=== PATIENT | male | born 1965 | race Caucasian/White ===

== ENCOUNTER 2017-09-03 23:40 | Emergency (ER) | payer MEDICARE, SELFPAY ==
[2017-09-03 23:42] VITALS: BP 157/132; PULSE 77; RESP 18; TEMP 36.8; O2SAT 99; BMI 27.8
--- NOTE | 2017-09-03 23:55 | EKG12_ITS ---
Test Reason : ANXIETY Blood Pressure : / mmHG Vent. Rate : 076 BPM Atrial Rate : 076 BPM P-R Int : 148 ms QRS Dur : 090 ms QT Int : 356 ms P-R-T Axes : 069 084 065 degrees QTc Int : 400 ms Normal sinus rhythm Normal ECG Confirmed by AROLDO WHITE, LUCINA ([id number]), editor sound MERRY BUCIO ([id number]) on 09/06/2017 2:05:14 PM Referred By: TERRY Confirmed By:LUCINA KENDRICK MD
--- NOTE | 2017-09-03 23:58 | ED.VISSUMM ---
- ER Visit Summary Date of Service: 09/03/17 Chief Complaint: panic attack History of Present Illness: The patient is a 51 M with history of anxiety and panic attacks, on disability for same, presents for 2 hours of difficulty breathing and concern for panic attack. Patient states normally his panic attacks last approximately 15 minutes, and he has never had this level of shortness of breath with them before. He has associated alternating hot and cold sensations, sweating of his palms, dry mouth, and was dizzy and lightheaded on onset. He felt like his heart was racing. He was doing work on his car when it began. He recently was changed from ramipril to a different blood pressure medication approximately 1 month ago, and states his panic attacks stopped after that. Has history of hypertension and renal dysfunction. No history of venous thromboembolism or cardiac disease. He uses tobacco but denies alcohol or drug use. Physical Examination: Vital signs: afebrile, hemodynamically stable, no hypoxia on room air General: well nourished, well developed, in no distress, anxious appearing Skin: warm, moist, palms are sweaty, no rash, no pallor HEENT: normocephalic and atraumatic; PERRL, EOMI, moist mucous membranes Cardiovascular: regular rate and rhythm without murmurs, no peripheral edema, 2+ pulses all distal extremities Respiratory: mild tachypnea, lungs are clear to auscultation bilaterally, no rales, rhonchi or wheezing Abdominal: Abdomen is soft, nontender with normoactive bowel sounds, no guarding or rebound, no masses MSK: Moves all extremities, no deformities, normal strength Neuro: Awake and alert, oriented ?4. No facial droop, sensation and motor function intact and symmetric Test Results: Abnormal Lab Results 09/04/17 09/04/17 09/04/17 00:10 00:10 00:10 WBC 10.4 RBC 4.62 Hgb 14.8 Hct 43.3 MCV 93.7 MCH 32.0 MCHC 34.2 RDW 12.6 RDW Differential 42.7 Plt Count 159 MPV 10.2 Immature Gran % (Auto) 0.300 Neut % (Auto) 63.2 Lymph % (Auto) 23.8 [place] % (Auto) 9.5 Eos % (Auto) 2.9 Baso % (Auto) 0.3 Absolute Neuts (auto) 6.6 Absolute Lymphs (auto) 2.48 Total Counted Not Reportable D-Dimer Quant (PE/DVT) < 0.27 L Sodium 138 Potassium 3.4 L Chloride 100 Carbon Dioxide 29.0 Anion Gap 9 BUN 13 Creatinine 1.44 H Estim Creat Clear Calc 64.07 Est GFR (MDRD) Af Amer 67 Est GFR (MDRD) Non-Af 55 L BUN/Creatinine Ratio 9.0 L Glucose 122 H Calcium 9.3 Magnesium 2.0 Troponin I < 0.015 TSH 2.63 Emergency Department Course and Treatment: Patient presents with symptoms that he feels are a panic attack, and he has history of anxiety and panic attacks. However this episode is been more prolonged than he is used to. Patient is having no chest pain but does feel short of breath and is having sweating, dry mouth and tingling in his extremities. Likely this is secondary to hyperventilation. Workup performed to look for underlying medical cause of patient's anxiousness other than panic attack. EKG showed a sinus rhythm without ischemia or ectopy, patient had no tachycardia at any point. Chest x-ray showed no infiltrates or pneumothorax. Labs were unremarkable, with no electrolyte derangements, a normal TSH, no leukocytosis or anemia, a negative d-dimer and a negative troponin. Patient received Ativan and had improvement in his symptoms. On reevaluation he was no longer having any shortness of breath, and was not having any sweating. He still felt mild tingling in his hands and feet. We discussed his anxiety medication regimen, and he states that he has been having more frequent intense panic attacks since his blood pressure medications were changed. We discussed that he may need to talk about changing back or trying a completely different blood pressure medication with his doctor, since this may be affecting his control of his anxiety. Patient was given a prescription for hydroxyzine for anxiety symptoms not well controlled with his home medications. He will follow-up with his doctors to discuss further medical management. No alternative concerning finding on patient's workup to explain his anxiousness. Discharged home. Treatment Plan: [] Disposition: [] Impression: Panic attack This note was generated with [employer] software. It may contain incorrect words, spelling, and punctuation that were not noted in review of the chart prior to signing ED Disposition - Plan for ED Patient: Disposition: Home or Assisted Living Chief Complaint: Anxiety Instructions: ED Panic Attack Prescriptions: Hydroxyzine HCl 25 - 50 mg PO BID PRN #20 tab PRN Reason: Anxiety Referrals: Antonio Fung, MAMIE-C [Primary Care Provider] - As soon as possible Additional Instructions: Please follow-up with your doctors to discuss the possibility that your new blood pressure medication is not interacting well with your anxiety medications. You may use the hydroxyzine as needed for breakthrough anxiety. If you have any worsening of your condition or any new concerning symptoms, please return immediately to the emergency department for another evaluation.
[2017-09-04] MEDS: LORazepam 1 MG Tablet PO (00:02)
--- NOTE | 2017-09-04 00:04 | RAD_ITS ---
XR Chest 1 View INDICATION: SOB/DYSPNEAHX OF ANXIETY ATTACKS COMPARISON: None FINDINGS: Heart size and pulmonary vascularity are within normal limits. The lungs are clear without evidence of airspace consolidation or pleural effusion. The osseous structures are grossly unremarkable. RAD/Chest 1 View (Portable) IMPRESSION: No radiographic evidence of acute intrathoracic disease. at 0045 Reported and signed by: May Crews MD Electronically Signed: May Crews MD at 0:44 EDT Tel , Service support ,
--- NOTE | 2017-09-04 00:04 | ED.DCSUM_ITS ---
- ER Visit Summary Date of Service: 09/03/17 Chief Complaint: panic attack History of Present Illness: The patient is a 51 M with history of anxiety and panic attacks, on disability for same, presents for 2 hours of difficulty breathing and concern for panic attack. Patient states normally his panic attacks last approximately 15 minutes, and he has never had this level of shortness of breath with them before. He has associated alternating hot and cold sensations, sweating of his palms, dry mouth, and was dizzy and lightheaded on onset. He felt like his heart was racing. He was doing work on his car when it began. He recently was changed from ramipril to a different blood pressure medication approximately 1 month ago, and states his panic attacks stopped after that. Has history of hypertension and renal dysfunction. No history of venous thromboembolism or cardiac disease. He uses tobacco but denies alcohol or drug use. Physical Examination: Vital signs: afebrile, hemodynamically stable, no hypoxia on room air General: well nourished, well developed, in no distress, anxious appearing Skin: warm, moist, palms are sweaty, no rash, no pallor HEENT: normocephalic and atraumatic; PERRL, EOMI, moist mucous membranes Cardiovascular: regular rate and rhythm without murmurs, no peripheral edema, 2 + pulses all distal extremities Respiratory: mild tachypnea, lungs are clear to auscultation bilaterally, no rales, rhonchi or wheezing Abdominal: Abdomen is soft, nontender with normoactive bowel sounds, no guarding or rebound, no masses MSK: Moves all extremities, no deformities, normal strength Neuro: Awake and alert, oriented ?4. No facial droop, sensation and motor function intact and symmetric Test Results: Abnormal Lab Results 09/04/17 09/04/17 09/04/17 00:10 00:10 00:10 WBC 10.4 RBC 4.62 Hgb 14.8 Hct 43.3 MCV 93.7 MCH 32.0 MCHC 34.2 RDW 12.6 RDW Differential 42.7 Plt Count 159 MPV 10.2 Immature Gran % (Auto) 0.300 Neut % (Auto) 63.2 Lymph % (Auto) 23.8 [place] % (Auto) 9.5 Eos % (Auto) 2.9 Baso % (Auto) 0.3 Absolute Neuts (auto) 6.6 Absolute Lymphs (auto) 2.48 Total Counted Not Reportable D-Dimer Quant (PE/DVT) < 0.27 L Sodium 138 Potassium 3.4 L Chloride 100 Carbon Dioxide 29.0 Anion Gap 9 BUN 13 Creatinine 1.44 H Estim Creat Clear Calc 64.07 Est GFR (MDRD) Af Amer 67 Est GFR (MDRD) Non-Af 55 L BUN/Creatinine Ratio 9.0 L Glucose 122 H Calcium 9.3 Magnesium 2.0 Troponin I < 0.015 TSH 2.63 Emergency Department Course and Treatment: Patient presents with symptoms that he feels are a panic attack, and he has history of anxiety and panic attacks. However this episode is been more prolonged than he is used to. Patient is having no chest pain but does feel short of breath and is having sweating, dry mouth and tingling in his extremities. Likely this is secondary to hyperventilation. Workup performed to look for underlying medical cause of patient's anxiousness other than panic attack. EKG showed a sinus rhythm without ischemia or ectopy, patient had no tachycardia at any point. Chest x- ray showed no infiltrates or pneumothorax. Labs were unremarkable, with no electrolyte derangements, a normal TSH, no leukocytosis or anemia, a negative d- dimer and a negative troponin. Patient received Ativan and had improvement in his symptoms. On reevaluation he was no longer having any shortness of breath, and was not having any sweating. He still felt mild tingling in his hands and feet. We discussed his anxiety medication regimen, and he states that he has been having more frequent intense panic attacks since his blood pressure medications were changed. We discussed that he may need to talk about changing back or trying a completely different blood pressure medication with his doctor , since this may be affecting his control of his anxiety. Patient was given a prescription for hydroxyzine for anxiety symptoms not well controlled with his home medications. He will follow-up with his doctors to discuss further medical management. No alternative concerning finding on patient's workup to explain his anxiousness. Discharged home. Treatment Plan: [] Disposition: [] Impression: Panic attack This note was generated with [employer] software. It may contain incorrect words, spelling, and punctuation that were not noted in review of the chart prior to signing ED Disposition - Plan for ED Patient: Disposition: Home or Assisted Living Chief Complaint: Anxiety Instructions: ED Panic Attack Prescriptions: Hydroxyzine HCl 25 - 50 mg PO BID PRN #20 tab PRN Reason: Anxiety Referrals: Antonio Fung, MAMIE-C [Primary Care Provider] - As soon as possible Additional Instructions: Please follow-up with your doctors to discuss the possibility that your new blood pressure medication is not interacting well with your anxiety medications. You may use the hydroxyzine as needed for breakthrough anxiety. If you have any worsening of your condition or any new concerning symptoms, please return immediately to the emergency department for another evaluation.
[2017-09-04 00:15] VITALS: BP 150/89; PULSE 82; RESP 16; O2SAT 95
[2017-09-04 00:18] LABS: Absolute Lymphocyte Count 2.48 X10^3/ul (0.83-4.51); Absolute Neutrophil Count 6.6 X10^3/uL (2.0-7.7); Basophil# 0.03 X10^3/uL; Basophil% 0.3 % (0-1); Eosinophils% 2.9 % (0-5); Hematocrit 43.3 % (40-54); Hemoglobin 14.8 g/dl (13.0-16.5); Lymphocyte # 2.48 X10^3/ul (4.0); Lymphocyte % 23.8 % (19-41); Mean Corp Hgb Conc 34.2 g/gl (32-36); Mean Corpuscular Volume 93.7 fL (80-94); Mean Platelet Vol. 10.2 fl (6.2-12.0); Monocyte# 0.99 X10^3/uL; Monocyte% 9.5 % (0-10); Neutrophil # 6.59 X10^3/uL (2.7-7.7); Neutrophil % 63.2 % (47-70); Platelet Count 159 K/mm3 (150-450); RBC Distribution Width CV 12.6 % (11.6-14.6); RBC Distribution Width SD 42.7 fl (35.1-43.9); Red Blood Count 4.62 M/mm3 (4.6-6.2); White Blood Count 10.4 K/mm3 (4.4-11.0)
[2017-09-04 00:19] LABS: POSITIVE COUNT NO; POSITIVE DIFFERENTIAL NO; POSITIVE MORPHOLOGY NO
[2017-09-04 00:27] LABS: D-Dimer Quantitative (DVT/PE) < 0.27 FEU/ug/m (0.27-0.49)
[2017-09-04 00:42] LABS: Anion Gap 9 (5-15); BUN 13 mg/dL (7-18); Calcium,Total 9.3 mg/dL (8.5-10.1); Chloride 100 mmol/L (98-107); Creatinine, Serum 1.44 mg/dL (0.70-1.30); EST Glomerular Filtration Rate 55 mL/min (>60); Est Glom Filt Rate - Afr Amer 67 mL/min (>60); Estimated Creatinine Clearance 64.07 ml/min; Glucose 122 mg/dL (74-106); Potassium 3.4 mmol/L (3.5-5.1); Sodium Level 138 mmol/L (136-145); Thyroid Stim Hormone (TSH) 2.63 uIU/mL (0.358-3.74)
--- NOTE | 2017-09-04 01:53 | ED.DEP ---
ED Disposition - Plan for ED Patient: Disposition: Home or Assisted Living Chief Complaint: Anxiety Instructions: ED Panic Attack Prescriptions: Hydroxyzine HCl 25 - 50 mg PO BID PRN #20 tab PRN Reason: Anxiety Referrals: Antonio Fung NP-C [Primary Care Provider] - As soon as possible Additional Instructions: Please follow-up with your doctors to discuss the possibility that your new blood pressure medication is not interacting well with your anxiety medications. You may use the hydroxyzine as needed for breakthrough anxiety. If you have any worsening of your condition or any new concerning symptoms, please return immediately to the emergency department for another evaluation.
[2017-09-04 01:58] VITALS: BP 126/85; PULSE 78; RESP 13; O2SAT 97
[2017-09-04] MEDS: hydrOXYzine PAM 25 MG Capsule PO (02:01)
== END 2017-09-04 02:17 | disposition home or self-care (01) ==
PROVIDERS: Emergency Provider Emergency Medicine; Family Provider Nurse Practitioner Family; PCP Nurse Practitioner Family
DX: F41.0 Panic disorder [episodic paroxysmal anxiety] (principal); F41.9 Anxiety disorder, unspecified; R06.82 Tachypnea, not elsewhere classified; I10 Essential (primary) hypertension; Z72.0 Tobacco use; Z79.899 Other long term (current) drug therapy
CPT/HCPCS: 71045; 80048; 83735; 84443; 84484; 85025; 85379; 93005; 99285; A4216

== ENCOUNTER → 2017-09-05 13:04 | Outpatient (CLI) | payer MEDICARE, SELFPAY ==
[2017-09-05 13:54] LABS: Erythrocyte Sedimentation Rate 12 mm/hr (0-15)
[2017-09-05 14:25] LABS: CRP < 2.90 mg/L (0.0-3.0); T4 Free Direct 1.11 ng/dL (0.76-1.46); Thyroid Stim Hormone (TSH) 1.83 uIU/mL (0.358-3.74)
[2017-09-10 14:08] LABS: Lyme IgG P18 Ab Absent (.); Lyme IgG P23 Ab Absent (.); Lyme IgG P28 Ab Absent (.); Lyme IgG P30 Ab Absent (.); Lyme IgG P39 Ab Absent (.); Lyme IgG P41 Ab Absent (.); Lyme IgG P45 Ab Absent (.); Lyme IgG P58 Ab Absent (.); Lyme IgG P66 Ab Absent (.); Lyme IgG P93 Ab Absent (.); Lyme IgM P23 Ab Absent (.); Lyme IgM P39 Ab Absent (.); Lyme IgM P41 Ab Absent (.)
[2017-09-11 11:13] LABS: Lyme IgG WB Interpretation Negative (.); Lyme IgM WB Interpretation Negative (.)
== END ==
PROVIDERS: Family Provider Nurse Practitioner Family; PCP Nurse Practitioner Family; Visit Provider Nurse Practitioner Family
DX: R53.82 Chronic fatigue, unspecified (principal); L53.8 Other specified erythematous conditions
CPT/HCPCS: 36415; 84439; 84443; 85652; 86140; 86617

== ENCOUNTER 2017-10-05 12:22 | Emergency (ER) | payer MEDICARE, SELFPAY ==
[2017-10-05 12:23] VITALS: BP 118/82; BP 127/87; PULSE 73; PULSE 75; RESP 15; RESP 16; TEMP 37.1; O2SAT 100; O2SAT 99; BMI 28.5
--- NOTE | 2017-10-05 12:45 | EKG12_ITS ---
Test Reason : PALPITATIONS Blood Pressure : / mmHG Vent. Rate : 074 BPM Atrial Rate : 074 BPM P-R Int : 144 ms QRS Dur : 090 ms QT Int : 368 ms P-R-T Axes : 056 070 051 degrees QTc Int : 408 ms Normal sinus rhythm Normal ECG Confirmed by AROLDO WHITE, LUCINA ([id number]), photographic editor MERRY BUCIO ([id number]) on 10/09/2017 4:16:58 PM Referred By: Cirilo Brush Confirmed By:LUCINA KENDRICK MD
[2017-10-05 13:12] VITALS: O2SAT 100
[2017-10-05 13:22] LABS: Absolute Lymphocyte Count 1.38 X10^3/ul (0.83-4.51); Absolute Neutrophil Count 5.9 X10^3/uL (2.0-7.7); Basophil# 0.03 X10^3/uL; Basophil% 0.4 % (0-1); Eosinophils% 1.2 % (0-5); Hematocrit 43.6 % (40-54); Hemoglobin 14.9 g/dl (13.0-16.5); Lymphocyte # 1.38 X10^3/ul (4.0); Mean Corp Hgb Conc 34.2 g/gl (32-36); Mean Corpuscular Hgb 32.1 pg (27.0-32.0); Mean Platelet Vol. 10.1 fl (6.2-12.0); Monocyte# 0.71 X10^3/uL; Monocyte% 8.8 % (0-10); Neutrophil # 5.87 X10^3/uL (2.7-7.7); Neutrophil % 72.4 % (47-70); POSITIVE COUNT NO; POSITIVE DIFFERENTIAL NO; POSITIVE MORPHOLOGY NO; Platelet Count 152 K/mm3 (150-450); RBC Distribution Width CV 12.7 % (11.6-14.6); RBC Distribution Width SD 42.8 fl (35.1-43.9); Red Blood Count 4.64 M/mm3 (4.6-6.2); White Blood Count 8.1 K/mm3 (4.4-11.0)
[2017-10-05 14:07] LABS: Anion Gap 5 (5-15); BUN 13 mg/dL (7-18); BUN/Creat Ratio 9.5 RATIO (10-20); Calcium,Total 9.1 mg/dL (8.5-10.1); Chloride 110 mmol/L (98-107); Creatinine, Serum 1.37 mg/dL (0.70-1.30); EST Glomerular Filtration Rate 59 mL/min (>60); Est Glom Filt Rate - Afr Amer 71 mL/min (>60); Glucose 97 mg/dL (74-106); Potassium 3.6 mmol/L (3.5-5.1); Sodium Level 142 mmol/L (136-145); Thyroid Stim Hormone (TSH) 1.66 uIU/mL (0.358-3.74)
--- NOTE | 2017-10-05 14:10 | ED.VISSUMM ---
- ER Visit Summary Date of Service: 10/05/17 Chief Complaint: Palpitations, shortness of breath History of Present Illness: The patient is a 51 M who presents with the above symptoms. He has had all these symptoms for months. He states he has had palpitations for a long time. He developed some shortness of breath as well which she also states is been going on for a while. He had some chest pain earlier today but now it is gone. He states he has a history of panic attacks and anxiety. He wore a Holter monitor earlier in the week and does not know the results of what came of those. Physical Examination: Vital signs reviewed. HEENT exam unremarkable. Heart is regular rate and rhythm without murmurs. Lungs are clear to auscultation. Abdomen is soft and nontender. Extremities reveal no edema. Skin exam normal. Neurologic exam normal. Test Results: EKG is normal sinus rhythm with no ectopy or ischemic changes. Labs are normal except for creatinine 1.37 Emergency Department Course and Treatment: I am unclear the etiology of the patient's palpitations. It could be from his anxiety. He will continue these medications and will follow up with his primary care physician Treatment Plan: [] Disposition: Discharge Impression: Palpitations This note was generated with [employer] software. It may contain incorrect words, spelling, and punctuation that were not noted in review of the chart prior to signing ED Disposition - Plan for ED Patient: Chief Complaint: Palpitations Referrals: Antonio Fung, PERMIT SPECIALIST-C [Primary Care Provider] -
--- NOTE | 2017-10-05 14:12 | DCINST.ED_ITS ---
ED Disposition - Plan for ED Patient: Disposition: Home or Assisted Living Chief Complaint: Palpitations Instructions: ED Palpitations Referrals: Antonio Fung, SOFT WATER MECHANIC-C [Primary Care Provider] -
[2017-10-05 14:24] VITALS: BP 115/82; PULSE 85; RESP 13; O2SAT 97
== END 2017-10-05 14:28 | disposition home or self-care (01) ==
PROVIDERS: Emergency Provider Emergency Medicine; Family Provider Nurse Practitioner Family; PCP Nurse Practitioner Family
DX: R00.2 Palpitations (principal); F41.9 Anxiety disorder, unspecified; F41.0 Panic disorder [episodic paroxysmal anxiety]; Z72.0 Tobacco use; Z79.899 Other long term (current) drug therapy
CPT/HCPCS: 80048; 84443; 84484; 85025; 93005; 99285; J7030

== ENCOUNTER → 2017-10-07 10:51 | Outpatient (CLI) | payer MEDICARE, SELFPAY ==
--- NOTE | 2017-10-07 10:54 | ECHOD_ITS ---
Reason For Study: PALPITATIONS Procedure This was a 2D Doppler, Color Flow transthoracic echocardiogram. Exam performed in department. Left Ventricle Normal LV size. Left ventricular systolic function is normal. The estimated ejection fraction is 60 %. Normal diastology for age. No regional wall motion abnormalities noted. Right Ventricle Normal RV size. Normal systolic function. Atria Normal left atrium. Normal right atrium. Mitral Valve Normal mitral valve. Trivial mitral valve insufficiency. Tricuspid Valve Normal tricuspid valve. Mild tricuspid valve insufficiency. Normal pulmonary artery pressure. Pulmonary artery systolic pressure is 20 mmHg. Aortic Valve Normal aortic valve. Trisinus/trileaflet aortic valve. Trivial aortic valve insufficiency. Pulmonic Valve Normal pulmonic valve. Great Vessels Mildly dilated aortic root. The pulmonary artery is normal size. Normal inferior vena cava. Pericardium/Pleural No pericardial effusion. MMode/2D Measurements & Calculations LVIDd: 4.9 cm IVSd: 1.1 cm Ao root diam: 4.3 cm LVIDs: 3.1 cm LVPWd: 0.81 cm LA dimension: 3.6 cm FS: 36.4 % LAV(MOD-bp): 49.2 ml LA A4 area: 15.3 cm2 RA A4 area: 12.2 cm2 LAV(MOD-bp) Indexed: 24.4 ml/m2 LAV(MOD-sp2): 63.4 ml LAV(MOD-sp4): 37.1 ml Time Measurements MV dec time: 0.24 sec Doppler Measurements & Calculations MV E max brijesh: 74.4 cm/sec Lat Peak E' Brijesh: 14.2 cm/sec Med Peak E' Brijesh: 15.5 cm/sec MV A max brijesh: 46.8 cm/sec E/E' lat: 5.2 E/E' med: 4.8 MV E/A: 1.6 MV V2 max: 83.9 cm/sec MV P1/2t max brijesh: 83.9 cm/sec Ao V2 max: 118.3 cm/sec MV max P.8 mmHg MV P1/2t: 134.2 msec Ao max P.6 mmHg MV V2 mean: 47.9 cm/sec MV dec slope: 183.0 cm/sec2 Ao V2 mean: 79.7 cm/sec MV mean P.1 mmHg MVA(P1/2t): 1.6 cm2 Ao mean P.9 mmHg MV V2 VTI: 27.5 cm Ao V2 VTI: 25.2 cm LV V1 max: 100.4 cm/sec PA V2 max: 90.6 cm/sec TR max brijesh: 211.3 cm/sec LV V1 max P.0 mmHg TR max P.9 mmHg LV V1 mean P.8 mmHg LV V1 mean: 61.1 cm/sec LV V1 VTI: 20.8 cm Interpretation Summary Normal LV size. Left ventricular systolic function is normal. The estimated ejection fraction is 60 %. Normal diastology for age. Trivial mitral valve insufficiency. Ordering Physician: GURMEET PORTER Referring Physician: GURMEET PORTER Performed By: Jason Grimes RCS
== END ==
PROVIDERS: Family Provider Nurse Practitioner Family; PCP Nurse Practitioner Family; Visit Provider Nurse Practitioner Family
DX: R00.2 Palpitations (principal)
CPT/HCPCS: 93306

== ENCOUNTER 2017-10-18 10:31 | Emergency (ER) | payer MEDICARE, SELFPAY ==
[2017-10-18 10:32] VITALS: BP 127/84; PULSE 86; RESP 17; TEMP 36.8; O2SAT 100; BMI 27.2
--- NOTE | 2017-10-18 11:18 | ED.VISSUMM ---
- ER Visit Summary Date of Service: 10/18/17 Chief Complaint: Abscess on back History of Present Illness: The patient is a 51 M who presents with a progressively enlarging abscess on the left flank. Patient states she has never had anything like this before and has required drainage. He notes it is more painful today. He states that overnight it abruptly gotten significantly worse. No fevers. Physical Examination: Afebrile vital signs stable There is a 3 cm round abscess in the left low flank. There is some surrounding erythema. There is fluctuance. Emergency Department Course and Treatment: Patient provided informed verbal consent for the incision and drainage of abscess. Wound was washed with Betadine. It was locally anesthetized using 1% lidocaine. A small cross incision was made over the area of fluctuance that coincided with ultrasound confirmation of abscess. Large amount of pus was expressed. The wound was probed for loculations. It was irrigated with 500 cc of sterile saline. Approximately 10 inches of quarter inch iodoform packing was placed. Wound was dressed. Wound care discussed with patient. Patient will be placed on Keflex and Bactrim with a few [place] for pain. He will need to follow-up in 3 days for removal of packing. Return if any concerns or worsening. Impression: 1. Left flank cutaneous abscess 2. Incision and drainage by emergency physician This note was generated with [employer] dictation software. It may contain incorrect words, spelling, and punctuation that were not noted in review of the chart prior to signing ED Disposition - Plan for ED Patient: Disposition: Home or Assisted Living Chief Complaint: Abscess Instructions: ED Abscess IandD Prescriptions: Cephalexin [Keflex] 500 mg PO Q6 #40 cap Hydrocodone/Acetaminophen [[place] 5-325 Tablet] 1 - 2 ea PO 4X/DAY PRN PRN 4 Days #20 tab PRN Reason: Pain Smz/Tmp Ds [Bactrim Ds] 1 tab PO BID #20 tab Referrals: Antonio Fung, MAMIE-C [Primary Care Provider] - (IN 3 DAYS FOR PACKING REMOVAL)
--- NOTE | 2017-10-18 11:22 | ED.DCSUM_ITS ---
- ER Visit Summary Date of Service: 10/18/17 Chief Complaint: Abscess on back History of Present Illness: The patient is a 51 M who presents with a progressively enlarging abscess on the left flank. Patient states she has never had anything like this before and has required drainage. He notes it is more painful today. He states that overnight it abruptly gotten significantly worse. No fevers. Physical Examination: Afebrile vital signs stable There is a 3 cm round abscess in the left low flank. There is some surrounding erythema. There is fluctuance. Emergency Department Course and Treatment: Patient provided informed verbal consent for the incision and drainage of abscess. Wound was washed with Betadine. It was locally anesthetized using 1% lidocaine. A small cross incision was made over the area of fluctuance that coincided with ultrasound confirmation of abscess. Large amount of pus was expressed. The wound was probed for loculations. It was irrigated with 500 cc of sterile saline. Approximately 10 inches of quarter inch iodoform packing was placed. Wound was dressed. Wound care discussed with patient. Patient will be placed on Keflex and Bactrim with a few [place] for pain. He will need to follow-up in 3 days for removal of packing. Return if any concerns or worsening. Impression: 1. Left flank cutaneous abscess 2. Incision and drainage by emergency physician This note was generated with [employer] dictation software. It may contain incorrect words, spelling, and punctuation that were not noted in review of the chart prior to signing ED Disposition - Plan for ED Patient: Disposition: Home or Assisted Living Chief Complaint: Abscess Instructions: ED Abscess IandD Prescriptions: Cephalexin [Keflex] 500 mg PO Q6 #40 cap Hydrocodone/Acetaminophen [[place] 5-325 Tablet] 1 - 2 ea PO 4X/DAY PRN PRN 4 Days #20 tab PRN Reason: Pain Smz/Tmp Ds [Bactrim Ds] 1 tab PO BID #20 tab Referrals: Antonio Fung, MAMIE-C [Primary Care Provider] - (IN 3 DAYS FOR PACKING REMOVAL)
== END 2017-10-18 11:33 | disposition home or self-care (01) ==
LOC: ED 11:27
PROVIDERS: Emergency Provider Emergency Medicine; Family Provider Nurse Practitioner Family; PCP Nurse Practitioner Family
DX: L02.212 Cutaneous abscess of back [any part, except buttock and flank] (principal); I10 Essential (primary) hypertension; K21.9 Gastro-esophageal reflux disease without esophagitis; F32.9 Major depressive disorder, single episode, unspecified; F41.9 Anxiety disorder, unspecified; Z72.0 Tobacco use; Z79.899 Other long term (current) drug therapy
CPT/HCPCS: 10060; 99282

== ENCOUNTER 2017-12-03 22:29 | Emergency (ER) | payer MEDICARE, SELFPAY ==
[2017-12-03 22:30] VITALS: BP 145/78; PULSE 68; RESP 18; TEMP 36.8; O2SAT 98; BMI 27.8
--- NOTE | 2017-12-03 22:49 | ED.VISSUMM ---
- ER Visit Summary Date of Service: 12/03/17 Chief Complaint: Right flank pain History of Present Illness: The patient is a 51 M past medical history of anxiety, depression and hypoglycemia. About 3 hours ago seen. No prior history of kidney stones. Denies any recent back injury. States she has been peeing more often today. Denies any dysuria. No fever. States the pain is intermittent and that it is dull and aching. He did have nausea and vomiting ?3 today. Physical Examination: Well-appearing middle-age male. Vital signs are stable afebrile. He is somewhat anxious. HEENT exam unremarkable. Neck nontender. Lungs clear to auscultation bilaterally. Heart regular rhythm no murmur. Abdomen soft and nontender. Normal bowel sounds no peritoneal signs. His abdomen is completely nontender. Moving all 4 extremities. Neurovascular intact. Back nontender. Both spine and paralumbar. No CVA tenderness. Neurologically is awake alert with no focal motor deficits. Test Results: UA normal other than a small amount of blood. CT flank shows right renal cyst. No acute stones. Nor any renal stones. An hepatic cyst. Emergency Department Course and Treatment: Patient has right flank pain. My clinical suspicion for stone is actually not that high. Patient has multiple other ER visits a lot of times associated with feelings of anxiety or palpitations. We will obtain a UA and do a flank study. Currently does not need pain medication. Treatment Plan: Patient doing well repeat exam at 0 100 a.m. He will be discharged home. Disposition: Discharge Impression: Right flank pain of uncertain etiology Anxiety This note was generated with [employer] dictation software. It may contain incorrect words, spelling, and punctuation that were not noted in review of the chart prior to signing ED Disposition - Plan for ED Patient: Chief Complaint: Flank Pain Referrals: Antonio Fung, MAMIE-C [Primary Care Provider] -
[2017-12-03 23:05] LABS: Bacteria 0 SEEN /hpf (None Seen); Mucous, Urine 0 SEEN /hpf (<or=2+); Squamous Epithelial Cells - UA 0 SEEN /hpf (0-5)
[2017-12-03 23:07] LABS: Color, Urine Straw (Yellow); Glucose, Dipstick Normal (Normal); Ketone-Dipstick Negative (Negative); Leukocyte Esterase-Dipstick 25 /ul (Negative); Nitrite-Dipstick Negative (Negative); Occult Blood-Urine 150 /ul (Negative); Protein-Dipstick Negative (Negative); Urine Bilirubin Dipstick Negative (Negative); Urine Clarity Clear (Clear); Urine Urobilinogen Normal (Normal)
[2017-12-03 23:14] LABS: Red Blood Cells-Urine 0-5 SEEN /hpf (0-5); White Blood Cells 0-5 SEEN /hpf (0-5)
[2017-12-04 00:39] VITALS: BP 131/85; PULSE 75; RESP 19; O2SAT 95
--- NOTE | 2017-12-04 01:04 | DCINST.ED_ITS ---
ED Disposition - Plan for ED Patient: Disposition: Home or Assisted Living Chief Complaint: Flank Pain Instructions: ED Flank Pain Uncertain Cause Referrals: Antonio Fung, MINE ADMINISTRATOR SUPERVISOR-C [Primary Care Provider] - As Needed Additional Instructions: Tylenol and/or Motrin for pain. Your urinalysis was normal without signs of infection. Your CAT scan showed no kidney stones.
== END 2017-12-04 01:11 | disposition home or self-care (01) ==
PROVIDERS: Emergency Provider Emergency Medicine; Family Provider Nurse Practitioner Family; PCP Nurse Practitioner Family
DX: R10.9 Unspecified abdominal pain (principal); F41.9 Anxiety disorder, unspecified; R11.2 Nausea with vomiting, unspecified; N28.1 Cyst of kidney, acquired; K76.89 Other specified diseases of liver; F32.9 Major depressive disorder, single episode, unspecified; Z79.899 Other long term (current) drug therapy
CPT/HCPCS: 74176; 81001; 99285; A4216

== ENCOUNTER 2018-04-29 08:24 | Emergency (ER) | payer MEDICARE, SELFPAY ==
[2018-04-29 08:26] VITALS: BP 147/91; PULSE 102; RESP 18; TEMP 36.1; O2SAT 100; BMI 27.3
--- NOTE | 2018-04-29 08:36 | US_ITS ---
STUDY: SCROTUM ULTRASOUND REASON FOR EXAM: Male, 52 years old. Pain/tenderness of the right testicle. TECHNIQUE: Ultrasound evaluation of the scrotum was performed with color Doppler and static olvera-scale imaging. COMPARISON: None. FINDINGS: RIGHT TESTICLE INTRATESTICULAR: There is a normal size of the right testicle. The right testicle measures 3.9 cm x 2.9 cm x 2.9 cm. There is a homogenous echotexture. There is normal arterial and normal venous vascularity. There is no demonstrated right testicular mass or cyst. EXTRATESTICULAR: The epididymis is enlarged. The epididymis head measures 1.9 cm x 1.9 cm x 1.9 cm. There is increased (hyperemic) vascularity of the epididymis. There is a 1.2 cm x 1.0 cm x 1.0 cm hypoechoic nodule in the head of the epididymis. There is a small hydrocele. There is no demonstrated varicocele. There is no demonstrated extratesticular mass or cyst. LEFT TESTICLE INTRATESTICULAR: There is a normal size of the left testicle. The left testicle measures 4.8 cm x 2.7 cm x 2.1 cm. There is a homogenous echotexture. There is normal arterial and normal venous vascularity. There is no demonstrated left testicular mass or cyst. EXTRATESTICULAR: The epididymis is normal in size. The epididymis head measures 1.2 cm x 0.7 cm x 0.7 cm. There is normal vascularity of the epididymis. There is a well-defined cystic structure within the epididymis, without internal echoes, consistent with an epididymal cyst. There is no demonstrated hydrocele. There is no demonstrated varicocele. There is no demonstrated extratesticular mass or cyst. US/Testicular with Arterial Flow IMPRESSION: Findings suggestive of right epididymitis. Small right hydrocele. Small left epididymal cyst. Electronically Signed: Ruben Hernandez MD at 10:29 EST Tel [phone], Service support ,
--- NOTE | 2018-04-29 08:42 | ED.VISSUMM ---
- ER Visit Summary Date of Service: 04/29/18 Chief Complaint: Right testicle pain History of Present Illness: The patient is a 52 M with 5-6 days of right testicle pain. This was gradual in onset, no dysuria or penile discharge. He is worried because he had testicular torsion a number years ago. This was surgically repaired. He has not had any symptoms since then. His pain is mild to moderate achy. He does have some lumbar back pain. No fever or chills. No flank pain. No abdominal pain or suprapubic pain. No history of trauma. Physical Examination: Not appear in acute distress. Moist mucous membranes, no obvious facial deformity Regular rate and rhythm without any obvious murmurs Clear lungs bilaterally speaking in full sentences without any obvious respiratory distress Abdomen soft and nontender no guarding or rebound : No penile tenderness, circumcised penis. No discharge. Right testicle looks slightly more engorged than the left, however both have a normal lie. There is bilateral subtle cremasteric reflex. No hernia on exam. Moves all extremities without any difficulty or pain. He has LS spine tenderness and paraspinal tenderness Skin does not show any obvious rashes or lesions, no trauma. Alert oriented ?3 with no gross focal deficit Emergency Department Course and Treatment: Patient's clinical exam and urinalysis as well as the ultrasound are consistent with epididymitis, I am not suspicious of an STD. I will treat with Levaquin, analgesia will be provided. Disposition: Discharge stable condition Impression: Epididymitis This note was generated with [employer] dictation software. It may contain incorrect words, spelling, and punctuation that were not noted in review of the chart prior to signing ED Disposition - Plan for ED Patient: Disposition: Home or Assisted Living Chief Complaint: Male Pain/Injury Instructions: ED Epididymitis Prescriptions: Hydrocodone Bitart/Apap 5-325 [[place] 5MG-325MG] 1 tab PO Q4H PRN PRN 2 Days #10 tab PRN Reason: Pain Levofloxacin [Levaquin] 500 mg PO DAILY 21 Days #21 tab Referrals: Antonio Fung, MAMIE-C [Primary Care Provider] - 3-5 Days
[2018-04-29] MEDS: HYDROcodone Bitartrate/Apap 5/325 Tablet PO (09:08)
[2018-04-29 09:31] LABS: Bacteria 0 SEEN /hpf (None Seen); Mucous, Urine 0 SEEN /hpf (<or=2+)
[2018-04-29 09:32] LABS: Color, Urine Yellow (Yellow); Glucose, Dipstick Normal (Normal); Ketone-Dipstick 5 mg/dl (Negative); Leukocyte Esterase-Dipstick 25 /ul (Negative); Nitrite-Dipstick Negative (Negative); Occult Blood-Urine 50 /ul (Negative); Protein-Dipstick Negative (Negative); Urine Bilirubin Dipstick Negative (Negative); Urine Clarity Clear (Clear); Urine Urobilinogen Normal (Normal)
[2018-04-29 09:33] VITALS: PULSE 79; RESP 16; O2SAT 99
[2018-04-29 09:42] LABS: Red Blood Cells-Urine 0-5 SEEN /hpf (0-5); Squamous Epithelial Cells - UA 0-5 SEEN /hpf (0-5); White Blood Cells 0-5 SEEN /hpf (0-5)
[2018-04-29 10:44] VITALS: BP 127/81; PULSE 81; RESP 16; O2SAT 97
[2018-04-29 11:08] VITALS: BP 127/81; PULSE 81; RESP 16; O2SAT 97
== END 2018-04-29 11:10 | disposition home or self-care (01) ==
PROVIDERS: Emergency Provider Emergency Medicine; Family Provider Nurse Practitioner Family; PCP Nurse Practitioner Family
DX: N45.1 Epididymitis (principal); I10 Essential (primary) hypertension; F41.9 Anxiety disorder, unspecified; Z72.0 Tobacco use; Z79.899 Other long term (current) drug therapy
CPT/HCPCS: 76870; 81001; 93976; 99283

== ENCOUNTER → 2019-08-28 08:04 | Outpatient (CLI) | payer MEDICARE, MEDICAID, SELFPAY ==
[2019-08-28 09:05] LABS: Hematocrit 44.7 % (40-54); Hemoglobin 15.2 g/dL (13.0-16.5); Mean Corpuscular Hgb 32.5 pg (27.0-32.0); Mean Corpuscular Volume 95.5 fL (80-94); Platelet Count 154 K/mm3 (150-450); RBC Distribution Width CV 13.2 % (11.6-14.6); RBC Distribution Width SD 45.5 fl (35.1-43.9); Red Blood Count 4.68 M/mm3 (4.6-6.2); White Blood Count 7.2 K/mm3 (4.4-11.0)
[2019-08-28 09:27] LABS: ALB/GLOB Ratio 1.2 RATIO (0.9-2.4); AST(SGOT) 23 U/L (15-37); Alanine Aminotransfer ALT/SGPT 25 U/L (16-61); Albumin, Serum 3.9 g/dL (3.2-5.0); Alkaline Phosphatase 65 U/L (45-117); Anion Gap 5 (5-15); BUN 16 mg/dL (7-18); BUN/Creat Ratio 12.3 RATIO (10-20); Calcium,Total 9.1 mg/dL (8.5-10.1); Chloride 106 mmol/L (98-107); Cholesterol 163 mg/dL (200); EST Glomerular Filtration Rate 62 mL/min (>60); Est Glom Filt Rate - Afr Amer 75 mL/min (>60); Globulin 3.3 g/dL (2.2-4.2); Glucose 108 mg/dL (74-106); High Density Lipoprotein 44 mg/dL; PSA,Total - Annual Screen 0.68 ng/mL (0.00-4.00); Potassium 3.7 mmol/L (3.5-5.1); Protein, Total 7.2 g/dL (6.4-8.2); Sodium Level 138 mmol/L (136-145); Triglycerides 187 mg/dL; Very Low Density Lipoprotein 37 mg/dL (5-40)
[2019-08-28 09:29] LABS: Hemoglobin A1c 5.8 % (4.2-6.3)
== END ==
PROVIDERS: PCP Nurse Practitioner Family; Referring Provider Nurse Practitioner Family; Visit Provider Nurse Practitioner Family
DX: I10 Essential (primary) hypertension (principal); R73.01 Impaired fasting glucose; N28.9 Disorder of kidney and ureter, unspecified; E78.1 Pure hyperglyceridemia; Z12.5 Encounter for screening for malignant neoplasm of prostate
CPT/HCPCS: 36415; 80053; 80061; 83036; 84153; 85027; G0103

== ENCOUNTER → 2019-10-14 11:03 | Outpatient (CLI) | payer MEDICARE, MEDICAID, SELFPAY ==
[2019-10-14 12:17] LABS: BNP,B-Type NATRIURETIC PEPTIDE 15.1 pg/mL (0-100)
== END ==
PROVIDERS: PCP Nurse Practitioner Family
DX: R06.01 Orthopnea (principal); R00.2 Palpitations; I10 Essential (primary) hypertension; I34.0 Nonrheumatic mitral (valve) insufficiency; Z72.0 Tobacco use
CPT/HCPCS: 36415; 83880

== ENCOUNTER → 2020-12-28 10:53 | Outpatient (CLI) | payer MEDICARE, MEDICAID, SELFPAY ==
--- NOTE | 2020-12-28 11:03 | MRI_ITS ---
STUDY: MRI TEMPOROMANDIBULAR JOINTS REASON FOR EXAM: Male, 55 years old. TMJ PAIN, DISCOMFORT right side TECHNIQUE: Standardized fat and water weighted pulse sequences were obtained in all 3 orthogonal planes. COMPARISON: None. FINDINGS: Left TMJ: In the closed-mouth position, the left mandibular condyle is normally positioned in the mandibular fossa. Normal left mandibular condyle. Normal meniscus. Normal relationship of the meniscus to the mandibular condyle. There is no demonstrated joint effusion. In the open mouth position, there is normal forward translation of the mandibular condyle which comes to rest under the articular eminence. The meniscus maintains its normal relationship with the mandibular condyle and articular eminence. Right TMJ: In the closed-mouth position, the right mandibular condyle is normally positioned in the mandibular fossa. Kaycee right mandibular condyle. Normal meniscus. Normal relationship of the meniscus to the mandibular condyle. There is no demonstrated joint effusion. In the open mouth position, there is normal forward translation of the mandibular condyle which comes to rest under the articular eminence. The meniscus maintains its normal relationship with the mandibular condyle and articular eminence. MRI/TMJ/Bilat IMPRESSION: Normal bilateral temporomandibular joints. Electronically Signed: Russell Tapia MD at 9:24 EDT , Service support ,
--- NOTE | 2020-12-28 11:16 | RAD_ITS ---
STUDY: X-RAY - ORBITS REASON FOR EXAM: Male, 55 years old. HX METAL -PRE MRI TECHNIQUE: 2 view(s) of the orbits were obtained. COMPARISON: None. FINDINGS: Normal bilateral orbits without a metallic orbital foreign body. Normal visualized facial bones. Normal paranasal sinuses. The soft tissue structures are unremarkable. RAD/Orbits for Foreign Body IMPRESSION: No demonstrated metallic orbital foreign body. The patient is cleared for an MRI examination. Electronically Signed: Ruben Hernandez MD at 11:40 EDT , Service support ,
== END ==
PROVIDERS: PCP Nurse Practitioner Family; Referring Provider Nurse Practitioner Family; Visit Provider Nurse Practitioner Family
DX: Z01.818 Encounter for other preprocedural examination (principal); M26.629 Arthralgia of temporomandibular joint, unspecified side
CPT/HCPCS: 70030; 70336

== ENCOUNTER 2023-08-11 15:26 | Emergency (ER) | payer MEDICARE, MEDICAID, SELFPAY ==
[2023-08-11 15:26] VITALS: BP 128/88; PULSE 89; RESP 18; TEMP 35.9; O2SAT 96
[2023-08-11 15:27] VITALS: BP 128/88; PULSE 89; RESP 18; TEMP 35.9; O2SAT 96; BMI 35.8
--- NOTE | 2023-08-11 15:46 | EDS_ITS ---
HPI <AMANDA wEing - Last Filed: 08/11/23 18:43> History of Present Illness Chief Complaint: Lower Extremity Injury Narrative Narrative: 57-year-old male states 1 week ago he developed pain in his left buttock and thigh area. 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 Over the last 2 days the pain became more severe and he has been laying in bed and using lidocaine patches, Tylenol and a heating pad. Today felt better and got up but felt like when he turned the pain became more intense and he could not sit down. Pain is worse with sitting. He called EMS to bring him in. He has no pain radiating down the leg. No weakness, numbness or tingling. No saddle anesthesia or bladder bowel incontinence. PFSH <AMANDA Ewing - Last Filed: 08/11/23 18:43> [facility] Home Medications BusPIRone 10 mg PO TID 03/26/13 [History Last Taken 10/18/17] Omeprazole [Prilosec] 40 mg PO DAILY 03/26/13 [History Last Taken 10/18/17] quetiapine 100 mg tablet 50 mg PO BID 03/26/13 [History Last Taken 10/17/17] simvastatin 20 mg tablet 20 mg PO QHS 03/26/13 [History Last Taken 10/17/17] vilazodone 40 mg tablet (Viibryd) 40 mg PO DAILY 03/26/13 [History Last Taken 10/18/17] hydroxyzine HCl 25 mg tablet 25 - 50 mg (1 - 2 x 25 mg) PO BID PRN Anxiety #20 tabs 09/04/17 [Rx Last Taken 10/18/17] polyethylene glycol 3350 17 gram/dose oral powder 255 g PO DAILY 10/05/17 [History Last Taken Unknown] metoprolol succinate 25 mg tablet,extended release 24 hr 25 mg PO DAILY 10/18/17 [History Last Taken 10/18/17] multivitamin (Daily Multiple tablet) 1 ea PO DAILY 12/03/17 [History Last Taken Unknown] polyethylene glycol 3350 17 gram oral powder packet 17 g PO DAILY 12/03/17 [Hi story Last Taken Unknown] naproxen 500 mg tablet (Naprosyn) 500 mg PO BID PRN pain #20 tabs 08/11/23 [Rx Last Taken Unknown] orphenadrine citrate 100 mg tablet,extended release 100 mg PO BID PRN muscle pain 7 days #14 tabs 08/11/23 [Rx Last Taken Unknown] Allergy/AdvReac Type Severity Reaction Status Date / Time No Known Allergies Allergy Verified 08/11/23 15:27 Social History Smoking Status: Current every day smoker tobacco type: cigarettes ROS <AMANDA Ewing - Last Filed: 08/11/23 18:43> ROS ED ROS Narrative Constitutional: Negative for fever, chills, malaise. CVS: Negative for chest pain. Respiratory: Negative for shortness of breath. GI: Negative for abdominal pain, nausea, vomiting, melena, hematochezia. : Negative for dysuria, hematuria or frequency. Neuro: Negative for motor/sensory dysfunction. EXAM <AMANDA Ewing - Last Filed: 08/11/23 18:43> Physical Exam Narrative Exam Narrative: CONST: Patient sitting in no acute distress. EYES: Normal inspection NECK: Normal inspection. RESP: No respiratory distress, CTAB. CVS: Regular rate and rhythm, no murmur, no gallop. ABD: Soft and nontender, no guarding or rebound, nondistended. Back: Normal inspection, no midline or paraspinal tenderness. SKIN: Color normal, no rash, warm, dry, intact. EXTREMITIES: Normal appearance. Focal tenderness left lateral buttock/posterior hip area. No tenderness over the greater trochanter, femur, knee or lower leg. Left hip flexion reproduces the buttock pain. 5/5 strength in bilateral hip flexion and DF/PF. Normal sensation, 2+ DP pulses. No tenderness over the deep venous system. NEURO: Alert and answering questions appropriately. PSYCH: Normal affect. Const Vital Signs: 08/11/23 15:27 08/11/23 15:26 Temperature 96.7 F L 96.7 F L Temperature Source Temporal Temporal Pulse Rate 89 89 Respiratory Rate 18 18 Blood Pressure 128/88 H 128/88 H Blood Pressure Mean 101 101 Pulse Ox 96 96 Oxygen Delivery Method Room Air Room Air <Dr. Martín Aguirre, DO - Last Filed: 08/11/23 17:15> Physical Exam Const Vital Signs: 08/11/23 15:27 08/11/23 15:26 Temperature 96.7 F L 96.7 F L Temperature Source Temporal Temporal Pulse Rate 89 89 Respiratory Rate 18 18 Blood Pressure 128/88 H 128/88 H Blood Pressure Mean 101 101 Pulse Ox 96 96 Oxygen Delivery Method Room Air Room Air [facility] <AMANDA Ewing - Last Filed: 08/11/23 18:43> [facility] Narrative Medical decision making narrative: Patient has 1 week of gradually worsening left buttock/hip pain. There is no known injury. There is focal reproducible tenderness in the area of the left gluteus/posterior hip. There are no overlying skin changes or signs of infection. He is moving his lower extremities and neurovascularly intact. He has no back pain issue so I do not think an x-ray would be beneficial; it seems more consistent with musculoskeletal pain. He is not having radicular symptoms. He was treated with IV morphine, Toradol, and subsequently a p.o. Norflex. He had some improvement. I prescribed naproxen and Norflex and discussed symptomatic care and instructed him to follow-up with his primary care doctor. He was discharged in stable condition. <Dr. Martín Aguirre, - Last Filed: 08/11/23 17:15> [facility] Treatment and Re-Evaluation :: I have personally performed a face to face assessment of the patient and have reviewed the GERMAN Note. I performed a substantive portion of the visit including all aspects of the following. My [place]mlinson findings include: History: Patient presents with pain in his left hip that has been getting worse over the past 3 days. Patient states it is gradually getting worse. Patient states it is constant. Patient states it is worse with certain movements. Patient describes the pain as a tightness. Patient states nothing seems to help with the pain. Patient denies any paresthesias or weakness. Patient denies any trauma or injury. 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 Exam: Vital signs are stable. Patient is afebrile. Patient is in no acute distress. Musculoskeletal exam reveals tenderness over the posterior and lateral aspects of the left hip. There is no obvious deformity noted. There is no pain with internal and external rotation. Strength is 5/5 bilaterally in the lower extremities. There are no sensory deficits noted. Medical Decision Making: Patient was given a dose of morphine and Zofran initially. Patient was given a dose of Toradol. Patient was advised that this is most likely a muscular strain. Patient was advised that x-rays would not necessarily be of any benefit today. Patient was instructed to use ice to the area. Patient understands and is agreeable with the plan. All questions were answered. Discharge Plan Triage Chief Complaint: Lower Extremity Injury ED Midlevel Provider: Lotus Yi ED Provider: Martín Aguirre Dx/Rx/DC Orders Clinical Impression: Acute pain of left hip, Musculoskeletal pain Instructions: ED Hip Strain Prescriptions: New naproxen [Naprosyn] 500 mg tablet 500 mg PO BID PRN (Reason: pain) Qty: 20 0RF orphenadrine citrate 100 mg tablet extended release 100 mg PO BID PRN (Reason: muscle pain) 7 Days Qty: 14 0RF No Action quetiapine 100 MG tablet 50 mg PO BID simvastatin 20 MG tablet 20 mg PO QHS vilazodone [Viibryd] 40 MG tablet 40 mg PO DAILY BusPIRone 10 mg PO TID Omeprazole [Prilosec] 40 MG capsule 40 mg PO DAILY hydroxyzine HCl 25 MG tablet 25 - 50 mg PO BID PRN (Reason: Anxiety) Qty: 20 0RF polyethylene glycol 3350 255 GM powder 255 g PO DAILY Patient Comments: mix 1 capful (17 gram) in 8 ounces of fluid metoprolol succinate 25 MG tablet extended release 24 hr 25 mg PO DAILY multivitamin [Daily Multiple] 1 EACH tablet 1 ea PO DAILY polyethylene glycol 3350 17 GM powder in packet 17 g PO DAILY Primary Care Provider: Antonio Fung NP Referrals: Antonio Fung NP, [facility] [Primary Care Provider] - Activity Restrictions/Additional Instructions: In addition to the prescribed anti-inflammatory and muscle relaxer you can also take Tylenol 1000 mg every 6 hours. Follow-up with your primary care doctor. Disposition Disposition: Home, Self Care
[2023-08-11] MEDS: Ondansetron 4 MG/2 ML Vial IV (15:53)
[2023-08-11] MEDS: Morphine 4 MG/ML Syringe IV (15:54)
[2023-08-11] MEDS: Ketorolac 15 MG/ML Vial IV (15:54)
[2023-08-11] MEDS: Orphenadrine 100 MG Tablet PO (17:32)
[2023-08-11 18:51] VITALS: BP 138/78; PULSE 81; RESP 14; TEMP 36.6; O2SAT 99
== END 2023-08-11 18:52 | disposition home or self-care (01) ==
PROVIDERS: Emergency Provider Emergency Medicine; PCP Nurse Practitioner Family; Visit Provider Emergency Medicine
DX: M25.552 Pain in left hip (principal); F17.210 Nicotine dependence, cigarettes, uncomplicated; Z79.899 Other long term (current) drug therapy
CPT/HCPCS: 96374; 96375; 99283; A4216; J2405

== ENCOUNTER 2024-01-01 21:24 | Emergency (ER) | payer MEDICARE, MEDICAID, SELFPAY ==
[2024-01-01 21:26] VITALS: BP 151/91; PULSE 90; RESP 18; TEMP 36.4; O2SAT 98; BMI 36.1
--- NOTE | 2024-01-01 22:09 | EKG12_ITS ---
Test Reason : HTN Blood Pressure : / mmHG Vent. Rate : 085 BPM Atrial Rate : 085 BPM P-R Int : 156 ms QRS Dur : 086 ms QT Int : 352 ms P-R-T Axes : 050 073 051 degrees QTc Int : 418 ms Normal sinus rhythm Normal ECG Confirmed by LUCINA KENDRICK MD ([id number]), editor trade journal PATRICIA MERCEDES ([id number]) on 01/03/2024 8:02:11 AM Referred By: LISA Confirmed By:LUCINA KENDRICK MD
--- NOTE | 2024-01-01 22:09 | EX.ED.DYSGE1 ---
HPI History of Present Illness Chief Complaint: Hypertension Informant: patient Onset/Context/Timing Onset: Today and Hours Context: Sudden Onset Timing: Continuous Current Severity: Mild Maximum Severity: Moderate Narrative Narrative: Elevated blood pressure light. With a episode where he became hot and sweaty. 58-year-old male history of COPD and hypertension. 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 He said he got hot and sweaty he had dizziness. He said a history of this 2 months ago. He said this 1 has lasted longer. He denies any headache or visual change. He denies any chest pain. Denies any vomiting or diarrhea. No fever. Said he felt fine today. He has been eating and drinking normally. Prior similar symptoms: Yes Recent Illness/Hospitalization: No PFSH PFS Medical History COPD (chronic obstructive pulmonary disease) Hypertension Hyperlipidemia GERD (gastroesophageal reflux disease) Anxiety Home Medications ?Medication ?Instructions ?Recorded ?Last Taken ?Type Omeprazole [Prilosec] 40 mg PO DAILY 03/26/13 10/18/17 History quetiapine 100 mg tablet 50 mg PO QHS 03/26/13 10/17/17 History simvastatin 20 mg tablet 40 mg PO QHS 03/26/13 10/17/17 History vilazodone 40 mg tablet (Viibryd) 40 mg PO DAILY 03/26/13 10/18/17 History metoprolol succinate 25 mg 25 mg PO Q12H 10/18/17 10/18/17 History tablet,extended release 24 hr albuterol sulfate 90 mcg/actuation 2 puff inhalation Q6H PRN 01/01/24 Unknown History aerosol inhaler shortness of breath or wheezing buspirone 10 mg tablet 10 mg PO BID 01/01/24 Unknown History famotidine 40 mg tablet 40 mg PO QHS 01/01/24 Unknown History fluticasone 250 mcg-salmeterol 50 1 ea inhalation BID 01/01/24 Unknown History mcg/dose blistr powdr for inhalation hydroxyzine HCl 25 mg tablet 25 - 50 mg PO Q6H PRN Anxiety 01/01/24 Unknown History icosapent ethyl 1 gram capsule 2 g PO BID 01/01/24 Unknown History (Vascepa) montelukast 10 mg tablet 10 mg PO DAILY 01/01/24 Unknown History sennosides 8.6 mg tablet (senna) 8.6 mg PO QHS 01/01/24 Unknown History tiotropium 2.5 mcg-olodaterol 2.5 2 puff inhalation DAILY 01/01/24 Unknown History mcg/actuation mist for inhalation (Stiolto Respimat) Allergy/AdvReac Type Severity Reaction Status Date / Time No Known Allergies Allergy Verified 01/01/24 21:25 Social History Smoking Status: Current every day smoker tobacco type: cigarettes ROS ROS ED ROS Narrative Denies recent illness. Constitutional Constitutional ED: Denies fever(s) Eyes Eyes: Denies blurry vision ENT ENT ED: Denies ear pain Cardiovascular Cardiovascular: Denies chest pain Respiratory/Chest Respiratory/Chest: Denies cough or dyspnea Gastrointestinal Gastrointestinal: Denies abdominal pain Genitourinary Genitourinary ED: Denies dysuria or hematuria Musculoskeletal Musculoskeletal: Denies arthralgias Integumentary Denies abscess Neurologic Neurologic: Denies headache(s) Psychiatric Psychiatric: Denies anxiety or depression Endocrine Endocrinology: Denies cold intolerance Hematologic/Lymphatic Hematologic/Lymphatic: Reports none Allergic/Immunologic Allergic/Immunologic ED: Denies mouth swelling, tongue swelling or urticaria EXAM Physical Exam Narrative Exam Narrative: Male no acute distress vital signs stable afebrile. Blood pressure is elevated 151/91. He does not look septic toxic or any distress. There is no one else present in the room. Pulse ox 98% on room air no signs of hypoxia. H EENT exam unremarkable. Pupils round react light. About 3 mm bilaterally. No facial droop. Normal speech. No trauma. Neck nontender. No JVD. Lungs clear to auscultation bilaterally. Heart regular rate and rhythm rate of 90 no murmur. Chest wall nontender. 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 He does not have the other device with it. Will see if there is a way we can get a read of what happened earlier this evening. Abdomen soft nontender. Moving all 4 extremities. 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 Dorsi plantarflexion intact. Calves are nontender. No edema fingertip to nose [id number] within normal limits. No drift from upper or lower extremities. Neurologic exam normal. Awake alert. Answering questions. NIH is 0. Const Vital Signs: 01/01/24 21:26 01/01/24 21:26 01/01/24 22:38 Temperature 97.5 F L Temperature Source Temporal Pulse Rate 90 Respiratory Rate 18 Respiratory Effort Normal Non-Labored Respiratory Pattern Normal Blood Pressure 151/91 H Blood Pressure Mean 111 Pulse Ox 98 95 Oxygen Delivery Method Room Air Room Air Positive well nourished and well developed; Negative for cachectic, contractures or unkempt General Appearance ED: well developed and NAD; Negative for unkempt, cachectic, contractures, cyanotic, diaphoretic or pallor Nutritional Appearance: Negative for cachectic HEENT Reports moist mucous membranes; Denies dry mucous membranes Negative for trauma or tenderness Mouth ED: No dry mucous membranes Mouth: No dry mucous membranes Eyes PERRL and EOMs intact bilaterally General Eye ED: Negative for pale conjunctiva, scleral icterus or other Neck no lymphadenopathy, supple and no JVD General: Negative for tenderness Lymph Lymphatic: Negative for other Chest Wall inspection of chest normal and palpation of chest normal Chest: Negative for other Resp normal respiratory effort and clear to auscultation bilaterally Effort and Inspection: Negative for retractions Auscultation: Negative for rales, rhonchi or wheezes Cardio regular rate, regular rhythm, S1 normal heart sound, S2 normal heart sound and no murmurs Rate: Negative for bradycardia or tachycardic Rhythm: Negative for abnormal rhythm GI normal to inspection, nondistended, normoactive bowel sounds, non-tender, non-distended and no masses Palpation: soft; Negative for tender, guarding or rebound tenderness present Back/Spine no CVA tenderness General Back: Negative for CVA tenderness Cervical Spine: Negative for cervical spine tenderness Thoracic Spine / Upper Back: Negative for thoracic spinal tenderness or paraspinal muscle tenderness Lumbar Spine / Lower Back: Negative for lumbar spinal tenderness Extremity normal to inspection General Extremety ED: Negative for edema, tenderness or other findings General Extremity: Negative for edema or other findings Neuro oriented x3 and CN's II-XII intact bilaterally Sensorium / Orientation: alert and orientation impaired; Negative for lethargic or stuporous Motor Exam: strength 5/5 throughout Psych mental status grossly normal Appearance: Negative for unkempt Attitude: No agitated Mood & Affect: Negative for depressed, anxious or tearful Skin no rashes or lesions noted, no wounds and skin turgor normal General Skin Exam: elasticity normal; Negative for jaundice or pallor Lesions: No lesion noted Rashes: No rashes noted Trauma: Negative for abrasion Wounds: Negative for wounds noted MDM MDM MDM Narrative Medical decision making narrative: 58-year-old male with a episode tonight around 8 PM. Exam is normal currently. He has a normal neurologic exam. This could have been anxiety versus a cardiac event versus low blood sugar versus other etiologies. Screening labs will be obtained. He has a pets and pet supplies salesperson on he does not have the whole device with him we are going to see if we can reach out to the company to see if any abnormal rhythm occurred around 8 PM the night. Repeat exam patient doing well at 10:59 PM. Nurse reached out to his cardiac monitoring company. They had no alarms going off and have not noticed any abnormal rhythms on his pets and pet supplies salesperson. Current blood pressure is 119/94. Patient clinically looks well. This may or may not have been anxiety him and I discussed that. We discussed all his test results. He has known kidney disease and has elevated creatinines in the past. He is comfortable being discharged to home. History & Record Review Discussion w/independent historian: Patient Additional record(s) reviewed:: Prior inpatient record, Prior outpatient record, Prior ED visit and Prior labs Lab Data Attestation: I reviewed the patient's lab results. Lab results narrative: CBC shows a white count of 10. H&H 15 and 46. Platelets 177. Electrolytes show potassium 3.4. Gap 11. BUN 13 creatinine 1.63. Glucose 132. Troponin 7. Chest x-ray unremarkable. The pets and pet supplies salesperson on the external surface of his chest does show up on the chest x-ray. EKG normal. Labs are consistent with priors creatinine is a little higher but has been 1.44 in the past. Labs: Laboratory Results - last 24 hr 01/01/24 21:37 WBC 10.2 RBC 5.02 Hgb 15.8 Hct 46.8 MCV 93.2 MCH 31.5 MCHC 33.8 RDW Std Deviation 44.2 H RDW Coeff of Yari 12.9 Plt Count 177 MPV 10.2 Immature Gran % (Auto) 0.500 Neut % (Auto) 42.0 L Lymph % (Auto) 44.3 H [place] % (Auto) 8.4 Eos % (Auto) 4.0 Baso % (Auto) 0.8 Absolute Neuts (auto) 4.3 Absolute Lymphs (auto) 4.53 H Nucleated RBC % 0 Sodium 141 Potassium 3.4 L Chloride 103 Carbon Dioxide 27.0 Anion Gap 11 BUN 13 Creatinine 1.63 H Estim Creat Clear Calc 62.20 Est GFR (MDRD) Af Amer 57 L Est GFR (MDRD) Non-Af 47 L BUN/Creatinine Ratio 8.0 L Glucose 132 H Calcium 9.6 Troponin I High Sens 7 Radiography Chest X-Ray - ED: 1 View, Read by ED Physician, Normal, Heart, Lungs, Mediastinum, Bony Structures, No Acute Disease and Chronic Changes Diagnostic Testing: Chest x-ray, portable, single view shows no acute abnormality. cremator on the left side of his mediastinum. Normal cardiac silhouette. Normal lung [place]. Rhythm Strip Rhythm Strip: Sinus Rhythm Rate: 85 Ectopy: None EKG Initial EKG: Interpretation: Sinus Rhythm and No Acute Injury Pattern Comments: Normal sinus rhythm rate 85 no acute signs of [place] or ischemia. No dysrhythmia. Discharge Plan Triage Chief Complaint: Hypertension ED Provider: Pipo Hidalgo Dx/Rx/DC Orders Clinical Impression: Dizziness Instructions: ED Dizziness, Uncertain Cause Prescriptions: No Action quetiapine 100 MG tablet 50 mg PO QHS simvastatin 20 MG tablet 40 mg PO QHS vilazodone [Viibryd] 40 MG tablet 40 mg PO DAILY Omeprazole [Prilosec] 40 MG capsule 40 mg PO DAILY metoprolol succinate 25 MG tablet extended release 24 hr 25 mg PO Q12H buspirone 10 mg tablet 10 mg PO BID sennosides [senna] 8.6 mg tablet 8.6 mg PO QHS montelukast 10 mg tablet 10 mg PO DAILY famotidine 40 mg tablet 40 mg PO QHS fluticasone propion-salmeterol 250-50 mcg/dose blister with device 1 ea INHALATION BID albuterol sulfate 90 mcg/actuation HFA aerosol inhaler 2 puff INHALATION Q6H PRN (Reason: shortness of breath or wheezing) icosapent ethyl [Vascepa] 1 gram capsule 2 g PO BID Stiolto Respimat 2.5-2.5 mcg/actuation mist 2 puff INHALATION DAILY hydroxyzine HCl 25 MG tablet 25 - 50 mg PO Q6H PRN (Reason: Anxiety) Primary Care Provider: Antonio Fung NP Referrals: Antonio Fung SALES LEAD, SALES LEAD-C [Primary Care Provider] - 3-5 Days if not improving Activity Restrictions/Additional Instructions: Your tests look good tonight. Follow-up your primary care provider if not improving. Return if feeling worse. Print Language: Wolof Disposition Disposition: Home, Self Care
[2024-01-01 22:37] LABS: Absolute Lymphocyte Count 4.53 X10^3/uL (0.83-4.51); Absolute Neutrophil Count 4.3 X10^3/uL (2.0-7.7); Basophil# 0.08 X10^3/uL; Basophil% 0.8 % (0-1); Eosinophil# 0.41 X10^3/uL; Hematocrit 46.8 % (40-54); Hemoglobin 15.8 g/dL (13.0-16.5); Lymphocyte # 4.53 X10^3/ul (0.83-4.51); Lymphocyte % 44.3 % (19-41); Mean Corp Hgb Conc 33.8 g/dL (32-36); Mean Corpuscular Hgb 31.5 pg (27.0-32.0); Mean Corpuscular Volume 93.2 fL (80-94); Mean Platelet Vol. 10.2 fl (6.2-12.0); Monocyte# 0.86 X10^3/uL; Monocyte% 8.4 % (0-10); NRBC Flagged by Analyzer 0 % (0-5); Neutrophil # 4.29 X10^3/uL (2.7-7.7); Platelet Count 177 K/mm3 (150-450); RBC Distribution Width CV 12.9 % (11.6-14.6); RBC Distribution Width SD 44.2 fl (35.1-43.9); Red Blood Count 5.02 M/mm3 (4.6-6.2); White Blood Count 10.2 K/mm3 (4.4-11.0)
[2024-01-01 22:38] VITALS: O2SAT 95
--- NOTE | 2024-01-01 22:40 | RAD_ITS ---
EXAM: XR CHEST, 1 VIEW CLINICAL INDICATION: chest pain TECHNIQUE: Frontal view of the chest. COMPARISON: 09/04/2017 FINDINGS: LUNGS AND PLEURAL SPACES: No significant abnormality. No consolidation or edema. No pneumothorax. No effusion. HEART: No significant abnormality. Cardiac silhouette not enlarged. MEDIASTINUM: Central airways and mediastinal contour are unremarkable. BONES/JOINTS: No significant abnormality. No acute fracture. SOFT TISSUES: No significant abnormality. RAD/Chest 1 View (Portable) IMPRESSION: No radiographic evidence of acute cardiopulmonary disease. Electronically Signed: Billy Calderon DO at 22:58 EDT ,
[2024-01-01 22:56] LABS: Anion Gap 11 (5-15); BUN 13 mg/dL (7-18); Calcium,Total 9.6 mg/dL (8.5-10.1); Chloride 103 mmol/L (98-107); Creatinine, Serum 1.63 mg/dL (0.70-1.30); EST Glomerular Filtration Rate 47 mL/min (>60); Est Glom Filt Rate - Afr Amer 57 mL/min (>60); Glucose 132 mg/dL (74-106); Potassium 3.4 mmol/L (3.5-5.1); Sodium Level 141 mmol/L (136-145); Troponin-I HS 7 pg/mL (3.0-78.0)
--- NOTE | 2024-01-01 22:56 | ED.RN ---
This nurse contacted [facility] about pts heart monitor d/t Dr. Hidalgo request. This nurse talked to Cate at customer [facility]. Cate reports that there were no events that triggered any alarms on their end of the monitor. Stating there was a system down time on their end and would go through the reports and fax over any readings from [phone]. Dr. Hidalgo updated.
[2024-01-01 23:15] VITALS: BP 119/94; PULSE 81; RESP 16; TEMP 36.5; O2SAT 99
== END 2024-01-01 23:16 | disposition home or self-care (01) ==
PROVIDERS: Emergency Provider Emergency Medicine; PCP Nurse Practitioner Family; Visit Provider Emergency Medicine
DX: R42 Dizziness and giddiness (principal); J44.9 Chronic obstructive pulmonary disease, unspecified; I10 Essential (primary) hypertension; E78.5 Hyperlipidemia, unspecified; F17.210 Nicotine dependence, cigarettes, uncomplicated; Z79.51 Long term (current) use of inhaled steroids; Z79.899 Other long term (current) drug therapy
CPT/HCPCS: 71045; 80048; 84484; 85025; 93005; 99284

== ENCOUNTER 2024-04-02 19:11 | Emergency (ER) | payer MEDICARE, MEDICAID, SELFPAY ==
[2024-04-02 19:12] VITALS: BP 137/87; PULSE 96; RESP 23; TEMP 36.6; O2SAT 98; BMI 35.1
--- NOTE | 2024-04-02 20:43 | EKG12_ITS ---
Test Reason : HIGH HEART RATE Blood Pressure : */* mmHG Vent. Rate : 105 BPM Atrial Rate : 105 BPM P-R Int : 146 ms QRS Dur : 86 ms QT Int : 336 ms P-R-T Axes : 37 83 9 degrees QTcB Int : 444 ms Sinus tachycardia Otherwise normal ECG Confirmed by BONILLA WHITE, DAYANARA ([id number]), editor at large JG ALAN ([id number]) on 04/08/2024 1:24:45 P M Referred By: Confirmed By: DAYANARA CRYSTAL MD
[2024-04-02 20:45] VITALS: BP 134/85; BP 138/95; BP 146/99; PULSE 110; PULSE 92
[2024-04-02] MEDS: Aspirin 81 MG TAB.CHEW 324 MG PO (20:51)
[2024-04-02 20:53] LABS: Absolute Lymphocyte Count 4.59 X10^3/uL (0.83-4.51); Basophil# 0.07 X10^3/uL; Basophil% 0.5 % (0-1); Eosinophil# 0.34 X10^3/uL; Eosinophils% 2.6 % (0-5); Hemoglobin 16.7 g/dL (13.0-16.5); Lymphocyte # 4.59 X10^3/ul (0.83-4.51); Mean Corp Hgb Conc 34.8 g/dL (32-36); Mean Corpuscular Hgb 31.6 pg (27.0-32.0); Mean Corpuscular Volume 90.9 fL (80-94); Mean Platelet Vol. 10.5 fl (6.2-12.0); Monocyte% 8.4 % (0-10); NRBC Flagged by Analyzer 0 % (0-5); Neutrophil # 6.96 X10^3/uL (2.7-7.7); Neutrophil % 53.1 % (47-70); Platelet Count 196 K/mm3 (150-450); RBC Distribution Width CV 12.7 % (11.6-14.6); RBC Distribution Width SD 42.1 fl (35.1-43.9); Red Blood Count 5.28 M/mm3 (4.6-6.2); White Blood Count 13.1 K/mm3 (4.4-11.0)
[2024-04-02 21:12] VITALS: PULSE 105; RESP 24; O2SAT 98
[2024-04-02 21:14] LABS: Anion Gap 7 (5-15); BUN 16 mg/dL (7-18); BUN/Creat Ratio 10.1 RATIO (10-20); Calcium,Total 9.7 mg/dL (8.5-10.1); Chloride 105 mmol/L (98-107); Creatinine, Serum 1.58 mg/dL (0.70-1.30); EST Glomerular Filtration Rate 48 mL/min (>60); Est Glom Filt Rate - Afr Amer 59 mL/min (>60); Estimated Creatinine Clearance 63.16 ml/min; Glucose 106 mg/dL (74-106); Potassium 3.3 mmol/L (3.5-5.1); Sodium Level 138 mmol/L (136-145); Troponin-I HS < 3 pg/mL (3.0-78.0)
--- NOTE | 2024-04-02 21:15 | RAD_ITS ---
STUDY: X-RAY CHEST REASON FOR EXAM: Male, 58 years old. palpitations TECHNIQUE: Single frontal view of the chest. COMPARISON: January 01, 2024 FINDINGS: The lungs are clear and expanded. There is no demonstrated pleural abnormality. Normal size heart. Normal mediastinum and mary. Normal visualized pulmonary arteries. Normal visualized aortic arch and descending thoracic aorta. Normal visualized thoracic spine. Normal visualized ribs, clavicles, and shoulders. There is no demonstrated abnormality of the visualized soft tissue structures of the upper abdomen. RAD/Chest PA and Lateral IMPRESSION: Normal x-ray examination of the chest. Electronically Signed: Mesfin Raymond MD at 22:14 [facility] ,
--- NOTE | 2024-04-02 21:44 | EX.ED.DYSGE1 ---
HPI <AMANDA Najera - Last Filed: 04/02/24 22:08> History of Present Illness Chief Complaint: Palpitations Narrative Narrative: Patient presenting today due to concerns for palpitations he has had intermittently over the past few days. He reports that he was sitting on the edge of his bed and it felt like his heart was racing. He had these symptoms intermittently for about an hour, prompting him to call EMS and be brought in for evaluation. He reports that this has had been in the past and last happened in December, he wore a event monitor for 30 days that did not show any arrhythmia. He reports that he occasionally feels lightheaded and has a sensation that his heart is racing when standing from a sitting or laying position. He also occasionally feels nauseous and sweaty with his palpitations. He has a PMH of CKD, anxiety, COPD, and HLD. He denies shortness of breath, fevers, chills, and chest pain. PFSH <AMANDA Najera - Last Filed: 04/02/24 22:08> [facility] Medical History COPD (chronic obstructive pulmonary disease) Hypertension Hyperlipidemia GERD (gastroesophageal reflux disease) Anxiety Home Medications ?Medication ?Instructions ?Recorded ?Last Taken ?Type Omeprazole [Prilosec] 40 mg PO DAILY 03/26/13 10/18/17 History quetiapine 100 mg tablet 50 mg PO QHS 03/26/13 10/17/17 History simvastatin 20 mg tablet 40 mg PO QHS 03/26/13 10/17/17 History vilazodone 40 mg tablet (Viibryd) 40 mg PO DAILY 03/26/13 10/18/17 History metoprolol succinate 25 mg 25 mg PO Q12H 10/18/17 10/18/17 History tablet,extended release 24 hr albuterol sulfate 90 mcg/actuation 2 puff inhalation Q6H PRN 01/01/24 Unknown History aerosol inhaler shortness of breath or wheezing buspirone 10 mg tablet 10 mg PO BID 01/01/24 Unknown History famotidine 40 mg tablet 40 mg PO QHS 01/01/24 Unknown History fluticasone 250 mcg-salmeterol 50 1 ea inhalation BID 01/01/24 Unknown History mcg/dose blistr powdr for inhalation hydroxyzine HCl 25 mg tablet 25 - 50 mg PO Q6H PRN Anxiety 01/01/24 Unknown History icosapent ethyl 1 gram capsule 2 g PO BID 01/01/24 Unknown History (Vascepa) montelukast 10 mg tablet 10 mg PO DAILY 01/01/24 Unknown History sennosides 8.6 mg tablet (senna) 8.6 mg PO QHS 01/01/24 Unknown History tiotropium 2.5 mcg-olodaterol 2.5 2 puff inhalation DAILY 01/01/24 Unknown History mcg/actuation mist for inhalation (Stiolto Respimat) Allergy/AdvReac Type Severity Reaction Status Date / Time No Known Allergies Allergy Verified 04/02/24 19:17 Social History Smoking Status: Heavy Smoker (>10/day) ROS <AMANDA Najera - Last Filed: 04/02/24 22:08> ROS ED Constitutional Constitutional ED: Denies chills or fever(s) Cardiovascular Cardiovascular: Reports palpitations and racing heartbeat; Denies chest pain Respiratory/Chest Respiratory/Chest: Denies cough or dyspnea Gastrointestinal Gastrointestinal: Reports nausea; Denies abdominal pain or vomiting Musculoskeletal Musculoskeletal: Denies arthralgias or myalgias Integumentary Denies rash Neurologic Neurologic: Denies weakness EXAM <AMANDA Najera - Last Filed: 04/02/24 22:08> Physical Exam Const Vital Signs: 04/02/24 19:12 04/02/24 20:45 04/02/24 21:12 Temperature 98 F Temperature Source Temporal Pulse Rate 96 105 H Pulse Rate [Lying] 92 Pulse Rate [Sitting (for 1 minute prior to obtaining)] 92 Pulse Rate [Standing (for 1 minute prior to obtaining)] 110 H Respiratory Rate 23 H 24 H Blood Pressure 137/87 H Blood Pressure [Lying] 134/85 H Blood Pressure [Sitting (for 1 minute prior to obtaining)] 138/95 H Blood Pressure [Standing (for 1 minute prior to obtaining)] 146/99 H Blood Pressure Mean 103 Blood Pressure Mean [Lying] 101 Blood Pressure Mean [Sitting (for 1 minute prior to obtaining)] 109 Blood Pressure Mean [Standing (for 1 minute prior to obtaining)] 114 Pulse Ox 98 98 Oxygen Delivery Method Room Air Room Air 04/02/24 22:57 Temperature 98 F Temperature Source Pulse Rate 105 H Pulse Rate [Lying] Pulse Rate [Sitting (for 1 minute prior to obtaining)] Pulse Rate [Standing (for 1 minute prior to obtaining)] Respiratory Rate 24 H Blood Pressure 137/87 H Blood Pressure [Lying] Blood Pressure [Sitting (for 1 minute prior to obtaining)] Blood Pressure [Standing (for 1 minute prior to obtaining)] Blood Pressure Mean 103 Blood Pressure Mean [Lying] Blood Pressure Mean [Sitting (for 1 minute prior to obtaining)] Blood Pressure Mean [Standing (for 1 minute prior to obtaining)] Pulse Ox 98 Oxygen Delivery Method Positive well nourished, well developed and no apparent distress General Appearance ED: well developed HEENT Reports normocephalic and head/scalp atraumatic Mouth ED: Yes moist mucous membranes normal Eyes PERRL and EOMs intact bilaterally Neck full ROM and supple Chest Wall inspection of chest normal Resp normal respiratory effort and clear to auscultation bilaterally Cardio regular rate and regular rhythm GI soft to palpation, non-tender, non-distended and no masses Back/Spine normal ROM and normal to inspection Extremity normal to inspection and full ROM Neuro oriented x3, CN's II-XII intact bilaterally, moves all extremities, no focal motor deficits and no sensory deficits noted Sensorium / Orientation: awake and alert Psych mental status grossly normal and thought process normal Skin no rashes or lesions noted and no wounds <Dr. Jasno Garcia, DO - Last Filed: 04/03/24 00:56> Physical Exam Const Vital Signs: 04/02/24 19:12 04/02/24 20:45 04/02/24 21:12 Temperature 98 F Temperature Source Temporal Pulse Rate 96 105 H Pulse Rate [Lying] 92 Pulse Rate [Sitting (for 1 minute prior to obtaining)] 92 Pulse Rate [Standing (for 1 minute prior to obtaining)] 110 H Respiratory Rate 23 H 24 H Blood Pressure 137/87 H Blood Pressure [Lying] 134/85 H Blood Pressure [Sitting (for 1 minute prior to obtaining)] 138/95 H Blood Pressure [Standing (for 1 minute prior to obtaining)] 146/99 H Blood Pressure Mean 103 Blood Pressure Mean [Lying] 101 Blood Pressure Mean [Sitting (for 1 minute prior to obtaining)] 109 Blood Pressure Mean [Standing (for 1 minute prior to obtaining)] 114 Pulse Ox 98 98 Oxygen Delivery Method Room Air Room Air 04/02/24 22:57 Temperature 98 F Temperature Source Pulse Rate 105 H Pulse Rate [Lying] Pulse Rate [Sitting (for 1 minute prior to obtaining)] Pulse Rate [Standing (for 1 minute prior to obtaining)] Respiratory Rate 24 H Blood Pressure 137/87 H Blood Pressure [Lying] Blood Pressure [Sitting (for 1 minute prior to obtaining)] Blood Pressure [Standing (for 1 minute prior to obtaining)] Blood Pressure Mean 103 Blood Pressure Mean [Lying] Blood Pressure Mean [Sitting (for 1 minute prior to obtaining)] Blood Pressure Mean [Standing (for 1 minute prior to obtaining)] Pulse Ox 98 Oxygen Delivery Method [facility] <AMANDA Najera - Last Filed: 04/02/24 22:08> [facility] Narrative Medical decision making narrative: Patient presenting today due to intermittent heart palpitations and a sensation that his heart is racing that he has had over the past few days. This has happened to him in the past and he had a 30-day event monitor that did not show any arrhythmia. He is nontoxic-appearing and in no acute distress. He reports occasionally feeling lightheaded with standing from a sitting or lying position, orthostatic vital signs obtained and are negative. Cardiac workup obtained and labs overall are unremarkable. D-dimer WNL. No arrhythmia observed on furnace brazer or EKG. patient does appear anxious on exam and does admit to anxiety, he is on disability due to anxiety. He reports that he checks his pulse at home very regularly. I think that this is a big contributor to his symptoms. We will check to see if we have a Holter monitor to send him home with. He was given Ativan here to help calm him down. He will be discharged home in stable condition. Lab Data Attestation: I reviewed the patient's lab results. Lab results narrative: WBC 13.1, potassium 3.3, creatinine 1.58 which is decreased from previous labs, unremarkable troponin Labs: Laboratory Results - last 24 hr 04/02/24 19:16 WBC 13.1 H RBC 5.28 Hgb 16.7 H Hct 48.0 MCV 90.9 MCH 31.6 MCHC 34.8 RDW Std Deviation 42.1 RDW Coeff of Yari 12.7 Plt Count 196 MPV 10.5 Immature Gran % (Auto) 0.400 Neut % (Auto) 53.1 Lymph % (Auto) 35.0 [place] % (Auto) 8.4 Eos % (Auto) 2.6 Baso % (Auto) 0.5 Absolute Neuts (auto) 7.0 Absolute Lymphs (auto) 4.59 H Nucleated RBC % 0 D-Dimer Quant (PE/DVT) 0.27 Sodium 138 Potassium 3.3 L Chloride 105 Carbon Dioxide 26.0 Anion Gap 7 BUN 16 Creatinine 1.58 H Estim Creat Clear Calc 63.16 Est GFR (MDRD) Af Amer 59 L Est GFR (MDRD) Non-Af 48 L BUN/Creatinine Ratio 10.1 Glucose 106 Calcium 9.7 Troponin I High Sens < 3 L Radiography Diagnostic Testing: Clinical Impression(s) from Imaging Studies Chest X-Ray 04/02/24 21:15 IMPRESSION: Normal x-ray examination of the chest. Electronically Signed: Mesfin Raymond MD at 22:14 EST Reading Location ID and State: [facility] / [place] Tel , Service support , EKG Initial EKG: Comments: 105 bpm, sinus tachycardia, no ST elevation, interpreted by attending ED physician <Dr. Jason Garcia, DO - Last Filed: 04/03/24 00:56> [facility] Narrative Medical decision making narrative: Patient presenting today due to intermittent heart palpitations and a sensation that his heart is racing that he has had over the past few days. This has happened to him in the past and he had a 30-day event monitor that did not show any arrhythmia. He is nontoxic-appearing and in no acute distress. He reports occasionally feeling lightheaded with standing from a sitting or lying position, orthostatic vital signs obtained and are negative. Cardiac workup obtained and labs overall are unremarkable. D-dimer WNL. No arrhythmia observed on furnace brazer or EKG. patient does appear anxious on exam and does admit to anxiety, he is on disability due to anxiety. He reports that he checks his pulse at home very regularly. I think that this is a big contributor to his symptoms. We will check to see if we have a Holter monitor to send him home with. He was given Ativan here to help calm him down. He will be discharged home in stable condition. Supervisory Physician Note Patient was seen and examined with the Advanced Practice Provider. Nursing notes and vital signs have been reviewed. Pertinent old records have been reviewed. I agree with the essential elements of the GERMAN's history, physical exam, assessment, and plan. The differential diagnosis and management options were discussed with the GERMAN. I participated in determining and agree with the management, procedures, final impression and disposition as documented. See changes noted by me. Please see addendum or separate note for any additional details. 58-year-old male presents for evaluation of recurrent palpitations. Past medical history of CKD, anxiety, COPD, HLD. Patient states he has chronic intermittent palpitations. States he thinks it may be secondary to anxiety. Has had extensive cardiac workup for this including unremarkable 30-day Holter monitor. Gen: A&O x3, anxious Head: Normocephalic, atraumatic Eyes: No sclera icterus, conjunctiva clear ENT: Moist mucous membranes Neck: Trachea midline, No JVD CV: Mildly tachycardic, regular rhythm, no murmurs, no peripheral edema Resp: Lungs CTA BL, no w/r/c GI: Abd soft, non-distended, non-tender, no r/r/g Musc: Full ROM, no deformity Skin: Warm, dry Neuro: Alert, oriented, grossly intact, sensation intact Psych: Cooperative, appropriate mood and affect Differential includes anxiety reaction, arrhythmia, electrolyte abnormality. Less likely ACS or PE. CBC and BMP relatively unremarkable and at baseline. Troponin unremarkable. Dimer unremarkable. No clear etiology for patient's palpitations. Given his previous unremarkable cardiac workup, suspect possible anxiety reaction. Will place patient on a 48-hour Holter monitor. Follow-up with cardiology and PCP. Return precautions explained. Patient discharged home. Impression: 1. Palpitations 2. History of anxiety 3. CKD Lab Data Labs: Laboratory Results - last 24 hr 04/02/24 19:16 WBC 13.1 H RBC 5.28 Hgb 16.7 H Hct 48.0 MCV 90.9 MCH 31.6 MCHC 34.8 RDW Std Deviation 42.1 RDW Coeff of Yari 12.7 Plt Count 196 MPV 10.5 Immature Gran % (Auto) 0.400 Neut % (Auto) 53.1 Lymph % (Auto) 35.0 [place] % (Auto) 8.4 Eos % (Auto) 2.6 Baso % (Auto) 0.5 Absolute Neuts (auto) 7.0 Absolute Lymphs (auto) 4.59 H Nucleated RBC % 0 D-Dimer Quant (PE/DVT) 0.27 Sodium 138 Potassium 3.3 L Chloride 105 Carbon Dioxide 26.0 Anion Gap 7 BUN 16 Creatinine 1.58 H Estim Creat Clear Calc 63.16 Est GFR (MDRD) Af Amer 59 L Est GFR (MDRD) Non-Af 48 L BUN/Creatinine Ratio 10.1 Glucose 106 Calcium 9.7 Troponin I High Sens < 3 L Radiography Diagnostic Testing: Clinical Impression(s) from Imaging Studies Chest X-Ray 04/02/24 21:15 IMPRESSION: Normal x-ray examination of the chest. Electronically Signed: Mesfin Raymond MD at 22:14 EST Reading Location ID and State: [address] [place] [address] Tel , Service support , Discharge Plan Triage Chief Complaint: Palpitations ED Midlevel Provider: Sparkle Ordaz ED Provider: Jason Garcia Dx/Rx/DC Orders Clinical Impression: Anxiety, Palpitations Instructions: ED Anxiety Reaction, ED Palpitations Prescriptions: No Action quetiapine 100 MG tablet 50 mg PO QHS simvastatin 20 MG tablet 40 mg PO QHS vilazodone [Viibryd] 40 MG tablet 40 mg PO DAILY Omeprazole [Prilosec] 40 MG capsule 40 mg PO DAILY metoprolol succinate 25 MG tablet extended release 24 hr 25 mg PO Q12H buspirone 10 mg tablet 10 mg PO BID sennosides [senna] 8.6 mg tablet 8.6 mg PO QHS montelukast 10 mg tablet 10 mg PO DAILY famotidine 40 mg tablet 40 mg PO QHS fluticasone propion-salmeterol 250-50 mcg/dose blister with device 1 ea INHALATION BID albuterol sulfate 90 mcg/actuation HFA aerosol inhaler 2 puff INHALATION Q6H PRN (Reason: shortness of breath or wheezing) icosapent ethyl [Vascepa] 1 gram capsule 2 g PO BID Stiolto Respimat 2.5-2.5 mcg/actuation mist 2 puff INHALATION DAILY hydroxyzine HCl 25 MG tablet 25 - 50 mg PO Q6H PRN (Reason: Anxiety) Primary Care Provider: Antonio Fung NP Referrals: Bethel Mcbride MD [Med Staff - Active Staff] - 3-5 Days Antonio Fung PATIENT SAFETY OFFICER, PATIENT SAFETY OFFICER-C [Primary Care Provider] - 5-7 Days Activity Restrictions/Additional Instructions: Follow-up with your PCP as well as cardiology. Wear your Holter monitor. Return back to the ED if symptoms change or worsen. Print Language: Martiniquais Disposition Disposition: Home, Self Care Discharge Date/Time: 04/02/24 22:57
[2024-04-02 22:00] LABS: D-Dimer Quantitative (DVT/PE) 0.27 FEU/ug/m (0.27-0.49)
[2024-04-02] MEDS: Potassium Chloride Oral Tablet 20 MEQ 40 MEQ PO (22:30)
[2024-04-02] MEDS: LORazepam 2 MG/ML Syringe 1 MG IV (22:31)
[2024-04-02 22:57] VITALS: BP 137/87; PULSE 105; RESP 24; TEMP 36.6; O2SAT 98
== END 2024-04-02 22:57 | disposition home or self-care (01) ==
PROVIDERS: Physician Assistant; Emergency Provider Surgery; PCP Nurse Practitioner Family; Visit Provider Surgery
DX: F41.9 Anxiety disorder, unspecified (principal); J44.9 Chronic obstructive pulmonary disease, unspecified; I12.9 Hypertensive chronic kidney disease with stage 1 through stage 4 chronic kidney disease, or unspecified chronic kidney disease; E78.5 Hyperlipidemia, unspecified; N18.9 Chronic kidney disease, unspecified; R00.2 Palpitations; F17.200 Nicotine dependence, unspecified, uncomplicated; Z79.899 Other long term (current) drug therapy
CPT/HCPCS: 71046; 80048; 84484; 85025; 85379; 93005; 96374; 99285; A4216

== ENCOUNTER → 2024-04-02 | Outpatient (CLI) | payer MEDICARE, MEDICAID, SELFPAY | END | disposition home or self-care (01) | LOC: CVS 22:45 | PROVIDERS: PCP Nurse Practitioner Family; Referring Provider Specialist; Visit Provider Specialist | DX: R00.2 Palpitations (principal) | CPT/HCPCS: 93225; 93226 ==

== ENCOUNTER → 2024-06-02 | Outpatient (CLI) | payer MEDICARE, MEDICAID, SELFPAY ==
[2024-06-02 13:58] LABS: Anion Gap 5 (5-15); BUN 9 mg/dL (7-18); BUN/Creat Ratio 6.4 RATIO (10-20); Calcium,Total 9.5 mg/dL (8.5-10.1); Chloride 108 mmol/L (98-107); EST Glomerular Filtration Rate 56 mL/min (>60); Est Glom Filt Rate - Afr Amer 67 mL/min (>60); Glucose 88 mg/dL (74-106); Potassium 4.1 mmol/L (3.5-5.1); Sodium Level 139 mmol/L (136-145)
== END | disposition home or self-care (01) ==
LOC: LAB 10:49
PROVIDERS: PCP Nurse Practitioner Family; Referring Provider Internal Medicine Cardiovascular Disease; Visit Provider Internal Medicine Cardiovascular Disease
DX: I10 Essential (primary) hypertension (principal)
CPT/HCPCS: 36415; 80048

== ENCOUNTER 2025-03-18 14:37 | Inpatient (IN) | payer MEDICARE, MEDICAID, SELFPAY ==
[2025-03-18] VITALS (13 sets, daily range): BP systolic 110–141; BP diastolic 70–88; PULSE 101–122; RESP 15–25; TEMP 35.8–37.4; O2SAT 94–98; BMI 35.2; BMI 34.4
--- NOTE | 2025-03-18 15:04 | RAD_ITS ---
PROCEDURE: CHEST PA AND LATERAL 03/18/2025 REASON FOR EXAM: COUGH TECHNIQUE: Procedure Code: RADCXR Modality: DX Procedure: CHEST PA AND LATERAL COMPARISON: 04/02/2024 FINDINGS: Hardware: None. Heart: The heart size is normal. Mediastinum: The mediastinal contour is unremarkable. Lungs: Scattered bilateral airspace opacities. Findings are most pronounced in the right mid lung. No pneumothorax or sizable pleural effusion. Bones: The bones are unremarkable. RAD/Chest PA and Lateral IMPRESSION: Scattered bilateral airspace opacities concerning for multifocal pneumonia. Fi ndings are most pronounced in the right mid lung. Reading [facility]
--- NOTE | 2025-03-18 15:11 | EX.ED.DYSGE1 ---
HPI History of Present Illness Chief Complaint: Cough Narrative Narrative: Chief complaint and HPI: 59-year-old gentleman with past medical history of COPD, HTN, HLD, anxiety, current tobacco abuser presents for evaluation of cold-like symptoms. Patient states for the past several days he has had a cough and nasal congestion. Endorses mild diarrhea but no nausea or vomiting. Denies any chest pain. Patient states he tried to see his PCP yesterday but the office was closed. He has been using his maintenance and albuterol inhaler as needed. Review of systems: See HPI Medications: As listed on the chart Allergies: As listed on the chart PFSH: Per chart Vital signs: As listed on the chart. Reviewed. Physical exam: Gen: A&O x3, NAD Head: Normocephalic, atraumatic Eyes: No sclera icterus, conjunctiva clear, PERRL ENT: TMs clear BL, moist mucous membranes, posterior oropharynx unremarkable, uvula midline, tonsils not enlarged, no tonsillar exudates Neck: Trachea midline, Full ROM, No meningismus CV: Tachycardia, regular rhythm, no murmurs, no peripheral edema Resp: Lungs CTA BL, + wheezing and cough GI: Abd soft, non-distended, non-tender, no r/r/g Musc: Full ROM, no deformity Skin: Warm, dry, no rash Neuro: Alert, oriented, grossly intact, sensation intact Psych: Cooperative, appropriate mood and affect [facility] Medical History (Updated 03/18/25 @ 17:[address] Susan Mckoy MD) Tobacco use Rosacea Mitral valve insufficiency High triglycerides Heart murmur COPD without exacerbation Chronic constipation Aortic root dilation Anemia in CKD (chronic kidney disease) YANTE (generalized anxiety disorder) Anemia of chronic disease Vitamin D deficiency Chronic kidney disease COPD (chronic obstructive pulmonary disease) Hypertension Hyperlipidemia GERD (gastroesophageal reflux disease) Anxiety Home Medications ?Medication ?Instructions ?Recorded ?Last Taken ?Type quetiapine 100 mg tablet 50 mg PO QHS 03/26/13 10/17/17 History simvastatin 20 mg tablet 40 mg PO QHS 03/26/13 10/17/17 History vilazodone 40 mg tablet (Viibryd) 40 mg PO DAILY 03/26/13 10/18/17 History metoprolol succinate 25 mg 25 mg PO Q12H 10/18/17 10/18/17 History tablet,extended release 24 hr albuterol sulfate 90 mcg/actuation 2 puff inhalation Q6H PRN 01/01/24 Unknown History aerosol inhaler shortness of breath or wheezing famotidine 40 mg tablet 40 mg PO QHS 01/01/24 Unknown History fluticasone 250 mcg-salmeterol 50 1 ea inhalation BID 01/01/24 Unknown History mcg/dose blistr powdr for inhalation hydroxyzine HCl 25 mg tablet 25 - 50 mg PO Q6H PRN Anxiety 01/01/24 Unknown History icosapent ethyl 1 gram capsule 2 g PO BID 01/01/24 Unknown History (Vascepa) montelukast 10 mg tablet 10 mg PO DAILY 01/01/24 Unknown History sennosides 8.6 mg tablet (senna) 8.6 mg PO QHS 01/01/24 Unknown History tiotropium 2.5 mcg-olodaterol 2.5 2 puff inhalation DAILY 01/01/24 Unknown History mcg/actuation mist for inhalation (Stiolto Respimat) fluticasone propionate 100 inhalation 04/09/24 Unknown History mcg/actuation blister powder for inhalation (Flovent Diskus) nicotine See Rx Instructions transdermal 04/09/24 Unknown History 21mg/24hr-14mg/24hr-7mg/24hr daily .COMPLEX transderm patches,sequentl buspirone 15 mg tablet 15 mg PO TID 06/02/24 Unknown History omeprazole 40 mg capsule,delayed 40 mg PO QDAY 11/09/24 Unknown History release Allergy/AdvReac Type Severity Reaction Status Date / Time No Known Allergies Allergy Verified 03/18/25 14:39 Family History Mother Cancer Diabetes Heart disease Hypertension Hyperlipidemia Osteoarthritis Father CHF (congestive heart failure) Hypertension Hyperlipidemia Heart disease Social History household members: none housing: house Smoking Status: Heavy Smoker (>10/day) alcohol intake: former year quit: 2020 substance use type: does not use well-balanced diet: daily or most days EXAM Physical Exam Const Vital Signs: 03/18/25 14:38 03/18/25 14:39 03/18/25 14:40 Temperature 99.4 F H 99.4 F H Temperature Source Oral Oral Pulse Rate 117 H 115 H Respiratory Rate 18 15 Respiratory Effort Short of Breath Respiratory Pattern Tachypnea Blood Pressure 110/70 Blood Pressure Mean 83 Pulse Ox 98 97 Oxygen Delivery Method Room Air Room Air Room Air 03/18/25 15:26 03/18/25 16:18 Temperature Temperature Source Pulse Rate 114 H 122 H Respiratory Rate 25 H 22 H Respiratory Effort Respiratory Pattern Blood Pressure Blood Pressure Mean Pulse Ox Oxygen Delivery Method MDM MDM MDM Narrative Medical decision making narrative: 59-year-old gentleman with past medical history of COPD, HTN, HLD, anxiety, current tobacco abuser presents for evaluation of cold-like symptoms. Patient states for the past several days he has had a cough and nasal congestion. Endorses mild diarrhea but no nausea or vomiting. Denies any chest pain differential diagnosis includes but is not limited to viral illness, influenza, COVID 19 infection, COPD exacerbation, pneumonia, bronchitis, electrolyte abnormality, dehydration. NS bolus, Tylenol, albuterol/DuoNebs, prednisone ordered for symptoms. Basic labs ordered with chest x-ray and viral testing. COVID, flu, RSV negative. CBC with leukocytosis of 18.5. No anemia. Platelets unremarkable. CMP shows baseline CKD without transaminitis. Chest x-ray was personally viewed and interpreted by hi, ED physician. Chest x-ray shows right-sided pneumonia. This is new from previous chest x-ray. Per radiology scattered bilateral airspace opacities concerning for multifocal pneumonia. Findings most pronounced on the right. On reevaluation, patient is still tachycardic. He is intermittently tachypneic. Still has wheezing. Patient will warrant admission for IV antibiotics and continued COPD exacerbation treatment. Rocephin and azithromycin ordered. Patient was updated of all the results and the plan. He confirmed understanding. Patient discussed with the hospitalist who accepted admission. Impression: 1. Multifocal pneumonia, worse on the right 2. COPD exacerbation Lab Data Labs: Laboratory Results - last 24 hr 03/18/25 14:47 WBC 18.5 H RBC 4.94 Hgb 15.8 Hct 46.3 MCV 93.7 MCH 32.0 MCHC 34.1 RDW Std Deviation 43.9 RDW Coeff of Yari 12.9 Plt Count 182 MPV 9.7 Immature Gran % (Auto) 0.700 Neut % (Auto) 76.7 H Lymph % (Auto) 14.7 L [place] % (Auto) 6.7 Eos % (Auto) 0.9 Baso % (Auto) 0.3 Absolute Neuts (auto) 14.2 H Absolute Lymphs (auto) 2.72 Nucleated RBC % 0 Sodium 138 Potassium 4.3 Chloride 99 Carbon Dioxide 24.0 Anion Gap 14 BUN 12 Creatinine 1.52 H Estim Creat Clear Calc 64.93 Est GFR (MDRD) Non-Af 53 L BUN/Creatinine Ratio 7.6 L Glucose 114 H Calcium 9.6 Total Bilirubin 0.85 AST 26 ALT 18 Alkaline Phosphatase 87 Total Protein 7.5 Albumin 4.5 Globulin 3.1 Albumin/Globulin Ratio 1.5 Radiography Diagnostic Testing: Clinical Impression(s) from Imaging Studies Chest X-Ray 03/18/25 15:04 IMPRESSION: Scattered bilateral airspace opacities concerning for multifocal pneumonia. Findings are most pronounced in the right mid lung. Reading Location: [facility] Discharge Plan Triage Chief Complaint: Cough ED Provider: Jason Garcia Dx/Rx/DC Orders Prescriptions: No Action nicotine 21-14-7 mg/24 hr patch, TD daily, sequential See Rx Instructions transdermal .COMPLEX Rx Instructions: apply 1-14 mg PATCH daily for 14 days, then 1-7mg PATCH daily for 14 days transdermal fluticasone propionate [Flovent Diskus] 100 mcg/actuation blister with device inhalation Patient Comments: [NO ORIGINAL SIG] buspirone 15 mg tablet 15 mg PO TID omeprazole 40 mg capsule,delayed release(DR/EC) 40 mg PO QDAY quetiapine 100 MG tablet 50 mg PO QHS simvastatin 20 MG tablet 40 mg PO QHS vilazodone [Viibryd] 40 MG tablet 40 mg PO DAILY metoprolol succinate 25 MG tablet extended release 24 hr 25 mg PO Q12H sennosides [senna] 8.6 mg tablet 8.6 mg PO QHS montelukast 10 mg tablet 10 mg PO DAILY famotidine 40 mg tablet 40 mg PO QHS fluticasone propion-salmeterol 250-50 mcg/dose blister with device 1 ea INHALATION BID albuterol sulfate 90 mcg/actuation HFA aerosol inhaler 2 puff INHALATION Q6H PRN (Reason: shortness of breath or wheezing) icosapent ethyl [Vascepa] 1 gram capsule 2 g PO BID Stiolto Respimat 2.5-2.5 mcg/actuation mist 2 puff INHALATION DAILY hydroxyzine HCl 25 MG tablet 25 - 50 mg PO Q6H PRN (Reason: Anxiety) Primary Care Provider: Antonio Fung NP Referrals: Antonio Fung NP, BAND PRESSER-C [Primary Care Provider, Family Practice] Print Language: Botswanan
[2025-03-18] MEDS: 0.9% Normal Saline (500mL Bag) 500 ML 999 ML IV (15:15)
--- OUTSIDE RECORDS SUMMARY | 2025-03-18 15:15 | XMS RPT_ITS | CCD ---
Author Organization [facility] Care Team Providers Care Meat Boner And Slicer Name Role Phone KENTON WINDER CONTORT OPERATOR - GRADER MARKER, GURMEET Bee Primary Care Phys ician KENTON WINDER CONTORT OPERATOR - GRADER MARKER, GURMEET Bee Attending U navailable KENTON WINDER CONTORT OPERATOR - GRADER MARKER, GURMEET Bee Primary Care U navailable JULEE WINDER CONTORT OPERATOR-GRADER MARKER, CONNOR Patel Attending Unavail able KENTON WINDER CONTORT OPERATOR - GRADER MARKER, GURMEET Bee Primary Care U navailable KENTON WINDER CONTORT OPERATOR - GRADER MARKER, GURMEET Bee Primary Care U navailable KENTON WINDER CONTORT OPERATOR - GRADER MARKER, GURMEET Bee Attending U navailable KENTON WINDER CONTORT OPERATOR - GRADER MARKER, GURMEET Bee Primary Care U navailable KENTON WINDER CONTORT OPERATOR - GRADER MARKER, GURMEET Bee Attending U navailable KENTON WINDER CONTORT OPERATOR - GRADER MARKER, GURMEET Bee Attending U navailable KENTON WINDER CONTORT OPERATOR - GRADER MARKER, GURMEET Bee Primary Care U navailable Hale GRADER MARKER, Gurmeet Bee Primary Care Provider GURMEET FUNG Primary Care Unavailable Unavailable Primary Care Provider Unavailabl e Kenton TELEGRAPHIC INSTRUMENT SUPERVISOR, Gurmeet Joyner Attending Unav ailable Kenton TELEGRAPHIC INSTRUMENT SUPERVISOR, Gurmeet Joyner Referring Unav ailable Kenton TELEGRAPHIC INSTRUMENT SUPERVISOR, Gurmeet Joyner Primary Care Unav ailable Johann, Danny Referring Unavailable Kenton TELEGRAPHIC INSTRUMENT SUPERVISOR, Gurmeet Joyner Primary Care Unav ailable Johann, Danny Attending Unavailable NagMoises watsonapradealondra Attending Unavailabl e Nagatimmy, Nagapradee Referring Unavailabl e Hale TELEGRAPHIC INSTRUMENT SUPERVISOR, Gurmeet Joyner Primary Care Unav ailable Moises Mcbrideapradealondra Referring Unavailabl e Juvencio Cookril Attending Unavailable Hale TELEGRAPHIC INSTRUMENT SUPERVISOR, Gurmeet Joyner Primary Care Unav ailable Johann, Danny Attending Unavailable Kenton TELEGRAPHIC INSTRUMENT SUPERVISOR, Gurmeet Joyner Referring Unav ailable Kenton TELEGRAPHIC INSTRUMENT SUPERVISOR, Gurmeet Joyner Primary Care Unav ailable Johann, Danny Attending Danny Tim Referring Lavon Fung TELEGRAPHIC INSTRUMENT SUPERVISOR, Gurmeet Joyner Primary Care Unav ailable Pipo Hidalgo Attending Unavailable Hale TELEGRAPHIC INSTRUMENT SUPERVISOR, Gurmeet Joyner Primary Care Unav ailable Jason Garcia Attending Unavailabl e Kenton TELEGRAPHIC INSTRUMENT SUPERVISOR, Gurmeet Joyner Primary Care Unav ailable KENTON WINDER CONTORT OPERATOR - GRADER MARKER, GURMEET Bee Primary Care U navailable KENTON WINDER CONTORT OPERATOR - GRADER MARKER, GURMEET Bee Attending U navailable KENTON WINDER CONTORT OPERATOR - GRADER MARKER, GURMEET Bee Primary Care U navailable KENTON WINDER CONTORT OPERATOR - GRADER MARKER, GURMEET Bee Attending U navailable KENTON WINDER CONTORT OPERATOR - GRADER MARKER, GURMEET Bee Primary Care U navailable KENTON WINDER CONTORT OPERATOR - GRADER MARKER, GURMEET Bee Attending U navailable KENTON WINDER CONTORT OPERATOR - GRADER MARKER, GURMEET Bee Attending U navailable KENTON WINDER CONTORT OPERATOR - GRADER MARKER, GURMEET Bee Primary Care U navailable KENTON WINDER CONTORT OPERATOR - GRADER MARKER, GURMEET Bee Primary Care U navailable KENTON WINDER CONTORT OPERATOR - GRADER MARKER, GURMEET Bee Attending U navailable KENTON WINDER CONTORT OPERATOR - GRADER MARKER, GURMEET Bee Primary Care U navailable KENTON WINDER CONTORT OPERATOR - GRADER MARKER, GURMEET Bee Attending U navailable KENTON WINDER CONTORT OPERATOR - GRADER MARKER, GURMEET Bee Primary Care U navailable KENTON WINDER CONTORT OPERATOR - GRADER MARKER, GURMEET Bee Attending U navailable Medications Current Medications Medication Drug Class(es) Dates Sig (Normalized) Sig (Original) albuterol 5 mg/ml inhalation solution (1 source) beta2-Adrenergic Agonist take 2.5 mg by inhalation every six hours as needed albuterol (PROVENTIL) 2.5 mg/0.5 mL nebulizar solution Use 2.5 mg via nebulizer every 6 hours as needed. Active albuterol MDI (90 mcg/inh) CFC free inhalation aerosol (12 sources) Start: 09-11-2024 End: 03-10-2025 take 2 puff(s) by inhalation every six hours albuterol MDI (90 mcg/inh) CFC free inhalation aerosol 2 puff(s), Inhalation, q6h, # 18 gram(s), 5 Refill(s), Pharmacy: [facility], COPD without exacerbation, 175.5, cm, 07/31/24 13:22:00 EDT, Height, kg, 04/11/25 13:22:00 EDT, Dosing Weight Start Date: 09/11/24 Stop Date: 03/10/25 Status: Ordered Quantity: 18.0 Unit: g Repeat number: 6 Indications: Chronic obstructive pulmonary disease, unspecified; Start: 03-09-2024 End: 09-05-2024 take 2 puff(s) by inhalation every six hours albuterol MDI (90 mcg/inh) CFC free inhalation aerosol 2 puff(s), Inhalation, q6h, # 18 gram(s), 5 Refill(s), Pharmacy: [facility], COPD without exacerbation, 175.5, cm, 03/09/24 14:17:00 EST, Height, kg, 03/09/24 14:17:00 EST, Dosing Weight Start Date: 03/09/24 Stop Date: 09/05/24 Status: Ordered Start: 09-06-2023 End: 03-04-2024 take 2 puff(s) by inhalation every six hours albuterol MDI (90 mcg/inh) CFC free inhalation aerosol 2 puff(s), Inhalation, q6h, # 18 gram(s), 5 Refill(s), Pharmacy: [facility], COPD without exacerbation, 179, cm, 09/06/23 13:54:00 EDT, Height, kg, 09/06/23 13:54:00 EDT, Dosing Weight Start Date: 09/06/23 Stop Date: 03/04/24 Status: Ordered Start: 03-08-2023 End: 09-04-2023 take 2 puff(s) by inhalation every six hours albuterol MDI (90 mcg/inh) CFC free inhalation aerosol 2 puff(s), Inhalation, q6h, # 18 gram(s), 5 Refill(s), Pharmacy: [facility], COPD without exacerbation, 179, cm, 03/08/23 14:00:00 EST, Height, kg, 03/08/23 14:00:00 EST, Dosing Weight Start Date: 03/08/23 Stop Date: 09/04/23 Status: Ordered Start: 01-29-2023 End: 02-28-2023 take 2 puff(s) by inhalation every six hours albuterol MDI (90 mcg/inh) CFC free inhalation aerosol 2 puff(s), Inhalation, q6h, # 18 gram(s), 0 Refill(s), Pharmacy: [facility], COPD without exacerbation, 175.3, cm, 09/07/22 14:05:00 EDT, Height, kg, 09/07/22 14:05:00 EDT, Dosing Weight Start Date: 01/29/23 Stop Date: 02/28/23 Status: Ordered Start: 03-09-2022 End: 10-05-2022 take 2 puff(s) by inhalation every six hours albuterol MDI (90 mcg/inh) CFC free inhalation aerosol 2 puff(s), Inhalation, q6h, # 18 gram(s), 6 Refill(s), Pharmacy: [facility], COPD without exacerbation, 175.3, cm, 03/09/22 15:45:00 EST, Height, kg, 03/09/22 15:45:00 EST, Dosing Weight Start Date: 03/09/22 Stop Date: 10/05/22 Status: Ordered Start: 11-23-2021 End: 06-21-2022 take 2 puff(s) by inhalation every six hours albuterol MDI (90 mcg/inh) CFC free inhalation aerosol 2 puff(s), Inhalation, q6h, # 18 gram(s), 6 Refill(s), Pharmacy: [facility], COPD without exacerbation, 177, cm, 11/23/21 14:58:00 EDT, Height, kg, 11/23/21 14:58:00 EDT, Dosing Weight Start Date: 11/23/21 Stop Date: 06/21/22 Status: Ordered Start: 09-07-2021 End: 03-06-2022 take 2 puff(s) by inhalation every six hours albuterol MDI (90 mcg/inh) CFC free inhalation aerosol 2 puff(s), Inhalation, q6h, # 18 gram(s), 5 Refill(s), Pharmacy: [facility], COPD without exacerbation, 177, cm, 09/07/21 13:40:00 EDT, Height Start Date: 09/07/21 Stop Date: 03/06/22 Status: Ordered amoxicillin 875 mg oral tablet (1 source) Penicillin-class Antibacterial Start: 01-04-2024 End: 01-09-2024 take 1 tablet by mouth twice daily amoxicillin (AMOXIL) 875 mg tablet Take 1 tablet by mouth two times a day for 5 days. 10 tablet 01/04/2024 01/09/2024 Active busPIRone hydrochloride 15 mg oral tablet (16 sources) Start: 07-31-2024 busPIRone 15 mg oral tablet Dose : 15 mg = 1 tab(s), Oral, TID, # 270 tab(s), 0 Refill(s) Start Date: 07/31/24 Status: Ordered Quantity: 270.0 Unit: tab(s) Repeat number: 1 Start: 03-26-2013 busPIRone 10 m g oral tablet Dose : 10 mg = 1 tab(s), Oral, TID, # 270 tab(s), 0 Refill(s) Start Date: 03/05/19 Status: Ordered cetirizine hydrochloride 10 mg oral tablet (3 sources) Histamine-1 Receptor Antagonist Start: 09-15-2024 End: 03-14-2025 Zyrtec 10 mg oral tablet Dose : 10 mg = 1 tab(s), Oral, qDay, # 90 tab(s), 1 Refill(s), Pharmacy: [facility], Seasonal allergies, 175.5, cm, 09/15/24 14:01:00 EDT, Height, kg, 09/15/24 14:01:00 EDT, Dosing Weight Start Date: 09/15/24 Stop Date: 03/14/25 Status: Ordered Quantity: 90.0 Unit: tab(s) Repeat number: 2 Indications: Other seasonal allergic rhinitis; famotidine 40 mg oral tablet (9 sources) Histamine-2 Receptor Antagonist Start: 09-11-2024 Pepcid 40 mg oral tablet Dose : 40 mg = 1 tab(s), Oral, qHS, # 90 tab(s), 1 Refill(s), Pharmacy: [facility], GERD (gastroesophageal reflux disease), 175.5, cm, 07/31/24 13:22:00 EDT, Height, kg, 07/31/24 13:22:00 EDT, Dosing Weight Start Date: 09/11/24 Status: Ordered Quantity: 90.0 Unit: tab(s) Repeat number: 2 Indications: Gastro-esophageal reflux disease without esophagitis; Start: 03-09-2024 Pepcid 40 mg o ral tablet Dose : 40 mg = 1 tab(s), Oral, qHS, # 90 tab(s), 1 Refill(s), Pharmacy: [facility], GERD (gastroesophageal reflux disease), 175.5, cm, 03/09/24 14:17:00 EST, Height, kg, 03/09/24 14:17:00 EST, Dosing Weight Start Date: 03/09/24 Status: Ordered Start: 09-06-2023 Pepcid 40 mg o ral tablet Dose : 40 mg = 1 tab(s), Oral, qHS, # 90 tab(s), 1 Refill(s), Pharmacy: [facility], GERD (gastroesophageal reflux disease), 179, cm, 09/06/23 13:54:00 EDT, Height, kg, 09/06/23 13:54:00 EDT, Dosing Weight Start Date: 09/06/23 Status: Ordered Start: 03-08-2023 Pepcid 40 mg o ral tablet Dose : 40 mg = 1 tab(s), Oral, qHS, # 90 tab(s), 1 Refill(s), Pharmacy: [facility], GERD (gastroesophageal reflux disease), 179, cm, 03/08/23 14:00:00 EST, Height, kg, 03/08/23 14:00:00 EST, Dosing Weight Start Date: 03/08/23 Status: Ordered Start: 02-28-2023 Pepcid 40 mg o ral tablet Dose : 40 mg = 1 tab(s), Oral, qHS, # 30 tab(s), 0 Refill(s), Pharmacy: [facility], GERD (gastroesophageal reflux disease), 175.3, cm, 09/07/22 14:05:00 EDT, Height, kg, 09/07/22 14:05:00 EDT, Dosing Weight Start Date: 02/28/23 Status: Ordered 60 actuat fluticasone propionate 0.1 mg/actuat dry powder inhaler (7 sources) Corticosteroid Start: 01-20-2024 take 1 puff(s) by inhalation twice daily Flovent Diskus 100 mcg inhalation powder 1 puff(s), Inhalation, BID, # 1 EA, 5 Refill(s), Pharmacy: [facility], COPD without exacerbation, 175.3, cm, 01/08/24 15:01:00 EDT, Height, kg, 01/08/24 15:01:00 EDT, Dosing Weight Start Date: 01/20/24 Status: Ordered Start: 03-08-2023 take 1 puff(s) by in halation twice daily Flovent Diskus 100 mcg inhalation powder 1 puff(s), Inhalation, BID, # 1 EA, 5 Refill(s), Pharmacy: [facility], COPD without exacerbation, 179, cm, 03/08/23 14:00:00 EST, Height, kg, 03/08/23 14:00:00 EST, Dosing Weight Start Date: 03/08/23 Status: Ordered Start: 02-28-2023 take 1 puff(s) by in halation twice daily Flovent Diskus 100 mcg inhalation powder 1 puff(s), Inhalation, BID, # 1 EA, 0 Refill(s), Pharmacy: [facility], COPD without exacerbation, 175.3, cm, 09/07/22 14:05:00 EDT, Height, kg, 09/07/22 14:05:00 EDT, Dosing Weight Start Date: 02/28/23 Status: Ordered Start: 10-12-2021 End: 10-05-2022 take 1 puff(s) by inhalation twice daily Flovent Diskus 100 mcg inhalation powder 1 puff(s), Inhalation, BID, # 1 EA, 6 Refill(s), Pharmacy: [facility], COPD without exacerbation, 175.3, cm, 03/09/22 15:45:00 EST, Height, kg, 03/09/22 15:45:00 EST, Dosing Weight Start Date: 03/09/22 Stop Date: 10/05/22 Status: Ordered 60 actuat fluticasone propionate 0.25 mg/actuat / salmeterol 0.05 mg/actuat dry powder inhaler (9 sources) Corticosteroid, beta2-Adrenergic Agonist Start: 09-11-2024 End: 03-10-2025 take 1 dose by mouth twice daily Wixela Inhub 250 mcg-50 mcg/inh inhalation powder Dose = 1 puff(s), Inhalation, BID, Dispense: 1 inhaler Note: rinse mouth and throat after use, # 1 EA, 5 Refill(s), Pharmacy: [facility], COPD (chronic obstructive pulmonary disease), 175.5, cm, 07/31/24 13:22:00 EDT, Height, kg, 07/31/24 13:22:00 EDT, Dosing Weight Start Date: 09/11/24 Stop Date: 03/10/25 Status: Ordered Quantity: 1.0 Unit: EA Repeat number: 6 Indications: Chronic obstructive pulmonary disease, unspecified; Start: 03-09-2024 End: 09-05-2024 take 1 dose by mouth twice daily Wixela Inhub 250 mcg-50 mcg inhalation powder Dose = 1 puff(s), Inhalation, BID, Dispense: 1 inhaler Note: rinse mouth and throat after use, # 1 EA, 5 Refill(s), Pharmacy: [facility], COPD (chronic obstructive pulmonary disease), 175.5, cm, 03/09/24 14:17:00 EST, Height, kg, 03/09/24 14:17:00 EST, Dosing Weight Start Date: 03/09/24 Stop Date: 09/05/24 Status: Ordered Start: 12-20-2023 take 1 puff(s) by mo [facility] twice daily fluticasone-salmeterol (ADVAIR, WIXELA) 250-50 mcg/dose inhaler INHALE 1 PUFF TWICE DAILY (rinse mouth and throat after use) 12/20/2023 Active Start: 07-01-2023 End: 01-27-2024 take 1 dose by mouth twice daily Wixela Inhub 250 mcg-50 mcg inhalation powder Dose = 1 puff(s), Inhalation, BID, Dispense: 1 inhaler Note: rinse mouth and throat after use, # 1 EA, 6 Refill(s), Pharmacy: [facility], COPD (chronic obstructive pulmonary disease), 179, cm, 03/08/23 14:00:00 EST, Height, kg, 03/08/23 14:00:00 EST, Dosing Weight Start Date: 07/01/23 Stop Date: 01/27/24 Status: Ordered hydrOXYzine hydrochloride 25 mg oral tablet (15 sources) Antihistamine Start: 09-11-2024 hydrOXYzine hy drochloride 25 mg oral tablet Dose : 25 mg = 1 tab(s), Oral, QID, PRN as needed for anxiety, # 120 tab(s), 1 Refill(s), Pharmacy: [facility], YANET (generalized anxiety disorder), 175.5, cm, 07/31/24 13:22:00 EDT, Height, kg, 07/31/24 13:22:00 EDT, Dosing Weight Start Date: 09/11/24 Status: Ordered Quantity: 120.0 Unit: tab(s) Repeat number: 2 Indications: Generalized anxiety disorder; Start: 03-09-2024 hydrOXYzine hy drochloride 25 mg oral tablet Dose : 25 mg = 1 tab(s), Oral, QID, PRN as needed for anxiety, # 120 tab(s), 1 Refill(s), Pharmacy: [facility], YANET (generalized anxiety disorder), 175.5, cm, 03/09/24 14:17:00 EST, Height, kg, 03/09/24 14:17:00 EST, Dosing Weight Start Date: 03/09/24 Status: Ordered Start: 10-07-2023 hydrOXYzine hy drochloride 25 mg oral tablet Dose : 25 mg = 1 tab(s), Oral, QID, PRN as needed for anxiety, # 360 tab(s), 1 Refill(s), Pharmacy: [facility], YANET (generalized anxiety disorder), 179, cm, 09/06/23 13:54:00 EDT, Height, kg, 09/06/23 13:54:00 EDT, Dosing Weight Start Date: 10/07/23 Status: Ordered Start: 03-08-2023 End: 04-07-2023 hydrOXYzine hydrochloride 25 mg oral tablet Dose : 25 mg = 1 tab(s), Oral, QID, PRN as needed for anxiety, # 360 tab(s), 1 Refill(s), Pharmacy: [facility], YANET (generalized anxiety disorder), 179, cm, 03/08/23 14:00:00 EST, Height, kg, 03/08/23 14:00:00 EST, Dosing Weight Start Date: 03/08/23 Stop Date: 04/07/23 Status: Ordered Start: 01-29-2023 End: 02-28-2023 hydrOXYzine hydrochloride 25 mg oral tablet Dose : 25 mg = 1 tab(s), Oral, QID, PRN as needed for anxiety, # 60 tab(s), 0 Refill(s), Pharmacy: [facility], YANET (generalized anxiety disorder), 175.3, cm, 09/07/22 14:05:00 EDT, Height, kg, 09/07/22 14:05:00 EDT, Dosing Weight Start Date: 01/29/23 Stop Date: 02/28/23 Status: Ordered Start: 06-01-2022 End: 08-30-2022 hydrOXYzine hydrochloride 25 mg oral tablet Dose : 25 mg = 1 tab(s), Oral, QID, PRN as needed for anxiety, # 60 tab(s), 2 Refill(s), Pharmacy: [facility], YANET (generalized anxiety disorder), 175.3, cm, 03/09/22 15:45:00 EST, Height, kg, 03/09/22 15:45:00 EST, Dosing Weight Start Date: 06/01/22 Stop Date: 08/30/22 Status: Ordered Start: 07-10-2021 End: 02-21-2022 hydrOXYzine hydrochloride 25 mg oral tablet Dose : 25 mg = 1 tab(s), Oral, QID, PRN as needed for anxiety, # 60 tab(s), 2 Refill(s), Pharmacy: [facility], YANET (generalized anxiety disorder), 177, cm, 11/23/21 14:58:00 EDT, Height, kg, 11/23/21 14:58:00 EDT, Dosing Weight Start Date: 11/23/21 Stop Date: 02/21/22 Status: Ordered Start: 01-05-2021 End: 04-05-2021 hydrOXYzine hydrochloride 25 mg oral tablet Dose : 25 mg = 1 tab(s), Oral, QID, PRN as needed for anxiety, # 60 tab(s), 2 Refill(s), Pharmacy: [facility], YANET (generalized anxiety disorder), 177, cm, 01/05/21 13:46:00 EDT, Height, kg, 01/05/21 13:46:00 EDT, Dosing Weight Start Date: 01/05/21 Stop Date: 04/05/21 Status: Ordered Start: 09-04-2017 take 25-50 mg by chelo twice daily Hydroxyzine Hcl Active 25 - 50 MG PO TWICE A DAY September 04, 2017 1:52am icosapent ethyl 1000 mg oral capsule (11 sources) Start: 09-11-2024 icosapent 1 g oral capsule Dose : 2 gram(s) = 2 cap(s), Oral, BID, # 360 cap(s), 1 Refill(s), Pharmacy: [facility], Hyperlipidemia High triglycerides, 175.5, cm, 07/31/24 13:22:00 EDT, Height, kg, 07/31/24 13:22:00 EDT, Dosing Weight Start Date: 09/11/24 Status: Ordered Quantity: 360.0 Unit: cap(s) Repeat number: 2 Indications: Hyperlipidemia, unspecified; Pure hyperglyceridemia; Start: 03-09-2024 icosapent 1 g oral capsule Dose : 2 gram(s) = 2 cap(s), Oral, BID, # 360 cap(s), 1 Refill(s), Pharmacy: [facility], Hyperlipidemia High triglycerides, 175.5, cm, 03/09/24 14:17:00 EST, Height, kg, 03/09/24 14:17:00 EST, Dosing Weight Start Date: 03/09/24 Status: Ordered Start: 10-25-2023 icosapent 1 g oral capsule Dose : 2 gram(s) = 2 cap(s), Oral, BID, # 360 cap(s), 1 Refill(s), Pharmacy: [facility], Hyperlipidemia High triglycerides, 179, cm, 09/06/23 13:54:00 EDT, Height, kg, 09/06/23 13:54:00 EDT, Dosing Weight Start Date: 10/25/23 Status: Ordered Start: 03-08-2023 icosapent 1 g oral capsule Dose : 2 gram(s) = 2 cap(s), Oral, BID, # 360 cap(s), 1 Refill(s), Pharmacy: [facility], Hyperlipidemia High triglycerides, 179, cm, 03/08/23 14:00:00 EST, Height, kg, 03/08/23 14:00:00 EST, Dosing Weight Start Date: 03/08/23 Status: Ordered Start: 01-05-2022 icosapent 1 g oral capsule Dose : 2 gram(s) = 2 cap(s), Oral, BID, # 60 cap(s), 5 Refill(s), Pharmacy: [facility], 175.3, cm, 01/05/22 14:29:00 EDT, Height Start Date: 01/05/22 Status: Ordered meloxicam 15 mg oral tablet (1 source) Nonsteroidal Anti-inflammatory Drug Start: 09-15-2015 take 1 tablet by mouth once daily meloxicam (MOBIC) 15 mg tablet Take 1 tablet by mouth once daily. 30 tablet 0 09/15/2015 Active 24 hr metoprolol succinate 25 mg extended release oral tablet (16 sources) beta-Adrenergic Nirmala Start: 09-11-2024 metoprolol succinate 25 mg oral TABLET extended release Dose : 25 mg = 1 tab(s), Oral, BID, # 180 tab(s), 1 Refill(s), Pharmacy: [facility], HTN, goal below 130/85, 175.5, cm, 07/31/24 13:22:00 EDT, Height, kg, 07/31/24 13:22:00 EDT, Dosing Weight Start Date: 09/11/24 Status: Ordered Quantity: 180.0 Unit: tab(s) Repeat number: 2 Indications: Essential (primary) hypertension; Start: 03-09-2024 metoprolol suc cinate 25 mg oral TABLET extended release Dose : 25 mg = 1 tab(s), Oral, BID, # 180 tab(s), 1 Refill(s), Pharmacy: [facility], HTN, goal below 130/85, 175.5, cm, 03/09/24 14:17:00 EST, Height, kg, 03/09/24 14:17:00 EST, Dosing Weight Start Date: 03/09/24 Status: Ordered Start: 09-06-2023 metoprolol suc cinate 25 mg oral TABLET extended release Dose : 25 mg = 1 tab(s), Oral, BID, # 180 tab(s), 1 Refill(s), Pharmacy: [facility], HTN, goal below 130/85, 179, cm, 09/06/23 13:54:00 EDT, Height, kg, 09/06/23 13:54:00 EDT, Dosing Weight Start Date: 09/06/23 Status: Ordered Start: 03-08-2023 metoprolol suc cinate 25 mg oral TABLET extended release Dose : 25 mg = 1 tab(s), Oral, BID, # 180 tab(s), 1 Refill(s), Pharmacy: [facility], HTN, goal below 130/85, 179, cm, 03/08/23 14:00:00 EST, Height, kg, 03/08/23 14:00:00 EST, Dosing Weight Start Date: 03/08/23 Status: Ordered Start: 02-28-2023 metoprolol suc cinate 25 mg oral TABLET extended release Dose : 25 mg = 1 tab(s), Oral, BID, Discontinue all other Rx for Metoprolol, # 60 tab(s), 0 Refill(s), Pharmacy: [facility], HTN, goal below 130/85, 175.3, cm, 09/07/22 14:05:00 EDT, Height, kg, 09/07/22 14:05:00 EDT, Dosing Weight Start Date: 02/28/23 Status: Ordered Start: 11-02-2020 End: 07-30-2021 metoprolol succinate 25 mg o ral TABLET extended release Dose : 25 mg = 1 tab(s), Oral, BID, Discontinue all other Rx for Metoprolol, # 180 tab(s), 2 Refill(s), Pharmacy: [facility], HTN, goal below 140/90, 177.5, cm, 11/02/20 11:05:00 EDT, Height, kg, 11/02/20 11:05:00 EDT, Dosing Weight Start Date: 11/02/20 Stop Date: 07/30/21 Status: Ordered Start: 10-18-2017 End: 09-05-2022 metoprolol succinate 25 mg o ral TABLET extended release Dose : 25 mg = 1 tab(s), Oral, BID, Discontinue all other Rx for Metoprolol, # 180 tab(s), 1 Refill(s), Pharmacy: [facility], HTN, goal below 140/90, 175.3, cm, 03/09/22 15:45:00 EST, Height, kg, 03/09/22 15:45:00 EST, Dosing Weight Start Date: 03/09/22 Stop Date: 09/05/22 Status: Ordered montelukast 10 mg oral tablet (12 sources) Leukotriene Receptor Antagonist Start: 09-11-2024 Singulair 10 mg oral tablet Dose : 10 mg = 1 tab(s), Oral, qDay, # 90 tab(s), 1 Refill(s), Pharmacy: [facility], COPD without exacerbation, 175.5, cm, 07/31/24 13:22:00 EDT, Height, kg, 07/31/24 13:22:00 EDT, Dosing Weight Start Date: 09/11/24 Status: Ordered Quantity: 90.0 Unit: tab(s) Repeat number: 2 Indications: Chronic obstructive pulmonary disease, unspecified; Start: 03-09-2024 Singulair 10 m g oral tablet Dose : 10 mg = 1 tab(s), Oral, qDay, # 90 tab(s), 1 Refill(s), Pharmacy: [facility], COPD without exacerbation, 175.5, cm, 03/09/24 14:17:00 EST, Height, kg, 03/09/24 14:17:00 EST, Dosing Weight Start Date: 03/09/24 Status: Ordered Start: 09-06-2023 Singulair 10 m g oral tablet Dose : 10 mg = 1 tab(s), Oral, qDay, # 90 tab(s), 1 Refill(s), Pharmacy: [facility], COPD without exacerbation, 179, cm, 09/06/23 13:54:00 EDT, Height, kg, 09/06/23 13:54:00 EDT, Dosing Weight Start Date: 09/06/23 Status: Ordered Start: 03-08-2023 Singulair 10 m g oral tablet Dose : 10 mg = 1 tab(s), Oral, qDay, # 90 tab(s), 1 Refill(s), Pharmacy: [facility], COPD without exacerbation, 179, cm, 03/08/23 14:00:00 EST, Height, kg, 03/08/23 14:00:00 EST, Dosing Weight Start Date: 03/08/23 Status: Ordered Start: 02-28-2023 Singulair 10 m g oral tablet Dose : 10 mg = 1 tab(s), Oral, qDay, # 30 tab(s), 0 Refill(s), Pharmacy: [facility], COPD without exacerbation, 175.3, cm, 09/07/22 14:05:00 EDT, Height, kg, 09/07/22 14:05:00 EDT, Dosing Weight Start Date: 02/28/23 Status: Ordered Start: 03-09-2022 Singulair 10 m g oral tablet Dose : 10 mg = 1 tab(s), Oral, qDay, # 90 tab(s), 1 Refill(s), Pharmacy: [facility], COPD without exacerbation, 175.3, cm, 03/09/22 15:45:00 EST, Height, kg, 03/09/22 15:45:00 EST, Dosing Weight Start Date: 03/09/22 Status: Ordered Start: 09-07-2021 Singulair 10 m g oral tablet Dose : 10 mg = 1 tab(s), Oral, qDay, # 90 tab(s), 1 Refill(s), Pharmacy: [facility], COPD without exacerbation, 177, cm, 09/07/21 13:40:00 EDT, Height Start Date: 09/07/21 Status: Ordered Multivitamin (Daily Multiple Vitamin) 1 EACH tablet (1 source) Start: 12-03-2017 take 1 tablet by mouth once daily Multivitamin (Daily Multiple Vitamin) 1 EACH tablet Active 1 EACH PO DAILY December 03, 2017 12:00am multivitamin tablet (1 source) take 1 tablet by mouth once daily multivitamin tablet Take 1 tablet by mouth once daily. Active naproxen 500 mg oral tablet (1 source) Nonsteroidal Anti-inflammatory Drug Start: 08-11-2023 take 1 tablet by mouth twice daily Naproxen (Naprosyn) 500 mg tablet Active 500 MG PO TWICE A DAY August 11, 2023 12:00am 24 hr nicotine 0.292 mg/hr transdermal system (2 sources) Cholinergic Nicotinic Agonist Start: 03-23-2024 End: 04-06-2024 apply 1 dose transdermal route once daily nicotine 7mg / 24hrs transdermal patch Dose = 1 patch(es), Transdermal, qDay, X 14 day(s), # 14 patch(es), 0 Refill(s), Pharmacy: [facility], Tobacco use, 175.5, cm, 03/09/24 14:17:00 EST, Height, kg, 03/09/24 14:17:00 EST, Dosing Weight Start Date: 03/23/24 Stop Date: 04/06/24 Status: Ordered Start: 03-09-2024 End: 03-23-2024 apply 1 dose transdermal route once daily nicotine 14mg / 24hrs transdermal patch Dose = 1 patch(es), Transdermal, qDay, X 14 day(s), # 14 patch(es), 0 Refill(s), Pharmacy: [facility], Tobacco use, 175.5, cm, 03/09/24 14:17:00 EST, Height, kg, 03/09/24 14:17:00 EST, Dosing Weight Start Date: 03/09/24 Stop Date: 03/23/24 Status: Ordered 60 actuat olodaterol 0.0025 mg/actuat / tiotropium 0.0025 mg/actuat inhalation spray (14 sources) Anticholinergic, beta2-Adrenergic Agonist Start: 09-11-2024 take 1 dose by inhalation once daily Stiolto Respimat 60 ACT 2.5 mcg-2.5 mcg/inh inhalation aerosol Dose = 2 puff(s), Inhalation, qDay, # 4 gram(s), 5 Refill(s), Pharmacy: [facility], COPD without exacerbation, 175.5, cm, 07/31/24 13:22:00 EDT, Height, kg, 07/31/24 13:22:00 EDT, Dosing Weight Start Date: 09/11/24 Status: Ordered Quantity: 4.0 Unit: g Repeat number: 6 Indications: Chronic obstructive pulmonary disease, unspecified; Start: 12-20-2023 STIOLTO RESPIM AT 2.5-2.5 mcg/actuation inhaler INHALE 2 PUFFS BY MOUTH and into the lungs ONCE DAILY 12/20/2023 Active Start: 10-31-2023 take 1 dose by inhal ation once daily Stiolto Respimat 60 ACT 2.5 mcg-2.5 mcg/inh inhalation aerosol Dose = 2 puff(s), Inhalation, qDay, # 4 gram(s), 5 Refill(s), Pharmacy: [facility], COPD without exacerbation, 179, cm, 10/31/23 12:59:00 EDT, Height, kg, 10/31/23 12:59:00 EDT, Dosing Weight Start Date: 10/31/23 Status: Ordered Start: 09-06-2023 take 1 dose by inhal ation once daily Stiolto Respimat 60 ACT 2.5 mcg-2.5 mcg/inh inhalation aerosol Dose = 2 puff(s), Inhalation, qDay, # 4 gram(s), 5 Refill(s), Pharmacy: [facility], COPD without exacerbation, 179, cm, 09/06/23 13:54:00 EDT, Height, kg, 09/06/23 13:54:00 EDT, Dosing Weight Start Date: 09/06/23 Status: Ordered Start: 03-08-2023 take 1 dose by inhal ation once daily Stiolto Respimat 60 ACT 2.5 mcg-2.5 mcg/inh inhalation aerosol Dose = 2 puff(s), Inhalation, qDay, # 4 gram(s), 5 Refill(s), Pharmacy: [facility], COPD without exacerbation, 179, cm, 03/08/23 14:00:00 EST, Height, kg, 03/08/23 14:00:00 EST, Dosing Weight Start Date: 03/08/23 Status: Ordered Start: 02-28-2023 take 1 dose by inhal ation once daily Stiolto Respimat 60 ACT 2.5 mcg-2.5 mcg/inh inhalation aerosol Dose = 2 puff(s), Inhalation, qDay, # 4 gram(s), 0 Refill(s), Pharmacy: [facility], COPD without exacerbation, 175.3, cm, 09/07/22 14:05:00 EDT, Height, kg, 09/07/22 14:05:00 EDT, Dosing Weight Start Date: 02/28/23 Status: Ordered Start: 03-09-2021 End: 10-05-2022 take 1 dose by inhalation once daily Stiolto Respimat 60 ACT 2.5 mcg-2.5 mcg/inh inhalation aerosol Dose = 2 puff(s), Inhalation, qDay, # 4 gram(s), 6 Refill(s), Pharmacy: [facility], COPD without exacerbation, 175.3, cm, 03/09/22 15:45:00 EST, Height, kg, 03/09/22 15:45:00 EST, Dosing Weight Start Date: 03/09/22 Stop Date: 10/05/22 Status: Ordered omeprazole 40 mg delayed release oral capsule (16 sources) Proton Pump Inhibitor Start: 09-11-2024 omeprazole 40 mg ora l delayed release capsule Dose : 40 mg = 1 cap(s), Oral, qDay, # 90 cap(s), 1 Refill(s), Pharmacy: [facility], GERD (gastroesophageal reflux disease), 175.5, cm, 07/31/24 13:22:00 EDT, Height, kg, 07/31/24 13:22:00 EDT, Dosing Weight Start Date: 09/11/24 Status: Ordered Quantity: 90.0 Unit: cap(s) Repeat number: 2 Indications: Gastro-esophageal reflux disease without esophagitis; Start: 03-09-2024 omeprazole 40 mg oral delayed release capsule Dose : 40 mg = 1 cap(s), Oral, qDay, # 90 cap(s), 1 Refill(s), Pharmacy: [facility], GERD (gastroesophageal reflux disease), 175.5, cm, 03/09/24 14:17:00 EST, Height, kg, 03/09/24 14:17:00 EST, Dosing Weight Start Date: 03/09/24 Status: Ordered Start: 09-06-2023 omeprazole 40 mg oral delayed release capsule Dose : 40 mg = 1 cap(s), Oral, qDay, # 90 cap(s), 1 Refill(s), Pharmacy: [facility], GERD (gastroesophageal reflux disease), 179, cm, 09/06/23 13:54:00 EDT, Height, kg, 09/06/23 13:54:00 EDT, Dosing Weight Start Date: 09/06/23 Status: Ordered Start: 03-08-2023 omeprazole 40 mg oral delayed release capsule Dose : 40 mg = 1 cap(s), Oral, qDay, # 90 cap(s), 1 Refill(s), Pharmacy: [facility], GERD (gastroesophageal reflux disease), 179, cm, 03/08/23 14:00:00 EST, Height, kg, 03/08/23 14:00:00 EST, Dosing Weight Start Date: 03/08/23 Status: Ordered Start: 02-28-2023 omeprazole 40 mg oral delayed release capsule Dose : 40 mg = 1 cap(s), Oral, qDay, # 30 cap(s), 0 Refill(s), Pharmacy: [facility], GERD (gastroesophageal reflux disease), 175.3, cm, 09/07/22 14:05:00 EDT, Height, kg, 09/07/22 14:05:00 EDT, Dosing Weight Start Date: 02/28/23 Status: Ordered Start: 03-09-2022 End: 09-05-2022 omeprazole 40 mg oral delaye d release capsule Dose : 40 mg = 1 cap(s), Oral, qDay, # 90 cap(s), 1 Refill(s), Pharmacy: [facility], GERD (gastroesophageal reflux disease), 175.3, cm, 03/09/22 15:45:00 EST, Height, kg, 03/09/22 15:45:00 EST, Dosing Weight Start Date: 03/09/22 Stop Date: 09/05/22 Status: Ordered Start: 03-26-2013 End: 03-06-2022 omeprazole 40 mg oral delaye d release capsule Dose : 40 mg = 1 cap(s), Oral, qDay, # 90 cap(s), 1 Refill(s), Pharmacy: [facility], GERD (gastroesophageal reflux disease), 177, cm, 09/07/21 13:40:00 EDT, Height, kg, 09/07/21 13:40:00 EDT, Dosing Weight Start Date: 09/07/21 Stop Date: 03/06/22 Status: Ordered 12 hr orphenadrine citrate 100 mg extended release oral tablet (1 source) Muscle Relaxant Start: 08-11-2023 take 100 mg by mouth twice daily Orphenadrine Citrate Active 100 MG PO TWICE A DAY 02 11August 11, 2023 5:21pm 24 hr QUEtiapine 50 mg extended release oral tablet (16 sources) Atypical Antipsychotic Start: 03-05-2019 QUEtiapine 50 mg oral tablet, extended release Dose : 100 mg = 2 tab(s), Oral, qHS, # 30 tab(s), 0 Refill(s) Start Date: 03/05/19 Status: Ordered Quantity: 30.0 Unit: tab(s) Repeat number: 1 Start: 03-05-2019 QUEtiapine 50 mg oral tablet, extended release Dose : 100 mg = 2 tab(s), Oral, qHS, # 30 tab(s), 0 Refill(s) Start Date: 03/05/19 Status: Ordered Start: 03-26-2013 take 50 mg by mouth twice rossy y Quetiapine Active 50 MG PO TWICE A DAY March 26, 2013 1:00am take 1 tablet by chelo once daily at bedtime QUEtiapine (SEROQUEL) 100 mg tablet Take 100 mg by mouth daily at bedtime. Active ramipril 2.5 mg oral capsule (1 source) Angiotensin Converting Enzyme Inhibitor take 1 capsule by mouth once daily ramipril (ALTACE) 2.5 mg capsule Take 2.5 mg by mouth once daily. Active sennosides, assisted 8.6 mg oral tablet (9 sources) Start: 09-11-2024 Senokot 8.6 mg oral tablet Dose : 8.6 mg = 1 tab(s), Oral, qHS, # 90 tab(s), 1 Refill(s), Pharmacy: [facility], Chronic constipation, 175.5, cm, 07/31/24 13:22:00 EDT, Height, kg, 07/31/24 13:22:00 EDT, Dosing Weight Start Date: 09/11/24 Status: Ordered Quantity: 90.0 Unit: tab(s) Repeat number: 2 Indications: Other constipation; Start: 03-09-2024 Senokot 8.6 mg oral tablet Dose : 8.6 mg = 1 tab(s), Oral, qHS, # 90 tab(s), 1 Refill(s), Pharmacy: [facility], Chronic constipation, 175.5, cm, 03/09/24 14:17:00 EST, Height, kg, 03/09/24 14:17:00 EST, Dosing Weight Start Date: 03/09/24 Status: Ordered Start: 09-06-2023 Senokot 8.6 mg oral tablet Dose : 8.6 mg = 1 tab(s), Oral, qHS, # 90 tab(s), 1 Refill(s), Pharmacy: [facility], Chronic constipation, 179, cm, 09/06/23 13:54:00 EDT, Height, kg, 09/06/23 13:54:00 EDT, Dosing Weight Start Date: 09/06/23 Status: Ordered Start: 03-08-2023 Senokot 8.6 mg oral tablet Dose : 8.6 mg = 1 tab(s), Oral, qHS, # 90 tab(s), 1 Refill(s), Pharmacy: [facility], Chronic constipation, 179, cm, 03/08/23 14:00:00 EST, Height, kg, 03/08/23 14:00:00 EST, Dosing Weight Start Date: 03/08/23 Status: Ordered Start: 02-28-2023 Senokot 8.6 mg oral tablet Dose : 8.6 mg = 1 tab(s), Oral, qHS, # 30 tab(s), 0 Refill(s), Pharmacy: [facility], Chronic constipation, 175.3, cm, 09/07/22 14:05:00 EDT, Height, kg, 09/07/22 14:05:00 EDT, Dosing Weight Start Date: 02/28/23 Status: Ordered simvastatin 40 mg oral tablet (16 sources) HMG-CoA Reductase Inhibitor Start: 09-11-2024 simvastatin 40 mg or al tablet Dose : 40 mg = 1 tab(s), Oral, qHS, # 90 tab(s), 1 Refill(s), Pharmacy: [facility], Hyperlipidemia, 175.5, cm, 07/31/24 13:22:00 EDT, Height, kg, 07/31/24 13:22:00 EDT, Dosing Weight Start Date: 09/11/24 Status: Ordered Quantity: 90.0 Unit: tab(s) Repeat number: 2 Indications: Hyperlipidemia, unspecified; Start: 03-09-2024 simvastatin 40 mg oral tablet Dose : 40 mg = 1 tab(s), Oral, qHS, # 90 tab(s), 1 Refill(s), Pharmacy: [facility], Hyperlipidemia, 175.5, cm, 03/09/24 14:17:00 EST, Height, kg, 03/09/24 14:17:00 EST, Dosing Weight Start Date: 03/09/24 Status: Ordered Start: 09-06-2023 simvastatin 40 mg oral tablet Dose : 40 mg = 1 tab(s), Oral, qHS, # 90 tab(s), 1 Refill(s), Pharmacy: [facility], Hyperlipidemia, 179, cm, 09/06/23 13:54:00 EDT, Height, kg, 09/06/23 13:54:00 EDT, Dosing Weight Start Date: 09/06/23 Status: Ordered Start: 03-08-2023 simvastatin 40 mg oral tablet Dose : 40 mg = 1 tab(s), Oral, qHS, # 90 tab(s), 1 Refill(s), Pharmacy: [facility], Hyperlipidemia, 179, cm, 03/08/23 14:00:00 EST, Height, kg, 03/08/23 14:00:00 EST, Dosing Weight Start Date: 03/08/23 Status: Ordered Start: 02-28-2023 simvastatin 40 mg oral tablet Dose : 40 mg = 1 tab(s), Oral, qHS, # 30 tab(s), 0 Refill(s), Pharmacy: [facility], Hyperlipidemia, 175.3, cm, 09/07/22 14:05:00 EDT, Height, kg, 09/07/22 14:05:00 EDT, Dosing Weight Start Date: 02/28/23 Status: Ordered Start: 03-09-2022 End: 09-05-2022 simvastatin 40 mg oral table t Dose : 40 mg = 1 tab(s), Oral, qHS, # 90 tab(s), 1 Refill(s), Pharmacy: [facility], Hyperlipidemia, 175.3, cm, 03/09/22 15:45:00 EST, Height, kg, 03/09/22 15:45:00 EST, Dosing Weight Start Date: 03/09/22 Stop Date: 09/05/22 Status: Ordered Start: 09-05-2020 End: 03-06-2022 simvastatin 40 mg oral table t Dose : 40 mg = 1 tab(s), Oral, qHS, # 90 tab(s), 1 Refill(s), Pharmacy: [facility], Hyperlipidemia, 177, cm, 09/07/21 13:40:00 EDT, Height, kg, 09/07/21 13:40:00 EDT, Dosing Weight Start Date: 09/07/21 Stop Date: 03/06/22 Status: Ordered Start: 03-26-2013 take 20 mg by mouth at bedtime Simvastatin Active 20 MG PO AT BEDTIME March 26, 2013 1:00am Stiolto Respimat 60 ACT 2.5 mcg-2.5 mcg/inh inhalation aerosol (1 source) Start: 09-05-2020 End: 04-03-2021 take 1 dose by inhalation once daily Stiolto Respimat 60 ACT 2.5 mcg-2.5 mcg/inh inhalation aerosol Dose = 2 puff(s), Inhalation, qDay, # 4 gram(s), 6 Refill(s), Pharmacy: [facility], COPD without exacerbation, 177.5, cm, 09/05/20 14:03:00 EDT, Height, kg, 09/05/20 14:03:00 EDT, Dosing Weight Start Date: 09/05/20 Stop Date: 04/03/21 Status: Ordered vilazodone hydrochloride 40 mg oral tablet (16 sources) Start: 09-11-2024 Viibryd 40 mg oral tablet Dose : 40 mg = 1 tab(s), Oral, qDayM, # 90 tab(s), 1 Refill(s), Pharmacy: [facility], YANET (generalized anxiety disorder), 175.5, cm, 07/31/24 13:22:00 EDT, Height, kg, 07/31/24 13:22:00 EDT, Dosing Weight Start Date: 09/11/24 Status: Ordered Quantity: 90.0 Unit: tab(s) Repeat number: 2 Indications: Generalized anxiety disorder; Start: 03-09-2024 Viibryd 40 mg oral tablet Dose : 40 mg = 1 tab(s), Oral, qDayM, # 90 tab(s), 1 Refill(s), Pharmacy: [facility], YANET (generalized anxiety disorder), 175.5, cm, 03/09/24 14:17:00 EST, Height, kg, 03/09/24 14:17:00 EST, Dosing Weight Start Date: 03/09/24 Status: Ordered Start: 09-06-2023 Viibryd 40 mg oral tablet Dose : 40 mg = 1 tab(s), Oral, qDayM, # 90 tab(s), 1 Refill(s), Pharmacy: [facility], YANET (generalized anxiety disorder), 179, cm, 09/06/23 13:54:00 EDT, Height, kg, 09/06/23 13:54:00 EDT, Dosing Weight Start Date: 09/06/23 Status: Ordered Start: 03-08-2023 Viibryd 40 mg oral tablet Dose : 40 mg = 1 tab(s), Oral, qDayM, # 90 tab(s), 1 Refill(s), Pharmacy: [facility], YANET (generalized anxiety disorder), 179, cm, 03/08/23 14:00:00 EST, Height, kg, 03/08/23 14:00:00 EST, Dosing Weight Start Date: 03/08/23 Status: Ordered Start: 02-28-2023 Viibryd 40 mg oral tablet Dose : 40 mg = 1 tab(s), Oral, qDayM, # 30 tab(s), 0 Refill(s), Pharmacy: [facility], YANET (generalized anxiety disorder), 175.3, cm, 09/07/22 14:05:00 EDT, Height, kg, 09/07/22 14:05:00 EDT, Dosing Weight Start Date: 02/28/23 Status: Ordered Start: 03-09-2022 Viibryd 40 mg oral tablet Dose : 40 mg = 1 tab(s), Oral, qDayM, # 90 tab(s), 1 Refill(s), Pharmacy: [facility], YANET (generalized anxiety disorder), 175.3, cm, 03/09/22 15:45:00 EST, Height, kg, 03/09/22 15:45:00 EST, Dosing Weight Start Date: 03/09/22 Status: Ordered Start: 03-26-2013 End: 03-06-2022 Viibryd 40 mg oral tablet Do se : 40 mg = 1 tab(s), Oral, qDayM, # 90 tab(s), 1 Refill(s), Pharmacy: [facility], YANET (generalized anxiety disorder), 177, cm, 09/07/21 13:40:00 EDT, Height, kg, 09/07/21 13:40:00 EDT, Dosing Weight Start Date: 09/07/21 Stop Date: 03/06/22 Status: Ordered Completed/Discontinued Medications Medication Drug Class(es) Dates Sig (Normalized) Sig (Original) acetaminophen 325 mg / HYDROcodone bitartrate 5 mg oral tablet (2 sources) Opioid Agonist Start: 04-29-2018 End: 05-01-2018 take 1 tablet by mouth every four hours as needed Hydrocodone-Acetami nophen Discontinued 1 TABLET PO EVERY 4 HOURS NEEDED 10 April 29, 2018 1:00am May 01, 2018 1:06am Start: 08-05-2015 take 1-2 tablets by mouth every six hours as needed HYDROcodone-acetaminophen (NORCO) 5-325 mg per tablet Take 1-2 tablets by mouth every 6 hours as needed. 40 tablet 0 08/05/2015 Active levoFLOXacin 500 mg oral tablet (1 source) Quinolone Antimicrobial Start: 04-29-2018 End: 05-20-2018 take 500 mg by mouth once daily Levofloxacin Discontinued 500 MG PO DAILY April 29, 2018 1:00am May 20, 2018 1:08am polyethylene glycol 3350 17686 mg powder for oral solution (6 sources) Osmotic Laxative Start: 09-07-2021 take 17 g by mouth once daily as needed polyethylene glycol 3350 oral powder for reconstitution Dose : 17 gram(s) =, Oral, qDay, mix 17 gram daily in 8oz of fluid PRN, # 12 EA, 2 Refill(s), Pharmacy: [facility], 177, cm, 09/07/21 13:40:00 EDT, Height, kg, 09/07/21 13:40:00 EDT, Dosing Weight Start Date: 09/07/21 Status: Ordered Start: 12-03-2017 take 17 g by mouth o nce daily as needed polyethylene glycol 3350 oral powder for reconstitution Dose : 17 gram(s) =, Oral, qDay, mix 17 gram daily in 8oz of fluid PRN, # 12 EA, 2 Refill(s), Pharmacy: [facility], 177, cm, 03/09/21 13:44:00 EST, Height, kg, 03/09/21 13:44:00 EST, Dosing Weight Start Date: 07/10/21 Status: Ordered Start: 10-05-2017 take 255 g by mouth once daily Polyethylene Glycol 3350 Active 255 GM PO DAILY October 05, 2017 12:00am polyethylene glycol 3350 oral powder for reconstitution (1 source) Start: 09-05-2020 take 17 g by mouth once daily as needed polyethylene glycol 3350 oral powder for reconstitution Dose : 17 gram(s) =, Oral, qDay, mix 17 gram daily in 8oz of fluid PRN, # 12 EA, 1 Refill(s), Pharmacy: [facility], 177.5, cm, 09/05/20 14:03:00 EDT, Height, kg, 09/05/20 14:03:00 EDT, Dosing Weight Start Date: 09/05/20 Status: Ordered Problems Active Problems Problem Classification Problem Date Documented Da te Episodic/Chronic Anxiety disorders (18 sources) Generalized anxiety disorder; Translations: [Severe anxiety (panic)] Onset: 6 09-03-2019 Chronic Aortic; peripheral; and visceral artery aneurysms (9 sources) Aortic root dilatation 09-06-2023 Chronic Chronic kidney disease (20 sources) Chronic kidney disease stage 3; Translations: [Chronic kidney disease, stage 3 unspecified] Onset: 5 03-08-2020 Chronic Chronic kidney disease (4 sources) Chronic kidney disease; Translations: [Chronic kidney disease, stage 3 unspecified] Onset: 3 Chronic obstructive pulmonary disease and bronchiectasis (20 sources) Chronic obstructive lung disease; Translations: [Other specified chronic obstructive pulmonary disease] Onset: 5 03-29-2020 Chronic Comment on above: PULMONARY FUNCTION - 03/29/2020 FINDINGS: 1. Spirometry is abnormal with an FEV1/FVC ratio of 61. 2. The obstruction is moderate with an FEV1 of 2.49 liters, which is 66% of predicted. 3. There is no change following albuterol administration. IMPRESSION: Moderate obstruction without reversibility. PFT Results: 10/2021 Spirometry shows evidence for obstruction with an FEV1/FVC ratio of 69. This is moderate in nature. FEV1 2.75 liters, which is 74% of predicted. There is no change following albuterol administration. Total lung capacity is severely restricted at 3.73 liters, which is 53% of predicted. Diffusion capacity when adjusted for alveolar volumes is normal at 88% of predicted. IMPRESSION: 1. Moderate obstruction without reversibility. 2. Severe restrictive defect. 3. Normal diffusion capacity when adjusted for alveolar volumes. PFT Results: 10/2021 Spirometry shows evidence for obstruction with an FEV1/FVC ratio of 69. This is moderate in nature. FEV1 2.75 liters, which is 74% of predicted. There is no change following albuterol administration. Total lung capacity is severely restricted at 3.73 liters, which is 53% of predicted. Diffusion capacity when adjusted for alveolar volumes is normal at 88% of predicted. IMPRESSION: 1. Moderate obstruction without reversibility. 2. Severe restrictive defect. 3. Normal diffusion capacity when adjusted for alveolar volumes. Deficiency and other anemia (17 sources) Macrocytic anemia 03-29-2020 Episodic Deficiency and other anemia (11 sources) Anemia 03-08-2023 Episodic Diabetes mellitus without complication (20 sources) Impaired fasting glycemia; Translations: [Impaired fasting glucose] Onset: 3 03-05-2019 Episodic Disorders of lipid metabolism (20 sources) Hyperlipidemia; Translations: [Hypertriglyceridemia] Onset: 6 10-07-2019 Chronic Disorders of teeth and jaw (1 source) Toothache; Translations: [Other specified disorders of teeth and supporting structures] 01-04-2024 Episodic Esophageal disorders (20 sources) Gastroesophageal reflux disease; Translations: [Gastroesophageal reflux disease without esophagitis] Onset: 6 09-03-2019 Chronic Essential hypertension (20 sources) Hypertensive disorder; Translations: [Essential (primary) hypertension] Onset: 3 11-02-2020 Chronic Comment on above: 01/11/2024 Event Mon itor: FINDINGS: Predominant underlying rhythm is normal sinus rhythm. The average HR was 79 bpm with a minimum of 50 bpm and a maximum of 134 bpm. No atrial fibrillation was noted. No episode(s) of SVT observed. No episode(s) of sustained VT observed. No episode(s) of NSVT observed. Total PAC burden was <1%. Total PVC burden was <1%. No high-grade heart block or significant pauses were noted. Reported symptoms correlated with sinus rhythm. IMPRESSION: 1. Normal ambulatory monitoring specialist with a predominant underlying rhythm of normal sinus. 01/11/2024 Event Mon itor: FINDINGS: Predominant underlying rhythm is normal sinus rhythm. The average HR was 79 bpm with a minimum of 50 bpm and a maximum of 134 bpm. No atrial fibrillation was noted. No episode(s) of SVT observed. No episode(s) of sustained VT observed. No episode(s) of NSVT observed. Total PAC burden was <1%. Total PVC burden was <1%. No high-grade heart block or significant pauses were noted. Reported symptoms correlated with sinus rhythm. IMPRESSION: 1. Normal ambulatory monitoring specialist with a predominant underlying rhythm of normal sinus. Fever of unknown origin (1 source) Fever; Translations: [Fever, unspecified] Episodic Heart valve disorders (18 sources) Mitral valve regurgitation; Translations: [Nonrheumatic aortic (valve) insufficiency] Onset: 5 03-22-2020 Chronic Comment on above: (2019) Echocardiogra m Summary: 1. Left ventricle: The cavity size is normal. Wall thickness is mildly increased. Systolic function is normal. The estimated ejection fraction is 55-60%. Wall motion is normal; there are no regional wall motion abnormalities. Normal diastolic function. 2. Aortic valve: A bicuspid morphology cannot be excluded. There is mild regurgitation. 3. Aorta: The aortic root is mildly dilated ~ 4 cm. 4. Right ventricle: The RV systolic pressure by Doppler is 27 mm Hg. 5. Right atrium: The estimated right atrial pressure is 3 mm Hg (2018) Echocardiogra m Impression: 1. Estimated ejection fraction is approximated at 60%. 2. Trivial mitral valve insufficiencies noted. 3. Left ventricular systolic function appears normal Heart valve disorders (18 sources) Heart murmur; Translations: [Cardiac murmur, unspecified] Onset: 5 03-22-2020 Episodic Comment on above: (2019) Echocardiogra m Summary: 1. Left ventricle: The cavity size is normal. Wall thickness is mildly increased. Systolic function is normal. The estimated ejection fraction is 55-60%. Wall motion is normal; there are no regional wall motion abnormalities. Normal diastolic function. 2. Aortic valve: A bicuspid morphology cannot be excluded. There is mild regurgitation. 3. Aorta: The aortic root is mildly dilated ~ 4 cm. 4. Right ventricle: The RV systolic pressure by Doppler is 27 mm Hg. 5. Right atrium: The estimated right atrial pressure is 3 mm Hg Immunizations and screening for infectious disease (4 sources) Rheumatoid factor positive 04-24-2024 Episodic Nutritional deficiencies (11 sources) Vitamin D deficiency; Translations: [Vitamin D deficiency, unspecified] Onset: 5 09-06-2023 Chronic Other connective tissue disease (1 source) Musculoskeletal pain; Translations: [Myalgia, other site] 08-11-2023 Episodic Other diseases of veins and lymphatics (6 sources) Peripheral venous insufficiency 04-07-2024 Episodic Other gastrointestinal disorders (17 sources) Chronic constipation 03-02-2019 Episodic Other inflammatory condition of skin (17 sources) Rosacea 03-02-2019 Chronic Other inflammatory condition of skin (6 sources) Lupus erythematosus 04-07-2024 Chronic Other inflammatory condition of skin (6 sources) Psoriasis 04-07-2024 Chronic Other lower respiratory disease (2 sources) Dyspnea on exertion 04-24-2021 Episodic Other lower respiratory disease (1 source) Wheezing; Translations: [Wheezing] Episodic Other lower respiratory disease (1 source) Cough; Translations: [Other specified cough] Episodic Other non-traumatic joint disorders (5 sources) Hip pain; Translations: [Pain in left hip] 08-11-2023 Episodic Other upper respiratory disease (1 source) Seasonal allergic rhinitis; Translations: [Other seasonal allergic rhinitis] Chronic Other upper respiratory disease (3 sources) Seasonal allergy 09-15-2024 Chronic Residual codes; unclassified (17 sources) Increased body mass index 09-03-2019 Episodic Residual codes; unclassified (17 sources) Tobacco user 10-07-2019 Episodic Spondylosis; intervertebral disc disorders; other back problems (4 sources) Acute back pain with sciatica 08-15-2023 Episodic Substance-related disorders (2 sources) Tobacco user; Translations: [Nicotine dependence, unspecified, uncomplicated] Onset: 07-14-2015 Chronic Systemic lupus erythematosus and connective tissue disorders (10 sources) Sjogren's syndrome; Translations: [Sicca syndrome, unspecified] Onset: 04-07-2024 Chronic Thyroid disorders (4 sources) 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 Unclassified (17 sources) Patient encounter status 03-05-2019 Unclassified (6 sources) Vaccination needed 04-02-2024 Past or Other Problems Problem Classification Problem Date Documented Date Episodic/Chronic Cardiac dysrhythmias (20 sources) Palpitations; Translations: [Palpitations] Onset: 04-09-2024 11-02-2020 Episodic Conditions associated with dizziness or vertigo (6 sources) Dizziness; Translations: [Dizziness and giddiness] Onset: 06-02-2024 12-10-2023 Episodic Other connective tissue disease (1 source) Lateral epicondylitis of left humerus; Translations: [Lateral epicondylitis, left elbow] Onset: 01-11-2015 01-11-2015 Episodic Other lower respiratory disease (2 sources) Other forms of dyspnea; Translations: [Other forms of dyspnea] Onset: 06-02-2024 Episodic Other screening for suspected conditions (not mental disorders or infectious disease) (19 sources) Echocardiogram abnormal; Translations: [Encounter for screening for malignant neoplasm of prostate] Onset: 02-28-2023 09-07-2021 Episodic Syncope (20 sources) Near syncope; Translations: [Syncope and collapse] Onset: 09-03-2023 08-15-2023 Episodic Results Test Name Value Interpretation Reference Range Facility 36on 10-09-2025 36 Left VM to come at 2 :30 for TELEGRAPHIC INSTRUMENT SUPERVISOR appt, asked patient to call office if that will not work Normal [facility] 01-13-2025 36 Spoke to patient and rescheduled TELEGRAPHIC INSTRUMENT SUPERVISOR appt Normal [facility] 3601-11-2025 36 Spoke to patient and asked him to come 1/2 early to appt patient agreed [place] 7122212-07-2024 36 Spoke to patient and asked him to come sooner for appt. Patient agreed. 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 [facility] .Auto Diff10-20-2024 Basophil, Absolute 0.0 10 3/mcL Normal 0.0-0.3 [facility] Comment on above: Performed By: #### 6 53390, 480554, 887654, 178922, 356208, 517058, 420967, 438486, 887388, 029841, 864750, 996847 #### [place] [address] [place], [place] [address] Basophils/100 WBC (Bld) 0.6 % Normal 0.0-2.5 [facility] Comment on above: Performed By: #### 6 67170, 035266, 714440, 751736, 344952, 123936, 430250, 926649, 557468, 473608, 310404, 175958 #### [facility] [address] [place], [place] [address] Eosinophil, Absolute 0.5 10 3/mcL Normal 0.0-0.7 [facility] Comment on above: Performed By: #### 6 36617, 712477, 949466, 825349, 446111, 951497, 753178, 078765, 715739, 078186, 658012, 922137 #### [place] [address] [place], [place] [address] Eosinophils/100 WBC (Bld) 8.2 % High 0.0-6.0 [facility] Comment on above: Performed By: #### 6 02716, 442277, 788957, 658699, 289287, 279340, 806606, 324114, 237473, 378536, 071118, 927462 #### [address] [address] Lymphocyte, Absolute 2.6 10 3/mcL Normal 0.9-4.3 [facility] Comment on above: Performed By: #### 6 26926, 249987, 273746, 848051, 504820, 068804, 488983, 986867, 767520, 255297, 716491, 614244 #### [address] [address] Lymphocytes/100 WBC (Bld) 39.3 % Normal 20.0-40.0 [facility] Comment on above: Performed By: #### 6 58005, 047042, 525937, 238835, 842977, 197771, 664880, 253656, 285152, 463260, 579948, 609526 #### [address] [address] Monocyte, Absolute 0.7 10 3/mcL Normal 0.1-1.4 [facility] Comment on above: Performed By: #### 6 35216, 607740, 087889, 079005, 151676, 898402, 218321, 561904, 241828, 660758, 624000, 765816 #### [address] [address] Monocytes/100 WBC (Bld) 10.1 % Normal 2.0-13.0 [facility] Comment on above: Performed By: #### 6 42374, 557944, 505504, 825138, 344156, 878559, 288866, 761562, 697504, 524605, 049474, 209559 #### [address] [address] Neutrophils/100 WBC (Bld) 41.8 % Low 50.0-75.0 [facility] Comment on above: Performed By: #### 6 80130, 156553, 461353, 445253, 719160, 549539, 337483, 175491, 470569, 454015, 275130, 209076 #### [facility] [address] [place], [place] [address] .GFRon 10-20-2024 Estimated Glomerular Filtration Rate 50 ml/min/1.73sqm Normal [facility] Comment on above: Result Comment: Stages of Chronic Kidney Disease (CKD) Stage Description eGFR(ml/min/1.73 sq.m.) CKD 1 Normal kidney function or >=90 normal kindney function with possible kidney damage (ex. Proteinuria) CKD 2 Kidney damage with mild loss 60-89 of kidney function CKD 3a Mild to moderate loss of kidney 45-59 function CKD 3b Moderate to severe loss of 30-44 of kindey function CKD 4 Severe loss of kidney function 15-29 CKD 5 Kidney failure <15 Note: (go live 2024) the eGFR calculation was updated to the 2020 CKD-EPI creatinine equation without a race factor to calculate the eGFR results. Performed By: #### 6 36844, 316702, 663709, 566714, 132136, 418776, 242097, 845104, 422958, 731826, 227820, 765662 #### [place] [place], [place] [address] .NEUABSon 10-20-2024 Neutrophil, Absolute 2.7 10 3/mcL Normal 2.3-8.1 [facility] Comment on above: Performed By: #### 6 74580, 810066, 221683, 951475, 091056, 336731, 302072, 108623, 477205, 558920, 972571, 559805 #### [facility] [address] [place], [place] [address] A1Con 10-20-2024 Glucose [Mass/Vol] 103 mg/dL Normal [facility] Comment on above: Result Comment: Denita mated Average Glucose calculated by equation ((28.7xA1C)-46.7) Estimated average glucose (eAG) is a calculated value from Hemoglobin A1C and is used equipment sales representative of the average blood glucose level in the last 2-3 month period. Normal range: less than 114 mg/dL Performed By: #### 6 08515, 478720, 808075, 436023, 907965, 564332, 118503, 070758, 023023, 456000, 739131, 157159 #### [address] [address] HbA1c (Bld) [Mass fraction] 5.2 % Normal 4.3-6.4 [facility] Comment on above: Performed By: #### 6 00855, 259777, 906485, 914289, 886697, 986010, 791658, 783670, 189856, 147730, 081295, 713141 #### [address] [address] CBCon 10-20-2024 Erythrocyte distribution width (RBC) [Ratio] 14.7 % Normal 11.5-15.5 [facility] Comment on above: Performed By: #### 6 55949, 673222, 512081, 138409, 558313, 709668, 949204, 861289, 533902, 458817, 687056, 695142 #### [address] [address] Hematocrit (Bld) [Volume fraction] 43.3 % Normal 40.0-52.0 [facility] Comment on above: Performed By: #### 6 92408, 996363, 961271, 503415, 892440, 485149, 890264, 744882, 021482, 931833, 995173, 986531 #### [address] [address] Hgb 14.7 G/dL Normal 13.0-17.5 [facility] Comment on above: Performed By: #### 6 19389, 788163, 632318, 875664, 922263, 773797, 661246, 505658, 999506, 532112, 968393, 132228 #### [address] [address] MCH (RBC) [Entitic mass] 32.0 pg Normal 27.0-33.0 [facility] Comment on above: Performed By: #### 6 22830, 094826, 669662, 063038, 911917, 078128, 967917, 282666, 632974, 475289, 927705, 896258 #### [address] [address] MCHC 34.0 G/dL Normal 32.0-36.0 [facility] Comment on above: Performed By: #### 6 62305, 919163, 514127, 827946, 415816, 816694, 858188, 532720, 195908, 465598, 776513, 562801 #### [address] [address] MCV (RBC) [Entitic vol] 94.0 fL Normal 81.0-100.0 [facility] Comment on above: Performed By: #### 6 70409, 950109, 146745, 496259, 006582, 285112, 840600, 799362, 372431, 363478, 246506, 347752 #### [address] [address] Platelet 127 10 3/mcL Low 150-450 [facility] Comment on above: Performed By: #### 6 08886, 728069, 227702, 871547, 218019, 935729, 209104, 841038, 271868, 080345, 843312, 282573 #### [address] [address] Platelet mean volume (Bld) [Entitic vol] 7.9 fL Normal 6.4-10.5 [facility] Comment on above: Performed By: #### 6 47503, 736111, 823002, 046603, 313755, 990566, 024051, 812637, 343937, 485482, 613522, 974359 #### [place] [address] [place], [place] [address] RBC 4.61 10 6/mcL Normal 4.50-6.00 [facility] Comment on above: Performed By: #### 6 07396, 076585, 153235, 557361, 438463, 136664, 371039, 205184, 062559, 374690, 672113, 244676 #### [place] [address] [place], [place] [address] WBC 6.5 10 3/mcL Normal 4.5-10.8 [facility] Comment on above: Performed By: #### 6 71585, 234015, 099254, 161242, 705841, 881103, 272644, 829258, 175632, 008769, 875994, 756180 #### [address] [address] CMPon 10-20-2024 Albumin Level 3.9 G/dL Normal 3.5-5.0 [facility] Comment on above: Performed By: #### 6 43922, 118680, 555638, 712257, 887011, 367713, 734580, 056923, 805679, 409557, 379726, 108115 #### [address] [address] Albumin/Globulin [Mass ratio] 1.2 {ratio} Normal 1.1-2.5 [facility] Comment on above: Performed By: #### 6 27936, 811532, 925992, 056792, 744497, 715463, 941592, 173716, 728191, 003687, 055761, 710784 #### [address] [address] ALP [Catalytic activity/Vol] 71 U/L Normal 40-135 [facility] Comment on above: Performed By: #### 6 49545, 985300, 974764, 701554, 409496, 945546, 707953, 762682, 861064, 849469, 174173, 222665 #### [place] [address] [place], [place] [address] ALT [Catalytic activity/Vol] 24 U/L Normal 16-63 [facility] Comment on above: Performed By: #### 6 72536, 058143, 516906, 120158, 276441, 472003, 035628, 003230, 507858, 345954, 666585, 309123 #### [place] [address] [place], [place] [address] AST [Catalytic activity/Vol] 20 U/L Normal 10-40 [facility] Comment on above: Performed By: #### 6 82841, 473424, 681126, 096829, 111138, 703364, 794673, 983521, 707654, 230120, 908452, 091845 #### [address] [address] Bili Total 1.1 mg/dL High 0.2-1.0 [facility] Comment on above: Result Comment: Use of this assay is not recommended for patients undergoing treatment with eltrombopag due to the potential for falsely elevated results. Performed By: #### 6 69492, 858239, 850718, 942191, 004716, 146925, 299319, 267831, 465255, 998124, 102444, 881700 #### [place] [address] [place], [place] [address] BUN/Creatinine Ratio 9 ratio Normal 7-27 [facility] Comment on above: Performed By: #### 6 39887, 015510, 482969, 285404, 312325, 249501, 643236, 738128, 557911, 307049, 408213, 555516 #### [place] [address] [place], [place] [address] Calcium [Mass/Vol] 9.0 mg/dL Normal 8.4-10.2 [facility] Comment on above: Performed By: #### 6 47188, 170532, 056127, 122453, 495933, 720372, 596212, 499366, 044076, 375729, 220197, 834402 #### [place] [address] [place], [place] [address] Chloride [Moles/Vol] 105 mmol/L Normal 98-107 [facility] Comment on above: Performed By: #### 6 40719, 787828, 984612, 244819, 884709, 162725, 967299, 352662, 045140, 183483, 579400, 906204 #### [address] [address] CO2 [Moles/Vol] 29 mmol/L Normal 22-29 [facility] Comment on above: Performed By: #### 6 75631, 975630, 597247, 194242, 231993, 801880, 770506, 343578, 042594, 000002, 588044, 968265 #### [address] [address] Creatinine [Mass/Vol] 1.61 mg/dL High 0.67-1.17 [facility] Comment on above: Performed By: #### 6 77050, 516464, 741002, 522490, 859482, 284816, 673062, 410476, 024323, 666873, 580921, 924051 #### [place] [address] [place], [place] [address] Electrolyte Balance 7.0 mEq/L Normal 4.0-15.0 [facility] Comment on above: Performed By: #### 6 31227, 087986, 568311, 527119, 978515, 923774, 378561, 029861, 116417, 158044, 671176, 881257 #### [place] [address] [place], [place] [address] Globulin 3.3 G/dL Normal 2.7-4.4 [facility] Comment on above: Performed By: #### 6 73111, 417925, 664903, 424771, 680223, 177031, 192305, 975595, 272415, 340040, 350732, 282605 #### [place] [address] [place], [place] [address] Glucose [Mass/Vol] 102 mg/dL Normal 70-105 [facility] Comment on above: Performed By: #### 6 74032, 301831, 566463, 696299, 066477, 615025, 148867, 869357, 570633, 854952, 134997, 402777 #### [address] [address] Potassium [Moles/Vol] 4.2 mmol/L Normal 3.5-5.1 [facility] Comment on above: Performed By: #### 6 31930, 327298, 873247, 834217, 075299, 457888, 652948, 057929, 806081, 414619, 814586, 299964 #### [address] [address] Sodium [Moles/Vol] 141 mmol/L Normal 136-145 [facility] Comment on above: Performed By: #### 6 44242, 464716, 971056, 283983, 424405, 279161, 491810, 908208, 188000, 708739, 953122, 307316 #### [place] [address] [place], [place] [address] Total Protein 7.2 G/dL Normal 6.4-8.2 [facility] Comment on above: Performed By: #### 6 81920, 804145, 274406, 376895, 140710, 374967, 318939, 681494, 138828, 086932, 333307, 593217 #### [place] [address] [place], [place] [address] Urea nitrogen [Mass/Vol] 14 mg/dL Normal 7-18 [facility] Comment on above: Performed By: #### 6 39316, 451655, 998416, 606496, 973306, 964651, 172401, 401179, 025937, 457371, 911504, 315402 #### [place] [address] [place], [place] [address] LABORATORYOrdered By: SYSTEM SYSTEM on 10-20-2024 25-hydroxyvitamin D3 [Mass/Vol] 57.3 ng/mL Invalid Interpretation Code AO ADM SS Comment on above: Interpretive Data: I nterpretive Values Based on Total 25(OH) Vitamin D: Deficient <20 ng/mL Insufficient 20 - <30 ng/mL Sufficient 30-100 ng/mL Albumin BCP dye [Mass/Vol] 3.9 G/dL Normal 3.5 - 5.0 G/dL AO ADM SS Albumin/Globulin [Mass ratio] 1.2 {ratio} Normal 1.1 - 2.5 ratio AO ADM SS ALP [Catalytic activity/Vol] 71 U/L Normal 40 - 135 U/L AO ADM SS ALT With P-5'-P [Catalytic activity/Vol] 24 U/L Normal 16 - 63 U/L AO ADM SS AST With P-5'-P [Catalytic activity/Vol] 20 U/L Normal 10 - 40 U/L AO ADM SS Basophils (Bld) [#/Vol] 0.0 103/mcL Normal 0.0 - 0.3 10^3/mcL AO Workflow SS Basophils/100 WBC (Bld) 0.6 % Normal 0.0 - 2.5 % AO Workflow SS Bilirubin [Mass/Vol] 1.1 mg/dL High 0.2 - 1 .0 mg/dL AO ADM SS Comment on above: Interpretive Data: U se of this assay is not recommended for patients undergoing treatment with eltrombopag due to the potential for falsely elevated results. Calcium [Mass/Vol] 9.0 mg/dL Normal 8.4 - 10. 2 mg/dL AO ADM SS Chloride [Moles/Vol] 105 mmol/L Normal 98 - 10 7 mmol/L AO ADM SS CO2 [Moles/Vol] 29 mmol/L Normal 22 - 29 mmol/L AO ADM SS Creatinine [Mass/Vol] 1.61 mg/dL High 0.67 - 1.17 mg/dL AO ADM SS Electrolyte Balance 7.0 mEq/L Normal 4.0 - 15 .0 mEq/L AO ADM SS Eosinophil, Absolute 0.5 103/mcL Normal 0.0 - 0 .7 10^3/mcL AO Workflow SS Eosinophils/100 WBC (Bld) 8.2 % High 0.0 - 6.0 % AO Workflow SS Erythrocyte distribution width (RBC) [Ratio] 14.7 % Normal 11.5 - 15.5 % AO Workflow SS Estimated Glomerular Filtration Rate 50 ml/min/1.73sqm Invalid Interpretation Code AO Chemistry S Comment on above: Interpretive Data: Stages of Chronic Kidney Disease (CKD) Stage Description eGFR(ml/min/1.73 sq.m.) CKD 1 Normal kidney function or >=90 normal kindney function with possible kidney damage (ex. Proteinuria) CKD 2 Kidney damage with mild loss 60-89 of kidney function CKD 3a Mild to moderate loss of kidney 45-59 function CKD 3b Moderate to severe loss of 30-44 of kindey function CKD 4 Severe loss of kidney function 15-29 CKD 5 Kidney failure <15 Note: (go live 2024) the eGFR calculation was updated to the 2020 CKD-EPI creatinine equation without a race factor to calculate the eGFR results. Globulin 3.3 G/dL Normal 2.7 - 4.4 G/dL AO ADM SS Glucose [Mass/Vol] 102 mg/dL Normal 70 - 105 mg/dL AO ADM SS Glucose [Mass/Vol] 103 mg/dL Invalid Interpretation Code AO Chemistry S Comment on above: Interpretive Data: E stimated average glucose (eAG) is a calculated value from Hemoglobin A1C and is used equipment sales representative of the average blood glucose level in the last 2-3 month period. Normal range: less than 114 mg/dL HbA1c (Bld) [Mass fraction] 5.2 % Normal 4.3 - 6.4 % AO ADM SS Hematocrit (Bld) [Volume fraction] 43.3 % Normal 40.0 - 52.0 % AO Workflow SS Hemoglobin (Bld) [Mass/Vol] 14.7 G/dL Normal 13.0 - 17.5 G/dL AO Workflow SS Lymphocytes (Bld) [#/Vol] 2.6 103/mcL Normal 0.9 - 4.3 10^3/mcL AO Workflow SS Lymphocytes/100 WBC (Bld) 39.3 % Normal 20.0 - 40.0 % AO Workflow SS MCH (RBC) [Entitic mass] 32.0 pg Normal 27.0 - 33.0 pg AO Workflow SS MCHC 34.0 G/dL Normal 32.0 - 36.0 G/dL AO Workflow SS MCV (RBC) [Entitic vol] 94.0 fL Normal 81.0 - 100.0 fL AO Workflow SS Monocytes (Bld) [#/Vol] 0.7 103/mcL Normal 0.1 - 1.4 10^3/mcL AO Workflow SS Monocytes/100 WBC (Bld) 10.1 % Normal 2.0 - 13.0 % AO Workflow SS Neutrophils (Bld) [#/Vol] 2.7 103/mcL Normal 2.3 - 8.1 10^3/mcL AO Workflow SS Neutrophils/100 WBC (Bld) 41.8 % Low 50.0 - 75.0 % AO Workflow SS Parathyrin.intact [Mass/Vol] 47.3 pg/mL Normal 18.5 - 88.0 pg/mL AH ADM SS Platelet mean volume (Bld) [Entitic vol] 7.9 fL Normal 6.4 - 10.5 fL AO Workflow SS Platelets (Bld) [#/Vol] 127 103/mcL Low 150 - 450 10^3/mcL AO Workflow SS Potassium [Moles/Vol] 4.2 mmol/L Normal 3.5 - 5.1 mmol/L AO ADM SS Protein [Mass/Vol] 7.2 G/dL Normal 6.4 - 8.2 G/dL AO ADM SS RBC (Bld) [#/Vol] 4.61 106/mcL Normal 4.50 - 6.0 0 10^6/mcL AO Workflow SS Sodium [Moles/Vol] 141 mmol/L Normal 136 - 145 mmol/L AO ADM SS Urea nitrogen [Mass/Vol] 14 mg/dL Normal 7 - 18 mg/dL AO ADM SS Urea nitrogen/Creatinine [Mass ratio] 9 ratio Normal 7 - 27 ratio AO ADM SS WBC (Bld) [#/Vol] 6.5 103/mcL Normal 4.5 - 10.8 10^3/mcL AO Workflow SS LABORATORYOrdered By: Jamie Aj on 10-20-2024 Cholesterol [Mass/Vol] 154 mg/dL Normal 0 - 200 mg/dL AO ADM SS Comment on above: Interpretive Data: C holesterol Reference Interval: Less than 200 Desirable 200-239 Borderline high risk 240 and above High risk Cholesterol in HDL [Mass/Vol] 41 mg/dL Normal 40 - 60 mg/dL AO ADM SS Cholesterol in LDL [Mass/Vol] 75 mg/dL Normal 0 - 130 mg/dL AO ADM SS Triglyceride [Mass/Vol] 190 mg/dL High 0 - 150 mg/dL AO ADM SS Comment on above: Interpretive Data: T riglyceride Reference Interval: Less than 150 Normal 150-199 Borderline high risk 200-499 High risk 500 or higher Very high risk LIPIDon 10-20-2024 Cholesterol [Mass/Vol] 154 mg/dL Normal 0-200 [facility] Comment on above: Result Comment: Chol esterol Reference Interval: Less than 200 Desirable 200-239 Borderline high risk 240 and above High risk Performed By: #### 6 24922, 673695, 187669, 733614, 952143, 532938, 104329, 211071, 550562, 006271, 217782, 085125 #### [address] [place], [place] [address] Cholesterol in HDL [Mass/Vol] 41 mg/dL Normal 40-60 [facility] Comment on above: Performed By: #### 6 81792, 853149, 290319, 108667, 706610, 467493, 496236, 880582, 299896, 684716, 450862, 616737 #### [address] [place], [place] [address] Cholesterol in LDL [Mass/Vol] 75 mg/dL Normal 0-130 [facility] Comment on above: Performed By: #### 6 94783, 879708, 757069, 052206, 325796, 977256, 641820, 289820, 209702, 033835, 945201, 621209 #### [place] [place], [place] [address] Triglyceride [Mass/Vol] 190 mg/dL High 0-150 [facility] Comment on above: Result Comment: Trig lyceride Reference Interval: Less than 150 Normal 150-199 Borderline high risk 200-499 High risk 500 or higher Very high risk Performed By: #### 6 26298, 966742, 195844, 369840, 240878, 698082, 650068, 951006, 817354, 063365, 249955, 026931 #### [address] [place], [place] [address] PTHon 10-20-2024 PTH, Intact 47.3 pg/mL Normal 18.5-88.0 [facility] Comment on above: Performed By: #### 6 57731, 663427, 911204, 444279, 130077, 993670, 625416, 184344, 256556, 760694, 388573, 714809 #### [address] [place], [place] [address] VIDHon 10-20-2024 Vit. D 25-Hydroxy 57.3 ng/mL Normal [facility] Comment on above: Result Comment: Inte rpretive Values Based on Total 25(OH) Vitamin D: Deficient <20 ng/mL Insufficient 20 - <30 ng/mL Sufficient 30-100 ng/mL Performed By: #### 6 73435, 978721, 510964, 445240, 134216, 325365, 176901, 600414, 299506, 013482, 328549, 214402 #### [place] [address] [place], [place] [address] CT SINUS W/O CONTRASTon 09-20 CT SINUS W/O CONTRAST ORIGINAL EXAMINATION: CT OF THE SINUS WITHOUT CONTRAST 10/02/2024 3:04 pm TECHNIQUE: CT of the sinuses was performed without the administration of intravenous contrast. Multiplanar reformatted images are provided for review. Automated exposure control, iterative reconstruction, and/or weight based adjustment of the mA/kV was utilized to reduce the radiation dose to as low as reasonably achievable. COMPARISON: None HISTORY: ORDERING SYSTEM PROVIDED HISTORY: Reason for Exam: to identify extent of sinus disease???&/or???abnorm al anatomic structures. FINDINGS: SINUSES/MASTOIDS: The maxillary, sphenoid, ethmoid and frontal sinuses are clear. The bilateral ostiomeatal units are patent. There is narrowing of the infundibulum of left ostiomeatal unit by enlarged inferior left ethmoid cell. The bilateral frontoethmoidal and sphenoethmoidal drainage recesses are patent. Ethmoid roofs are symmetric. The mastoid air cells are well aerated. SOFT TISSUES: Visualized soft tissues demonstrate no acute abnormality. The visualized portion of the intracranial contents and intraorbital structures demonstrate no gross acute abnormality. Bilateral parotid glands are grossly normal in morphology. Epiglottis is normal in thickness. IMPRESSION: No evidence of acute or chronic sinusitis. Drainage recesses are patent. Interpreted by: Jose Rojas Preliminary Report By: Jose Rojas Electronically signed By Jose Rojas Dictated Date: 10/02/2024 3:37:58 PM Prelim Date: 10/02/2024 3:54:34 PM Sign Date: 10/02/2024 3:54:34 PM Ordering Provider: GURMEET FUNG Normal [facility] 09-18-2024 IgE Alternaria alternata M006 <0.10 Normal Class 0 [facility] Comment on above: Result Comment: Perf ormed At: [address] [id number] Meng Worrell MD Ph:[phone] Performed By: #### 6 96852, 180696, 203629, 558655, 467199, 788199, 544460, 040310, 482287, 692107, 975179, 674730 #### [facility] [address] [place], [place] [address] [facility] 09-18-2024 IgE [place] Grass G002 <0.10 Normal Class 0 [facility] Comment on above: Result Comment: Perf ormed At: [address] [id number] Meng Worrell MD Ph:[phone] Performed By: #### 6 52174, 684100, 705899, 613557, 369983, 077705, 140935, 016870, 202516, 654328, 958024, 666732 #### [address] [address] [facility] IgE Cat Dander E001 <0.10 Normal Class 0 [facility] Comment on above: Result Comment: Levels of Specific IgE Class Description of Class ----- < 0.10 0 Negative 0.10 - 0.31 0/I Equivocal/Low 0.32 - 0.55 I Low 0.56 - 1.40 II Moderate 1.41 - 3.90 III High 3.91 - 19.00 IV Very High 19.01 - 100.00 V Very High >100.00 Very High Performed At: [address] [id number] Meng Worrell MD Ph:[phone] Performed By: #### 6 68467, 675175, 184847, 399517, 150301, 683153, 250260, 477553, 902344, 635690, 863325, 533013 #### S[address] [address] [facility] 09-18-2024 IgE D farinae D002 <0.10 Normal Class 0 [facility] Comment on above: Result Comment: Perf ormed At: [address] [id number] Meng Worrell MD Ph:[phone] Performed By: #### 6 43573, 686308, 570806, 913916, 210411, 475550, 734683, 120327, 048774, 621298, 206511, 062241 #### [place] [address] [address] DPTERNon 09-18-2024 IgE D pteronyssinus D001 <0.10 Normal Class 0 [facility] Comment on above: Result Comment: Perf ormed At: [address] [id number] Meng Worrell MD Ph:[phone] Performed By: #### 6 45735, 891568, 944452, 950024, 495916, 933229, 524897, 756685, 874339, 128665, 988705, 792092 #### 46 [address] [address] [facility] IgE Elm Luxembourger T008 <0.10 Normal Class 0 [facility] Comment on above: Result Comment: Perf ormed At: [address] [id number] Meng Worrell MD Ph:[phone] Performed By: #### 6 17824, 059547, 298649, 732690, 097199, 185708, 556357, 562557, 057309, 390832, 155047, 462902 #### [id number] [place] [address] 09-18-2024 IgE Plantain Italian W009 <0.10 Normal Class 0 [facility] Comment on above: Result Comment: Perf ormed At: [address] [id number] Meng Worrell MD Ph:[phone] Performed By: #### 6 23823, 013643, 026732, 121699, 755478, 119248, 547294, 864297, 781784, 657065, 971501, 038407 #### [address] [address] [facility] 09-18-2024 IgE [facility] G008 <0.10 Normal Class 0 [facility] Comment on above: Result Comment: Perf ormed At: [address] [id number] Meng Worrell MD Ph:[phone] Performed By: #### 6 13924, 569443, 614601, 717770, 896212, 240881, 116067, 903553, 306600, 689584, 668544, 450600 #### Suman [address] [address] K5HHYdh 09-18-2024 IgE Dog Dander E005 <0.10 Normal Class 0 [facility] Comment on above: Result Comment: Perf ormed At: [address] [id number] Meng Worrell MD Ph:[phone] Performed By: #### 6 09549, 625898, 611889, 345806, 330174, 003426, 611320, 390787, 689999, 567577, 324998, 870159 #### [address] [address] M[place]on 09-18-2024 IgE Mouse Urine E072 <0.10 Normal Class 0 [facility] Comment on above: Result Comment: Perf ormed At: [address] [id number] Meng Worrell MD Ph:[phone] Performed By: #### 6 05065, 102815, 049773, 415729, 295802, 415907, 216388, 888381, 882993, 749888, 301681, 433513 #### Suman [address] [address] [place] 09-18-2024 IgE [place] T007 <0.10 Normal Class 0 [facility] Comment on above: Result Comment: Perf ormed At: [address] [id number] Meng Worrell MD Ph:[phone] Performed By: #### 6 72473, 853827, 987643, 332333, 716809, 225863, 869931, 633560, 308562, 473517, 534138, 616472 #### [facility] [address] [place], [place] [address] SRAGWDon 09-18-2024 IgE Ragweed Short W001 <0.10 Normal Class 0 [facility] Comment on above: Result Comment: Perf ormed At: [facility] [address] [id number] Meng Worrell MD Ph:[phone] Performed By: #### 6 31688, 573152, 533413, 991651, 832942, 766410, 990964, 166619, 884462, 318063, 769298, 943274 #### [facility] [address] [place], [place] [address] XR CHEST 2 VIEWSon XR CHEST 2 VIEWS ORIGINAL EXAMINATION: TWO XRAY VIEWS OF THE CHEST 09/15/2024 3:12 pm COMPARISON: None. HISTORY: ORDERING SYSTEM PROVIDED HISTORY: Reason for Exam: to evaluate for the presence of infectious etiologies & lung infiltrates; detection of single or multiple pulmonary nodule(s), mass, pleural effusion, lung collapse, or mediastinal or hilar fullness. Wheezing. Short of breath for 2 months. FINDINGS: The heart size and mediastinal contours are normal. There is no lung infiltrate or pulmonary edema. No pneumothorax or pleural fluid is present. No lung nodules are detected. There is no acute skeletal abnormality. IMPRESSION: No acute cardiopulmonary findings. Interpreted by: Hang Hayden MD Preliminary Report By: Hang Hayden MD Electronically signed By Hang Hayden MD Dictated Date: 09/18/2024 12:16:29 AM Prelim Date: 09/18/2024 12:18:08 AM Sign Date: 09/18/2024 12:18:08 AM Ordering Provider: GURMEET FUNG Normal [facility] .Auto Diffon 09-15-2024 Basophil, Absolute 0.0 10 3/mcL Normal 0.0-0.3 [facility] Comment on above: Performed By: #### 6 64158, 238064, 585682, 529178, 187363, 519372, 462710, 391206, 153156, 090934, 385884, 380822 #### [address] [address] Basophils/100 WBC (Bld) 0.4 % Normal 0.0-2.5 [facility] Comment on above: Performed By: #### 6 68067, 042948, 637781, 828840, 684772, 264654, 654894, 393095, 243040, 474747, 028690, 734862 #### [address] [address] Eosinophil, Absolute 0.2 10 3/mcL Normal 0.0-0.7 [facility] Comment on above: Performed By: #### 6 01775, 537280, 444340, 392757, 195670, 374596, 609550, 125689, 150672, 190034, 742589, 034135 #### [address] [address] Eosinophils/100 WBC (Bld) 2.3 % Normal 0.0-6.0 [facility] Comment on above: Performed By: #### 6 77912, 331009, 247455, 717037, 408790, 439764, 162317, 135189, 488225, 683457, 873935, 375307 #### [address] [address] Lymphocyte, Absolute 2.4 10 3/mcL Normal 0.9-4.3 [facility] Comment on above: Performed By: #### 6 31539, 801815, 108435, 486514, 305281, 297044, 324054, 347724, 272960, 847852, 870525, 887420 #### [address] [address] Lymphocytes/100 WBC (Bld) 25.2 % Normal 20.0-40.0 [facility] Comment on above: Performed By: #### 6 35131, 416757, 294410, 531191, 430210, 634877, 016822, 848401, 714682, 967539, 082842, 554300 #### [address] [place], [place] [address] Monocyte, Absolute 1.3 10 3/mcL Normal 0.1-1.4 [facility] Comment on above: Performed By: #### 6 37951, 189611, 831759, 173351, 225411, 596529, 771270, 287254, 711078, 904825, 333994, 515964 #### [address] [place], [place] [address] Monocytes/100 WBC (Bld) 13.4 % High 2.0-13.0 [facility] Comment on above: Performed By: #### 6 73386, 316661, 504361, 070623, 705890, 551967, 264741, 024671, 400760, 070870, 120562, 686010 #### [address] [place], [place] [address] Neutrophils/100 WBC (Bld) 58.7 % Normal 50.0-75.0 [facility] Comment on above: Performed By: #### 6 96713, 384367, 086541, 820186, 675893, 182795, 985412, 472077, 347121, 880109, 469843, 807573 #### [address] [place], [place] [address] .GFRon 09-15-2024 Estimated Glomerular Filtration Rate 49 ml/min/1.73sqm Normal [facility] Comment on above: Result Comment: Stages of Chronic Kidney Disease (CKD) Stage Description eGFR(ml/min/1.73 sq.m.) CKD 1 Normal kidney function or >=90 normal kindney function with possible kidney damage (ex. Proteinuria) CKD 2 Kidney damage with mild loss 60-89 of kidney function CKD 3a Mild to moderate loss of kidney 45-59 function CKD 3b Moderate to severe loss of 30-44 of kindey function CKD 4 Severe loss of kidney function 15-29 CKD 5 Kidney failure <15 Note: (go live 2024) the eGFR calculation was updated to the 2020 CKD-EPI creatinine equation without a race factor to calculate the eGFR results. Performed By: #### 6 11947, 422519, 295607, 013453, 775822, 541942, 002041, 030619, 909464, 795394, 093582, 513090 #### [address] [address] .NEUABSon 09-15-2024 Neutrophil, Absolute 5.6 10 3/mcL Normal 2.3-8.1 [facility] Comment on above: Performed By: #### 6 33567, 986640, 134489, 847907, 007861, 366279, 037738, 626445, 633205, 860106, 584966, 415781 #### [address] [address] CBCon 09-15-2024 Erythrocyte distribution width (RBC) [Ratio] 14.3 % Normal 11.5-15.5 [facility] Comment on above: Performed By: #### 6 22948, 313766, 713480, 650888, 854002, 113423, 495704, 570126, 505066, 772853, 304836, 780820 #### [address] [address] Hematocrit (Bld) [Volume fraction] 43.6 % Normal 40.0-52.0 [facility] Comment on above: Performed By: #### 6 71059, 666258, 281589, 719520, 651804, 458488, 633548, 616923, 184265, 364270, 567552, 394632 #### [address] [address] Hgb 14.8 G/dL Normal 13.0-17.5 [facility] Comment on above: Performed By: #### 6 29931, 929595, 608597, 918769, 722020, 409860, 104224, 469976, 252771, 778604, 523130, 946134 #### [address] [address] MCH (RBC) [Entitic mass] 32.4 pg Normal 27.0-33.0 [facility] Comment on above: Performed By: #### 6 02076, 962979, 827791, 850315, 067539, 621885, 673395, 244865, 704512, 033269, 338402, 688298 #### [address] [address] MCHC 34.1 G/dL Normal 32.0-36.0 [facility] Comment on above: Performed By: #### 6 57392, 112306, 297158, 752235, 317632, 003788, 500336, 290725, 806609, 521732, 520092, 551754 #### [address] [address] MCV (RBC) [Entitic vol] 95.0 fL Normal 81.0-100.0 [facility] Comment on above: Performed By: #### 6 34620, 340912, 689784, 155323, 002549, 106552, 815591, 932170, 478724, 561773, 695922, 492856 #### [address] [address] Platelet 126 10 3/mcL Low 150-450 [facility] Comment on above: Performed By: #### 6 64359, 821019, 727025, 023580, 943813, 244833, 845728, 367972, 296986, 758538, 289132, 832975 #### [address] [address] Platelet mean volume (Bld) [Entitic vol] 8.2 fL Normal 6.4-10.5 [facility] Comment on above: Performed By: #### 6 50509, 906022, 414583, 855041, 638067, 149254, 769905, 937290, 713911, 444736, 250344, 661976 #### [address] [place], [place] [address] RBC 4.59 10 6/mcL Normal 4.50-6.00 [facility] Comment on above: Performed By: #### 6 01964, 890071, 938978, 512899, 163383, 582775, 133205, 758293, 204247, 882517, 491398, 987674 #### [address] [address] WBC 9.5 10 3/mcL Normal 4.5-10.8 [facility] Comment on above: Performed By: #### 6 95858, 635195, 389685, 996970, 083547, 364651, 082003, 027895, 508219, 764115, 779400, 568692 #### [address] [address] CMPon 09-15-2024 Albumin Level 4.0 G/dL Normal 3.5-5.0 [facility] Comment on above: Performed By: #### 6 59086, 566465, 723899, 396573, 164997, 249811, 050715, 825235, 314474, 979546, 053642, 463885 #### [address] [address] Albumin/Globulin [Mass ratio] 1.1 {ratio} Normal 1.1-2.5 [facility] Comment on above: Performed By: #### 6 83059, 007769, 026608, 361021, 567134, 353367, 652802, 229340, 457393, 347147, 656278, 101631 #### [address] [place], [place] [address] ALP [Catalytic activity/Vol] 76 U/L Normal 40-135 [facility] Comment on above: Performed By: #### 6 54937, 349822, 006663, 147913, 801956, 528144, 868563, 329104, 005544, 773260, 461599, 149302 #### [address] [place], [place] [address] ALT [Catalytic activity/Vol] 17 U/L Normal 16-63 [facility] Comment on above: Performed By: #### 6 07369, 352190, 330852, 684758, 493494, 074147, 615075, 550552, 673083, 419388, 156754, 333218 #### [address] [address] AST [Catalytic activity/Vol] 19 U/L Normal 10-40 [facility] Comment on above: Performed By: #### 6 94593, 536399, 622223, 493604, 603413, 719470, 002676, 628321, 802840, 368439, 272377, 385658 #### [address] [address] Bili Total 1.0 mg/dL Normal 0.2-1.0 [facility] Comment on above: Result Comment: Use of this assay is not recommended for patients undergoing treatment with eltrombopag due to the potential for falsely elevated results. Performed By: #### 6 57205, 140173, 861440, 063741, 389997, 776375, 621642, 806827, 533412, 117695, 564026, 085317 #### [address] [address] BUN/Creatinine Ratio 8 ratio Normal 7-27 [facility] Comment on above: Performed By: #### 6 49588, 505384, 601328, 755295, 680259, 269696, 724183, 660228, 648866, 867793, 171435, 909420 #### [address] [address] Calcium [Mass/Vol] 9.3 mg/dL Normal 8.4-10.2 [facility] Comment on above: Performed By: #### 6 32759, 352280, 682627, 129335, 185415, 894953, 472471, 115307, 335295, 079525, 145251, 637413 #### [address] [address] Chloride [Moles/Vol] 103 mmol/L Normal 98-107 [facility] Comment on above: Performed By: #### 6 58781, 324728, 513830, 887077, 966328, 257044, 052166, 426869, 384028, 200585, 912645, 739517 #### [address] [address] CO2 [Moles/Vol] 28 mmol/L Normal 22-29 [facility] Comment on above: Performed By: #### 6 65186, 127800, 267802, 635042, 703259, 064284, 027499, 065720, 216555, 720458, 447251, 586069 #### [address] [address] Creatinine [Mass/Vol] 1.64 mg/dL High 0.67-1.17 [facility] Comment on above: Performed By: #### 6 35721, 463543, 181749, 314176, 604370, 092089, 800908, 849798, 482512, 920596, 618402, 380492 #### [address] [address] Electrolyte Balance 11.0 mEq/L Normal 4.0-15.0 [facility] Comment on above: Performed By: #### 6 41646, 809606, 397107, 925556, 540522, 888756, 804600, 472140, 827389, 772967, 284137, 661184 #### [place] [address] [place], [place] [address] Globulin 3.5 G/dL Normal 2.7-4.4 [facility] Comment on above: Performed By: #### 6 76275, 446903, 881334, 550774, 799570, 038384, 989215, 789212, 886059, 482748, 264017, 104014 #### [address] [place], [place] [address] Glucose [Mass/Vol] 94 mg/dL Normal 70-105 [facility] Comment on above: Performed By: #### 6 18583, 438939, 804398, 555939, 526237, 425397, 043405, 817634, 561111, 852057, 398691, 307030 #### [address] [address] Potassium [Moles/Vol] 3.5 mmol/L Normal 3.5-5.1 [facility] Comment on above: Performed By: #### 6 14619, 577104, 886232, 669076, 366258, 388553, 430025, 339381, 590513, 266727, 757852, 713673 #### [address] [address] Sodium [Moles/Vol] 142 mmol/L Normal 136-145 [facility] Comment on above: Performed By: #### 6 59842, 415709, 826170, 753689, 943462, 232415, 156890, 782585, 395576, 157442, 795400, 513901 #### [address] [address] Total Protein 7.5 G/dL Normal 6.4-8.2 [facility] Comment on above: Performed By: #### 6 96151, 033300, 395755, 379932, 788880, 172797, 345468, 566589, 740450, 421842, 534881, 251426 #### [address] [place], [place] [address] Urea nitrogen [Mass/Vol] 13 mg/dL Normal 7-18 [facility] Comment on above: Performed By: #### 6 20932, 221855, 730952, 727827, 782484, 639181, 947224, 114744, 681784, 976172, 839950, 726172 #### [address] [place], [place] [address] CRPon 09-15-2024 C-Reactive Protein 7.4 mg/dL High 0.0-0.3 [facility] Comment on above: Performed By: #### 6 91492, 755438, 337535, 725696, 138338, 257557, 001114, 992374, 255654, 911550, 240973, 982739 #### [place] [address] LABORATORYOrdered By: SYSTEM SYSTEM on 09-15-2024 Albumin BCP dye [Mass/Vol] 4.0 G/dL Normal 3.5 - 5.0 G/dL AO ADM SS Albumin/Globulin [Mass ratio] 1.1 {ratio} Normal 1.1 - 2.5 ratio AO ADM SS ALP [Catalytic activity/Vol] 76 U/L Normal 40 - 135 U/L AO ADM SS ALT With P-5'-P [Catalytic activity/Vol] 17 U/L Normal 16 - 63 U/L AO ADM SS AST With P-5'-P [Catalytic activity/Vol] 19 U/L Normal 10 - 40 U/L AO ADM SS Basophils (Bld) [#/Vol] 0.0 103/mcL Normal 0.0 - 0.3 10^3/mcL AO Workflow SS Basophils/100 WBC (Bld) 0.4 % Normal 0.0 - 2.5 % AO Workflow SS Bilirubin [Mass/Vol] 1.0 mg/dL Normal 0.2 - 1 .0 mg/dL AO ADM SS Comment on above: Interpretive Data: U se of this assay is not recommended for patients undergoing treatment with eltrombopag due to the potential for falsely elevated results. Calcium [Mass/Vol] 9.3 mg/dL Normal 8.4 - 10. 2 mg/dL AO ADM SS Chloride [Moles/Vol] 103 mmol/L Normal 98 - 10 7 mmol/L AO ADM SS CO2 [Moles/Vol] 28 mmol/L Normal 22 - 29 mmol/L AO ADM SS Creatinine [Mass/Vol] 1.64 mg/dL High 0.67 - 1.17 mg/dL AO ADM SS CRP [Mass/Vol] 7.4 mg/dL High 0.0 - 0.3 mg/dL AO ADM SS Electrolyte Balance 11.0 mEq/L Normal 4.0 - 15 .0 mEq/L AO ADM SS Eosinophil, Absolute 0.2 103/mcL Normal 0.0 - 0 .7 10^3/mcL AO Workflow SS Eosinophils/100 WBC (Bld) 2.3 % Normal 0.0 - 6.0 % AO Workflow SS Erythrocyte distribution width (RBC) [Ratio] 14.3 % Normal 11.5 - 15.5 % AO Workflow SS Estimated Glomerular Filtration Rate 49 ml/min/1.73sqm Invalid Interpretation Code AO Chemistry S Comment on above: Interpretive Data: Stages of Chronic Kidney Disease (CKD) Stage Description eGFR(ml/min/1.73 sq.m.) CKD 1 Normal kidney function or >=90 normal kindney function with possible kidney damage (ex. Proteinuria) CKD 2 Kidney damage with mild loss 60-89 of kidney function CKD 3a Mild to moderate loss of kidney 45-59 function CKD 3b Moderate to severe loss of 30-44 of kindey function CKD 4 Severe loss of kidney function 15-29 CKD 5 Kidney failure <15 Note: (go live 2024) the eGFR calculation was updated to the 2020 CKD-EPI creatinine equation without a race factor to calculate the eGFR results. Globulin 3.5 G/dL Normal 2.7 - 4.4 G/dL AO ADM SS Glucose [Mass/Vol] 94 mg/dL Normal 70 - 105 mg/dL AO ADM SS Hematocrit (Bld) [Volume fraction] 43.6 % Normal 40.0 - 52.0 % AO Workflow SS Hemoglobin (Bld) [Mass/Vol] 14.8 G/dL Normal 13.0 - 17.5 G/dL AO Workflow SS Lymphocytes (Bld) [#/Vol] 2.4 103/mcL Normal 0.9 - 4.3 10^3/mcL AO Workflow SS Lymphocytes/100 WBC (Bld) 25.2 % Normal 20.0 - 40.0 % AO Workflow SS MCH (RBC) [Entitic mass] 32.4 pg Normal 27.0 - 33.0 pg AO Workflow SS MCHC 34.1 G/dL Normal 32.0 - 36.0 G/dL AO Workflow SS MCV (RBC) [Entitic vol] 95.0 fL Normal 81.0 - 100.0 fL AO Workflow SS Monocytes (Bld) [#/Vol] 1.3 103/mcL Normal 0.1 - 1.4 10^3/mcL AO Workflow SS Monocytes/100 WBC (Bld) 13.4 % High 2.0 - 13.0 % AO Workflow SS Neutrophils (Bld) [#/Vol] 5.6 103/mcL Normal 2.3 - 8.1 10^3/mcL AO Workflow SS Neutrophils/100 WBC (Bld) 58.7 % Normal 50.0 - 75.0 % AO Workflow SS Platelet mean volume (Bld) [Entitic vol] 8.2 fL Normal 6.4 - 10.5 fL AO Workflow SS Platelets (Bld) [#/Vol] 126 103/mcL Low 150 - 450 10^3/mcL AO Workflow SS Potassium [Moles/Vol] 3.5 mmol/L Normal 3.5 - 5.1 mmol/L AO ADM SS Protein [Mass/Vol] 7.5 G/dL Normal 6.4 - 8.2 G/dL AO ADM SS RBC (Bld) [#/Vol] 4.59 106/mcL Normal 4.50 - 6.0 0 10^6/mcL AO Workflow SS Sodium [Moles/Vol] 142 mmol/L Normal 136 - 145 mmol/L AO ADM SS Urea nitrogen [Mass/Vol] 13 mg/dL Normal 7 - 18 mg/dL AO ADM SS Urea nitrogen/Creatinine [Mass ratio] 8 ratio Normal 7 - 27 ratio AO ADM SS WBC (Bld) [#/Vol] 9.5 103/mcL Normal 4.5 - 10.8 10^3/mcL AO Workflow SS 36on 07-29-2024 36 Spoke to patient and rescheduled appt due to being ill. Normal [facility] 12 Lead EKG performed by MABLE on 06-02-2024 12 Lead EKG performed by [facility] [address] [place] [address] 12 Lead [place] [facility] [place] MR#: [id number] Acct: [id number] Name: AR SELLERS Rep #: [id number] : 1965 58 From: Danny Wills MD Attending Dr: Dr. Danny Wills MD Status: DEP AMB Ordering Dr: Danny Wills MD Date: 06/02/24 [place] [facility] [place] Sex: M C Admitted: [facility] [place]12 Lead EKG performed [place] [facility] [place] Report Interpretation ---Sinus Rhythm WITHIN NORMAL LIMITSElectronically signed on 09/16/2024 at 12:[address] Danny Wills [employer] Version [id number] 09/16/24 1252 Date Danny Wills MD CC: TELEGRAPHIC INSTRUMENT SUPERVISOR-C Gurmeet Quispepkins Date Dictated: 06/02/24951 Date Transcribed: 06/02/24951 Orthopaedic Doctor: JAY Signed Normal [facility] 36on 06-02-2024 36 Called patient made apt Normal S [facility] Basic Metabolic Profile (BMP )on 06-02-2024 BUN/CRE 6.4 RATIO Low 10-20 [facility] Comment on above: Performed By: #### L 500.2500 ####[facility] [address] [place], [address] CA,Total 9.5 mg/dL Normal 8.5-10.1 [facility] Comment on above: Performed By: #### L 500.2500 ####[facility] [address] [place], [address] Chloride [Moles/Vol] 108 mmol/L High 98-107 [facility] Comment on above: Performed By: #### L 500.2500 ####[facility] [address] [place], [address] CO2 [Moles/Vol] 27.0 mmol/L Normal 21.0-32.0 [facility] Comment on above: Performed By: #### L 500.2500 ####[facility] [address] [place], [address] Creatinine [Mass/Vol] 1.40 mg/dL High 0.70-1.30 [facility] Comment on above: Result Comment: The validity of the calculated GFR GFRAA in patients over 70 years has not been determined. Clinical correlation is essential. Performed By: #### L 500.2500 ####[facility] [address] [place], [address] EST GFR - AA 67 mL/min Normal >60 [facility] Comment on above: Result Comment: Afri can Luxembourger GFR Calc Performed By: #### L 500.2500 ####[facility] [address] [place], [address] GAP 5 Normal 5-15 [facility] Comment on above: Performed By: #### L 500.2500 ####[facility] [address] [place], [address] GFR/1.73 sq M.predicted among non-blacks MDRD (S/P/Bld) [Vol rate/Area] 56 mL/min/{1.73_m2} Low >60 [facility] Comment on above: Result Comment: Non- GFR Calc Performed By: #### L 500.2500 ####[facility] [address] [place], [address] Glucose [Mass/Vol] 88 mg/dL Normal 74-106 [facility] Comment on above: Performed By: #### L 500.2500 ####[facility] [address] [place], [address] Potassium [Moles/Vol] 4.1 mmol/L Normal 3.5-5.1 [facility] Comment on above: Performed By: #### L 500.2500 ####[facility] [address] [place], [place], [address] Sodium [Moles/Vol] 139 mmol/L Normal 136-145 [facility] Comment on above: Performed By: #### L 500.2500 ####[facility] [address] [place], [place], [address] Urea nitrogen [Mass/Vol] 9 mg/dL Normal 7-18 [facility] Comment on above: Performed By: #### L 500.2500 ####[facility] [address] [place], [place], [address] Cardiology Visit Reporton Cardiology Visit Report [facility] [place] [facility] [address] [place], [place] [address] OFFICE VISIT Date of Service: 06/02/24 MR#: [id number] Acct: [id number] Name: AR SELLERS Rep #: [id number] : 1965 Provider: Dr. Danny Wills MD Age/Sex: 58/M [place] [facility] [place] Status: Signed HPI HPI History of Present Illness Details: This gentleman has past medical history significant for anxiety disorder, nicotine dependence and dyslipidemia. He has been complaining of intermittent palpitations for a long time now. According to him, he feels his heart racing. He has had a 30-day event monitoring done in December 2023. Also Holter monitoring was performed in March 2024. According to the patient, he has had his symptoms of intermittent palpitations while he was wearing the monitors. Both times, the report showed as occasional PACs and PVCs. No significant arrhythmia burden was noted. The patient denies any lightheadedness or dizziness. No syncope or presyncope. Denies any chest pains either at rest or with exertion. According to him, he does get short of breath with moderate exertion. Per him, he has COPD and attributes his shortness of breath to that. No orthopnea. No PND. No ankle edema. Patient has had an echocardiogram done last year which showed normal LV systolic function. Mild aortic valve regurgitation was noted. Intake Vital Signs 04/02/24 19:12 06/02/24 09:22 Height 5 ft 9 in 5 ft 9 in Weight: 231 lb BMI 34.1 BP 125/82 H Blood Pressure Location Lt brachial Position Sitting Respiration 18 Pulse 82 Pulse Source NIBP Intake Visit Reasons: S/P [facility] 04/03 Cannoneer Required: No Accompanied by: Self Is patient in pain?: No Allergies No Known Allergies Allergy (Verified 06/02/24 10:01) Medications ???Medication ???Instructions ???Recorded ???Confirmed ???Type Omeprazole [Prilosec] 40 mg PO DAILY 03/26/13 06/02/24 H istory quetiapine 100 mg tablet 50 mg PO QHS 03/26/13 06/02/24 His tory simvastatin 20 mg tablet 40 mg PO QHS 03/26/13 06/02/24 His tory vilazodone 40 mg tablet (Viibryd) 40 mg PO DAILY 03/26/13 06/02/24 History metoprolol succinate 25 mg 25 mg PO Q12H 10/18/17 06/02/24 Hi story tablet,extended release 24 hr albuterol sulfate 90 mcg/actuation 2 puff inhalation Q6H PRN 06/02/24 History aerosol inhaler shortness of breath or wheezing famotidine 40 mg tablet 40 mg PO QHS 01/01/24 06/02/24 His tory fluticasone 250 mcg-salmeterol 50 1 ea inhalation BID 01/01/2405/23 History mcg/dose blistr powdr for inhalation hydroxyzine HCl 25 mg tablet 25 - 50 mg PO Q6H PRN Anxiety 12/2106/02/24 History icosapent ethyl 1 gram capsule 2 g PO BID 01/01/24 06/02/24 Histo ry (Vascepa) montelukast 10 mg tablet 10 mg PO DAILY 01/01/24 06/02/24 H istory sennosides 8.6 mg tablet (senna) 8.6 mg PO QHS 01/01/24 06/02/24 Hi story tiotropium 2.5 mcg-olodaterol 2.5 2 puff inhalation DAILY 01/01/24 06/02/24 History mcg/actuation mist for inhalation (Stiolto Respimat) fluticasone propionate 100 inhalation 04/09/24 06/02/24 Histo ry mcg/actuation blister powder for inhalation (Flovent Diskus) nicotine See Rx Instructions transdermal 06/02/24 History 21mg/24hr-14mg/24hr-7mg /24hr daily .COMPLEX transderm patches,sequentl buspirone 15 mg tablet 15 mg PO TID 06/02/24 06/02/24 His tory Ejection fraction %: 55 Have you fallen in the past year?: No [facility] Medical History (Updated 06/02/24 @ 10:[address] Danny Wills MD) Nicotine dependence Tobacco use Screening for prostate cancer Rosacea Mitral valve insufficiency Increased BMI High triglycerides Heart murmur COPD without exacerbation Chronic constipation Aortic root dilation Anemia in CKD (chronic kidney disease) Abnormal echocardiogram Near syncope YANET (generalized anxiety disorder) Anemia of chronic disease Vitamin D deficiency Impaired fasting glucose Chronic kidney disease Dizziness COPD (chronic obstructive pulmonary disease) Hypertension Hyperlipidemia GERD (gastroesophageal reflux disease) Anxiety Family History Mother Cancer Diabetes Heart disease Hypertension Hyperlipidemia Osteoarthritis Father CHF (congestive heart failure) Hypertension Hyperlipidemia Heart disease Social History household members: none housing: house Smoking Status: Heavy Smoker (>10/day) alcohol intake: former year quit: 2020 substance use type: does not use well-balanced diet: daily or most days ROS Const Const: Negative for fatigue, weakness, headache(s) or weight gain ENT ENT: Positive for dizziness (w/palps); Nega (more content not included)... Normal [facility] US THYROIDon 05-01-2024 US THYROID ORIGINAL EXAMINATION: ULTRASOUND OF THE THYROID WITH COLOR DOPPLER FLOW EVALUATION04/30/2024 1:11 pm Ultrasound Thyroid COMPARISON: None HISTORY: ORDERING SYSTEM PROVIDED HISTORY: Reason for Exam: Elevated thyroid function tests. All images are recorded and archived. FINDINGS: Size right thyroid lobe: 5.0 x 2.5 x 2.4 cm Size left thyroid lobe: 5.0 x 2.1 x 1.9 cm Size isthmus: 0.6 cm Texture: Homogeneous Estimated total number of nodules greater than or equal to 1 cm: 0 No discrete thyroid mass or nodule. IMPRESSION: 1. Normal thyroid examination. ACR TI-RADS 2017 Recommendations: TR1(0 points) : No FNA or follow up TR2 (2 points) : No FNA or follow up TR3 (3 points) : FNA if >/= 2.5 cm, follow up if 1.5 - 2.4 cm in 1, 3, and 5 years TR4 (4-6 points) : FNA if >/= 1.5 cm, follow up if 1.0 - 1.4 cm in 1, 2, 3, and 5 years TR5 (>/= 7 points) : FNA if >/= 1.0 cm, follow up if 0.5 - 0.9 cm every year for 5 years *ACR TI-RADS recommends that no more than two nodules with the highest ACR TI-RADS total point should be biopsied and no more than four nodules should be followed. Interpreted by: Cristian Arellano DO Preliminary Report By: Cristian Arellano DO Electronically signed By Cristian Arellano DO Dictated Date: 05/01/2024 11:11:26 AM Prelim Date: 05/01/2024 11:13:03 AM Sign Date: 05/01/2024 11:13:03 AM Ordering Provider: GURMEET FUNG [facility] CT VENOGRAM ABDOMEN AND PELV Ronny 04-29-2024 CT VENOGRAM ABDOMEN AND PELVIS ORIGINAL EXAMINATION: CT VENOGRAM OF THE ABDOMEN AND PNFVQR6004/21/2024 2:47 pm TECHNIQUE: Multiplanar and 3D reconstructed images were generated, reviewed and manipulated on a separate workstation. Automated exposure control, iterative reconstruction, and/or weight based adjustment of the mA/kV was utilized to reduce the radiation dose to as low as reasonably achievable. DEFINITIONS Stenosis Severity Grading: Normal: 0% stenosis Minimal: <25% stenosis Mild: 25-49% stenosis Moderate: 50-69% stenosis Severe: 70-99% stenosis Occluded (100%) Abbreviations: Ao: Aorta; CA: Celiac artery; RA: Renal artery; SMA: Superior mesenteric artery; TANVI: Inferior mesenteric artery; MYRON: Common iliac artery; EIA: External iliac artery; IIA: Internal iliac artery; THERMITE BOMB LOADER: Common femoral artery; RT: Right; LT: Left COMPARISON: None HISTORY: Episodes of tachycardia and elevated blood pressure, diaphoresis, chronic venous insufficiency FINDINGS: VASCULAR: DEEP VENOUS SYSTEM: IVC: Widely patent. No duplication. RT RV: Widely patent. LT RV: Widely patent. RIGHT CIV: No severe stenosis. EIV: No severe stenosis. IIV: No severe stenosis. CFV: No severe stenosis. DFV: No severe stenosis. FV: No severe stenosis. LEFT CIV: No severe stenosis. EIV: No severe stenosis. IIV: No severe stenosis. CFV: No severe stenosis. DFV: No severe stenosis. FV: No severe stenosis. PORTAL SYSTEM: SV: Patent SMV: Patent Portal HTN: No Spontaneous shunt: No splenorenal or paraumbilical vein. Collaterals: No esophageal or gastric varices. MPV: Patent. RPV: Patent. LPV: Patent. RHV: Patent. MHV: Patent. LHV: Patent. ABD AORTA Suprarenal: No atherosclerosis. No aneurysm. Infrarenal: No atherosclerosis.No aneurysm. NONVASCULAR: LUNG BASES: Unremarkable. LIVER:A few scattered subcentimeter probable cysts or hemangiomas noted. Visualized organs otherwise unremarkable. BILIARY: No extra or intrahepatic duct dilatation. GALLBLADDER: Subcentimeter stones present. No inflammatory change. SPLEEN: Not enlarged. No lesions. RT ADRENAL: Unremarkable. LT ADRENAL: Unremarkable. PANCREAS: Unremarkable. ASCITES: None RT KIDNEY: Enhances normally. Cyst(s) measure up to 5.9 cm. LT KIDNEY: Enhance symmetrically. No hydronephrosis. Subcentimeter probable cysts present. URINARY BLADDER: Unremarkable. PROSTATE: Unremarkable. GI: No obstruction or inflammatory change. No free air. LYMPHATIC: No abdominal or pelvic adenopathy. BONES: No suspicious osseous lesion. IMPRESSION: 1. No abnormality of the deep venous system of the abdomen or pelvis. No dilated veins to suggest deep venous incompetence. Interpreted by: Marlon Cespedes MD Preliminary Report By: Marlon Cespedes MD Electronically signed By Marlon Cespedes MD Dictated Date: 04/28/2024 11:54:19 PM Prelim Date: 04/29/2024 12:01:28 AM Sign Date: 04/29/2024 12:01:28 AM Ordering Provider: GURMEET Swann [facility] CCPon 04-13-2024 Cyclic Citrullinated Peptide <20.0 Normal <=19.9 [facility] Comment on above: Result Comment: Cycl ic Citrullinated IgG Interpretation: Result Units Negative <20 Weak Positive 20-39 Moderate Positive 40-59 Strong Positive >=60 A positive result indicates the presence of IgG anti-CCP3 antibodies and suggests the possibility of RA. A negative result indicates no CCP3 antibody or levels below the negative cut-off of the assay. Results of this assay should be used in conjunction with clinical findings and other serological tests. These test results were obtained with the [employer] Quanta Lite CCP3 IgG CELSA. Anti-CCP values obtained with different manufacturers' assay methods may not be used interchangeably. Performed By: #### 6 09684, 054364, 581701, 031469, 466511, 500330, 804928, 659173, 127636, 890445, 528915, 761828 #### [address] [place], [place] [address] DNA 04-13-2024 ds DNA Ab Neg 10 Normal Neg 10 [facility] Comment on above: Result Comment: DNA Screen and Titer methodology is an immunofluorescent technique utilizing Crithidia luciliae Substrate. Performed By: #### 6 29777, 745275, 660251, 831304, 992998, 004201, 990746, 471252, 074435, 204139, 592342, 152970 #### [facility] [address] [place], [place] [address] RFon 04-13-2024 Rheumatoid Factor 145.1 High <=5.9 [facility] Comment on above: Result Comment: RF I gM Antibody by Enzyme Immunoassay: Negative < or = 6 Positive > 6 A positive result indicates the presence of RF antibodies and suggests the possibility of rheumatoid arthritis. A negative result indicates no RF IgM antibody or levels below the negative cut-off of the assay. Results of this assay should be used in conjunction with clinical findings and other serological tests. These results were obtained with the [employer] QUANTA Lite RF IgM CELSA. RF IgM values obtained with different manufacturers' assay methods may not be used interchangeably. The magnitude of the reported IgM levels cannot be correlated to an endpoint titer. Performed By: #### 6 34530, 173148, 940321, 449284, 224273, 628355, 148710, 033912, 379323, 020239, 397520, 814989 #### [address] [address] RIBABon 04-13-2024 Ribosomal Ab <20.0 Normal <=19.9 [facility] Comment on above: Result Comment: Ribo some P Antibody Interpretation: Result Units Negative <20 Weak Positive 20-39 Moderate Positive 40-80 Strong Positive >80 A positive result indicates the presence of Ribosome P antibodies and suggests the possibility of Systemic Lupus Erythematosus or other related connective tissue diseases. A negative result indicates no Ribosome P antibody or levels below the negative cut-off of the assay. Results of this assay should be used in conjunction with clinical findings and other serological tests. These test results were obtained with the [employer] Quanta Lite Ribosome P CELSA. Ribosome P values obtained with different manufacturers' assay methods may not be used interchangeably. Performed By: #### 6 47657, 976028, 650948, 844402, 337926, 829732, 197175, 231072, 890923, 076378, 212501, 022253 #### [address] [address] SSABon 04-13-2024 Sjogrens SSA Ab <0.2 Normal 0.0-0.9 [facility] Comment on above: Performed By: #### 6 11747, 341524, 683724, 625261, 341562, 536396, 893766, 157071, 451980, 553209, 194075, 089907 #### [place] [address] Sjogrens SSB Ab <0.2 Normal 0.0-0.9 [facility] Comment on above: Result Comment: Perf ormed At: [facility] [id number] Rufus Ray PhD Ph:[phone] Performed By: #### 6 20511, 642061, 616520, 554933, 211600, 923240, 728958, 291800, 465852, 908997, 942185, 443091 #### [address] [address] ANAIFSon 04-10-2024 Antinuclear Ab Screen Negative Normal Negative [facility] Comment on above: Result Comment: Anti -nuclear antibody test is used as an aid in diagnosis of systemic autoimmune diseases. Where positive and clinically warranted, follow-up using disease-specific testing is recommended. Low positive titers are not uncommon with advanced age, certain chronic infections, and malignancies among others. Test methodology: Indirect fluorescence immunoassay (IFA) using HEp-2 cells. Performed By: [facility] [employer] [place] [address] Gift Shop Clerk: Alden Barger III, M.D. CLIA#: [id number] Performed By: #### 6 71890, 394870, 170754, 915622, 927359, 311579, 193187, 284260, 690328, 329654, 639125, 814475 #### [address] [address] ENA1on 04-10-2024 Centromere <0.2 Normal <1.0 [facility] Comment on above: Result Comment: Anti -centromere antibody is used as in aid in diagnosis of systemic sclerosis. Clinical correlation is required. Test Methodology: Multiplex flow immunoassay. Performed By: [facility] [address] Gift Shop Clerk: Alden Barger III, M.D. CLIA#: [id number] Performed By: #### 6 66363, 235496, 748114, 812283, 876692, 597764, 608812, 152191, 764961, 179031, 461753, 065657 #### [address] [address] Centromere Ab Qualitative Negative Normal Negative [facility] Comment on above: Result Comment: Perf ormed By: [facility] [address] Gift Shop Clerk: Alden Barger III, M.D. CLIA#: [id number] Performed By: #### 6 07413, 408726, 758355, 542012, 717260, 276973, 053538, 708218, 436084, 381480, 452147, 240540 #### [address] [address] Chromatin Ab Qualitative Negative Normal Negative [facility] Comment on above: Result Comment: Perf ormed By: [place] [address] Gift Shop Clerk: Alden Barger III, M.D. CLIA#: [id number] Performed By: #### 6 95345, 490339, 087861, 103618, 754439, 848954, 298091, 800433, 856122, 254966, 651955, 597704 #### [place] [address] Chromatin Antibody <0.2 Normal <1.0 [facility] Comment on above: Result Comment: Test Methodology: Multiplex flow immunoassay. Anti-chromatin antibody is used as an aid in diagnosis of systemic lupus erythematosus. Clinical correlation is required. Test Methodology: Multiplex flow immunoassay. Performed By: [place] [address] Gift Shop Clerk: Alden Barger III, M.D. CLIA#: [id number] Performed By: #### 6 80130, 964819, 845687, 953770, 267706, 236910, 064340, 412034, 696161, 135339, 104682, 925844 #### [address] [address] KIA 1 Antibody <0.2 Normal <1.0 [facility] Comment on above: Result Comment: Perf ormed By: [place] [address] Gift Shop Clerk: Alden Barger III, M.D. CLIA#: [id number] Performed By: #### 6 21447, 774699, 000744, 063685, 386226, 312067, 721421, 074891, 828156, 685975, 010592, 017409 #### [address] [address] KIA 1 Antibody Qual Negative Normal Negative [facility] Comment on above: Result Comment: Anti -KIA-1 antibody is used as an aid in diagnosis of polymyositis and dermatomyositis especially with pulmonary involvement. A negative result cannot rule out polymyositis or dermatomyositis. Clinical correlation is required. Test Methodology: Multiplex flow immunoassay. Performed By: [facility] [employer] [address] [place] [address] Gift Shop Clerk: Alden Barger III, M.D. CLIA#: [id number] Performed By: #### 6 05696, 945791, 832413, 926092, 967175, 406157, 072699, 943595, 860535, 096694, 032057, 133424 #### [address] [address] Ribosomal PHOTONIC LABORATORY TECHNICIAN <0.2 Normal <1.0 [facility] Comment on above: Result Comment: Perf ormed By: [facility] [employer] [address] [place] [address] Gift Shop Clerk: Alden Barger III, M.D. CLIA#: [id number] Performed By: #### 6 14308, 041538, 363124, 823130, 696123, 080463, 352115, 812791, 986635, 828826, 893734, 834036 #### [address] [address] Ribosomal PHOTONIC LABORATORY TECHNICIAN Qualitative Negative Normal Negative [facility] Comment on above: Result Comment: Anti -Ribosomal RNA (Ribosomal P) antibody is used as an aid in diagnosis of systemic autoimmune diseases especially systemic lupus erythematosus and mixed connective tissue disease. Cross-reactivity with Anti-gould antibody is not uncommon. Clinical correlation is required. Test Methodology: Multiplex flow immunoassay. Performed By: [facility] [employer] [address] [place] [address] Gift Shop Clerk: Alden Barger III, M.D. CLIA#: [id number] Performed By: #### 6 14743, 976736, 451957, 805259, 183655, 561718, 778678, 066288, 589272, 792494, 112848, 639913 #### [address] [place], [place] [address] PHOTONIC LABORATORY TECHNICIAN Antibody 0.3 AI Normal <1.0 [facility] Comment on above: Result Comment: Anti -PHOTONIC LABORATORY TECHNICIAN antibody is used as an aid in diagnosis of systemic autoimmune diseases especially systemic lupus erythematosus and mixed connective tissue disease. Cross-reactivity with Anti-gould antibody is not uncommon. Clinical correlation is required. Test Methodology: Multiplex flow immunoassay. Performed By: [place] [address] Gift Shop Clerk: Alden Barger III, M.D. CLIA#: [id number] Performed By: #### 6 03135, 406325, 634187, 490255, 166889, 713028, 980818, 070908, 037806, 904867, 605931, 636157 #### [address] [address] PHOTONIC LABORATORY TECHNICIAN Antibody Qualitative Negative Normal Negative [facility] Comment on above: Result Comment: Perf ormed By: [place] [address] Gift Shop Clerk: Alden Barger III, M.D. CLIA#: [id number] Performed By: #### 6 07040, 168139, 545680, 697902, 771413, 330182, 751737, 211934, 600814, 670315, 433109, 927752 #### [address] [place], [place] [address] Scleroderma Ab, IgG Qualitative Negative Normal Negative [facility] Comment on above: Result Comment: Perf ormed By: [place] [address] Gift Shop Clerk: Alden Barger III, M.D. CLIA#: [id number] Performed By: #### 6 09186, 611450, 818556, 415037, 553437, 549406, 403324, 983658, 203834, 527355, 609686, 497580 #### [address] [address] Scleroderma IgG Ab <0.2 Normal <1.0 [facility] Comment on above: Result Comment: Scl- 70/Scleroderma antibody test is used as an aid in diagnosis of systemic sclerosis especially the diffuse cutaneous form. A negative result cannot rule out systemic sclerosis. The final interpretation should consider clinical picture and other test results such as anti-centromere antibody. Test Methodology: Multiplex flow immunoassay. Performed By: [facility] [employer] [facility] [place] [address] Gift Shop Clerk: Alden Barger III, M.D. CLIA#: [id number] Performed By: #### 6 69073, 412459, 206385, 558559, 496651, 808433, 721386, 780919, 874890, 763060, 058303, 860833 #### [address] [address] Sm Antibody <0.2 Normal <1.0 [facility] Comment on above: Result Comment: Perf ormed By: [facility] [employer] [address] [place] [address] Gift Shop Clerk: Alden Barger III, M.D. CLIA#: [id number] Performed By: #### 6 03025, 578177, 991785, 094668, 152238, 240151, 160169, 991585, 621603, 918557, 806849, 719188 #### [address] [address] Sm Antibody Qual Negative Normal Negative [facility] Comment on above: Result Comment: Anti -Sm (Gould) antibody is used as an aid in diagnosis of systemic lupus erythematosus and its presence is associated with renal disease. A negative result cannot rule out systemic lupus erythematosus. Clinical correlation is required. Test Methodology: Multiplex flow immunoassay. Performed By: [place] [address] Gift Shop Clerk: Alden Barger III, M.D. CLIA#: [id number] Performed By: #### 6 16371, 283874, 959164, 923653, 248769, 300972, 467123, 399852, 332935, 888513, 622733, 670574 #### [address] [address] SS-A Antibody <0.2 Normal <1.0 [facility] Comment on above: Result Comment: Test Methodology: Multiplex flow immunoassay. Anti-SSA (anti-Ro) antibody is used as an aid in diagnosis of a variety of systemic autoimmune diseases, Sjogren's syndrome among others. Clinical correlation is required. Test Methodology: Multiplex flow immunoassay. Performed By: [place] [address] Gift Shop Clerk: Alden Barger III, M.D. CLIA#: [id number] Performed By: #### 6 11348, 498292, 274089, 601922, 620510, 139945, 718489, 585960, 261930, 366068, 029768, 080963 #### [address] [address] SS-B Antibody <0.2 Normal <1.0 [facility] Comment on above: Result Comment: Anti -SSB (anti-La) antibody is used as an aid in diagnosis of a variety of systemic autoimmune diseases, especially for Sjogren's syndrome and systemic lupus erythematosus. Clinical correlation is required. Test Methodology: Multiplex flow immunoassay. Performed By: [place] [address] Gift Shop Clerk: Alden Barger III, M.D. CLIA#: [id number] Performed By: #### 6 00334, 837095, 673900, 812420, 098883, 181663, 618632, 383857, 206786, 919900, 891353, 269770 #### [address] [address] SSA Antibody Qualitative Negative Normal Negative [facility] Comment on above: Result Comment: Perf ormed By: [address] [place] [address] Gift Shop Clerk: Alden Barger III, M.D. CLIA#: [id number] Performed By: #### 6 16176, 932318, 073148, 689467, 071366, 998025, 095044, 416965, 521950, 425653, 323638, 378431 #### [address] [address] SSB Antibody Qualitative Negative Normal Negative [facility] Comment on above: Result Comment: Perf ormed By: [facility] [address] [place] [address] Gift Shop Clerk: Alden Barger III, M.D. CLIA#: [id number] Performed By: #### 6 81555, 916213, 660120, 300090, 545319, 253318, 870852, 073720, 695942, 467793, 162734, 296071 #### [address] [address] MITOon 04-10-2024 Mitochondrial Ab Neg 20 Normal Neg 20 [facility] Comment on above: Result Comment: Manish chondrial Ab Screen and Titer methodology is an immunofluorescent technique utilizing MSK Substrate. Performed By: #### 6 76829, 493124, 133179, 322599, 594954, 165775, 190147, 614073, 103422, 196350, 066764, 118699 #### [address] [address] PARIEon 04-10-2024 Parietal Cell Ab Neg 20 Normal Neg 20 [facility] Comment on above: Result Comment: Margaret etal Cell Ab Screen and Titer methodology is an immunofluorescent technique utilizing MSK Substrate. Performed By: #### 6 29248, 355685, 977846, 259959, 705475, 100807, 250858, 572856, 805430, 857016, 087377, 299550 #### [address] [place], [place] [address] SMUSCon 04-10-2024 Smooth Muscle Ab Neg 20 Normal Neg 20 [facility] Comment on above: Result Comment: Smoo th Muscle Ab Screen and Titer methodology is an immunofluorescent technique utilizing MSK Substrate. Performed By: #### 6 57657, 315713, 863793, 681460, 202883, 870793, 237629, 379558, 843214, 152043, 806216, 925185 #### [address] [address] SPEon 04-10-2024 SPE Interpretation Normal serum protein electrophoresis pattern. No abnormality detected. Normal [facility] Comment on above: Result Comment: Elec tronically Signed by: GURMEET TOSCANO MD 04/10/2024 15:57 EST Performed By: #### 6 89701, 100841, 218591, 006152, 641976, 282597, 118887, 121740, 735646, 766024, 986813, 863753 #### [address] [place], [place] [address] Albumin 4.2 G/dL Normal 3.3-5.0 [facility] Comment on above: Performed By: #### 6 39883, 142794, 473637, 365153, 604059, 169789, 068633, 011932, 933135, 163607, 781837, 497675 #### [address] [place], [place] [address] Alpha 1 0.2 G/dL Normal 0.1-0.4 [facility] Comment on above: Performed By: #### 6 12583, 082855, 654588, 307967, 780156, 050106, 089194, 149920, 817380, 409250, 477182, 805045 #### [address] [place], [place] [address] Alpha 2 0.8 G/dL Normal 0.6-1.2 [facility] Comment on above: Performed By: #### 6 21122, 208718, 051430, 611779, 797997, 413857, 737039, 598388, 540811, 439900, 618248, 581922 #### [address] [place], [place] [address] Beta 1.2 G/dL Normal 0.6-1.3 [facility] Comment on above: Performed By: #### 6 32215, 827741, 939207, 255828, 800955, 882156, 918327, 043546, 416368, 174267, 040722, 198998 #### [address] [place], [place] [address] Gamma 0.9 G/dL Normal 0.7-1.6 [facility] Comment on above: Performed By: #### 6 23460, 828068, 276898, 817536, 698807, 643699, 941451, 773439, 605079, 775859, 175007, 205802 #### [address] [address] ASOon 04-09-2024 ASO 79.1 IU/mL Normal 25.0-250.0 [facility] Comment on above: Result Comment: No te - New Reference Range in effect 19 Performed By: #### 6 06998, 226022, 068379, 983925, 598678, 088603, 792418, 739072, 752721, 924224, 639041, 760076 #### [address] [address] [id number] 04-09-2024 Complement C3A 181.0 mg/dL High 90.0-170.0 [facility] Comment on above: Result Comment: No te - New Reference Range in effect 19 Performed By: #### 6 23562, 253071, 631581, 552509, 306197, 721964, 557849, 807031, 373672, 653603, 748631, 456161 #### [address] [place], [place] [address] Complement C4A 34.0 mg/dL Normal 16.0-38.0 [facility] Comment on above: Performed By: #### 6 59313, 802120, 576066, 871063, 271943, 207532, 701884, 041587, 694838, 782023, 745585, 740373 #### [address] [place], [place] [address] CRPon 04-09-2024 C-Reactive Protein 0.4 mg/dL High 0.0-0.3 [facility] Comment on above: Performed By: #### 6 27081, 330971, 841156, 827956, 847322, 335843, 126009, 926691, 555085, 562863, 736157, 039772 #### [address] [address] ESRon 04-09-2024 Erythrocyte Sed Rate 4 mm/hr Normal 0-20 [facility] Comment on above: Performed By: #### 6 02565, 831087, 035824, 966745, 241491, 727274, 383876, 978264, 647297, 394637, 807022, 988343 #### [place] [address] [address] LABORATORYOrdered By: MERCEDES_Arvind SEA CONTRIBUTOR_SYSTEM on 04-09-2024 Antinuclear Ab Screen Negative Invalid Interpretation Code AO Sendouts SS Comment on above: Result Comment: Anti -nuclear antibody test is used as an aid in diagnosis of systemic autoimmune diseases. Where positive and clinically warranted, follow-up using disease-specific testing is recommended. Low positive titers are not uncommon with advanced age, certain chronic infections, and malignancies among others. Test methodology: Indirect fluorescence immunoassay (IFA) using HEp-2 cells. Performed By: [facility] [address] [place] [address] Gift Shop Clerk: Alden Barger III, M.D. CLIA#: [id number] Centromere AI Invalid Interpretation Code AO Sendouts SS Comment on above: Result Comment: Anti -centromere antibody is used as in aid in diagnosis of systemic sclerosis. Clinical correlation is required. Test Methodology: Multiplex flow immunoassay. Performed By: [place] [address] Gift Shop Clerk: Alden Barger III, M.D. CLIA#: [id number] Centromere Ab Qualitative Negative Invalid Interpretation Code AO Sendouts SS Comment on above: Result Comment: Perf ormed By: [place] [address] Gift Shop Clerk: Alden Barger III, M.D. CLIA#: [id number] Chromatin Ab Qualitative Negative Invalid Interpretation Code AO Sendouts SS Comment on above: Result Comment: Perf ormed By: [place] [address] Gift Shop Clerk: Alden Barger III, M.D. CLIA#: [id number] Chromatin Antibody AI Invalid Interpretation Code AO Sendouts SS Comment on above: Result Comment: Test Methodology: Multiplex flow immunoassay. Anti-chromatin antibody is used as an aid in diagnosis of systemic lupus erythematosus. Clinical correlation is required. Test Methodology: Multiplex flow immunoassay. Performed By: [place] [address] Gift Shop Clerk: Alden Barger III, M.D. CLIA#: [id number] KIA 1 Antibody AI Invalid Interpretation Code AO Sendouts SS Comment on above: Result Comment: Perf ormed By: [place] [address] Gift Shop Clerk: Alden Barger III, M.D. CLIA#: [id number] KIA 1 Antibody Qual Negative Invalid Interpretation Code AO Sendouts SS Comment on above: Result Comment: Anti -KIA-1 antibody is used as an aid in diagnosis of polymyositis and dermatomyositis especially with pulmonary involvement. A negative result cannot rule out polymyositis or dermatomyositis. Clinical correlation is required. Test Methodology: Multiplex flow immunoassay. Performed By: [facility] [employer] [address] [place] [address] Gift Shop Clerk: Alden Barger III, M.D. CLIA#: [id number] Ribosomal PHOTONIC LABORATORY TECHNICIAN AI Invalid Interpretation Code AO Sendouts SS Comment on above: Result Comment: Perf ormed By: [facility] [employer] [address] [place] [address] Gift Shop Clerk: Alden Barger III, M.D. CLIA#: [id number] Ribosomal PHOTONIC LABORATORY TECHNICIAN Qualitative Negative Invalid Interpretation Code AO Sendouts Comment on above: Result Comment: Anti -Ribosomal RNA (Ribosomal P) antibody is used as an aid in diagnosis of systemic autoimmune diseases especially systemic lupus erythematosus and mixed connective tissue disease. Cross-reactivity with Anti-gould antibody is not uncommon. Clinical correlation is required. Test Methodology: Multiplex flow immunoassay. Performed By: [facility] [employer] [address] [place] [address] Gift Shop Clerk: Alden Barger III, M.D. CLIA#: [id number] PHOTONIC LABORATORY TECHNICIAN Antibody 0.3 AI Invalid Interpretation Code AO Sendouts Comment on above: Result Comment: Anti -PHOTONIC LABORATORY TECHNICIAN antibody is used as an aid in diagnosis of systemic autoimmune diseases especially systemic lupus erythematosus and mixed connective tissue disease. Cross-reactivity with Anti-gould antibody is not uncommon. Clinical correlation is required. Test Methodology: Multiplex flow immunoassay. Performed By: [facility] [employer] [address] [place] [address] Gift Shop Clerk: Alden Barger III, M.D. CLIA#: [id number] PHOTONIC LABORATORY TECHNICIAN Antibody Qualitative Negative Invalid Interpretation Code AO Send Comment on above: Result Comment: Perf ormed By: [facility] [employer] [address] [place] [place] [address] Gift Shop Clerk: Alden Barger III, M.D. CLIA#: [id number] Scleroderma Ab, IgG Qualitative Negative Invalid Interpretation Code AO Sendouts Comment on above: Result Comment: Perf ormed By: [facility] [employer] [address] [place] [address] Gift Shop Clerk: Alden Barger III, M.D. CLIA#: [id number] Scleroderma IgG Ab AI Invalid Interpretation Code AO Sendouts Comment on above: Result Comment: Scl- 70/Scleroderma antibody test is used as an aid in diagnosis of systemic sclerosis especially the diffuse cutaneous form. A negative result cannot rule out systemic sclerosis. The final interpretation should consider clinical picture and other test results such as anti-centromere antibody. Test Methodology: Multiplex flow immunoassay. Performed By: [place] [address] Gift Shop Clerk: Alden Barger III, M.D. CLIA#: [id number] Sm Antibody AI Invalid Interpretation Code AO Sendouts SS Comment on above: Result Comment: Perf ormed By: [place] [address] Gift Shop Clerk: Alden Barger III, M.D. CLIA#: [id number] Sm Antibody Qual Negative Invalid Interpretation Code AO Sendouts SS Comment on above: Result Comment: Anti -Sm (Gould) antibody is used as an aid in diagnosis of systemic lupus erythematosus and its presence is associated with renal disease. A negative result cannot rule out systemic lupus erythematosus. Clinical correlation is required. Test Methodology: Multiplex flow immunoassay. Performed By: [place] [address] Gift Shop Clerk: Alden Barger III, M.D. CLIA#: [id number] SS-A Antibody AI Invalid Interpretation Code AO Sendouts SS Comment on above: Result Comment: Test Methodology: Multiplex flow immunoassay. Anti-SSA (anti-Ro) antibody is used as an aid in diagnosis of a variety of systemic autoimmune diseases, Sjogren's syndrome among others. Clinical correlation is required. Test Methodology: Multiplex flow immunoassay. Performed By: [place] [address] Gift Shop Clerk: Alden Barger III, M.D. CLIA#: [id number] SS-B Antibody AI Invalid Interpretation Code AO Sendouts SS Comment on above: Result Comment: Anti -SSB (anti-La) antibody is used as an aid in diagnosis of a variety of systemic autoimmune diseases, especially for Sjogren's syndrome and systemic lupus erythematosus. Clinical correlation is required. Test Methodology: Multiplex flow immunoassay. Performed By: [place] [address] Gift Shop Clerk: Alden Barger III, M.D. CLIA#: [id number] SSA Antibody Qualitative Negative Invalid Interpretation Code AO Sendouts SS Comment on above: Result Comment: Perf ormed By: [place] [address] Gift Shop Clerk: Alden Barger III, M.D. CLIA#: [id number] SSB Antibody Qualitative Negative Invalid Interpretation Code AO Sendouts SS Comment on above: Result Comment: Perf ormed By: [facility] [employer] [address] [place] [address] Gift Shop Clerk: Alden Barger III, M.D. CLIA#: [id number] LABORATORYOrdered By: SYSTEM SYSTEM on 04-09-2024 Complement C3 [Mass/Vol] 181.0 mg/dL High 90.0 - 170.0 mg/dL AH ADM SS Comment on above: Interpretive Data: * *Note - New Reference Range in effect 19 Complement C4 [Mass/Vol] 34.0 mg/dL Normal 16.0 - 38.0 mg/dL AH ADM SS TPO Ab IA Qn 159 unit/mL High 0 - 60 unit/mL AH ADM SS Comment on above: Interpretive Data: * *Note - New Reference Range in effect 19 CRP [Mass/Vol] 0.4 mg/dL High 0.0 - 0.3 mg/dL AO ADM SS Magnesium [Mass/Vol] 1.9 mg/dL Normal 1.8 - 2 .4 mg/dL AO ADM SS Streptolysin O Ab Qn 79.1 Int unit/mL Normal 25. 0 - 250.0 Int unit/mL AH ADM SS Comment on above: Interpretive Data: * *Note - New Reference Range in effect 19 TSH Qn 1.62 m[IU]/L Normal 0.36 - 3.74 mcIU/mL AO ADM SS Uric Acid Lvl 5.4 mg/dL Normal 3.5 - 7.2 mg/dL AO ADM SS LABORATORYOrdered By: Apolinar Bellamy on 04-09-2024 Cyclic citrullinated peptide IgG Qn 1 Normal <=19.9 AH Auto Viro/Sero SS Comment on above: Interpretive Data: C yclic Citrullinated IgG Interpretation: Result Units Negative <20 Weak Positive 20-39 Moderate Positive 40-59 Strong Positive >=60 A positive result indicates the presence of IgG anti-CCP3 antibodies and suggests the possibility of RA. A negative result indicates no CCP3 antibody or levels below the negative cut-off of the assay. Results of this assay should be used in conjunction with clinical findings and other serological tests. These test results were obtained with the [employer] Quanta Lite CCP3 IgG CELSA. Anti-CCP values obtained with different manufacturers' assay methods may not be used interchangeably. Rheumatoid factor IgM IA Qn (S) 145.1 1 High <=5.9 AH [facility] V[facility]/Sero SS Comment on above: Interpretive Data: R F IgM Antibody by Enzyme Immunoassay: Negative < or = 6 Positive > 6 A positive result indicates the presence of RF antibodies and suggests the possibility of rheumatoid arthritis. A negative result indicates no RF IgM antibody or levels below the negative cut-off of the assay. Results of this assay should be used in conjunction with clinical findings and other serological tests. These results were obtained with the [employer] QUANTA Lite RF IgM CELSA. RF IgM values obtained with different manufacturers' assay methods may not be used interchangeably. The magnitude of the reported IgM levels cannot be correlated to an endpoint titer. LABORATORYOrdered By: Kenneth West on 04-09-2024 DNA double strand Ab IF Crithidia luciliae Ql (S) Neg 10 17 (04/09/24 10:10 AM) Normal Neg 10 AH Man Viro/Sero SS Comment on above: Interpretive Data: D NA Screen and Titer methodology is an immunofluorescent technique utilizing Crithidia luciliae Substrate. Mitochondria Ab IF Ql (S) Neg 20 18 (04/09/24 10:10 AM) Normal AH Man Viro/Sero SS Comment on above: Interpretive Data: M itochondrial Ab Screen and Titer methodology is an immunofluorescent technique utilizing MSK Substrate. Parietal cell Ab IF Ql (S) Neg 20 19 (04/09/24 10:10 AM) Normal AH Man Viro/Sero SS Comment on above: Interpretive Data: P arietal Cell Ab Screen and Titer methodology is an immunofluorescent technique utilizing MSK Substrate. Ribosomal P Ab IA Qn (S) 1 Normal <=19.9 AH Auto Viro/Sero SS Comment on above: Interpretive Data: R ibosome P Antibody Interpretation: Result Units Negative <20 Weak Positive 20-39 Moderate Positive 40-80 Strong Positive >80 A positive result indicates the presence of Ribosome P antibodies and suggests the possibility of Systemic Lupus Erythematosus or other related connective tissue diseases. A negative result indicates no Ribosome P antibody or levels below the negative cut-off of the assay. Results of this assay should be used in conjunction with clinical findings and other serological tests. These test results were obtained with the [employer] Quanta Lite Ribosome P CELSA. Ribosome P values obtained with different manufacturers' assay methods may not be used interchangeably. Smooth muscle Ab IF Ql (S) Neg 20 22 (04/09/24 10:10 AM) Normal Man Viro/Sero SS Comment on above: Interpretive Data: S mooth Muscle Ab Screen and Titer methodology is an immunofluorescent technique utilizing MSK Substrate. LABORATORYOrdered By: Garrison Celis on 04-09-2024 Albumin [Mass/Vol] 4.2 G/dL Normal 3.3 - 5.0 G/dL Special Chem SS Alpha 1 globulin Elph [Mass/Vol] 0.2 G/dL Normal 0.1 - 0.4 G/dL Special Chem SS Alpha 2 globulin Elph [Mass/Vol] 0.8 G/dL Normal 0.6 - 1.2 G/dL Special Chem SS Beta globulin Elph [Mass/Vol] 1.2 G/dL Normal 0.6 - 1.3 G/dL Special Chem SS Gamma globulin Elph [Mass/Vol] 0.9 G/dL Normal 0.7 - 1.6 G/dL Special Chem SS LABORATORYOrdered By: Zo Cope on 04-09-2024 ESR Photometric method (Bld) [Velocity] 4 mm/hr Normal 0 - 20 mm/hr AO Man Heme SS LABORATORYOrdered By: EDILMA TOSCANO on 04-09-2024 Pathologist interpretation (Bld) [Interp] Normal serum protein electrophoresis pattern. No abnormality detected. Invalid Interpretation Code Special Chem SS LABORATORYOrdered By: Laial Reese on 04-09-2024 Protein [Mass/Vol] 7.4 G/dL Normal 5.7 - 8.2 G/dL ADM SS LABORATORYOrdered By: Multiply P CONTRIBUTOR_SYSTEM on 04-09-2024 Sjogrens SSA Ab (LC) AI Invalid Interpretation Code 0.0-0.9 AO Sendouts SS Sjogrens SSB Ab (LC) AI Invalid Interpretation Code 0.0-0.9 AO Sendouts SS Comment on above: Result Comment: Perf ormed At: [facility] [address] [place], [place] [id number] Rufus Ray PhD Ph:[phone] MGon 04-09-2024 Magnesium [Mass/Vol] 1.9 mg/dL Normal 1.8-2.4 [facility] Comment on above: Performed By: #### 6 23078, 933655, 935058, 456818, 808452, 957653, 299044, 092527, 088060, 393556, 221826, 916375 #### [address] [address] SPEon 04-09-2024 Total Protein 7.4 G/dL Normal 5.7-8.2 [facility] Comment on above: Performed By: #### 6 06516, 381427, 469987, 957093, 395950, 473220, 360486, 509050, 883224, 612664, 961648, 210254 #### [place] [address] TSHon 04-09-2024 TSH Qn 1.62 m[IU]/L Normal 0.36-3.74 [facility] Comment on above: Performed By: #### 6 65732, 245033, 427228, 641892, 310440, 331859, 058870, 437608, 219828, 130080, 223748, 202042 #### [address] [address] URICon 04-09-2024 Uric Acid Lvl 5.4 mg/dL Normal 3.5-7.2 [facility] Comment on above: Performed By: #### 6 32050, 712521, 792821, 371494, 125522, 929138, 116778, 074000, 468485, 492765, 599230, 205877 #### [address] [address] aTPOon 04-09-2024 anti-Thyroid Peroxidase 159 units/ml High 0-60 [facility] Comment on above: Result Comment: No te - New Reference Range in effect 19 Performed By: #### 6 45423, 304722, 475508, 509086, 516530, 650331, 293745, 561904, 985993, 426259, 648585, 180662 #### [facility] [address] [address] [place], [place] [address] 12 Lead EKGon 04-02-2024 12 Lead EKG [facility] [address] [place] [address] 12 Lead EKG 04/02/24 2101 MR#: [id number] Acct: [id number] Name: AR SELLERS Rep #: [id number] : [id number] From: Bethel Mcbride MD Attending Dr: Status: DEP ER Ordering Dr: Sparkle Ordaz Date: 04/02/24 Location: ED Sex: M C Admitted: Test Reason : HIGH HEART RATE Blood Pressure : */* mmHG Vent. Rate : 105 BPM Atrial Rate : 105 BPM P-R Int : 146 ms QRS Dur : 86 ms QT Int : 336 ms P-R-T Axes : 37 83 9 degrees QTcB Int : 444 ms Sinus tachycardia Otherwise normal ECG Confirmed by BONILLA WHITE, DAYANARA ([id number]), script editor ORA ALAN ([id number]) on 04/08/2024 1:24:45 PM Referred By: Confirmed By: DAYANARA MCBRIDE MD 04/08/24 1324 Date Bethel Mcbride MD CC: TELEGRAPHIC INSTRUMENT SUPERVISOR-C Gurmeet Fung; Dr. Jason Garcia DO; AMANDA Najera Signed Normal [facility] Basic Metabolic Profile (BMP )on 04-02-2024 BUN/CRE 10.1 RATIO Normal 02-08 [facility] Comment on above: Order Comment: 'TROP ' Serial specimen #1, #2 or #3: 1 Performed By: #### L 500.2500, L100.0100, L501.4020 #### [facility] [address] [place], [address] CA,Total 9.7 mg/dL Normal 8.5-10.1 [facility] Comment on above: Order Comment: 'TROP ' Serial specimen #1, #2 or #3: 1 Performed By: #### L 500.2500, L100.0100, L501.4020 #### [facility] [address] [place], [address] Chloride [Moles/Vol] 105 mmol/L Normal 98-107 [facility] Comment on above: Order Comment: 'TROP ' Serial specimen #1, #2 or #3: 1 Performed By: #### L 500.2500, L100.0100, L501.4020 #### [facility] [address] [place], [address] CO2 [Moles/Vol] 26.0 mmol/L Normal 21.0-32.0 [facility] Comment on above: Order Comment: 'TROP ' Serial specimen #1, #2 or #3: 1 Performed By: #### L 500.2500, L100.0100, L501.4020 #### [facility] [address] [place], [address] Creatinine [Mass/Vol] 1.58 mg/dL High 0.70-1.30 [facility] Comment on above: Order Comment: 'TROP ' Serial specimen #1, #2 or #3: 1 Result Comment: The validity of the calculated GFR GFRAA in patients over 70 years has not been determined. Clinical correlation is essential. Performed By: #### L 500.2500, L100.0100, L501.4020 #### [facility] [address] [place], [address] ECRCL 63.16 ml/min Normal [facility] Comment on above: Order Comment: 'TROP ' Serial specimen #1, #2 or #3: 1 Performed By: #### L 500.2500, L100.0100, L501.4020 #### [facility] [address] [place], [address] EST GFR - AA 59 mL/min Low >60 [facility] Comment on above: Order Comment: 'TROP ' Serial specimen #1, #2 or #3: 1 Result Comment: Afri can Luxembourger GFR Calc Performed By: #### L 500.2500, L100.0100, L501.4020 #### [facility] [address] [place], [address] GAP 7 Normal 5-15 [facility] Comment on above: Order Comment: 'TROP ' Serial specimen #1, #2 or #3: 1 Performed By: #### L 500.2500, L100.0100, L501.4020 #### [facility] [address] [place], [address] GFR/1.73 sq M.predicted among non-blacks MDRD (S/P/Bld) [Vol rate/Area] 48 mL/min/{1.73_m2} Low >60 [facility] Comment on above: Order Comment: 'TROP ' Serial specimen #1, #2 or #3: 1 Result Comment: Non- GFR Calc Performed By: #### L 500.2500, L100.0100, L501.4020 #### [facility] [address] [place], [address] Glucose [Mass/Vol] 106 mg/dL Normal 74-106 [facility] Comment on above: Order Comment: 'TROP ' Serial specimen #1, #2 or #3: 1 Result Comment: Fast ing Glucose result from 100 to 125 mg/dL suggests IMPAIRED HOMEOSTASIS per A.D.A. criteria. Performed By: #### L 500.2500, L100.0100, L501.4020 #### [facility] [address] [place], [address] Potassium [Moles/Vol] 3.3 mmol/L Low 3.5-5.1 [facility] Comment on above: Order Comment: 'TROP ' Serial specimen #1, #2 or #3: 1 Performed By: #### L 500.2500, L100.0100, L501.4020 #### [facility] [address] [place], [address] Sodium [Moles/Vol] 138 mmol/L Normal 136-145 [facility] Comment on above: Order Comment: 'TROP ' Serial specimen #1, #2 or #3: 1 Performed By: #### L 500.2500, L100.0100, L501.4020 #### [facility] [address] [place], [address] Urea nitrogen [Mass/Vol] 16 mg/dL Normal 7-18 [facility] Comment on above: Order Comment: 'TROP ' Serial specimen #1, #2 or #3: 1 Performed By: #### L 500.2500, L100.0100, L501.4020 #### [facility] [address] [place], [address] CBC W/Diff, Automatedon 12-04 23-2023 Absolute Lymph 4.59 X10 3/uL High 0.83-4.51 [facility] Comment on above: Performed By: #### L 500.2500, L100.0100, L501.4020 #### [facility] [address] [place], [address] Absolute Neut 7.0 X10 3/uL Normal 2.0-7.7 [facility] Comment on above: Performed By: #### L 500.2500, L100.0100, L501.4020 #### [facility] [address] [place], [address] Basophils/100 WBC (Bld) 0.5 % Normal 0-1 [facility] Comment on above: Performed By: #### L 500.2500, L100.0100, L501.4020 #### [facility] [address] [place], [address] Eosinophils/100 WBC (Bld) 2.6 % Normal 0-5 [facility] Comment on above: Performed By: #### L 500.2500, L100.0100, L501.4020 #### [facility] [address] [place], [address] Erythrocyte distribution width (RBC) [Ratio] 12.7 % Normal 11.6-14.6 [facility] Comment on above: Performed By: #### L 500.2500, L100.0100, L501.4020 #### [facility] [address] [place], [address] Hematocrit (Bld) [Volume fraction] 48.0 % Normal 40-54 [facility] Comment on above: Performed By: #### L 500.2500, L100.0100, L501.4020 #### [facility] [address] [place], [address] Hemoglobin (Bld) [Mass/Vol] 16.7 g/dL High 13.0-16.5 [facility] Comment on above: Performed By: #### L 500.2500, L100.0100, L501.4020 #### [facility] [address] [place], [address] IG% 0.400 Normal 0.0-0.9 [facility] Comment on above: Result Comment: IG% - Immature Granulocytes (promyelocytes, myelocytes and metamyelocytes) > 1% indicates that a LEFT SHIFT is Present. Performed By: #### L 500.2500, L100.0100, L501.4020 #### [facility] [address] [place], [address] Lymphocytes/100 WBC (Bld) 35.0 % Normal 19-41 [facility] Comment on above: Performed By: #### L 500.2500, L100.0100, L501.4020 #### [facility] [address] [place], [address] MCH (RBC) [Entitic mass] 31.6 pg Normal 27.0-32.0 [facility] Comment on above: Performed By: #### L 500.2500, L100.0100, L501.4020 #### [facility] [address] [place], [address] MCHC (RBC) [Mass/Vol] 34.8 g/dL Normal 32-36 [facility] Comment on above: Performed By: #### L 500.2500, L100.0100, L501.4020 #### [facility] [address] [place], [address] MCV (RBC) [Entitic vol] 90.9 fL Normal 80-94 [facility] Comment on above: Performed By: #### L 500.2500, L100.0100, L501.4020 #### [facility] [address] [place], [address] Monocytes/100 WBC (Bld) 8.4 % Normal 0-10 [facility] Comment on above: Performed By: #### L 500.2500, L100.0100, L501.4020 #### [facility] [address] [place], [address] Neutrophils/100 WBC (Bld) 53.1 % Normal 47-70 [facility] Comment on above: Performed By: #### L 500.2500, L100.0100, L501.4020 #### [facility] [address] [place], [address] Nucleated RBC (Bld) [#/Vol] 0 10*3/uL Normal 0-5 [facility] Comment on above: Performed By: #### L 500.2500, L100.0100, L501.4020 #### [facility] [address] [place], [address] Platelet mean volume (Bld) [Entitic vol] 10.5 fL Normal 6.2-12.0 [facility] Comment on above: Performed By: #### L 500.2500, L100.0100, L501.4020 #### [facility] [address] [place], [address] Platelets (Bld) [#/Vol] 196 10*3/uL Normal 150-450 [facility] Comment on above: Performed By: #### L 500.2500, L100.0100, L501.4020 #### [facility] [address] [place], [address] RBC (Bld) [#/Vol] 5.28 10*6/uL Normal 4.6-6.2 [facility] Comment on above: Performed By: #### L 500.2500, L100.0100, L501.4020 #### [facility] [address] [place], [address] RDW SD 42.1 fl Normal 35.1-43.9 [facility] Comment on above: Performed By: #### L 500.2500, L100.0100, L501.4020 #### [facility] [address] [place], [address] WBC (Bld) [#/Vol] 13.1 10*3/uL High 4.4-11.0 [facility] Comment on above: Performed By: #### L 500.2500, L100.0100, L501.4020 #### [facility] [address] [place], [address] Chest PA and Lateralon 04-02 Chest PA and Lateral [facility] Imaging Services [address] [place] [address] Chest PA and Lateral MR#: [id number] Acct: [id number] Name: AR SELLERS Rep #: [id number] : 1965 M 58 From: Mesfin Bee PCP: YULISSA Leigh Status: REG ER Study: Chest PA and Lateral Date of Exam: 04/02/24 Exam# [id number] Ordering Dr: Sparkle Ordaz [id number] STUDY: X-RAY CHEST REASON FOR EXAM: Male, 58 years old. palpitations TECHNIQUE: Single frontal view of the chest. COMPARISON: January 01, 2024 FINDINGS: The lungs are clear and expanded. There is no demonstrated pleural abnormality. Normal size heart. Normal mediastinum and mary. Normal visualized pulmonary arteries. Normal visualized aortic arch and descending thoracic aorta. Normal visualized thoracic spine. Normal visualized ribs, clavicles, and shoulders. There is no demonstrated abnormality of the visualized soft tissue structures of the upper abdomen. RAD/Chest PA and Lateral IMPRESSION: Normal x-ray examination of the chest. Electronically Signed: Mesfin Raymond MD at 22:14 EST , CC: YULISSA Fung; AMANDA Najera Orthopaedic Doctor: Signed Normal [facility] D-Dimer Quantitative (DVT/PE )on 04-02-2024 D-DIMER QUANT 0.27 FEU/ug/m Normal 0.27-0.49 [facility] Comment on above: Result Comment: NORM AL D-Dimer level (<0.50) indicates no DVT or PE. Performed By: #### L 300.8000 ####[facility] [address] [place], [address] Emergency Department Summary on 04-02-2024 Emergency Department Summary [facility] Medical Records Department [address] [place] [address] Emergency Department Summary 04/02/24 MR#: [id number] Acct: [id number] Name: AR SELLERS Rep #: [id number] : 1965 58 From: Sparkle PATEL PCP: Gurmeet Fung, TELEGRAPHIC INSTRUMENT SUPERVISOR-C Status:DEP ER Location: ED HPI History of Present Illness Chief Complaint: Palpitations Narrative Narrative: Patient presenting today due to concerns for palpitations he has had intermittently over the past few days. He reports that he was sitting on the edge of his bed and it felt like his heart was racing. He had these symptoms intermittently for about an hour, prompting him to call EMS and be brought in for evaluation. He reports that this has had been in the past and last happened in December, he wore a event monitor for 30 days that did not show any arrhythmia. He reports that he occasionally feels lightheaded and has a sensation that his heart is racing when standing from a sitting or laying position. He also occasionally feels nauseous and sweaty with his palpitations. He has a PMH of CKD, anxiety, COPD, and HLD. He denies shortness of breath, fevers, chills, and chest pain. [facility] Medical History COPD (chronic obstructive pulmonary disease) Hypertension Hyperlipidemia GERD (gastroesophageal reflux disease) Anxiety Home Medications ???Medication ???Instructions ???Recorded ???Last Taken ???Type Omeprazole [Prilosec] 40 mg PO DAILY 03/26/13 10/18/17 History quetiapine 100 mg tablet 50 mg PO QHS 03/26/13 10/17/17 History simvastatin 20 mg tablet 40 mg PO QHS 03/26/13 10/17/17 History vilazodone 40 mg tablet (Viibryd) 40 mg PO DAILY 03/26/13 10/18/17 History metoprolol succinate 25 mg 25 mg PO Q12H 10/18/17 10/18/17 History tablet,extended release 24 hr albuterol sulfate 90 mcg/actuation 2 puff inhalation Q6H PRN 01/01/24 Unknown History aerosol inhaler shortness of breath or wheezing buspirone 10 mg tablet 10 mg PO BID 01/01/24 Unknown History famotidine 40 mg tablet 40 mg PO QHS 01/01/24 Unknown History fluticasone 250 mcg-salmeterol 50 1 ea inhalation BID 01/01/24 Unknown History mcg/dose blistr powdr for inhalation hydroxyzine HCl 25 mg tablet 25 - 50 mg PO Q6H PRN Anxiety 01/01/24 Unknown History icosapent ethyl 1 gram capsule 2 g PO BID 01/01/24 Unknown History (Vascepa) montelukast 10 mg tablet 10 mg PO DAILY 01/01/24 Unknown History sennosides 8.6 mg tablet (senna) 8.6 mg PO QHS 01/01/24 Unknown History tiotropium 2.5 mcg-olodaterol 2.5 2 puff inhalation DAILY 01/01/24 Unknown History mcg/actuation mist for inhalation (Stiolto Respimat) Allergy/AdvReac Type Severity Reaction Status Date / Time No Known Allergies Allergy Verified 04/02/24 19:17 Social History Smoking Status: Heavy Smoker (>10/day) ROS ROS ED Constitutional Constitutional ED: Denies chills or fever(s) Cardiovascular Cardiovascular: Reports palpitations and racing heartbeat; Denies chest pain Respiratory/Chest Respiratory/Chest: Denies cough or dyspnea Gastrointestinal Gastrointestinal: Reports nausea; Denies abdominal pain or vomiting Musculoskeletal Musculoskeletal: Denies arthralgias or myalgias Integumentary Denies rash Neurologic Neurologic: Denies weakness EXAM Physical Exam Const Vital Signs: 04/02/24 19:12 04/02/24 20:45 04/02/24 21:12 Temperature 98 F Temperature Source Temporal Pulse Rate 96 105 H Pulse Rate [Lying] 92 Pulse Rate [Sitting (for 1 minute prior to obtaining)] 92 Pulse Rate [Standing (for 1 minute prior to obtaining)] 110 H Respiratory Rate 23 H 24 H Blood Pressure 137/87 H Blood Pressure [Lying] 134/85 H Blood Pressure [Sitting (for 1 minute prior to obtaining)] 138/95 H Blood Pressure [Standing (for 1 minute prior to obtaining)] 146/99 H Blood Pressure Mean 103 Blood Pressure Mean [Lying] 101 Blood Pressure Mean [Sitting (for 1 minute prior to obtaining)] 109 Blood Pressure Mean [Standing (for 1 minute prior to obtaining)] 114 Pulse Ox 98 98 Oxygen Delivery Method Room Air Room Air 04/02/24 22:57 Temperature 98 F Temperature Source Pulse Rate 105 H Pulse Rate [Lying] Pulse Rate [Sitting (for 1 minute prior to obtaining)] Pulse Rate [Standing (for 1 minute prior to obtaining)] Respiratory Rate 24 H Blood Pressure 137/87 H Blood Pressure [Lying] Blood Pressure [Sitting (for 1 minute prior to obtaining)] Blood Pressure [Standing (for 1 minute prior to obtaining)] Blood Pressure Mean 103 Blood Pressure Mean [Lying] Blood Pressure Mean [Sitting (for 1 minute prior to obtaining)] Blood Pressure (more content not included)... Normal [facility] L501.4020on 04-02-2024 TROPONIN-I HS < 3 Low 3.0-78.0 [facility] Comment on above: Order Comment: 'TROP ' Serial specimen #1, #2 or #3: 1 Result Comment: Davie xiong Note: New Test Units and Gender Specific Reference Ranges. For more information see Policy Stat Procedure [place] High Sensitivity Troponin (TNIH) and attachments. Performed By: #### L 500.2500, L100.0100, L501.4020 #### [facility] [address] [place], [address] .Auto Diffon 03-05-2024 Basophil, Absolute 0.1 10 3/mcL Normal 0.0-0.2 [facility] Comment on above: Performed By: #### 6 61604, 320446, 046298, 425302, 618547, 745597, 800314, 168252, 706835, 959323, 407811, 318164 #### [facility] [address] [place], [place] [address] Basophils/100 WBC (Bld) 0.7 % Normal 0.0-2.5 [facility] Comment on above: Performed By: #### 6 96352, 893039, 196885, 629017, 105776, 900804, 915089, 971409, 246140, 167318, 670888, 355215 #### [address] [address] Eosinophil, Absolute 0.3 10 3/mcL Normal 0.0-0.7 [facility] Comment on above: Performed By: #### 6 98691, 729046, 398724, 230346, 931430, 834848, 259054, 503082, 995486, 241864, 319272, 375462 #### [address] [address] Eosinophils/100 WBC (Bld) 4.8 % Normal 0.0-7.0 [facility] Comment on above: Performed By: #### 6 29619, 062129, 575846, 974339, 765097, 516983, 880667, 153452, 205698, 227919, 433873, 408745 #### [address] [address] Lymphocyte, Absolute 3.2 10 3/mcL Normal 0.9-4.3 [facility] Comment on above: Performed By: #### 6 97438, 347088, 188752, 408729, 858924, 457357, 679693, 961747, 760261, 792167, 041993, 980485 #### [address] [address] Lymphocytes/100 WBC (Bld) 44.5 % High 20.0-40.0 [facility] Comment on above: Performed By: #### 6 03207, 277892, 309978, 988491, 983656, 443531, 692490, 090379, 734765, 982232, 747726, 184182 #### [address] [address] Monocyte, Absolute 0.7 10 3/mcL Normal 0.1-1.4 [facility] Comment on above: Performed By: #### 6 46268, 281855, 810387, 406397, 732316, 122308, 369419, 650907, 528128, 599083, 258030, 385289 #### [address] [place], [place] [address] Monocytes/100 WBC (Bld) 10.2 % Normal 2.0-13.0 [facility] Comment on above: Performed By: #### 6 91757, 505327, 454330, 266412, 691712, 087035, 406780, 281194, 230508, 318225, 815536, 073205 #### [address] [place], [place] [address] Neutrophils/100 WBC (Bld) 39.8 % Low 50.0-75.0 [facility] Comment on above: Performed By: #### 6 17884, 836530, 189690, 857372, 762482, 001462, 470253, 432243, 419319, 297042, 213318, 425322 #### [address] [address] .GFRon 03-05-2024 GFR 60 ml/min/1.73sqm Normal [facility] Comment on above: Result Comment: GFR Population mean for , Non- Americans Ages 20-29 = 116 mL/min/1.73 sq.m. Ages 30-39 = 107 mL/min/1.73 sq.m. Ages 40-49 = 99 mL/min/1.73 sq.m. Ages 50-59 = 93 mL/min/1.73 sq.m. Ages 60-69 = 85 mL/min/1.73 sq.m. Ages 70+ = 75 mL/min/1.73 sq.m. Chronic Kidney Disease: Less than 60 mL/min/1.73 square meters End Stage Renal Disease: Less than 15 mL/min/1.73 square meters Performed By: #### 6 14374, 575193, 000214, 184186, 964152, 639506, 044955, 899322, 986286, 174150, 037239, 754849 #### [address] [place], [place] [address] GFR Non- 49 ml/min/1.73sqm Normal [facility] Comment on above: Result Comment: GFR Population mean for , Non- Americans Ages 20-29 = 116 mL/min/1.73 sq.m. Ages 30-39 = 107 mL/min/1.73 sq.m. Ages 40-49 = 99 mL/min/1.73 sq.m. Ages 50-59 = 93 mL/min/1.73 sq.m. Ages 60-69 = 85 mL/min/1.73 sq.m. Ages 70+ = 75 mL/min/1.73 sq.m. Chronic Kidney Disease: Less than 60 mL/min/1.73 square meters End Stage Renal Disease: Less than 15 mL/min/1.73 square meters Performed By: #### 6 06999, 161552, 697939, 156784, 414188, 649054, 425861, 681549, 549627, 018593, 924490, 511841 #### [address] [address] .NEUABSon 03-05-2024 Neutrophil, Absolute 2.9 10 3/mcL Normal 2.3-8.1 [facility] Comment on above: Performed By: #### 6 71252, 259515, 262457, 195715, 479496, 440314, 140727, 414314, 630828, 789871, 016092, 864535 #### [address] [place], [place] [address] A1Con 03-05-2024 Glucose [Mass/Vol] 114 mg/dL Normal [facility] Comment on above: Result Comment: Denita mated Average Glucose calculated by equation ((28.7xA1C)-46.7) Estimated average glucose (eAG) is a calculated value from Hemoglobin A1C and is used equipment sales representative of the average blood glucose level in the last 2-3 month period. Normal range: less than 114 mg/dL Performed By: #### 6 69088, 454014, 545195, 652379, 620483, 439208, 500872, 174793, 410342, 533633, 615890, 577574 #### [address] [address] HbA1c (Bld) [Mass fraction] 5.6 % Normal 4.3-6.4 [facility] Comment on above: Performed By: #### 6 73833, 937713, 298016, 316393, 495984, 529404, 561876, 005249, 026360, 735767, 784069, 954452 #### [place] [id number] CBCon 03-05-2024 Erythrocyte distribution width (RBC) [Ratio] 13.4 % Normal 11.5-15.5 [facility] Comment on above: Performed By: #### 6 63638, 918934, 631429, 765621, 400464, 945680, 306761, 310863, 686042, 498489, 831181, 464364 #### [place] [id number] Hematocrit (Bld) [Volume fraction] 46.3 % Normal 40.0-52.0 [facility] Comment on above: Performed By: #### 6 81712, 827182, 305168, 309116, 327185, 301753, 401055, 208340, 179549, 295864, 512365, 770011 #### [address] [address] Hgb 15.5 G/dL Normal 13.0-17.5 [facility] Comment on above: Performed By: #### 6 27996, 645201, 265700, 425717, 605165, 592832, 642696, 242592, 775193, 624525, 510186, 501551 #### [address] [address] MCH (RBC) [Entitic mass] 31.8 pg Normal 27.0-33.0 [facility] Comment on above: Performed By: #### 6 20451, 246711, 088219, 840610, 635922, 487713, 370742, 688277, 081259, 474597, 915123, 529184 #### [address] [place], [place] [address] MCHC 33.5 G/dL Normal 32.0-36.0 [facility] Comment on above: Performed By: #### 6 19057, 897649, 713379, 975745, 754137, 550461, 291705, 898607, 766460, 724676, 548290, 995521 #### [address] [place], [place] [address] MCV (RBC) [Entitic vol] 95.0 fL Normal 81.0-100.0 [facility] Comment on above: Performed By: #### 6 88384, 953313, 267727, 837252, 711983, 094288, 544263, 787189, 294443, 910956, 597079, 948754 #### [address] [address] Platelet 158 10 3/mcL Normal 150-450 [facility] Comment on above: Performed By: #### 6 02945, 428448, 480288, 001170, 029511, 965600, 377123, 338850, 135985, 499807, 137184, 689082 #### [address] [place], [place] [address] Platelet mean volume (Bld) [Entitic vol] 8.5 fL Normal 6.4-10.5 [facility] Comment on above: Performed By: #### 6 00459, 932091, 326222, 467801, 484420, 137165, 831397, 881709, 431901, 436121, 768704, 392796 #### [address] [place], [place] [address] RBC 4.87 10 6/mcL Normal 4.50-6.00 [facility] Comment on above: Performed By: #### 6 13586, 015472, 287017, 561392, 325915, 961632, 821247, 486493, 576669, 380549, 127222, 471158 #### [address] [place], [place] [address] WBC 7.2 10 3/mcL Normal 4.5-10.8 [facility] Comment on above: Performed By: #### 6 70059, 244023, 842676, 078097, 945898, 423096, 237037, 583355, 615870, 576835, 836470, 377202 #### [address] [address] CMPon 03-05-2024 Albumin Level 4.3 G/dL Normal 3.5-5.0 [facility] Comment on above: Performed By: #### 6 28441, 282437, 395695, 823733, 726464, 436869, 473141, 694179, 111528, 657834, 536933, 701845 #### [address] [address] Albumin/Globulin [Mass ratio] 1.7 {ratio} Normal 1.1-2.5 [facility] Comment on above: Performed By: #### 6 79225, 299423, 464664, 326994, 172102, 732683, 220682, 354312, 340339, 933772, 844739, 041855 #### [address] [place], [place] [address] ALP [Catalytic activity/Vol] 78 U/L Normal 40-135 [facility] Comment on above: Performed By: #### 6 55297, 636980, 281491, 478736, 305119, 358321, 025121, 387130, 386531, 138796, 461157, 849390 #### [address] [place], [place] [address] ALT [Catalytic activity/Vol] 32 U/L Normal 16-63 [facility] Comment on above: Performed By: #### 6 41121, 469723, 717087, 074450, 145352, 840914, 831221, 688290, 633700, 405081, 831413, 390216 #### [address] [place], [place] [address] AST [Catalytic activity/Vol] 20 U/L Normal 10-40 [facility] Comment on above: Performed By: #### 6 61912, 931041, 038216, 617491, 566444, 363977, 539372, 530598, 535588, 935847, 650146, 848773 #### [address] [address] Bili Total 0.9 mg/dL Normal 0.2-1.0 [facility] Comment on above: Result Comment: Use of this assay is not recommended for patients undergoing treatment with eltrombopag due to the potential for falsely elevated results. Performed By: #### 6 17924, 673538, 476719, 725972, 876211, 393584, 730764, 021102, 592267, 761990, 568250, 789157 #### [address] [place], [place] [address] BUN/Creatinine Ratio 9 ratio Normal 7-27 [facility] Comment on above: Performed By: #### 6 30516, 346942, 460138, 558963, 602744, 144574, 191519, 632980, 243877, 953119, 543139, 501246 #### [address] [place], [place] [address] Calcium [Mass/Vol] 9.5 mg/dL Normal 8.4-10.2 [facility] Comment on above: Performed By: #### 6 51923, 011238, 566445, 229764, 281043, 088353, 730363, 064837, 851814, 331706, 971068, 549673 #### [address] [place], [place] [address] Chloride [Moles/Vol] 102 mmol/L Normal 98-107 [facility] Comment on above: Performed By: #### 6 28640, 011080, 403412, 512039, 528891, 108770, 869701, 249891, 449752, 698283, 324317, 949727 #### [address] [address] CO2 [Moles/Vol] 30 mmol/L High 22-29 [facility] Comment on above: Performed By: #### 6 19657, 638205, 815991, 224042, 826125, 121455, 808332, 709350, 402415, 673850, 893853, 087244 #### [address] [address] Creatinine [Mass/Vol] 1.48 mg/dL High 0.70-1.30 [facility] Comment on above: Result Comment: Test ing performed on Siemens Dimension EXL analyzer using a modified kinetic Vivek technique. Performed By: #### 6 07548, 751707, 103910, 159487, 792052, 251950, 912066, 123313, 696753, 718688, 257376, 307596 #### [address] [address] Electrolyte Balance 9.0 mEq/L Normal 4.0-15.0 [facility] Comment on above: Performed By: #### 6 50228, 729206, 467092, 807662, 635160, 157285, 925335, 158436, 270073, 557213, 337733, 705176 #### [address] [address] Globulin 2.6 G/dL Normal [facility] Comment on above: Performed By: #### 6 54646, 429931, 027219, 395983, 001020, 621845, 271687, 798128, 577485, 990913, 527282, 268974 #### [address] [place], [place] [address] Glucose [Mass/Vol] 110 mg/dL High 70-105 [facility] Comment on above: Performed By: #### 6 35060, 120948, 234957, 895677, 495175, 349722, 552962, 761606, 369413, 313595, 342685, 385284 #### [address] [address] Potassium [Moles/Vol] 4.6 mmol/L Normal 3.5-5.1 [facility] Comment on above: Performed By: #### 6 50838, 345993, 439797, 470894, 563349, 619238, 105953, 348094, 181988, 440439, 012854, 224633 #### [address] [address] Sodium [Moles/Vol] 141 mmol/L Normal 136-145 [facility] Comment on above: Performed By: #### 6 81139, 660578, 071882, 870531, 327725, 494670, 373706, 822228, 185631, 567015, 438296, 923396 #### [address] [address] Total Protein 6.9 G/dL Normal 6.4-8.2 [facility] Comment on above: Performed By: #### 6 18836, 992153, 046789, 609697, 752930, 379265, 504295, 927158, 537763, 325015, 856657, 198730 #### [address] [address] Urea nitrogen [Mass/Vol] 13 mg/dL Normal 7-18 [facility] Comment on above: Performed By: #### 6 53251, 408117, 402152, 293046, 298470, 065580, 032868, 620758, 920897, 724676, 036018, 815546 #### [facility] [address] [place] [address] LABORATORYOrdered By: SYSTEM SYSTEM on 03-05-2024 25-hydroxyvitamin D3 [Mass/Vol] 41.1 ng/mL Invalid Interpretation Code AO ADM SS Comment on above: Interpretive Data: I nterpretive Values Based on Total 25(OH) Vitamin D: Deficient <20 ng/mL Insufficient 20 - <30 ng/mL Sufficient 30-100 ng/mL Albumin BCP dye [Mass/Vol] 4.3 G/dL Normal 3.5 - 5.0 G/dL AO ADM SS Albumin/Globulin [Mass ratio] 1.7 {ratio} Normal 1.1 - 2.5 ratio AO ADM SS ALP [Catalytic activity/Vol] 78 U/L Normal 40 - 135 U/L AO ADM SS ALT With P-5'-P [Catalytic activity/Vol] 32 U/L Normal 16 - 63 U/L AO ADM SS AST With P-5'-P [Catalytic activity/Vol] 20 U/L Normal 10 - 40 U/L AO ADM SS Basophils (Bld) [#/Vol] 0.1 103/mcL Normal 0.0 - 0.2 10^3/mcL AO Workflow SS Basophils/100 WBC (Bld) 0.7 % Normal 0.0 - 2.5 % AO Workflow SS Bilirubin [Mass/Vol] 0.9 mg/dL Normal 0.2 - 1 .0 mg/dL AO ADM SS Comment on above: Interpretive Data: U se of this assay is not recommended for patients undergoing treatment with eltrombopag due to the potential for falsely elevated results. Calcium [Mass/Vol] 9.5 mg/dL Normal 8.4 - 10. 2 mg/dL AO ADM SS Chloride [Moles/Vol] 102 mmol/L Normal 98 - 10 7 mmol/L AO ADM SS CO2 [Moles/Vol] 30 mmol/L High 22 - 29 mmol/L AO ADM SS Creatinine [Mass/Vol] 1.48 mg/dL High 0.70 - 1.30 mg/dL AO ADM SS Comment on above: Interpretive Data: T esting performed on Siemens Dimension EXL analyzer using a modified kinetic Vivek technique. Electrolyte Balance 9.0 mEq/L Normal 4.0 - 15 .0 mEq/L AO ADM SS Eosinophil, Absolute 0.3 103/mcL Normal 0.0 - 0 .7 10^3/mcL AO Workflow SS Eosinophils/100 WBC (Bld) 4.8 % Normal 0.0 - 7.0 % AO Workflow SS Erythrocyte distribution width (RBC) [Ratio] 13.4 % Normal 11.5 - 15.5 % AO Workflow SS GFR/1.73 sq M.predicted among blacks MDRD (S/P/Bld) [Vol rate/Area] 60 ml/min/1.73sqm Invalid Interpretation Code AO Chemistry S Comment on above: Interpretive Data: GFR Population mean for , Non- Americans Ages 20-29 = 116 mL/min/1.73 sq.m. Ages 30-39 = 107 mL/min/1.73 sq.m. Ages 40-49 = 99 mL/min/1.73 sq.m. Ages 50-59 = 93 mL/min/1.73 sq.m. Ages 60-69 = 85 mL/min/1.73 sq.m. Ages 70+ = 75 mL/min/1.73 sq.m. Chronic Kidney Disease: Less than 60 mL/min/1.73 square meters End Stage Renal Disease: Less than 15 mL/min/1.73 square meters GFR/1.73 sq M.predicted among non-blacks MDRD (S/P/Bld) [Vol rate/Area] 49 ml/min/1.73sqm Invalid Interpretation Code AO Chemistry S Comment on above: Interpretive Data: GFR Population mean for , Non- Americans Ages 20-29 = 116 mL/min/1.73 sq.m. Ages 30-39 = 107 mL/min/1.73 sq.m. Ages 40-49 = 99 mL/min/1.73 sq.m. Ages 50-59 = 93 mL/min/1.73 sq.m. Ages 60-69 = 85 mL/min/1.73 sq.m. Ages 70+ = 75 mL/min/1.73 sq.m. Chronic Kidney Disease: Less than 60 mL/min/1.73 square meters End Stage Renal Disease: Less than 15 mL/min/1.73 square meters Globulin 2.6 G/dL Invalid Interpretation Code AO ADM SS Glucose [Mass/Vol] 110 mg/dL High 70 - 105 mg/dL AO ADM SS Glucose [Mass/Vol] 114 mg/dL Invalid Interpretation Code AO Chemistry S Comment on above: Interpretive Data: E stimated average glucose (eAG) is a calculated value from Hemoglobin A1C and is used equipment sales representative of the average blood glucose level in the last 2-3 month period. Normal range: less than 114 mg/dL HbA1c (Bld) [Mass fraction] 5.6 % Normal 4.3 - 6.4 % AO ADM SS Hematocrit (Bld) [Volume fraction] 46.3 % Normal 40.0 - 52.0 % AO Workflow SS Hemoglobin (Bld) [Mass/Vol] 15.5 G/dL Normal 13.0 - 17.5 G/dL AO Workflow SS Lymphocytes (Bld) [#/Vol] 3.2 103/mcL Normal 0.9 - 4.3 10^3/mcL AO Workflow SS Lymphocytes/100 WBC (Bld) 44.5 % High 20.0 - 40.0 % AO Workflow SS MCH (RBC) [Entitic mass] 31.8 pg Normal 27.0 - 33.0 pg AO Workflow SS MCHC 33.5 G/dL Normal 32.0 - 36.0 G/dL AO Workflow SS MCV (RBC) [Entitic vol] 95.0 fL Normal 81.0 - 100.0 fL AO Workflow SS Monocytes (Bld) [#/Vol] 0.7 103/mcL Normal 0.1 - 1.4 10^3/mcL AO Workflow SS Monocytes/100 WBC (Bld) 10.2 % Normal 2.0 - 13.0 % AO Workflow SS Neutrophils (Bld) [#/Vol] 2.9 103/mcL Normal 2.3 - 8.1 10^3/mcL AO Workflow SS Neutrophils/100 WBC (Bld) 39.8 % Low 50.0 - 75.0 % AO Workflow SS Parathyrin.intact [Mass/Vol] 49.3 pg/mL Normal 18.5 - 88.0 pg/mL AH ADM SS Platelet mean volume (Bld) [Entitic vol] 8.5 fL Normal 6.4 - 10.5 fL AO Workflow SS Platelets (Bld) [#/Vol] 158 103/mcL Normal 150 - 450 10^3/mcL AO Workflow SS Potassium [Moles/Vol] 4.6 mmol/L Normal 3.5 - 5.1 mmol/L AO ADM SS Prostate specific Ag [Mass/Vol] 0.97 ng/mL Normal 0.00 - 4.00 ng/mL AO ADM SS Protein [Mass/Vol] 6.9 G/dL Normal 6.4 - 8.2 G/dL AO ADM SS RBC (Bld) [#/Vol] 4.87 106/mcL Normal 4.50 - 6.0 0 10^6/mcL AO Workflow SS Sodium [Moles/Vol] 141 mmol/L Normal 136 - 145 mmol/L AO ADM SS Urea nitrogen [Mass/Vol] 13 mg/dL Normal 7 - 18 mg/dL AO ADM SS Urea nitrogen/Creatinine [Mass ratio] 9 ratio Normal 7 - 27 ratio AO ADM SS WBC (Bld) [#/Vol] 7.2 103/mcL Normal 4.5 - 10.8 10^3/mcL AO Workflow SS LABORATORYOrdered By: Jamie Aj on 03-05-2024 Cholesterol [Mass/Vol] 180 mg/dL Normal 0 - 200 mg/dL AO ADM SS Comment on above: Interpretive Data: C holesterol Reference Interval: Less than 200 Desirable 200-239 Borderline high risk 240 and above High risk Cholesterol in HDL [Mass/Vol] 44 mg/dL Normal 40 - 60 mg/dL AO ADM SS Cholesterol in LDL [Mass/Vol] 94 mg/dL Normal 0 - 130 mg/dL AO ADM SS Triglyceride [Mass/Vol] 211 mg/dL High 0 - 150 mg/dL AO ADM SS Comment on above: Interpretive Data: T riglyceride Reference Interval: Less than 150 Normal 150-199 Borderline high risk 200-499 High risk 500 or higher Very high risk LIPIDon 03-05-2024 Cholesterol [Mass/Vol] 180 mg/dL Normal 0-200 [facility] Comment on above: Result Comment: Chol esterol Reference Interval: Less than 200 Desirable 200-239 Borderline high risk 240 and above High risk Performed By: #### 6 30977, 313625, 497350, 478233, 748730, 088148, 751015, 990931, 809133, 305248, 438871, 988883 #### [address] [place], [place] [address] Cholesterol in HDL [Mass/Vol] 44 mg/dL Normal 40-60 [facility] Comment on above: Performed By: #### 6 68250, 311998, 720299, 959760, 169200, 193107, 485075, 768692, 234512, 055938, 679618, 843522 #### [address] [place], [place] [address] Cholesterol in LDL [Mass/Vol] 94 mg/dL Normal 0-130 [facility] Comment on above: Performed By: #### 6 75556, 739251, 730655, 613715, 947539, 939569, 499388, 463055, 983701, 526724, 134545, 757095 #### [address] [place], [place] [address] Triglyceride [Mass/Vol] 211 mg/dL High 0-150 [facility] Comment on above: Result Comment: Trig lyceride Reference Interval: Less than 150 Normal 150-199 Borderline high risk 200-499 High risk 500 or higher Very high risk Performed By: #### 6 17216, 138768, 604684, 829662, 007112, 212833, 740485, 764459, 443941, 736912, 883241, 191747 #### [address] [place], [place] [address] PSAon 03-05-2024 Prostate Specific Antigen 0.97 ng/mL Normal 0.00-4.00 [facility] Comment on above: Performed By: #### 6 18485, 009092, 662608, 829110, 887532, 803000, 805920, 968283, 442526, 241088, 235140, 822776 #### [address] [place], [place] [address] PTHon 03-05-2024 PTH, Intact 49.3 pg/mL Normal 18.5-88.0 [facility] Comment on above: Performed By: #### 6 29107, 422267, 418230, 367292, 236950, 933474, 290815, 694584, 454742, 711069, 599290, 710856 #### [address] [place], [place] [address] VIDHon 03-05-2024 Vit. D 25-Hydroxy 41.1 ng/mL Normal [facility] Comment on above: Result Comment: Inte rpretive Values Based on Total 25(OH) Vitamin D: Deficient <20 ng/mL Insufficient 20 - <30 ng/mL Sufficient 30-100 ng/mL Performed By: #### 6 93482, 097438, 358017, 927473, 013768, 087722, 381629, 024105, 811818, 129965, 495884, 639769 #### [address] [address] CNOVon 01-04-2024 [facility] AR SELLERS ([id number]) 1965 M Date Time Provider Department 01/04/24 9:30 AM ANTOINETTE GO [facility] During your visit today, we recorded the following information about you: Temperature Pulse Respiration Blood pressure 97.8 degrees 118/minute 18/minute 136/72 Weight 107.8 kg Antoinette Go APRN.GRADER MARKER 01/04/2024 9:47 AM Signed Subjective The history is provided by the patient. No health outcomes liaison was used. HPI Ar Sellers is a 58 year old male who presents today for CC of left sided upper dental pain for 24 hours. He has an appointment Saturday with the dentist, but needs something for possible infection today. He states he is probably having his teeth pulled. BP 136/72 Pulse 118 Temp 36.6 ?C (97.8 ?F) Resp 18 Wt 107.8 kg (237 lb 10.5 oz) SpO2 96% BMI 34.59 kg/m? Social History Tobacco Use Smoking status: Every Day Current packs/day: 0.50 Average packs/day: 0.5 packs/day for 25.0 years (12.5 ttl pk-yrs) Types: Cigarettes Smokeless tobacco: Never Substance Use Topics Alcohol use: No Comment: quit 04/2014 Drug use: No PAST MEDICAL HISTORY Diagnosis Date Anxiety Depression Hypercholesteremia I have confirmed and edited as necessary, the [facility] Review of Systems Constitutional: Negative for chills and fever. HENT: Dental pain Musculoskeletal: Negative for joint pain and myalgias. Skin: Negative for itching and rash. All other systems reviewed and are negative. Objective Physical Exam Vitals and nursing note reviewed. HENT: Mouth/Throat: Dentition: Abnormal dentition. Dental tenderness and dental caries present. Pulmonary: Effort: Pulmonary effort is normal. Skin: General: Skin is warm and dry. Neurological: Mental Status: He is alert and oriented to person, place, and time. Psychiatric: Mood and Affect: Affect normal. ASSESSMENT/PLAN: 1. Pain, dental - ICD9: 525.9, ICD10: K08.89 Poor dentition, possible infection Able to see patient labs on portal from [place], GFR in past 6 month was 43. No dosage adjustment for amoxicillin Follow up with dentist next week Tylenol as needed for pain Diagnosis and treatment plan were discussed and questions were answered to the patient's satisfaction. Pt acknowledged understanding of concepts and follow up plan. Specific signs and symptoms that would indicate the need for higher level of care were discussed in detail warranting prompt ER evaluation. Antoinette Go APRN.Antoinette Thomas APRN.CNP 01/04/2024 9:46 AM Signed Amoxicillin 875 mg twice a day for 5 days Follow up with dentist next week Tylenol as needed for pain Allergies As of Date: 01/04/2024 (No Known Allergies) Date Reviewed: 01/04/2024 Reviewed by: Antoinette Go APRN.CNP - Fully Assessed Reason for Visit: Other [0] Cmt: upper left tooth x 2 days Dental Problem [31] Primary Visit Diagnosis:Pain, dental [K08.89] Order(s):amoxicillin (AMOXIL) 875 mg tabletTake 1 tablet by mouth two times a day for 5 days.Disp: 10 tabletRfl: 0 Prescriptions as of 01/04/2024 - metoprolol tartrate, short acting, (LOPRESSOR) 25 mg tablet Take 25 mg by mouth two times a day. - albuterol (PROVENTIL) 2.5 mg/0.5 mL nebulizar solution Use 2.5 mg via nebulizer every 6 hours as needed. - STIOLTO RESPIMAT 2.5-2.5 mcg/actuation inhaler INHALE 2 PUFFS BY MOUTH and into the lungs ONCE DAILY - fluticasone-salmeterol (ADVAIR, WIXELA) 250-50 mcg/dose inhaler INHALE 1 PUFF TWICE DAILY (rinse mouth and throat after use) - amoxicillin (AMOXIL) 875 mg tablet Take 1 tablet by mouth two times a day for 5 days. - meloxicam (MOBIC) 15 mg tablet Take 1 tablet by mouth once daily. - HYDROcodone-acetaminoph en (NORCO) 5-325 mg per tablet Take 1-2 tablets by mouth every 6 hours as needed. - ramipril (ALTACE) 2.5 mg capsule Take 2.5 mg by mouth once daily. - multivitamin tablet Take 1 tablet by mouth once daily. - simvastatin (ZOCOR) 20 mg tablet Take 20 mg by mouth daily at bedtime. - Omeprazole 40 mg capsule Take 40 mg by mouth once daily. - busPIRone (BUSPAR) 10 mg tablet Take 10 mg by mouth three times daily. - QUEtiapine (SEROQUEL) 100 mg tablet Take 100 mg by mouth daily at bedtime. - vilazodone (VIIBRYD) 40 mg Take 40 mg by mouth daily with breakfast. Problem List As Of Date 01/04/2024 Noted Resolved Lateral epicondylitis of left elbow [M77.12] 01/11/2015 Gastroesophageal reflux disease without esophag*07/14/2015 Mixed hyperlipidemia [E78.2] 07/14/2015 Severe anxiety with panic [F41.0] 07/14/2015 Tobacco use disorder [F17.200] 07/14/2015 Other instructions from your clinician: Amoxicillin 875 mg twice a day for 5 days Follow up with dentist next week Tylenol as needed for pain Prescriptions ordered this encounter Disp Refills Start End AMOXICILLIN 875 MG TABLET 10 t* 0 01/04/2024 01/09/2024 Route: ORAL Si (more content not included)... Normal [facility] 12 Lead EKGon 01-01-2024 12 Lead EKG [facility] Cardiovascular Services [address] [place] [address] 12 Lead EKG 01/01/24 2245 MR#: [id number] Acct: [id number] Name: AR SELLERS Rep #: [id number] : 1965 58 From: Edi Cook MD Attending Dr: Status: DEP ER Ordering Dr: Pipo Hidalgo MD Date: 01/01/24 Location: ED Sex: M C Admitted: Test Reason : HTN Blood Pressure : / mmHG Vent. Rate : 085 BPM Atrial Rate : 085 BPM P-R Int : 156 ms QRS Dur : 086 ms QT Int : 352 ms P-R-T Axes : 050 073 051 degrees QTc Int : 418 ms Normal sinus rhythm Normal ECG Confirmed by AROLDO WHITE, EDI ([id number]), script editor PATRICIA MERCEDES ([id number]) on 01/03/2024 8:02:11 AM Referred By: LISA Confirmed By:EDI COOK MD 01/03/24 0802 Date Edi Cook MD CC: TELEGRAPHIC INSTRUMENT SUPERVISOR-C Gurmeet Quispepkins; Dr. Pipo Hidalgo MD Signed Normal [facility] Basic Metabolic Profile (BMP )on 01-01-2024 BUN/CRE 8.0 RATIO Low 10-20 [facility] Comment on above: Order Comment: 'TROP ' Serial specimen #1, #2 or #3: 1 Performed By: #### L 501.4020, L100.0100, L500.2500 #### [facility] [address] [place], [address] CA,Total 9.6 mg/dL Normal 8.5-10.1 [facility] Comment on above: Order Comment: 'TROP ' Serial specimen #1, #2 or #3: 1 Performed By: #### L 501.4020, L100.0100, L500.2500 #### [facility] [address] [place], [address] Chloride [Moles/Vol] 103 mmol/L Normal 98-107 [facility] Comment on above: Order Comment: 'TROP ' Serial specimen #1, #2 or #3: 1 Performed By: #### L 501.4020, L100.0100, L500.2500 #### [facility] [address] [place], [address] CO2 [Moles/Vol] 27.0 mmol/L Normal 21.0-32.0 [facility] Comment on above: Order Comment: 'TROP ' Serial specimen #1, #2 or #3: 1 Performed By: #### L 501.4020, L100.0100, L500.2500 #### [facility] [address] [place], [address] Creatinine [Mass/Vol] 1.63 mg/dL High 0.70-1.30 [facility] Comment on above: Order Comment: 'TROP ' Serial specimen #1, #2 or #3: 1 Result Comment: The validity of the calculated GFR GFRAA in patients over 70 years has not been determined. Clinical correlation is essential. Performed By: #### L 501.4020, L100.0100, L500.2500 #### [facility] [address] [place], [address] ECRCL 62.20 ml/min Normal [facility] Comment on above: Order Comment: 'TROP ' Serial specimen #1, #2 or #3: 1 Performed By: #### L 501.4020, L100.0100, L500.2500 #### [facility] [address] [place], [address] EST GFR - AA 57 mL/min Low >60 [facility] Comment on above: Order Comment: 'TROP ' Serial specimen #1, #2 or #3: 1 Result Comment: Afri can [place] GFR Calc Performed By: #### L 501.4020, L100.0100, L500.2500 #### [facility] [address] [place], [address] GAP 11 Normal 5-15 [facility] Comment on above: Order Comment: 'TROP ' Serial specimen #1, #2 or #3: 1 Performed By: #### L 501.4020, L100.0100, L500.2500 #### [facility] [address] [place], [address] GFR/1.73 sq M.predicted among non-blacks MDRD (S/P/Bld) [Vol rate/Area] 47 mL/min/{1.73_m2} Low >60 [facility] Comment on above: Order Comment: 'TROP ' Serial specimen #1, #2 or #3: 1 Result Comment: Non- GFR Calc Performed By: #### L 501.4020, L100.0100, L500.2500 #### [facility] [address] [place], [address] Glucose [Mass/Vol] 132 mg/dL High 74-106 [facility] Comment on above: Order Comment: 'TROP ' Serial specimen #1, #2 or #3: 1 Result Comment: Fast ing Glucose result greater than or equal to 126 mg/dL suggests DIABETES MELLITUS per A.D.A. criteria. Performed By: #### L 501.4020, L100.0100, L500.2500 #### [facility] [address] [place], [address] Potassium [Moles/Vol] 3.4 mmol/L Low 3.5-5.1 [facility] Comment on above: Order Comment: 'TROP ' Serial specimen #1, #2 or #3: 1 Performed By: #### L 501.4020, L100.0100, L500.2500 #### [facility] [address] [place], [address] Sodium [Moles/Vol] 141 mmol/L Normal 136-145 [facility] Comment on above: Order Comment: 'TROP ' Serial specimen #1, #2 or #3: 1 Performed By: #### L 501.4020, L100.0100, L500.2500 #### [facility] [address] [place], [address] Urea nitrogen [Mass/Vol] 13 mg/dL Normal 7-18 [facility] Comment on above: Order Comment: 'TROP ' Serial specimen #1, #2 or #3: 1 Performed By: #### L 501.4020, L100.0100, L500.2500 #### [facility] [address] [place], [address] CBC W/Diff, Automatedon - Absolute Lymph 4.53 X10 3/uL High 0.83-4.51 [facility] Comment on above: Performed By: #### L 501.4020, L100.0100, L500.2500 #### [facility] [address] [place], [address] Absolute Neut 4.3 X10 3/uL Normal 2.0-7.7 [facility] Comment on above: Performed By: #### L 501.4020, L100.0100, L500.2500 #### [facility] [address] [place], [address] Basophils/100 WBC (Bld) 0.8 % Normal 0-1 [facility] Comment on above: Performed By: #### L 501.4020, L100.0100, L500.2500 #### [facility] [address] [place], [address] Eosinophils/100 WBC (Bld) 4.0 % Normal 0-5 [facility] Comment on above: Performed By: #### L 501.4020, L100.0100, L500.2500 #### [facility] [address] [place], [address] Erythrocyte distribution width (RBC) [Ratio] 12.9 % Normal 11.6-14.6 [facility] Comment on above: Performed By: #### L 501.4020, L100.0100, L500.2500 #### [facility] [address] [place], [address] Hematocrit (Bld) [Volume fraction] 46.8 % Normal 40-54 [facility] Comment on above: Performed By: #### L 501.4020, L100.0100, L500.2500 #### [facility] [address] [place], [address] Hemoglobin (Bld) [Mass/Vol] 15.8 g/dL Normal 13.0-16.5 [facility] Comment on above: Performed By: #### L 501.4020, L100.0100, L500.2500 #### [facility] [address] [place], [address] IG% 0.500 Normal 0.0-0.9 [facility] Comment on above: Result Comment: IG% - Immature Granulocytes (promyelocytes, myelocytes and metamyelocytes) > 1% indicates that a LEFT SHIFT is Present. Performed By: #### L 501.4020, L100.0100, L500.2500 #### [facility] [address] [place], [address] Lymphocytes/100 WBC (Bld) 44.3 % High 19-41 [facility] Comment on above: Performed By: #### L 501.4020, L100.0100, L500.2500 #### [facility] [address] [place], [address] MCH (RBC) [Entitic mass] 31.5 pg Normal 27.0-32.0 [facility] Comment on above: Performed By: #### L 501.4020, L100.0100, L500.2500 #### [facility] [address] [place], [address] MCHC (RBC) [Mass/Vol] 33.8 g/dL Normal 32-36 [facility] Comment on above: Performed By: #### L 501.4020, L100.0100, L500.2500 #### [facility] [address] [place], [address] MCV (RBC) [Entitic vol] 93.2 fL Normal 80-94 [facility] Comment on above: Performed By: #### L 501.4020, L100.0100, L500.2500 #### [facility] [address] [place], [address] Monocytes/100 WBC (Bld) 8.4 % Normal 0-10 [facility] Comment on above: Performed By: #### L 501.4020, L100.0100, L500.2500 #### [facility] [address] [place], [address] Neutrophils/100 WBC (Bld) 42.0 % Low 47-70 [facility] Comment on above: Performed By: #### L 501.4020, L100.0100, L500.2500 #### [facility] [address] [place], [address] Nucleated RBC (Bld) [#/Vol] 0 10*3/uL Normal 0-5 [facility] Comment on above: Performed By: #### L 501.4020, L100.0100, L500.2500 #### [facility] [address] [place], [address] Platelet mean volume (Bld) [Entitic vol] 10.2 fL Normal 6.2-12.0 [facility] Comment on above: Performed By: #### L 501.4020, L100.0100, L500.2500 #### [facility] [address] [place], [address] Platelets (Bld) [#/Vol] 177 10*3/uL Normal 150-450 [facility] Comment on above: Performed By: #### L 501.4020, L100.0100, L500.2500 #### [facility] [address] [place], [address] RBC (Bld) [#/Vol] 5.02 10*6/uL Normal 4.6-6.2 [facility] Comment on above: Performed By: #### L 501.4020, L100.0100, L500.2500 #### [facility] [address] [place], [address] RDW SD 44.2 fl High 35.1-43.9 [facility] Comment on above: Performed By: #### L 501.4020, L100.0100, L500.2500 #### [facility] [address] [place], [address] WBC (Bld) [#/Vol] 10.2 10*3/uL Normal 4.4-11.0 [facility] Comment on above: Performed By: #### L 501.4020, L100.0100, L500.2500 #### [facility] [address] [place], [address] Chest 1 View (Portable)on Chest 1 View (Portable) [facility] Imaging Services [address] [place] [address] Chest 1 View (Portable) MR#: [id number] Acct: [id number] Name: MARLOANTONI RUFFAHMET Ochoa Rep #: [id number] : 1965 M 58 From: Billy ramirez DO PCP: YULISSA Leigh Status: REG ER Study: Chest 1 View (Portable) Date of Exam: 01/01/24 Exam# [id number] Ordering Dr: [place] [id number] EXAM: XR CHEST, 1 VIEW CLINICAL INDICATION: chest pain TECHNIQUE: Frontal view of the chest. COMPARISON: 09/04/2017 FINDINGS: LUNGS AND PLEURAL SPACES: No significant abnormality. No consolidation or edema. No pneumothorax. No effusion. HEART: No significant abnormality. Cardiac silhouette not enlarged. MEDIASTINUM: Central airways and mediastinal contour are unremarkable. BONES/JOINTS: No significant abnormality. No acute fracture. SOFT TISSUES: No significant abnormality. RAD/Chest 1 View (Portable) IMPRESSION: No radiographic evidence of acute cardiopulmonary disease. Electronically Signed: Billy Calderon DO at 22:58 EDT , CC: TELEGRAPHIC INSTRUMENT SUPERVISOR-C Gurmeet Fung; Dr. Pipo Hidalgo MD Orthopaedic Doctor: Signed Normal [facility] Emergency Department Summary on 01-01-2024 Emergency Department Summary [facility] Medical Records Department [address] [place] [address] Emergency Department Summary 01/01/24 MR#: [id number] Acct: [id number] Name: AR SELLERS Rep #: [id number] : 1965 58 From: Pipo Hidalgo MD PCP: YULISSA Leigh Status:REG ER Location: ED HPI History of Present Illness Chief Complaint: Hypertension Informant: patient Onset/Context/Timing Onset: Today and Hours Context: Sudden Onset Timing: Continuous Current Severity: Mild Maximum Severity: Moderate Narrative Narrative: Elevated blood pressure light. With a episode where he became hot and sweaty. 58-year-old male history of COPD and hypertension. Send episode tonight around 7:55 PM he was sitting in the car waiting to picker / packer his neighbor to bring her home from work. He said he got hot and sweaty he had dizziness. He said a history of this 2 months ago. He said this 1 has lasted longer. He denies any headache or visual change. He denies any chest pain. Denies any vomiting or diarrhea. No fever. Said he felt fine today. He has been eating and drinking normally. Prior similar symptoms: Yes Recent Illness/Hospitalization : No PFSH PFSH Medical History COPD (chronic obstructive pulmonary disease) Hypertension Hyperlipidemia GERD (gastroesophageal reflux disease) Anxiety Home Medications ???Medication ???Instructions ???Recorded ???Last Taken ???Type Omeprazole [Prilosec] 40 mg PO DAILY 03/26/13 10/18/17 History quetiapine 100 mg tablet 50 mg PO QHS 03/26/13 10/17/17 History simvastatin 20 mg tablet 40 mg PO QHS 03/26/13 10/17/17 History vilazodone 40 mg tablet (Viibryd) 40 mg PO DAILY 03/26/13 10/18/17 History metoprolol succinate 25 mg 25 mg PO Q12H 10/18/17 10/18/17 History tablet,extended release 24 hr albuterol sulfate 90 mcg/actuation 2 puff inhalation Q6H PRN 01/01/24 Unknown History aerosol inhaler shortness of breath or wheezing buspirone 10 mg tablet 10 mg PO BID 01/01/24 Unknown History famotidine 40 mg tablet 40 mg PO QHS 01/01/24 Unknown History fluticasone 250 mcg-salmeterol 50 1 ea inhalation BID 01/01/24 Unknown History mcg/dose blistr powdr for inhalation hydroxyzine HCl 25 mg tablet 25 - 50 mg PO Q6H PRN Anxiety 01/01/24 Unknown History icosapent ethyl 1 gram capsule 2 g PO BID 01/01/24 Unknown History (Vascepa) montelukast 10 mg tablet 10 mg PO DAILY 01/01/24 Unknown History sennosides 8.6 mg tablet (senna) 8.6 mg PO QHS 01/01/24 Unknown History tiotropium 2.5 mcg-olodaterol 2.5 2 puff inhalation DAILY 01/01/24 Unknown History mcg/actuation mist for inhalation (Stiolto Respimat) Allergy/AdvReac Type Severity Reaction Status Date / Time No Known Allergies Allergy Verified 01/01/24 21:25 Social History Smoking Status: Current every day smoker tobacco type: cigarettes ROS ROS ED ROS Narrative Denies recent illness. Constitutional Constitutional ED: Denies fever(s) Eyes Eyes: Denies blurry vision ENT ENT ED: Denies ear pain Cardiovascular Cardiovascular: Denies chest pain Respiratory/Chest Respiratory/Chest: Denies cough or dyspnea Gastrointestinal Gastrointestinal: Denies abdominal pain Genitourinary Genitourinary ED: Denies dysuria or hematuria Musculoskeletal Musculoskeletal: Denies arthralgias Integumentary Denies abscess Neurologic Neurologic: Denies headache(s) Psychiatric Psychiatric: Denies anxiety or depression Endocrine Endocrinology: Denies cold intolerance Hematologic/Lymphatic Hematologic/Lymphatic: Reports none Allergic/Immunologic Allergic/Immunologic ED: Denies mouth swelling, tongue swelling or urticaria EXAM Physical Exam Narrative Exam Narrative: Male no acute distress vital signs stable afebrile. Blood pressure is elevated 151/91. He does not look septic toxic or any distress. There is no one else present in the room. Pulse ox 98% on room air no signs of hypoxia. H EENT exam unremarkable. Pupils round react light. About 3 mm bilaterally. No facial droop. Normal speech. No trauma. Neck nontender. No JVD. Lungs clear to auscultation bilaterally. Heart regular rate and rhythm rate of 90 no murmur. Chest wall nontender. He does wear a monitoring specialist that he has on for the next 2 months. He does not have the other device with it. Will see if there is a way we can get a read of what happened earlier this evening. Abdomen soft nontender. Moving all 4 extremities. 5 out of 5 dumper mold cleaner strength. Dorsi plantarflexion intact. Calves are nontender. No edema fingertip to nose [id number] within normal limits. No drift from upper or lower extremities. Neurologic exam normal. Awake alert. Answering questions. NIH is 0. Const Vital Signs: (more content not included)... Normal [facility] L501.4020on 01-01-2024 TROPONIN-I HS 7 pg/mL Normal 3.0-78.0 [facility] Comment on above: Order Comment: 'TROP ' Serial specimen #1, #2 or #3: 1 Result Comment: Davie xiong Note: New Test Units and Gender Specific Reference Ranges. For more information see Policy Stat Procedure [place] High Sensitivity Troponin (TNIH) and attachments. Performed By: #### L 501.4020, L100.0100, L500.2500 #### [facility] [address] [place], [address] CT ANGIOGRAPHY CHEST W/CONTR Teddy 09-26-2023 CT ANGIOGRAPHY CHEST W/CONTRAST ORIGINAL EXAMINATION: CTA OF THE CHEST 09/23/2023 3:48 pm TECHNIQUE: CTA of the chest was performed after the administration of intravenous contrast. Multiplanar reformatted images are provided for review. MIP images are provided for review. Automated exposure control, iterative reconstruction, and/or weight based adjustment of the mA/kV was utilized to reduce the radiation dose to as low as reasonably achievable. COMPARISON: None. HISTORY: ORDERING SYSTEM PROVIDED HISTORY: Reason for Exam: dilalated aortic root with recurent near syncope, HTN, heart palpitations F/U abnormal echo. Pt reports some episodes of orthostatic hypotension. FINDINGS: Very minor degenerative disc disease is present within the thoracic spine. No other osseous abnormality is identified. The entirety of the lungs is not included on this dedicated CTA study. Visible lungs show emphysema and small scattered areas of pulmonary and pleural scarring. No definite infiltrates are visible and there is no pleural fluid seen. No mediastinal adenopathy is evident. A borderline subcarinal node is evident, presumably reactive or hyperplastic. A very small sliding hiatal hernia is evident. The thoracic aorta shows no significant atherosclerotic calcification. Aortic measurements: Annulus 3 cm Sinus of Valsalva 4.2 cm Sinotubular junction 2.9 cm Ascending thoracic aorta 3.6 cm Descending thoracic aorta 2.7 cm No additional contributory abnormality identified. IMPRESSION: 1. Emphysema. No superimposed acute finding. 2. Normal caliber ascending thoracic aorta. Interpreted by: Denis Sung MD Preliminary Report By: Denis Sung MD Electronically signed By Denis Sung MD Dictated Date: 09/26/2023 10:00:59 AM Prelim Date: 09/26/2023 10:34:16 AM Sign Date: 09/26/2023 10:34:16 AM Ordering Provider: GURMEET FUNG [facility] ([place]) XR HIP 2-3 VIEWS LEFTon 05- XR HIP 2-3 VIEWS LEFT ORIGINAL EXAMINATION: 2 XRAY VIEWS OF THE LEFT HIP 09/03/2023 2:06 pm COMPARISON: None. HISTORY: ORDERING SYSTEM PROVIDED HISTORY: Reason for Exam: acute low back pain not improved post ER with conservative outpatient medication management FINDINGS: Dedicated left hip radiographs demonstrate no acute fracture or dislocation. There is normal articulation of the left hip with mild subchondral sclerosis noted. Visualized aspects of the pelvis are intact. IMPRESSION: - No fracture or dislocation. - Mild degenerative changes of the left hip. Interpreted by: Brian De Luna MD Preliminary Report By: Brian De Luna MD Electronically signed By Brian De Luna MD Dictated Date: 09/06/2023 1:05:30 PM Prelim Date: 09/06/2023 1:06:13 PM Sign Date: 09/06/2023 1:06:13 PM Ordering Provider: GURMEET FUNG Normal [facility] ([place]) RENINon 09-05-2023 Renin Activity 0.381 ng/mL/hr Normal 0.167-5.380 [facility] ([place]) Comment on above: Result Comment: This test was developed and its performance characteristics determined by [facility]. It has not been cleared or approved by the Food and Drug Administration. Performed At: [address] [id number] Meng Worrell MD Ph:[phone] Performed By: #### 0 [id number] #### [address] [address] XR SPINE LUMBAR W/OBLIQUES 4 VIEWSon 09-05-2023 XR SPINE LUMBAR W/OBLIQUES 4 VIEWS ORIGINAL EXAMINATION: 5 XRAY VIEWS OF THE LUMBAR SPINE09/03/2023 2:15 pm COMPARISON: None. HISTORY: ORDERING SYSTEM PROVIDED HISTORY: Reason for Exam: acute left hip pain not improved post ER with conservative outpatient medication management FINDINGS: There are 5 non rib-bearing lumbar type vertebral bodies. The vertebral body heights are preserved. No acute fracture, spondylolisthesis, or suspicious osseous lesions. Mild degenerative disc disease. Mild facet arthropathy, greatest in the lower lumbar spine. Atherosclerotic aorta. IMPRESSION: 1. No acute fracture or significant listhesis. Mild changes as described above. I have personally reviewed the images of this examination and agree with the resident's findings and interpretation. Interpreted by: Misbah Fitzpatrick MD Preliminary Report By: Joseph Serrano Electronically signed By Misbah Fitzpatrick MD Dictated Date: 09/05/2023 10:23:46 AM Prelim Date: 09/05/2023 10:39:06 AM Sign Date: 09/05/2023 10:39:06 AM Ordering Provider: GURMEET Swann [facility] ([place]) A1Con 08-30-2023 HbA1c (Bld) [Mass fraction] 5.5 % Normal 4.3-6.4 [facility] ([place]) Comment on above: Performed By: #### 0 [id number] #### [place] [id number] .Auto Diffon 08-29-2023 Basophil, Absolute 0.0 10 3/mcL Normal 0.0-0.2 On license of [facility] ([place]) Comment on above: Performed By: #### L IPID, A1C, CBC, ANEU, ADIFF, VIDH, CMP, GFR ####[place] [address]#### PTH ####[address] [address] Basophils/100 WBC (Bld) 0.7 % Normal 0.0-2.5 [facility] ([place]) Comment on above: Performed By: #### L IPID, A1C, CBC, ANEU, ADIFF, VIDH, CMP, GFR ####[place] [address]#### PTH ####[address] [address] Eosinophil, Absolute 0.5 10 3/mcL High 0.0-0.4 [facility] ([place]) Comment on above: Performed By: #### L IPID, A1C, CBC, ANEU, ADIFF, VIDH, CMP, GFR ####[place] [address]#### PTH ####[address] [address] Eosinophils/100 WBC (Bld) 7.3 % High 0.0-7.0 [facility] ([place]) Comment on above: Performed By: #### L IPID, A1C, CBC, ANEU, ADIFF, VIDH, CMP, GFR ####[place] [address]#### PTH ####[address] [address] Lymphocyte, Absolute 2.8 10 3/mcL Normal 0.8-3.9 [facility] ([place]) Comment on above: Performed By: #### L IPID, A1C, CBC, ANEU, ADIFF, VIDH, CMP, GFR ####[place] [address]#### PTH ####[address] [address] Lymphocytes/100 WBC (Bld) 39.7 % Normal 10.0-50.0 [facility] ([place]) Comment on above: Performed By: #### L IPID, A1C, CBC, ANEU, ADIFF, VIDH, CMP, GFR ####[place] [address]#### PTH ####[address] [address] Monocyte, Absolute 0.9 10 3/mcL Normal 0.2-1.0 On license of [facility] ([place]) Comment on above: Performed By: #### L IPID, A1C, CBC, ANEU, ADIFF, VIDH, CMP, GFR ####[place] [address]#### PTH ####[address] [address] Monocytes/100 WBC (Bld) 12.4 % Normal 1.7-13.0 [facility] ([place]) Comment on above: Performed By: #### L IPID, A1C, CBC, ANEU, ADIFF, VIDH, CMP, GFR ####[place] [address]#### PTH ####[address] [address] Neutrophils/100 WBC (Bld) 39.9 % Normal 37.0-80.0 [facility] ([place]) Comment on above: Performed By: #### L IPID, A1C, CBC, ANEU, ADIFF, VIDH, CMP, GFR ####[address] [place], [place] [address]#### PTH ####[address] [address] .GFRon 08-29-2023 GFR 52 ml/min/1.73sqm Normal [facility] ([place]) Comment on above: Result Comment: GFR Population mean for , Non- Americans Ages 20-29 = 116 mL/min/1.73 sq.m. Ages 30-39 = 107 mL/min/1.73 sq.m. Ages 40-49 = 99 mL/min/1.73 sq.m. Ages 50-59 = 93 mL/min/1.73 sq.m. Ages 60-69 = 85 mL/min/1.73 sq.m. Ages 70+ = 75 mL/min/1.73 sq.m. Chronic Kidney Disease: Less than 60 mL/min/1.73 square meters End Stage Renal Disease: Less than 15 mL/min/1.73 square meters Performed By: #### L IPID, A1C, CBC, ANEU, ADIFF, VIDH, CMP, GFR ####[address] [place], [place] [address]#### PTH ####[address] [address] GFR Non- 43 ml/min/1.73sqm Normal [facility] ([place]) Comment on above: Result Comment: GFR Population mean for , Non- Americans Ages 20-29 = 116 mL/min/1.73 sq.m. Ages 30-39 = 107 mL/min/1.73 sq.m. Ages 40-49 = 99 mL/min/1.73 sq.m. Ages 50-59 = 93 mL/min/1.73 sq.m. Ages 60-69 = 85 mL/min/1.73 sq.m. Ages 70+ = 75 mL/min/1.73 sq.m. Chronic Kidney Disease: Less than 60 mL/min/1.73 square meters End Stage Renal Disease: Less than 15 mL/min/1.73 square meters Performed By: #### L IPID, A1C, CBC, ANEU, ADIFF, VIDH, CMP, GFR ####[place] [address] [place] [address]#### PTH ####[place] [address] .NEUABSon 08-29-2023 Neutrophil, Absolute 2.8 10 3/mcL Low 2.9-6.2 [facility] ([place]) Comment on above: Performed By: #### L IPID, A1C, CBC, ANEU, ADIFF, VIDH, CMP, GFR ####[place] [address] [place] [address]#### PTH ####[place] [address] CBCon 08-29-2023 Erythrocyte distribution width (RBC) [Ratio] 13.4 % Normal 11.5-14.5 [facility] ([place]) Comment on above: Performed By: #### L IPID, A1C, CBC, ANEU, ADIFF, VIDH, CMP, GFR ####[place] [address]#### PTH ####[place] [address] Hematocrit (Bld) [Volume fraction] 44.2 % Normal 42.0-52.0 [facility] ([place]) Comment on above: Performed By: #### L IPID, A1C, CBC, ANEU, ADIFF, VIDH, CMP, GFR ####[place] [address]#### PTH ####[place] [address] Hgb 15.3 G/dL Normal 14.0-18.0 [facility] ([place] Comment on above: Performed By: #### L IPID, A1C, CBC, ANEU, ADIFF, VIDH, CMP, GFR ####[place] [address]#### PTH ####[place] [address] MCH (RBC) [Entitic mass] 32.7 pg High 27.0-31.2 [facility] ([place]) Comment on above: Performed By: #### L IPID, A1C, CBC, ANEU, ADIFF, VIDH, CMP, GFR ####[place] [address]#### PTH ####[place] [address] MCHC 34.7 G/dL Normal 31.8-35.4 [facility] ([place] Comment on above: Performed By: #### L IPID, A1C, CBC, ANEU, ADIFF, VIDH, CMP, GFR ####[place] [address]#### PTH ####[place] [address] MCV (RBC) [Entitic vol] 94.4 fL High 80.0-94.0 [facility] ([place] Comment on above: Performed By: #### L IPID, A1C, CBC, ANEU, ADIFF, VIDH, CMP, GFR ####[place] [address]#### PTH ####[place] [address] Platelet 143 10 3/mcL Normal 130-400 [facility] ([place]) Comment on above: Performed By: #### L IPID, A1C, CBC, ANEU, ADIFF, VIDH, CMP, GFR ####[place] [address]#### PTH ####[place] [address] Platelet mean volume (Bld) [Entitic vol] 8.3 fL Normal 7.4-10.4 [facility] ([place] Comment on above: Performed By: #### L IPID, A1C, CBC, ANEU, ADIFF, VIDH, CMP, GFR ####[place] [address]#### PTH ####[place] [address] RBC 4.69 10 6/mcL Normal 4.04-6.13 [facility] ([place]) Comment on above: Performed By: #### L IPID, A1C, CBC, ANEU, ADIFF, VIDH, CMP, GFR ####[place] [address]#### PTH ####[place] [address] WBC 7.0 10 3/mcL Normal 4.6-10.8 [facility] ([place]) Comment on above: Performed By: #### L IPID, A1C, CBC, ANEU, ADIFF, VIDH, CMP, GFR ####[place] [address]#### PTH ####[place] [address] CMPon 08-29-2023 Albumin Level 4.0 G/dL Normal 3.5-5.0 [facility] ([place]) Comment on above: Performed By: #### L IPID, A1C, CBC, ANEU, ADIFF, VIDH, CMP, GFR ####[place] [address]#### PTH ####[place] [address] Albumin/Globulin [Mass ratio] 1.4 {ratio} Normal 1.1-2.5 [facility] ([place] Comment on above: Performed By: #### L IPID, A1C, CBC, ANEU, ADIFF, VIDH, CMP, GFR ####[place] [address]#### PTH ####[place] [address] ALP [Catalytic activity/Vol] 85 U/L Normal 40-135 [facility] ([place]) Comment on above: Performed By: #### L IPID, A1C, CBC, ANEU, ADIFF, VIDH, CMP, GFR ####[place] [address]#### PTH ####[address] [address] ALT [Catalytic activity/Vol] 23 U/L Normal 16-63 [facility] ([place]) Comment on above: Performed By: #### L IPID, A1C, CBC, ANEU, ADIFF, VIDH, CMP, GFR ####[place] [address]#### PTH ####[place] [address] AST [Catalytic activity/Vol] 20 U/L Normal 10-40 [facility] ([place] Comment on above: Performed By: #### L IPID, A1C, CBC, ANEU, ADIFF, VIDH, CMP, GFR ####[place] [address]#### PTH ####[place] [address] Bili Total 0.8 mg/dL Normal 0.2-1.0 [facility] ([place]) Comment on above: Result Comment: Use of this assay is not recommended for patients undergoing treatment with eltrombopag due to the potential for falsely elevated results. Performed By: #### L IPID, A1C, CBC, ANEU, ADIFF, VIDH, CMP, GFR ####[place] [address]#### PTH ####[place] [address] BUN/Creatinine Ratio 7 ratio Normal 7-27 On license of [facility] ([place]) Comment on above: Performed By: #### L IPID, A1C, CBC, ANEU, ADIFF, VIDH, CMP, GFR ####[place] [address]#### PTH ####[place] [address] Calcium [Mass/Vol] 9.2 mg/dL Normal 8.4-10.2 [facility] ([place]) Comment on above: Performed By: #### L IPID, A1C, CBC, ANEU, ADIFF, VIDH, CMP, GFR ####[place] [address]#### PTH ####[address] [address] Chloride [Moles/Vol] 105 mmol/L Normal 98-107 On license of [facility] ([place]) Comment on above: Performed By: #### L IPID, A1C, CBC, ANEU, ADIFF, VIDH, CMP, GFR ####[place] [address]#### PTH ####[place] [address] CO2 [Moles/Vol] 29 mmol/L Normal 22-29 [facility] ([place]) Comment on above: Performed By: #### L IPID, A1C, CBC, ANEU, ADIFF, VIDH, CMP, GFR ####[place] [address]#### PTH ####[place] [address] Creatinine [Mass/Vol] 1.66 mg/dL High 0.70-1.30 [facility] ([place]) Comment on above: Performed By: #### L IPID, A1C, CBC, ANEU, ADIFF, VIDH, CMP, GFR ####[place] [address]#### PTH ####[place] [address] Electrolyte Balance 9.0 mEq/L Normal 4.0-15.0 [facility] ([place]) Comment on above: Performed By: #### L IPID, A1C, CBC, ANEU, ADIFF, VIDH, CMP, GFR ####[place] [address]#### PTH ####[place] [address] Globulin 2.8 G/dL Normal [facility] ([place]) Comment on above: Performed By: #### L IPID, A1C, CBC, ANEU, ADIFF, VIDH, CMP, GFR ####[address] [address]#### PTH ####[address] [address] Glucose [Mass/Vol] 115 mg/dL High 70-105 [facility] ([place]) Comment on above: Performed By: #### L IPID, A1C, CBC, ANEU, ADIFF, VIDH, CMP, GFR ####[place] [address]#### PTH ####[address] [address] Potassium [Moles/Vol] 4.7 mmol/L Normal 3.5-5.1 [facility] ([place]) Comment on above: Performed By: #### L IPID, A1C, CBC, ANEU, ADIFF, VIDH, CMP, GFR ####[place] [address]#### PTH ####[address] [address] Sodium [Moles/Vol] 143 mmol/L Normal 136-145 [facility] ([place] Comment on above: Performed By: #### L IPID, A1C, CBC, ANEU, ADIFF, VIDH, CMP, GFR ####[place] [address]#### PTH ####[address] [address] Total Protein 6.8 G/dL Normal 6.4-8.2 [facility] ([place]) Comment on above: Performed By: #### L IPID, A1C, CBC, ANEU, ADIFF, VIDH, CMP, GFR ####[place] [address]#### PTH ####[address] [address] Urea nitrogen [Mass/Vol] 11 mg/dL Normal 7-18 [facility] ([place]) Comment on above: Performed By: #### L IPID, A1C, CBC, ANEU, ADIFF, VIDH, CMP, GFR ####[address] [place], [place] [address]#### PTH ####[address] [place] [address] LABORATORYOrdered By: SYSTEM SYSTEM on 08-29-2023 25-hydroxyvitamin D3 [Mass/Vol] 36.2 ng/mL Invalid Interpretation Code AO ADM SS Comment on above: Interpretive Data: I nterpretive Values Based on Total 25(OH) Vitamin D: Deficient <20 ng/mL Insufficient 20 - <30 ng/mL Sufficient 30-100 ng/mL Albumin BCP dye [Mass/Vol] 4.0 G/dL Normal 3.5 - 5.0 G/dL AO ADM SS Albumin/Globulin [Mass ratio] 1.4 {ratio} Normal 1.1 - 2.5 ratio AO ADM SS ALP [Catalytic activity/Vol] 85 U/L Normal 40 - 135 U/L AO ADM SS ALT With P-5'-P [Catalytic activity/Vol] 23 U/L Normal 16 - 63 U/L AO ADM SS AST With P-5'-P [Catalytic activity/Vol] 20 U/L Normal 10 - 40 U/L AO ADM SS Basophil, Absolute 0.0 103/mcL Normal 0.0 - 0.2 10^3/mcL AO Workflow SS Basophils/100 WBC (Bld) 0.7 % Normal 0.0 - 2.5 % AO Workflow SS Bilirubin [Mass/Vol] 0.8 mg/dL Normal 0.2 - 1 .0 mg/dL AO ADM SS Comment on above: Interpretive Data: U se of this assay is not recommended for patients undergoing treatment with eltrombopag due to the potential for falsely elevated results. Calcium [Mass/Vol] 9.2 mg/dL Normal 8.4 - 10. 2 mg/dL AO ADM SS Chloride [Moles/Vol] 105 mmol/L Normal 98 - 10 7 mmol/L AO ADM SS CO2 [Moles/Vol] 29 mmol/L Normal 22 - 29 mmol/L AO ADM SS Creatinine [Mass/Vol] 1.66 mg/dL High 0.70 - 1.30 mg/dL AO ADM SS Electrolyte Balance 9.0 mEq/L Normal 4.0 - 15 .0 mEq/L AO ADM SS Eosinophil, Absolute 0.5 103/mcL High 0.0 - 0 .4 10^3/mcL AO Workflow SS Eosinophils/100 WBC (Bld) 7.3 % High 0.0 - 7.0 % AO Workflow SS Erythrocyte distribution width (RBC) [Ratio] 13.4 % Normal 11.5 - 14.5 % AO Workflow SS GFR/1.73 sq M.predicted among blacks MDRD (S/P/Bld) [Vol rate/Area] 52 ml/min/1.73sqm Invalid Interpretation Code AO Chemistry S Comment on above: Interpretive Data: GFR Population mean for , Non- Americans Ages 20-29 = 116 mL/min/1.73 sq.m. Ages 30-39 = 107 mL/min/1.73 sq.m. Ages 40-49 = 99 mL/min/1.73 sq.m. Ages 50-59 = 93 mL/min/1.73 sq.m. Ages 60-69 = 85 mL/min/1.73 sq.m. Ages 70+ = 75 mL/min/1.73 sq.m. Chronic Kidney Disease: Less than 60 mL/min/1.73 square meters End Stage Renal Disease: Less than 15 mL/min/1.73 square meters GFR/1.73 sq M.predicted among non-blacks MDRD (S/P/Bld) [Vol rate/Area] 43 ml/min/1.73sqm Invalid Interpretation Code AO Chemistry S Comment on above: Interpretive Data: GFR Population mean for , Non- Americans Ages 20-29 = 116 mL/min/1.73 sq.m. Ages 30-39 = 107 mL/min/1.73 sq.m. Ages 40-49 = 99 mL/min/1.73 sq.m. Ages 50-59 = 93 mL/min/1.73 sq.m. Ages 60-69 = 85 mL/min/1.73 sq.m. Ages 70+ = 75 mL/min/1.73 sq.m. Chronic Kidney Disease: Less than 60 mL/min/1.73 square meters End Stage Renal Disease: Less than 15 mL/min/1.73 square meters Globulin 2.8 G/dL Invalid Interpretation Code AO ADM SS Glucose [Mass/Vol] 115 mg/dL High 70 - 105 mg/dL AO ADM SS Hematocrit (Bld) [Volume fraction] 44.2 % Normal 42.0 - 52.0 % AO Workflow SS Hemoglobin (Bld) [Mass/Vol] 15.3 G/dL Normal 14.0 - 18.0 G/dL AO Workflow SS Lymphocyte, Absolute 2.8 103/mcL Normal 0.8 - 3 .9 10^3/mcL AO Workflow SS Lymphocytes/100 WBC (Bld) 39.7 % Normal 10.0 - 50.0 % AO Workflow SS MCH (RBC) [Entitic mass] 32.7 pg High 27.0 - 31.2 pg AO Workflow SS MCHC 34.7 G/dL Normal 31.8 - 35.4 G/dL AO Workflow SS MCV (RBC) [Entitic vol] 94.4 fL High 80.0 - 94.0 fL AO Workflow SS Monocyte, Absolute 0.9 103/mcL Normal 0.2 - 1.0 10^3/mcL AO Workflow SS Monocytes/100 WBC (Bld) 12.4 % Normal 1.7 - 13.0 % AO Workflow SS Neutrophil, Absolute 2.8 103/mcL Low 2.9 - 6 .2 10^3/mcL AO Workflow SS Neutrophils/100 WBC (Bld) 39.9 % Normal 37.0 - 80.0 % AO Workflow SS Parathyrin.intact [Mass/Vol] 53.6 pg/mL Normal 18.5 - 88.0 pg/mL AH ADM SS Platelet mean volume (Bld) [Entitic vol] 8.3 fL Normal 7.4 - 10.4 fL AO Workflow SS Platelets (Bld) [#/Vol] 143 103/mcL Normal 130 - 400 10^3/mcL AO Workflow SS Potassium [Moles/Vol] 4.7 mmol/L Normal 3.5 - 5.1 mmol/L AO ADM SS Protein [Mass/Vol] 6.8 G/dL Normal 6.4 - 8.2 G/dL AO ADM SS RBC (Bld) [#/Vol] 4.69 106/mcL Normal 4.04 - 6.1 3 10^6/mcL AO Workflow SS Sodium [Moles/Vol] 143 mmol/L Normal 136 - 145 mmol/L AO ADM SS Urea nitrogen [Mass/Vol] 11 mg/dL Normal 7 - 18 mg/dL AO ADM SS Urea nitrogen/Creatinine [Mass ratio] 7 ratio Normal 7 - 27 ratio AO ADM SS WBC (Bld) [#/Vol] 7.0 103/mcL Normal 4.6 - 10.8 10^3/mcL AO Workflow SS LABORATORYOrdered By: Francisco Odonnell on 08-29-2023 Cholesterol [Mass/Vol] 141 mg/dL Normal 0 - 200 mg/dL AO ADM SS Comment on above: Interpretive Data: C holesterol Reference Interval: Less than 200 Desirable 200-239 Borderline high risk 240 and above High risk Cholesterol in HDL [Mass/Vol] 36 mg/dL Low 40 - 60 mg/dL AO ADM SS Cholesterol in LDL [Mass/Vol] 71 mg/dL Normal 0 - 130 mg/dL AO ADM SS Triglyceride [Mass/Vol] 170 mg/dL High 0 - 150 mg/dL AO ADM SS Comment on above: Interpretive Data: T riglyceride Reference Interval: Less than 150 Normal 150-199 Borderline high risk 200-499 High risk 500 or higher Very high risk LIPIDon 08-29-2023 Cholesterol [Mass/Vol] 141 mg/dL Normal 0-200 [facility] ([place]) Comment on above: Result Comment: Chol esterol Reference Interval: Less than 200 Desirable 200-239 Borderline high risk 240 and above High risk Performed By: #### L IPID, A1C, CBC, ANEU, ADIFF, VIDH, CMP, GFR ####[place] [address] [place], [place] [address]#### PTH ####[address] [address] Cholesterol in HDL [Mass/Vol] 36 mg/dL Low 40-60 [facility] ([place]) Comment on above: Performed By: #### L IPID, A1C, CBC, ANEU, ADIFF, VIDH, CMP, GFR ####[place] [id number] [place], [place] [address]#### PTH ####[address] [address] Cholesterol in LDL [Mass/Vol] 71 mg/dL Normal 0-130 [facility] ([place]) Comment on above: Performed By: #### L IPID, A1C, CBC, ANEU, ADIFF, VIDH, CMP, GFR ####[place] [id number]#### PTH ####[address] [address] Triglyceride [Mass/Vol] 170 mg/dL High 0-150 [facility] ([place] Comment on above: Result Comment: Trig lyceride Reference Interval: Less than 150 Normal 150-199 Borderline high risk 200-499 High risk 500 or higher Very high risk Performed By: #### L IPID, A1C, CBC, ANEU, ADIFF, VIDH, CMP, GFR ####[place] [address]#### PTH ####[place] [id number] PTHon 08-29-2023 PTH, Intact 53.6 pg/mL Normal 18.5-88.0 [facility] ([place]) Comment on above: Performed By: #### 0 [id number] #### [place] [id number] VIDHon 08-29-2023 Vit. D 25-Hydroxy 36.2 ng/mL Normal [facility] ([place]) Comment on above: Result Comment: Inte rpretive Values Based on Total 25(OH) Vitamin D: Deficient <20 ng/mL Insufficient 20 - <30 ng/mL Sufficient 30-100 ng/mL Performed By: #### L IPID, A1C, CBC, ANEU, ADIFF, VIDH, CMP, GFR ####[place] [address]#### PTH ####[place] [address] RENINDon 03-01-2023 Direct Renin 5.1 pg/mL Normal 3.6-81.6 [facility] ([place]) Comment on above: Result Comment: A ra kiya of aldosterone in ng/dL to direct renin in pg/mL greater than or equal to 3.8 is a positive screening test result for primary aldosteronism, when aldosterone is greater than or equal to 15 ng/dL. The reference interval for direct renin is based on an upright position. The supine reference intervals are: Age <41 years: 3.2-33.2 pg/mL Age >=41 years: 2.5-45.1 pg/mL Performed By: [facility] [employer] [facility] [place] [address] Gift Shop Clerk: Alden Barger III, M.D. CLIA#: [id number] Performed By: #### G FR, ADIFF, LIPID, CBC, RENIND, PSA, A1C, ANEU, CMP ####[place] [address]#### PTH ####[place] [address] Patient Upright or Supine Upright Normal [facility] ([place]) Comment on above: Result Comment: Perf ormed By: [facility] [employer] [facility] [place] [address] Gift Shop Clerk: Alden Barger III, M.D. CLIA#: [id number] Performed By: #### G FR, ADIFF, LIPID, CBC, RENIND, PSA, A1C, ANEU, CMP ####[place] [address]#### PTH ####[place] [address] .Auto Diffon 02-28-2023 Basophil, Absolute 0.0 10 3/mcL Normal 0.0-0.2 On license of [facility] ([place]) Comment on above: Performed By: #### G FR, ADIFF, LIPID, CBC, RENIND, PSA, A1C, ANEU, CMP #### [place] [address] #### PTH #### [place] [address] Basophils/100 WBC (Bld) 0.5 % Normal 0.0-2.5 [facility] ([place]) Comment on above: Performed By: #### G FR, ADIFF, LIPID, CBC, RENIND, PSA, A1C, ANEU, CMP #### [place] [address] #### PTH #### [place] [address] Eosinophil, Absolute 0.4 10 3/mcL Normal 0.0-0.4 [facility] ([place]) Comment on above: Performed By: #### G FR, ADIFF, LIPID, CBC, RENIND, PSA, A1C, ANEU, CMP #### [address] [address] #### PTH #### [address] [address] Eosinophils/100 WBC (Bld) 5.1 % Normal 0.0-7.0 [facility] ([place]) Comment on above: Performed By: #### G FR, ADIFF, LIPID, CBC, RENIND, PSA, A1C, ANEU, CMP #### [address] [address] #### PTH #### [address] [address] Lymphocyte, Absolute 3.6 10 3/mcL Normal 0.8-3.9 [facility] ([place]) Comment on above: Performed By: #### G FR, ADIFF, LIPID, CBC, RENIND, PSA, A1C, ANEU, CMP #### [address] [address] #### PTH #### [address] [address] Lymphocytes/100 WBC (Bld) 41.9 % Normal 10.0-50.0 [facility] ([place]) Comment on above: Performed By: #### G FR, ADIFF, LIPID, CBC, RENIND, PSA, A1C, ANEU, CMP #### [address] [address] #### PTH #### [address] [address] Monocyte, Absolute 0.8 10 3/mcL Normal 0.2-1.0 On license of [facility] ([place]) Comment on above: Performed By: #### G FR, ADIFF, LIPID, CBC, RENIND, PSA, A1C, ANEU, CMP #### [address] [address] #### PTH #### [address] [address] Monocytes/100 WBC (Bld) 9.4 % Normal 1.7-13.0 [facility] ([place]) Comment on above: Performed By: #### G FR, ADIFF, LIPID, CBC, RENIND, PSA, A1C, ANEU, CMP #### [address] [address] #### PTH #### [address] [address] Neutrophils/100 WBC (Bld) 43.1 % Normal 37.0-80.0 [facility] ([place]) Comment on above: Performed By: #### G FR, ADIFF, LIPID, CBC, RENIND, PSA, A1C, ANEU, CMP #### [address] [address] #### PTH #### [address] [address] .GFRon 02-28-2023 GFR 52 ml/min/1.73sqm Normal [facility] ([place]) Comment on above: Result Comment: GFR Population mean for , Non- Americans Ages 20-29 = 116 mL/min/1.73 sq.m. Ages 30-39 = 107 mL/min/1.73 sq.m. Ages 40-49 = 99 mL/min/1.73 sq.m. Ages 50-59 = 93 mL/min/1.73 sq.m. Ages 60-69 = 85 mL/min/1.73 sq.m. Ages 70+ = 75 mL/min/1.73 sq.m. Chronic Kidney Disease: Less than 60 mL/min/1.73 square meters End Stage Renal Disease: Less than 15 mL/min/1.73 square meters Performed By: #### G FR, ADIFF, LIPID, CBC, RENIND, PSA, A1C, ANEU, CMP #### [address] [address] #### PTH #### [address] [address] GFR Non- 43 ml/min/1.73sqm Normal [facility] ([place]) Comment on above: Result Comment: GFR Population mean for , Non- Americans Ages 20-29 = 116 mL/min/1.73 sq.m. Ages 30-39 = 107 mL/min/1.73 sq.m. Ages 40-49 = 99 mL/min/1.73 sq.m. Ages 50-59 = 93 mL/min/1.73 sq.m. Ages 60-69 = 85 mL/min/1.73 sq.m. Ages 70+ = 75 mL/min/1.73 sq.m. Chronic Kidney Disease: Less than 60 mL/min/1.73 square meters End Stage Renal Disease: Less than 15 mL/min/1.73 square meters Performed By: #### G FR, ADIFF, LIPID, CBC, RENIND, PSA, A1C, ANEU, CMP #### [address] [address] #### PTH #### [address] [address] .NEUABSon 02-28-2023 Neutrophil, Absolute 3.7 10 3/mcL Normal 2.9-6.2 [facility] ([place]) Comment on above: Performed By: #### G FR, ADIFF, LIPID, CBC, RENIND, PSA, A1C, ANEU, CMP #### [address] [address] #### PTH #### [address] [address] A1Con 02-28-2023 HbA1c (Bld) [Mass fraction] 5.6 % Normal 4.3-6.4 [facility] ([place]) Comment on above: Performed By: #### G FR, ADIFF, LIPID, CBC, RENIND, PSA, A1C, ANEU, CMP ####[address] [address]#### PTH ####[address] [address] CBCon 02-28-2023 Erythrocyte distribution width (RBC) [Ratio] 13.6 % Normal 11.5-14.5 [facility] ([place]) Comment on above: Performed By: #### G FR, ADIFF, LIPID, CBC, RENIND, PSA, A1C, ANEU, CMP #### [address] [address] #### PTH #### [place] [address] Hematocrit (Bld) [Volume fraction] 47.4 % Normal 42.0-52.0 [facility] ([place]) Comment on above: Performed By: #### G FR, ADIFF, LIPID, CBC, RENIND, PSA, A1C, ANEU, CMP #### [place] [address] #### PTH #### [place] [address] Hgb 16.2 G/dL Normal 14.0-18.0 [facility] ([place]) Comment on above: Performed By: #### G FR, ADIFF, LIPID, CBC, RENIND, PSA, A1C, ANEU, CMP #### [place] [address] #### PTH #### [place] [address] MCH (RBC) [Entitic mass] 32.1 pg High 27.0-31.2 [facility] ([place]) Comment on above: Performed By: #### G FR, ADIFF, LIPID, CBC, RENIND, PSA, A1C, ANEU, CMP #### [address] [address] #### PTH #### [place] [address] MCHC 34.2 G/dL Normal 31.8-35.4 [facility] ([place]) Comment on above: Performed By: #### G FR, ADIFF, LIPID, CBC, RENIND, PSA, A1C, ANEU, CMP #### [place] [address] #### PTH #### [place] [address] MCV (RBC) [Entitic vol] 93.8 fL Normal 80.0-94.0 [facility] ([place]) Comment on above: Performed By: #### G FR, ADIFF, LIPID, CBC, RENIND, PSA, A1C, ANEU, CMP #### [place] [address] #### PTH #### [place] [address] Platelet 151 10 3/mcL Normal 130-400 [facility] ([place]) Comment on above: Performed By: #### G FR, ADIFF, LIPID, CBC, RENIND, PSA, A1C, ANEU, CMP #### [place] [address] #### PTH #### [place] [address] Platelet mean volume (Bld) [Entitic vol] 8.4 fL Normal 7.4-10.4 [facility] ([place]) Comment on above: Performed By: #### G FR, ADIFF, LIPID, CBC, RENIND, PSA, A1C, ANEU, CMP #### [place] [address] #### PTH #### [place] [address] RBC 5.05 10 6/mcL Normal 4.04-6.13 [facility] ([place]) Comment on above: Performed By: #### G FR, ADIFF, LIPID, CBC, RENIND, PSA, A1C, ANEU, CMP #### [place] [address] #### PTH #### [place] [address] WBC 8.7 10 3/mcL Normal 4.6-10.8 [facility] ([place] Comment on above: Performed By: #### G FR, ADIFF, LIPID, CBC, RENIND, PSA, A1C, ANEU, CMP #### [place] [address] #### PTH #### [place] [address] CMPon 02-28-2023 Albumin Level 4.2 G/dL Normal 3.5-5.0 [facility] ([place]) Comment on above: Performed By: #### G FR, ADIFF, LIPID, CBC, RENIND, PSA, A1C, ANEU, CMP #### [address] [address] #### PTH #### [address] [address] Albumin/Globulin [Mass ratio] 1.4 {ratio} Normal 1.1-2.5 [facility] ([place] Comment on above: Performed By: #### G FR, ADIFF, LIPID, CBC, RENIND, PSA, A1C, ANEU, CMP #### [place] [address] #### PTH #### [address] [address] ALP [Catalytic activity/Vol] 80 U/L Normal 40-135 [facility] ([place] Comment on above: Performed By: #### G FR, ADIFF, LIPID, CBC, RENIND, PSA, A1C, ANEU, CMP #### [address] [address] #### PTH #### [address] [address] ALT [Catalytic activity/Vol] 20 U/L Normal 16-63 [facility] ([place]) Comment on above: Performed By: #### G FR, ADIFF, LIPID, CBC, RENIND, PSA, A1C, ANEU, CMP #### [address] [address] #### PTH #### [address] [address] AST [Catalytic activity/Vol] 16 U/L Normal 10-40 [facility] ([place]) Comment on above: Performed By: #### G FR, ADIFF, LIPID, CBC, RENIND, PSA, A1C, ANEU, CMP #### [address] [address] #### PTH #### [address] [address] Bili Total 0.9 mg/dL Normal 0.2-1.0 [facility] ([place]) Comment on above: Result Comment: Use of this assay is not recommended for patients undergoing treatment with eltrombopag due to the potential for falsely elevated results. Performed By: #### G FR, ADIFF, LIPID, CBC, RENIND, PSA, A1C, ANEU, CMP #### [address] [address] #### PTH #### [address] [address] BUN/Creatinine Ratio 8 ratio Normal 7-27 On license of [facility] ([place]) Comment on above: Performed By: #### G FR, ADIFF, LIPID, CBC, RENIND, PSA, A1C, ANEU, CMP #### [place] [address] #### PTH #### [address] [address] Calcium [Mass/Vol] 9.2 mg/dL Normal 8.4-10.2 [facility] ([place]) Comment on above: Performed By: #### G FR, ADIFF, LIPID, CBC, RENIND, PSA, A1C, ANEU, CMP #### [place] [address] #### PTH #### [address] [address] Chloride [Moles/Vol] 103 mmol/L Normal 98-107 On license of [facility] ([place]) Comment on above: Performed By: #### G FR, ADIFF, LIPID, CBC, RENIND, PSA, A1C, ANEU, CMP #### [address] [address] #### PTH #### [address] [address] CO2 [Moles/Vol] 28 mmol/L Normal 22-29 [facility] ([place] Comment on above: Performed By: #### G FR, ADIFF, LIPID, CBC, RENIND, PSA, A1C, ANEU, CMP #### [address] [address] #### PTH #### [address] [address] Creatinine [Mass/Vol] 1.66 mg/dL High 0.70-1.30 [facility] ([place]) Comment on above: Performed By: #### G FR, ADIFF, LIPID, CBC, RENIND, PSA, A1C, ANEU, CMP #### [address] [address] #### PTH #### [address] [address] Electrolyte Balance 10.0 mEq/L Normal 4.0-15.0 [facility] ([place]) Comment on above: Performed By: #### G FR, ADIFF, LIPID, CBC, RENIND, PSA, A1C, ANEU, CMP #### [address] [address] #### PTH #### [address] [address] Globulin 3.0 G/dL Normal [facility] ([place]) Comment on above: Performed By: #### G FR, ADIFF, LIPID, CBC, RENIND, PSA, A1C, ANEU, CMP #### [address] [address] #### PTH #### [place] [address] Glucose [Mass/Vol] 101 mg/dL Normal 70-105 [facility] ([place] Comment on above: Performed By: #### G FR, ADIFF, LIPID, CBC, RENIND, PSA, A1C, ANEU, CMP #### [address] [address] #### PTH #### [address] [address] Potassium [Moles/Vol] 4.6 mmol/L Normal 3.5-5.1 [facility] ([place]) Comment on above: Performed By: #### G FR, ADIFF, LIPID, CBC, RENIND, PSA, A1C, ANEU, CMP #### [address] [address] #### PTH #### [place] [id number] Sodium [Moles/Vol] 141 mmol/L Normal 136-145 [facility] ([place] Comment on above: Performed By: #### G FR, ADIFF, LIPID, CBC, RENIND, PSA, A1C, ANEU, CMP #### [address] [address] #### PTH #### [address] [address] Total Protein 7.2 G/dL Normal 6.4-8.2 [facility] ([place]) Comment on above: Performed By: #### G FR, ADIFF, LIPID, CBC, RENIND, PSA, A1C, ANEU, CMP #### [address] [address] #### PTH #### [address] [address] Urea nitrogen [Mass/Vol] 13 mg/dL Normal 7-18 [facility] ([place]) Comment on above: Performed By: #### G FR, ADIFF, LIPID, CBC, RENIND, PSA, A1C, ANEU, CMP #### [address] [address] #### PTH #### [address] [address] LABORATORYOrdered By: SYSTEM SYSTEM on 02-28-2023 Albumin BCP dye [Mass/Vol] 4.2 G/dL Invalid Interpretation Code 3.5 - 5.0 G/dL AO ADM SS Albumin/Globulin [Mass ratio] 1.4 {ratio} Invalid Interpretation Code 1.1 - 2.5 ratio AO ADM SS ALP [Catalytic activity/Vol] 80 U/L Invalid Interpretation Code 40 - 135 U/L AO ADM SS ALT With P-5'-P [Catalytic activity/Vol] 20 U/L Invalid Interpretation Code 16 - 63 U/L AO ADM SS AST With P-5'-P [Catalytic activity/Vol] 16 U/L Invalid Interpretation Code 10 - 40 U/L AO ADM SS Basophil, Absolute 0.0 103/mcL Invalid Interpretation Code 0.0 - 0.2 10^3/mcL AO Workflow SS Basophils/100 WBC (Bld) 0.5 % Invalid Interpretation Code 0.0 - 2.5 % AO Workflow SS Bilirubin [Mass/Vol] 0.9 mg/dL Invalid Interpretation Code 0.2 - 1.0 mg/dL AO ADM SS Comment on above: Interpretive Data: U se of this assay is not recommended for patients undergoing treatment with eltrombopag due to the potential for falsely elevated results. Calcium [Mass/Vol] 9.2 mg/dL Invalid Interpretation Code 8.4 - 10.2 mg/dL AO ADM SS Chloride [Moles/Vol] 103 mmol/L Invalid Interpretation Code 98 - 107 mmol/L AO ADM SS CO2 [Moles/Vol] 28 mmol/L Invalid Interpretation Code 22 - 29 mmol/L AO ADM SS Creatinine [Mass/Vol] 1.66 mg/dL Invalid Interpretation Code 0.70 - 1.30 mg/dL AO ADM SS Electrolyte Balance 10.0 mEq/L Invalid Interpretation Code 4.0 - 15.0 mEq/L AO ADM SS Eosinophil, Absolute 0.4 103/mcL Invalid Interpretation Code 0.0 - 0.4 10^3/mcL AO Workflow SS Eosinophils/100 WBC (Bld) 5.1 % Invalid Interpretation Code 0.0 - 7.0 % AO Workflow SS Erythrocyte distribution width (RBC) [Ratio] 13.6 % Invalid Interpretation Code 11.5 - 14.5 % AO Workflow SS GFR/1.73 sq M.predicted among blacks MDRD (S/P/Bld) [Vol rate/Area] 52 ml/min/1.73sqm Invalid Interpretation Code AO Chemistry S Comment on above: Interpretive Data: GFR Population mean for , Non- Americans Ages 20-29 = 116 mL/min/1.73 sq.m. Ages 30-39 = 107 mL/min/1.73 sq.m. Ages 40-49 = 99 mL/min/1.73 sq.m. Ages 50-59 = 93 mL/min/1.73 sq.m. Ages 60-69 = 85 mL/min/1.73 sq.m. Ages 70+ = 75 mL/min/1.73 sq.m. Chronic Kidney Disease: Less than 60 mL/min/1.73 square meters End Stage Renal Disease: Less than 15 mL/min/1.73 square meters GFR/1.73 sq M.predicted among non-blacks MDRD (S/P/Bld) [Vol rate/Area] 43 ml/min/1.73sqm Invalid Interpretation Code AO Chemistry S Comment on above: Interpretive Data: GFR Population mean for , Non- Americans Ages 20-29 = 116 mL/min/1.73 sq.m. Ages 30-39 = 107 mL/min/1.73 sq.m. Ages 40-49 = 99 mL/min/1.73 sq.m. Ages 50-59 = 93 mL/min/1.73 sq.m. Ages 60-69 = 85 mL/min/1.73 sq.m. Ages 70+ = 75 mL/min/1.73 sq.m. Chronic Kidney Disease: Less than 60 mL/min/1.73 square meters End Stage Renal Disease: Less than 15 mL/min/1.73 square meters Globulin 3.0 G/dL Invalid Interpretation Code AO ADM SS Glucose [Mass/Vol] 101 mg/dL Invalid Interpretation Code 70 - 105 mg/dL AO ADM SS HbA1c (Bld) [Mass fraction] 5.6 % Invalid Interpretation Code 4.3 - 6.4 % AO ADM SS Hematocrit (Bld) [Volume fraction] 47.4 % Invalid Interpretation Code 42.0 - 52.0 % AO Workflow SS Hemoglobin (Bld) [Mass/Vol] 16.2 G/dL Invalid Interpretation Code 14.0 - 18.0 G/dL AO Workflow SS Lymphocyte, Absolute 3.6 103/mcL Invalid Interpretation Code 0.8 - 3.9 10^3/mcL AO Workflow SS Lymphocytes/100 WBC (Bld) 41.9 % Invalid Interpretation Code 10.0 - 50.0 % AO Workflow SS MCH (RBC) [Entitic mass] 32.1 pg Invalid Interpretation Code 27.0 - 31.2 pg AO Workflow SS MCHC 34.2 G/dL Invalid Interpretation Code 31.8 - 35.4 G/dL AO Workflow SS MCV (RBC) [Entitic vol] 93.8 fL Invalid Interpretation Code 80.0 - 94.0 fL AO Workflow SS Monocyte, Absolute 0.8 103/mcL Invalid Interpretation Code 0.2 - 1.0 10^3/mcL AO Workflow SS Monocytes/100 WBC (Bld) 9.4 % Invalid Interpretation Code 1.7 - 13.0 % AO Workflow SS Neutrophil, Absolute 3.7 103/mcL Invalid Interpretation Code 2.9 - 6.2 10^3/mcL AO Workflow SS Neutrophils/100 WBC (Bld) 43.1 % Invalid Interpretation Code 37.0 - 80.0 % AO Workflow SS Parathyrin.intact [Mass/Vol] 45.5 pg/mL Invalid Interpretation Code 18.5 - 88.0 pg/mL AH ADM SS Platelet mean volume (Bld) [Entitic vol] 8.4 fL Invalid Interpretation Code 7.4 - 10.4 fL AO Workflow SS Platelets (Bld) [#/Vol] 151 103/mcL Invalid Interpretation Code 130 - 400 10^3/mcL AO Workflow SS Potassium [Moles/Vol] 4.6 mmol/L Invalid Interpretation Code 3.5 - 5.1 mmol/L AO ADM SS Prostate specific Ag [Mass/Vol] 0.78 ng/mL Invalid Interpretation Code 0.00 - 4.00 ng/mL AO ADM SS Protein [Mass/Vol] 7.2 G/dL Invalid Interpretation Code 6.4 - 8.2 G/dL AO ADM SS RBC (Bld) [#/Vol] 5.05 106/mcL Invalid Interpretation Code 4.04 - 6.13 10^6/mcL AO Workflow SS Sodium [Moles/Vol] 141 mmol/L Invalid Interpretation Code 136 - 145 mmol/L AO ADM SS Urea nitrogen [Mass/Vol] 13 mg/dL Invalid Interpretation Code 7 - 18 mg/dL AO ADM SS Urea nitrogen/Creatinine [Mass ratio] 8 ratio Invalid Interpretation Code 7 - 27 ratio AO ADM SS WBC (Bld) [#/Vol] 8.7 103/mcL Invalid Interpretation Code 4.6 - 10.8 10^3/mcL AO Workflow SS LABORATORYOrdered By: Mitul Bowman on 02-28-2023 Albumin DL <= 20 mg/L (U) [Mass/Vol] 810 mcg/dL Invalid Interpretation Code AO ADM SS Albumin/Creatinine DL <= 20 mg/L (U) [Mass ratio] 5 mcg/mg Invalid Interpretation Code 0 - 30 mcg/mg AO ADM SS Cholesterol [Mass/Vol] 178 mg/dL Invalid Interpretation Code 0 - 200 mg/dL AO ADM SS Comment on above: Interpretive Data: C holesterol Reference Interval: Less than 200 Desirable 200-239 Borderline high risk 240 and above High risk Cholesterol in HDL [Mass/Vol] 39 mg/dL Invalid Interpretation Code 40 - 60 mg/dL AO ADM SS Cholesterol in LDL [Mass/Vol] 88 mg/dL Invalid Interpretation Code 0 - 130 mg/dL AO ADM SS Creatinine (U) [Mass/Vol] 174.4 mg/dL Invalid Interpretation Code 39.0 - 259.0 mg/dL AO ADM SS Triglyceride [Mass/Vol] 256 mg/dL Invalid Interpretation Code 0 - 150 mg/dL AO ADM SS Comment on above: Interpretive Data: T riglyceride Reference Interval: Less than 150 Normal 150-199 Borderline high risk 200-499 High risk 500 or higher Very high risk LABORATORYOrdered By: NATASHA OSEI CONTRIBUTOR_SYSTEM on 02-28-2023 Direct Renin 5.1 pg/mL Invalid Interpretation Code 3.6-81.6 AO Sendouts SS Comment on above: Result Comment: A ra kiya of aldosterone in ng/dL to direct renin in pg/mL greater than or equal to 3.8 is a positive screening test result for primary aldosteronism, when aldosterone is greater than or equal to 15 ng/dL. The reference interval for direct renin is based on an upright position. The supine reference intervals are: Age <41 years: 3.2-33.2 pg/mL Age >=41 years: 2.5-45.1 pg/mL Performed By: [facility] [place] [address] Gift Shop Clerk: Alden Barger III, M.D. CLIA#: [id number] Patient Upright or Supine Upright Invalid Interpretation Code AO Sendouts SS Comment on above: Result Comment: Perf ormed By: [facility] [id number] [place] [address] Gift Shop Clerk: Alden Barger III, M.D. CLIA#: [id number] LIPIDon 02-28-2023 Cholesterol [Mass/Vol] 178 mg/dL Normal 0-200 [facility] ([place]) Comment on above: Result Comment: Chol esterol Reference Interval: Less than 200 Desirable 200-239 Borderline high risk 240 and above High risk Performed By: #### G FR, ADIFF, LIPID, CBC, RENIND, PSA, A1C, ANEU, CMP #### [place] [address] [place], [place] [address] #### PTH #### [address] [address] Cholesterol in HDL [Mass/Vol] 39 mg/dL Low 40-60 [facility] ([place]) Comment on above: Performed By: #### G FR, ADIFF, LIPID, CBC, RENIND, PSA, A1C, ANEU, CMP #### [address] [address] #### PTH #### [address] [address] Cholesterol in LDL [Mass/Vol] 88 mg/dL Normal 0-130 [facility] ([place]) Comment on above: Performed By: #### G FR, ADIFF, LIPID, CBC, RENIND, PSA, A1C, ANEU, CMP #### [address] [address] #### PTH #### [address] [address] Triglyceride [Mass/Vol] 256 mg/dL High 0-150 [facility] ([place]) Comment on above: Result Comment: Trig lyceride Reference Interval: Less than 150 Normal 150-199 Borderline high risk 200-499 High risk 500 or higher Very high risk Performed By: #### G FR, ADIFF, LIPID, CBC, RENIND, PSA, A1C, ANEU, CMP #### [address] [address] #### PTH #### [address] [address] MALBRon 02-28-2023 U Creatinine 174.4 mg/dL Normal 39.0-259.0 [facility] ([place]) Comment on above: Performed By: #### 0 [address] #### [address] [address] U Microalb 810 mcg/dL Normal [facility] ([place]) Comment on above: Performed By: #### 0 [address] #### [address] [address] U Ratio Alb/Cre 5 mcg/mg Normal 0-30 [facility] ([place]) Comment on above: Performed By: #### 0 [address] #### [address] [address] PSAon 02-28-2023 Prostate Specific Antigen 0.78 ng/mL Normal 0.00-4.00 [facility] ([place]) Comment on above: Performed By: #### G FR, ADIFF, LIPID, CBC, RENIND, PSA, A1C, ANEU, CMP #### [address] [place], [place] [address] #### PTH #### [facility] [address] [place] [address] PTHon 02-28-2023 PTH, Intact 45.5 pg/mL Normal 18.5-88.0 [facility] ([place]) Comment on above: Performed By: #### G FR, ADIFF, LIPID, CBC, RENIND, PSA, A1C, ANEU, CMP ####[address] [place], [place] [address]#### PTH ####[facility] [place] [address] LABORATORYOrdered By: SYSTEM SYSTEM on 08-30-2022 25-hydroxyvitamin D3 [Mass/Vol] 41.9 ng/mL Invalid Interpretation Code AO ADM SS Albumin BCP dye [Mass/Vol] 4.3 G/dL Invalid Interpretation Code 3.5 - 5.0 G/dL AO ADM SS Albumin/Globulin [Mass ratio] 1.6 {ratio} Invalid Interpretation Code 1.1 - 2.5 ratio AO ADM SS ALP [Catalytic activity/Vol] 77 U/L Invalid Interpretation Code 40 - 135 U/L AO ADM SS ALT With P-5'-P [Catalytic activity/Vol] 26 U/L Invalid Interpretation Code 16 - 63 U/L AO ADM SS AST With P-5'-P [Catalytic activity/Vol] 25 U/L Invalid Interpretation Code 10 - 40 U/L AO ADM SS Bilirubin [Mass/Vol] 1.0 mg/dL Invalid Interpretation Code 0.2 - 1.0 mg/dL AO ADM SS Calcium [Mass/Vol] 8.9 mg/dL Invalid Interpretation Code 8.4 - 10.2 mg/dL AO ADM SS Chloride [Moles/Vol] 104 mmol/L Invalid Interpretation Code 98 - 107 mmol/L AO ADM SS CO2 [Moles/Vol] 28 mmol/L Invalid Interpretation Code 22 - 29 mmol/L AO ADM SS Creatinine [Mass/Vol] 1.49 mg/dL Invalid Interpretation Code 0.70 - 1.30 mg/dL AO ADM SS Electrolyte Balance 10.0 mEq/L Invalid Interpretation Code 4.0 - 15.0 mEq/L AO ADM SS GFR/1.73 sq M.predicted among blacks MDRD (S/P/Bld) [Vol rate/Area] 60 ml/min/1.73sqm Invalid Interpretation Code AO Chemistry S GFR/1.73 sq M.predicted among non-blacks MDRD (S/P/Bld) [Vol rate/Area] 49 ml/min/1.73sqm Invalid Interpretation Code AO Chemistry S Globulin 2.7 G/dL Invalid Interpretation Code AO ADM SS Glucose [Mass/Vol] 100 mg/dL Invalid Interpretation Code 70 - 105 mg/dL AO ADM SS Iron [Mass/Vol] 70 ug/dL Invalid Interpretation Code 65 - 175 mcg/dL AO ADM SS Iron binding capacity [Mass/Vol] 262 mcg/dL Invalid Interpretation Code 250 - 450 mcg/dL AO ADM SS Parathyrin.intact [Mass/Vol] 46.3 pg/mL Invalid Interpretation Code 18.5 - 88.0 pg/mL AH ADM SS Potassium [Moles/Vol] 4.1 mmol/L Invalid Interpretation Code 3.5 - 5.1 mmol/L AO ADM SS Protein [Mass/Vol] 7.0 G/dL Invalid Interpretation Code 6.4 - 8.2 G/dL AO ADM SS Sodium [Moles/Vol] 142 mmol/L Invalid Interpretation Code 136 - 145 mmol/L AO ADM SS Urea nitrogen [Mass/Vol] 11 mg/dL Invalid Interpretation Code 7 - 18 mg/dL AO ADM SS Urea nitrogen/Creatinine [Mass ratio] 7 ratio Invalid Interpretation Code 7 - 27 ratio AO ADM SS LABORATORYOrdered By: Maribel Barnett on 08-30-2022 Basophil, Absolute 0.0 103/mcL Invalid Interpretation Code 0.0 - 0.2 10^3/mcL AO Workflow SS Basophils/100 WBC (Bld) 0.5 % Invalid Interpretation Code 0.0 - 2.5 % AO Workflow SS Eosinophil, Absolute 0.4 103/mcL Invalid Interpretation Code 0.0 - 0.4 10^3/mcL AO Workflow SS Eosinophils/100 WBC (Bld) 6.1 % Invalid Interpretation Code 0.0 - 7.0 % AO Workflow SS Erythrocyte distribution width (RBC) [Ratio] 13.7 % Invalid Interpretation Code 11.5 - 14.5 % AO Workflow SS Hematocrit (Bld) [Volume fraction] 46.3 % Invalid Interpretation Code 42.0 - 52.0 % AO Workflow SS Hemoglobin (Bld) [Mass/Vol] 15.4 G/dL Invalid Interpretation Code 14.0 - 18.0 G/dL AO Workflow SS Lymphocyte, Absolute 3.3 103/mcL Invalid Interpretation Code 0.8 - 3.9 10^3/mcL AO Workflow SS Lymphocytes/100 WBC (Bld) 45.4 % Invalid Interpretation Code 10.0 - 50.0 % AO Workflow SS MCH (RBC) [Entitic mass] 31.6 pg Invalid Interpretation Code 27.0 - 31.2 pg AO Workflow SS MCHC 33.3 G/dL Invalid Interpretation Code 31.8 - 35.4 G/dL AO Workflow SS MCV (RBC) [Entitic vol] 94.8 fL Invalid Interpretation Code 80.0 - 94.0 fL AO Workflow SS Monocyte, Absolute 0.7 103/mcL Invalid Interpretation Code 0.2 - 1.0 10^3/mcL AO Workflow SS Monocytes/100 WBC (Bld) 9.8 % Invalid Interpretation Code 1.7 - 13.0 % AO Workflow SS Neutrophil, Absolute 2.8 103/mcL Invalid Interpretation Code 2.9 - 6.2 10^3/mcL AO Workflow SS Neutrophils/100 WBC (Bld) 38.2 % Invalid Interpretation Code 37.0 - 80.0 % AO Workflow SS Platelet mean volume (Bld) [Entitic vol] 8.5 fL Invalid Interpretation Code 7.4 - 10.4 fL AO Workflow SS Platelets (Bld) [#/Vol] 161 103/mcL Invalid Interpretation Code 130 - 400 10^3/mcL AO Workflow SS RBC (Bld) [#/Vol] 4.88 106/mcL Invalid Interpretation Code 4.04 - 6.13 10^6/mcL AO Workflow SS WBC (Bld) [#/Vol] 7.3 103/mcL Invalid Interpretation Code 4.6 - 10.8 10^3/mcL AO Workflow SS LABORATORYOrdered By: Maribel Matthews on 08-30-2022 Cholesterol [Mass/Vol] 156 mg/dL Invalid Interpretation Code 0 - 200 mg/dL AO ADM SS Cholesterol in HDL [Mass/Vol] 36 mg/dL Invalid Interpretation Code 40 - 60 mg/dL AO ADM SS Cholesterol in LDL [Mass/Vol] 81 mg/dL Invalid Interpretation Code 0 - 130 mg/dL AO ADM SS Triglyceride [Mass/Vol] 194 mg/dL Invalid Interpretation Code 0 - 150 mg/dL AO ADM SS LABORATORYOrdered By: NATASHA OSEI CONTRIBUTOR_SYSTEM on 08-30-2022 Direct Renin 4.4 pg/mL Invalid Interpretation Code 3.6-81.6pg/m L AO Sendouts SS Comment on above: Result Comment: A ra kiya of aldosterone in ng/dL to direct renin in pg/mL greater than or equal to 3.8 is a positive screening test result for primary aldosteronism, when aldosterone is greater than or equal to 15 ng/dL. The reference interval for direct renin is based on an upright position. The supine reference intervals are: Age <41 years: 3.2-33.2 pg/mL Age >=41 years: 2.5-45.1 pg/mL Performed By: [facility] [place] [address] Gift Shop Clerk: Alden Barger III, M.D. CLIA#: [id number] Patient Upright or Supine Upright Invalid Interpretation Code AO Sendouts SS Comment on above: Result Comment: Perf ormed By: [facility] [place] [address] Gift Shop Clerk: Alden Barger III, M.D. CLIA#: [id number] LABORATORYOrdered By: Jackie Trinh on 02-22-2022 Albumin BCP dye [Mass/Vol] 4.2 G/dL Invalid Interpretation Code 3.5 - 5.0 G/dL AO ADM SS Albumin/Globulin [Mass ratio] 1.5 {ratio} Invalid Interpretation Code 1.1 - 2.5 ratio AO ADM SS ALP [Catalytic activity/Vol] 76 U/L Invalid Interpretation Code 40 - 135 U/L AO ADM SS ALT With P-5'-P [Catalytic activity/Vol] 20 U/L Invalid Interpretation Code 16 - 63 U/L AO ADM SS AST With P-5'-P [Catalytic activity/Vol] 20 U/L Invalid Interpretation Code 10 - 40 U/L AO ADM SS Bilirubin [Mass/Vol] 0.7 mg/dL Invalid Interpretation Code 0.2 - 1.0 mg/dL AO ADM SS Calcium [Mass/Vol] 9.3 mg/dL Invalid Interpretation Code 8.4 - 10.2 mg/dL AO ADM SS Chloride [Moles/Vol] 102 mmol/L Invalid Interpretation Code 98 - 107 mmol/L AO ADM SS Cholesterol [Mass/Vol] 161 mg/dL Invalid Interpretation Code 0 - 200 mg/dL AO ADM SS Cholesterol in HDL [Mass/Vol] 43 mg/dL Invalid Interpretation Code 40 - 60 mg/dL AO ADM SS Cholesterol in LDL [Mass/Vol] 93 mg/dL Invalid Interpretation Code 0 - 130 mg/dL AO ADM SS CO2 [Moles/Vol] 29 mmol/L Invalid Interpretation Code 22 - 29 mmol/L AO ADM SS Creatinine [Mass/Vol] 1.37 mg/dL Invalid Interpretation Code 0.70 - 1.30 mg/dL AO ADM SS Electrolyte Balance 8.0 mEq/L Invalid Interpretation Code 4.0 - 15.0 mEq/L AO ADM SS Globulin 2.8 G/dL Invalid Interpretation Code AO ADM SS Glucose [Mass/Vol] 96 mg/dL Invalid Interpretation Code 70 - 105 mg/dL AO ADM SS Iron [Mass/Vol] 43 ug/dL Invalid Interpretation Code 65 - 175 mcg/dL AO ADM SS Potassium [Moles/Vol] 4.8 mmol/L Invalid Interpretation Code 3.5 - 5.1 mmol/L AO ADM SS Prostate specific Ag [Mass/Vol] 0.68 ng/mL Invalid Interpretation Code 0.00 - 4.00 ng/mL AO ADM SS Protein [Mass/Vol] 7.0 G/dL Invalid Interpretation Code 6.4 - 8.2 G/dL AO ADM SS Sodium [Moles/Vol] 139 mmol/L Invalid Interpretation Code 136 - 145 mmol/L AO ADM SS Triglyceride [Mass/Vol] 124 mg/dL Invalid Interpretation Code 0 - 150 mg/dL AO ADM SS TSH Qn 1.66 m[IU]/L Invalid Interpretation Code 0.36 - 3.74 mcIU/mL AO ADM SS Urea nitrogen [Mass/Vol] 13 mg/dL Invalid Interpretation Code 7 - 18 mg/dL AO ADM SS Urea nitrogen/Creatinine [Mass ratio] 9 ratio Invalid Interpretation Code 7 - 27 ratio AO ADM SS Vit. D 25-Hydroxy 49.1 ng/mL Invalid Interpretation Code AO ADM SS LABORATORYOrdered By: Maribel Matthews on 02-22-2022 Basophil, Absolute 0.0 103/mcL Invalid Interpretation Code 0.0 - 0.2 10^3/mcL AO Workflow SS Basophils/100 WBC (Bld) 0.4 % Invalid Interpretation Code 0.0 - 2.5 % AO Workflow SS Eosinophil, Absolute 0.3 103/mcL Invalid Interpretation Code 0.0 - 0.4 10^3/mcL AO Workflow SS Eosinophils/100 WBC (Bld) 2.4 % Invalid Interpretation Code 0.0 - 7.0 % AO Workflow SS Erythrocyte distribution width (RBC) [Ratio] 14.0 % Invalid Interpretation Code 11.5 - 14.5 % AO Workflow SS Hematocrit (Bld) [Volume fraction] 46.4 % Invalid Interpretation Code 42.0 - 52.0 % AO Workflow SS Hemoglobin (Bld) [Mass/Vol] 15.6 G/dL Invalid Interpretation Code 14.0 - 18.0 G/dL AO Workflow SS Lymphocyte, Absolute 2.7 103/mcL Invalid Interpretation Code 0.8 - 3.9 10^3/mcL AO Workflow SS Lymphocytes/100 WBC (Bld) 25.3 % Invalid Interpretation Code 10.0 - 50.0 % AO Workflow SS MCH (RBC) [Entitic mass] 31.4 pg Invalid Interpretation Code 27.0 - 31.2 pg AO Workflow SS MCHC 33.5 G/dL Invalid Interpretation Code 31.8 - 35.4 G/dL AO Workflow SS MCV (RBC) [Entitic vol] 93.8 fL Invalid Interpretation Code 80.0 - 94.0 fL AO Workflow SS Monocyte, Absolute 1.1 103/mcL Invalid Interpretation Code 0.2 - 1.0 10^3/mcL AO Workflow SS Monocytes/100 WBC (Bld) 9.9 % Invalid Interpretation Code 1.7 - 13.0 % AO Workflow SS Neutrophil, Absolute 6.6 103/mcL Invalid Interpretation Code 2.9 - 6.2 10^3/mcL AO Workflow SS Neutrophils/100 WBC (Bld) 62.0 % Invalid Interpretation Code 37.0 - 80.0 % AO Workflow SS Platelet mean volume (Bld) [Entitic vol] 8.5 fL Invalid Interpretation Code 7.4 - 10.4 fL AO Workflow SS Platelets (Bld) [#/Vol] 153 103/mcL Invalid Interpretation Code 130 - 400 10^3/mcL AO Workflow SS RBC (Bld) [#/Vol] 4.95 106/mcL Invalid Interpretation Code 4.04 - 6.13 10^6/mcL AO Workflow SS WBC (Bld) [#/Vol] 10.7 103/mcL Invalid Interpretation Code 4.6 - 10.8 10^3/mcL AO Workflow SS LABORATORYOrdered By: NATASHA OSEI CONTRIBUTOR_SYSTEM on 02-22-2022 Direct Renin 8.8 pg/mL Invalid Interpretation Code 3.6-81.6pg/m L AO Sendouts SS Comment on above: Result Comment: A ra kiya of aldosterone in ng/dL to direct renin in pg/mL greater than or equal to 3.8 is a positive screening test result for primary aldosteronism, when aldosterone is greater than or equal to 15 ng/dL. The reference interval for direct renin is based on an upright position. The supine reference intervals are: Age <41 years: 3.2-33.2 pg/mL Age >=41 years: 2.5-45.1 pg/mL Performed By: [facility] [place] [address] Gift Shop Clerk: Alden Barger III, M.D. CLIA#: [id number] Patient Upright or Supine Upright Invalid Interpretation Code AO Sendouts SS Comment on above: Result Comment: Perf ormed By: [facility] [place] [address] Gift Shop Clerk: Alden Barger III, M.D. CLIA#: [id number] LABORATORYOrdered By: SYSTEM SYSTEM on 02-22-2022 GFR 66 ml/min/1.73sqm Invalid Interpretation Code AO Chemistry S GFR Non- 54 ml/min/1.73sqm Invalid Interpretation Code AO Chemistry S Parathyrin.intact [Mass/Vol] 39.3 pg/mL Invalid Interpretation Code 18.5 - 88.0 pg/mL AH ADM SS LABORATORYOrdered By: Jackie Trinh on 08-31-2021 Albumin BCP dye [Mass/Vol] 4.2 G/dL Invalid Interpretation Code 3.5 - 5.0 G/dL AO ADM SS Albumin/Globulin [Mass ratio] 1.4 {ratio} Invalid Interpretation Code 1.1 - 2.5 ratio AO ADM SS ALP [Catalytic activity/Vol] 78 U/L Invalid Interpretation Code 40 - 135 U/L AO ADM SS ALT With P-5'-P [Catalytic activity/Vol] 31 U/L Invalid Interpretation Code 16 - 63 U/L AO ADM SS AST With P-5'-P [Catalytic activity/Vol] 27 U/L Invalid Interpretation Code 10 - 40 U/L AO ADM SS Basophil, Absolute 0.00 103/mcL Invalid Interpretation Code 0.00 - 0.19 10^3/mcL AO Auto Heme SS Basophils/100 WBC (Bld) 0.5 % Invalid Interpretation Code 0.0 - 2.5 % AO Auto Heme SS Bilirubin [Mass/Vol] 0.6 mg/dL Invalid Interpretation Code 0.2 - 1.0 mg/dL AO ADM SS Calcium [Mass/Vol] 9.3 mg/dL Invalid Interpretation Code 8.4 - 10.2 mg/dL AO ADM SS Chloride [Moles/Vol] 103 mmol/L Invalid Interpretation Code 98 - 107 mmol/L AO ADM SS Cholesterol [Mass/Vol] 172 mg/dL Invalid Interpretation Code 0 - 200 mg/dL AO ADM SS Cholesterol in HDL [Mass/Vol] 36 mg/dL Invalid Interpretation Code 40 - 60 mg/dL AO ADM SS Cholesterol in LDL [Mass/Vol] 83 mg/dL Invalid Interpretation Code 0 - 130 mg/dL AO ADM SS CO2 [Moles/Vol] 28 mmol/L Invalid Interpretation Code 22 - 29 mmol/L AO ADM SS Creatinine [Mass/Vol] 1.59 mg/dL Invalid Interpretation Code 0.70 - 1.30 mg/dL AO ADM SS Electrolyte Balance 9.0 mEq/L Invalid Interpretation Code 4.0 - 15.0 mEq/L AO ADM SS Eosinophil, Absolute 0.40 103/mcL Invalid Interpretation Code 0.00 - 0.40 10^3/mcL AO Auto Heme SS Eosinophils/100 WBC (Bld) 4.9 % Invalid Interpretation Code 0.0 - 7.0 % AO Auto Heme SS Erythrocyte distribution width (RBC) [Ratio] 13.8 % Invalid Interpretation Code 11.5 - 14.5 % AO Auto Heme SS Globulin 3.0 G/dL Invalid Interpretation Code AO ADM SS Glucose [Mass/Vol] 111 mg/dL Invalid Interpretation Code 70 - 105 mg/dL AO ADM SS Hematocrit (Bld) [Volume fraction] 45.3 % Invalid Interpretation Code 42.0 - 52.0 % AO Auto Heme SS Hemoglobin (Bld) [Mass/Vol] 15.4 G/dL Invalid Interpretation Code 14.0 - 18.0 G/dL AO Auto Heme SS Iron [Mass/Vol] 53 ug/dL Invalid Interpretation Code 65 - 175 mcg/dL AO ADM SS Iron binding capacity [Mass/Vol] 252 mcg/dL Invalid Interpretation Code 250 - 450 mcg/dL AO ADM SS Lymphocyte, Absolute 3.10 103/mcL Invalid Interpretation Code 0.77 - 3.85 10^3/mcL AO Auto Heme SS Lymphocytes/100 WBC (Bld) 40.8 % Invalid Interpretation Code 10.0 - 50.0 % AO Auto Heme SS MCH (RBC) [Entitic mass] 31.5 pg Invalid Interpretation Code 27.0 - 31.2 pg AO Auto Heme SS MCHC (RBC) [Mass/Vol] 34.1 G/dL Invalid Interpretation Code 31.8 - 35.4 G/dL AO Auto Heme SS MCV (RBC) [Entitic vol] 92.3 fL Invalid Interpretation Code 80.0 - 94.0 fL AO Auto Heme SS Monocyte, Absolute 0.70 103/mcL Invalid Interpretation Code 0.15 - 1.00 10^3/mcL AO Auto Heme SS Monocytes/100 WBC (Bld) 9.1 % Invalid Interpretation Code 1.7 - 13.0 % AO Auto Heme SS Neutrophil, Absolute 3.40 103/mcL Invalid Interpretation Code 2.85 - 6.16 10^3/mcL AO Auto Heme SS Neutrophils/100 WBC (Bld) 44.7 % Invalid Interpretation Code 37.0 - 80.0 % AO Auto Heme SS Platelet mean volume (Bld) [Entitic vol] 8.8 fL Invalid Interpretation Code 7.4 - 10.4 fL AO Auto Heme SS Platelets (Bld) [#/Vol] 161 103/mcL Invalid Interpretation Code 130 - 400 10^3/mcL AO Auto Heme SS Potassium [Moles/Vol] 4.5 mmol/L Invalid Interpretation Code 3.5 - 5.1 mmol/L AO ADM SS Protein [Mass/Vol] 7.2 G/dL Invalid Interpretation Code 6.4 - 8.2 G/dL AO ADM SS RBC (Bld) [#/Vol] 4.90 106/mcL Invalid Interpretation Code 4.04 - 6.13 10^6/mcL AO Auto Heme SS Sodium [Moles/Vol] 140 mmol/L Invalid Interpretation Code 136 - 145 mmol/L AO ADM SS Triglyceride [Mass/Vol] 266 mg/dL Invalid Interpretation Code 0 - 150 mg/dL AO ADM SS Urea nitrogen [Mass/Vol] 15 mg/dL Invalid Interpretation Code 7 - 18 mg/dL AO ADM SS Urea nitrogen/Creatinine [Mass ratio] 9 ratio Invalid Interpretation Code 7 - 27 ratio AO ADM SS WBC (Bld) [#/Vol] 7.50 103/mcL Invalid Interpretation Code 4.60 - 10.80 10^3/mcL AO Auto Heme SS LABORATORYOrdered By: Mavenlink SYSTEM on 08-31-2021 Cobalamin (Vitamin B12) [Mass/Vol] 306 pg/mL Invalid Interpretation Code 211 - 911 pg/mL AH ADM SS Folate [Mass/Vol] 6.13 ng/mL Invalid Interpretation Code 5.38 - 24.00 ng/mL AH ADM SS GFR 55 ml/min/1.73sqm Invalid Interpretation Code AO Chemistry S GFR Non- 46 ml/min/1.73sqm Invalid Interpretation Code AO Chemistry S LABORATORYOrdered By: Ora Bowman on 02-24-2021 Albumin BCP dye [Mass/Vol] 4.1 G/dL Invalid Interpretation Code 3.5 - 5.0 G/dL AO ADM SS Albumin/Globulin [Mass ratio] 1.4 {ratio} Invalid Interpretation Code 1.1 - 2.5 ratio AO ADM SS ALP [Catalytic activity/Vol] 84 U/L Invalid Interpretation Code 40 - 135 U/L AO ADM SS ALT With P-5'-P [Catalytic activity/Vol] 26 U/L Invalid Interpretation Code 16 - 63 U/L AO ADM SS AST With P-5'-P [Catalytic activity/Vol] 18 U/L Invalid Interpretation Code 10 - 40 U/L AO ADM SS Basophil %, Manual 0.0 1 Invalid Interpretation Code 0.0 - 2.5 % AO Auto Heme SS Basophil, Absolute 0.00 103/mcL Invalid Interpretation Code 0.00 - 0.19 10^3/mcL AO Auto Heme SS Basophils/100 WBC (Bld) 0.7 % Invalid Interpretation Code 0.0 - 2.5 % AO Auto Heme SS Bilirubin [Mass/Vol] 0.5 mg/dL Invalid Interpretation Code 0.2 - 1.0 mg/dL AO ADM SS Calcium [Mass/Vol] 9.2 mg/dL Invalid Interpretation Code 8.4 - 10.2 mg/dL AO ADM SS Chloride [Moles/Vol] 105 mmol/L Invalid Interpretation Code 98 - 107 mmol/L AO ADM SS Cholesterol [Mass/Vol] 170 mg/dL Invalid Interpretation Code 0 - 200 mg/dL AO ADM SS Cholesterol in HDL [Mass/Vol] 42 mg/dL Invalid Interpretation Code 40 - 60 mg/dL AO ADM SS Cholesterol in LDL [Mass/Vol] 90 mg/dL Invalid Interpretation Code 0 - 130 mg/dL AO ADM SS CO2 [Moles/Vol] 28 mmol/L Invalid Interpretation Code 22 - 29 mmol/L AO ADM SS Creatinine [Mass/Vol] 1.56 mg/dL Invalid Interpretation Code 0.70 - 1.30 mg/dL AO ADM SS Electrolyte Balance 9.0 mEq/L Invalid Interpretation Code AO ADM SS Eosinophil %, Manual 3.0 1 Invalid Interpretation Code 0.0 - 7.0 % AO Auto Heme SS Eosinophil, Absolute 0.40 103/mcL Invalid Interpretation Code 0.00 - 0.40 10^3/mcL AO Auto Heme SS Eosinophils/100 WBC (Bld) 5.4 % Invalid Interpretation Code 0.0 - 7.0 % AO Auto Heme SS Erythrocyte distribution width (RBC) [Ratio] 13.4 % Invalid Interpretation Code 11.5 - 14.5 % AO Auto Heme SS Globulin 3.0 G/dL Invalid Interpretation Code AO ADM SS Glucose [Mass/Vol] 100 mg/dL Invalid Interpretation Code 70 - 105 mg/dL AO ADM SS HbA1c (Bld) [Mass fraction] 5.7 % Invalid Interpretation Code 4.3 - 6.4 % AO ADM SS Hematocrit (Bld) [Volume fraction] 47.4 % Invalid Interpretation Code 42.0 - 52.0 % AO Auto Heme SS Hemoglobin (Bld) [Mass/Vol] 16.1 G/dL Invalid Interpretation Code 14.0 - 18.0 G/dL AO Auto Heme SS Lymphocyte %, Manual 28.0 1 Invalid Interpretation Code 10.0 - 50.0 % AO Auto Heme SS Lymphocyte, Absolute 2.40 103/mcL Invalid Interpretation Code 0.77 - 3.85 10^3/mcL AO Auto Heme SS Lymphocytes/100 WBC (Bld) 33.1 % Invalid Interpretation Code 10.0 - 50.0 % AO Auto Heme SS Macrocytes Ql (Bld) Slight (02/24/21 7:46 PM) Invalid Interpretation Code AO Auto Heme SS MCH (RBC) [Entitic mass] 32.2 pg Invalid Interpretation Code 27.0 - 31.2 pg AO Auto Heme SS MCHC (RBC) [Mass/Vol] 34.0 G/dL Invalid Interpretation Code 31.8 - 35.4 G/dL AO Auto Heme SS MCV (RBC) [Entitic vol] 94.8 fL Invalid Interpretation Code 80.0 - 94.0 fL AO Auto Heme SS Monocyte %, Manual 6.0 1 Invalid Interpretation Code 1.7 - 13.0 % AO Auto Heme SS Monocyte, Absolute 0.70 103/mcL Invalid Interpretation Code 0.15 - 1.00 10^3/mcL AO Auto Heme SS Monocytes/100 WBC (Bld) 8.9 % Invalid Interpretation Code 1.7 - 13.0 % AO Auto Heme SS Neutrophil %, Manual 63.0 1 Invalid Interpretation Code 37.0 - 80.0 % AO Auto Heme SS Neutrophil, Absolute 3.80 103/mcL Invalid Interpretation Code 2.85 - 6.16 10^3/mcL AO Auto Heme SS Neutrophils/100 WBC (Bld) 51.9 % Invalid Interpretation Code 37.0 - 80.0 % AO Auto Heme SS Platelet Estimate Normal (02/24/21 7:46 PM) Invalid Interpretation Code AO Auto Heme SS Platelet mean volume (Bld) [Entitic vol] 8.9 fL Invalid Interpretation Code 7.4 - 10.4 fL AO Auto Heme SS Platelets (Bld) [#/Vol] 174 103/mcL Invalid Interpretation Code 130 - 400 10^3/mcL AO Auto Heme SS Potassium [Moles/Vol] 4.4 mmol/L Invalid Interpretation Code 3.5 - 5.1 mmol/L AO ADM SS Protein [Mass/Vol] 7.1 G/dL Invalid Interpretation Code 6.4 - 8.2 G/dL AO ADM SS RBC (Bld) [#/Vol] 5.00 106/mcL Invalid Interpretation Code 4.04 - 6.13 10^6/mcL AO Auto Heme SS Sodium [Moles/Vol] 142 mmol/L Invalid Interpretation Code 136 - 145 mmol/L AO ADM SS Triglyceride [Mass/Vol] 190 mg/dL Invalid Interpretation Code 0 - 150 mg/dL AO ADM SS Urea nitrogen [Mass/Vol] 22 mg/dL Invalid Interpretation Code 7 - 18 mg/dL AO ADM SS Urea nitrogen/Creatinine [Mass ratio] 14 ratio Invalid Interpretation Code 7 - 27 ratio AO ADM SS WBC (Bld) [#/Vol] 7.30 103/mcL Invalid Interpretation Code 4.60 - 10.80 10^3/mcL AO Auto Heme SS LABORATORYOrdered By: SYSTEM SYSTEM on 02-24-2021 Cobalamin (Vitamin B12) [Mass/Vol] 476 pg/mL Invalid Interpretation Code 211 - 911 pg/mL AH ADM SS GFR 57 ml/min/1.73sqm Invalid Interpretation Code AO Chemistry S GFR Non- 47 ml/min/1.73sqm Invalid Interpretation Code AO Chemistry S Vital Signs Date Time Vital Sign Value Performing Clinician Facility 01-04-2024 09:33-0400 Body mass index (BMI) [Ratio] 34.59 kg/m2 Antoinette Go APRN.GRADER MARKER Work Phone: [facility] 01-04-2024 09:33-0400 Body temperature 97.81 [degF] Antoinette Go APRN.GRADER MARKER Work Phone: [facility] 01-04-2024 09:33-0400 Body weight 107.8 kg Antoinette Go APRN.GRADER MARKER Work Phone: [facility] 01-04-2024 09:33-0400 Diastolic blood pressure 72 mm[Hg] Antoinette Go APRN.GRADER MARKER Work Phone: [facility] 01-04-2024 09:33-0400 Heart rate 118 /min Antoinette Go APRN.GRADER MARKER Work Phone: [facility] 01-04-2024 09:33-0400 Respiratory rate 18 /min Antoinette Go APRN.GRADER MARKER Work Phone: [facility] 01-04-2024 09:33-0400 SaO2% (BldA) [Mass fraction] 96 % Antoinette Go WINDER CONTORT OPERATOR.GRADER MARKER Work Phone: [facility] 01-04-2024 09:33-0400 Systolic blood pressure 136 mm[Hg] Antoinette Go WINDER CONTORT OPERATOR.GRADER MARKER Work Phone: [facility] 08-11-2023 18:51-0400 Body temperature 98 [degF] [facility] 08-11-2023 18:51-0400 Diastolic blood pressure 78 mm[Hg] [facility] 08-11-2023 18:51-0400 Heart rate 81 /min [facility] 08-11-2023 18:51-0400 Respiratory rate 14 /min [facility] 08-11-2023 18:51-0400 SaO2% (BldA) [Mass fraction] 99 % [facility] 08-11-2023 18:51-0400 Systolic blood pressure 138 mm[Hg] [facility] 08-11-2023 15:27-0400 Body height 175.26 cm [facility] 08-11-2023 15:27-0400 Body mass index (BMI) [Ratio] 35.8 kg/m2 [facility] 08-11-2023 15:27-0400 Body weight 110 kg [facility] Encounters Encounter Date Encounter Type Care Provider Facility Start: 01-28-2025 End: 01-28-2025 Telephone encounter Jamie Mendes MD Work Phone: [facility] Start: 01-13-2025 End: 01-13-2025 Telephone encounter Jamie Mendes MD Work Phone: [facility] [place] Start: 01-11-2025 End: 01-11-2025 Telephone encounter Jamie Mendes MD Work Phone: [facility] [place] Start: 12-07-2024 End: 12-07-2024 Telephone encounter Jamie Mendes MD Work Phone: [facility] - [place] Start: 10-27-2024 End: 10-27-2024 Telephone encounter Jamie Mendes MD Work Phone: [facility] - [place] Start: 10-20-2024 End: 10-24-2024 ambulatory GURMEET FUNG WINDER CONTORT OPERATOR - GRADER MARKER Facility:[facility] Start: 10-20-2024 End: 10-24-2024 Outreach Lab GURMEET FUNG WINDER CONTORT OPERATOR - GRADER MARKER [facility] Start: 10-02-2024 End: 10-02-2024 ambulatory GURMEET FUNG WINDER CONTORT OPERATOR - GRADER MARKER Facility:[facility] Start: 10-02-2024 End: 10-02-2024 Patient encounter procedure GURMEET FUNG WINDER CONTORT OPERATOR - GRADER MARKER [facility] Start: 09-15-2024 End: 09-15-2024 ambulatory GURMEET FUNG WINDER CONTORT OPERATOR - GRADER MARKER Facility:[facility] Start: 09-15-2024 End: 09-15-2024 Patient encounter procedure GURMEET FUNG WINDER CONTORT OPERATOR - GRADER MARKER [facility] Start: 07-29-2024 End: 07-29-2024 Telephone encounter Jamie Mendes MD Work Phone: [facility] Start: 06-17-2024 ambulatory Danny Johann Facility:[facility] Start: 06-02-2024 End: 06-02-2024 Telephone encounter Jamie Mendes MD Work Phone: [facility] Comment on above: New Patient Start: 06-02-2024 End: 06-02-2024 ambulatory Danny Johann [place] Start: 06-02-2024 End: 06-02-2024 ambulatory Danny Johann Facility:[facility] Start: 05-26-2024 ambulatory Gurmeet Fung NP Facility:[facility] Start: 04-30-2024 End: 04-30-2024 ambulatory GURMEET FUNG WINDER CONTORT OPERATOR - GRADER MARKER Facility:[facility] Start: 04-30-2024 End: 04-30-2024 Patient encounter procedure GURMEET FUNG WINDER CONTORT OPERATOR - GRADER MARKER [facility] Start: 04-21-2024 End: 04-21-2024 ambulatory GURMEET FUNG WINDER CONTORT OPERATOR - GRADER MARKER Facility:[facility] Start: 04-21-2024 End: 04-21-2024 Patient encounter procedure GURMEET FUNG WINDER CONTORT OPERATOR - GRADER MARKER [facility] Start: 04-09-2024 End: 04-13-2024 ambulatory GURMEET FUNG WINDER CONTORT OPERATOR - GRADER MARKER Facility:[facility] Start: 04-09-2024 End: 04-13-2024 Outreach Lab GURMEET FUNG WINDER CONTORT OPERATOR - GRADER MARKER [facility] Start: 04-02-2024 ambulatory Nagapradee Nagajothi Fa cility:[facility] Start: 04-02-2024 End: 04-02-2024 Emergency department patient visit Jason Garcia Facility:[facility] Start: 04-02-2024 End: 04-02-2024 ambulatory Nagreplaced by [facility] ansone Moisesakiathi Facility:[facility] Start: 03-05-2024 End: 03-09-2024 ambulatory GURMEET FUNG WINDER CONTORT OPERATOR - GRADER MARKER Facility:[facility] Start: 03-05-2024 End: 03-09-2024 Outreach Lab GURMEET FUNG WINDER CONTORT OPERATOR - GRADER MARKER [facility] Start: 01-04-2024 End: 01-04-2024 ambulatory GURMEET FUNG Facility:[facility] Start: 01-04-2024 End: 01-04-2024 Patient encounter procedure Antoinette Go WINDER CONTORT OPERATOR.GRADER MARKER Work Phone: [facility] Comment on above: Pain, dental (Primar y Dx) Start: 01-01-2024 End: 01-01-2024 Emergency department patient visit Pipo Hidalgo Facility:[facility] Start: 12-16-2023 End: 12-16-2023 ambulatory CONNOR LADD WINDER CONTORT OPERATOR-GRADER MARKER Facility:[facility] Start: 12-16-2023 End: 12-16-2023 Patient encounter procedure CONNOR LADD WINDER CONTORT OPERATOR-GRADER MARKER [facility] Start: 09-23-2023 End: 09-23-2023 ambulatory GURMEET FUNG WINDER CONTORT OPERATOR - GRADER MARKER Facility:[facility] Start: 09-23-2023 End: 09-23-2023 Patient encounter procedure GURMEET FUNG WINDER CONTORT OPERATOR - GRADER MARKER [facility] Start: 09-03-2023 End: 09-03-2023 ambulatory GURMEET QUISPEPKINS WINDER CONTORT OPERATOR - GRADER MARKER Facility:[facility] Start: 09-03-2023 End: 09-03-2023 Patient encounter procedure GURMEET QUISPEPKINS WINDER CONTORT OPERATOR - GRADER MARKER [facility] Start: 08-29-2023 End: 08-29-2023 ambulatory GURMEET Bee KENTON WINDER CONTORT OPERATOR - GRADER MARKER Facility:[facility] Start: 08-29-2023 End: 08-29-2023 Patient encounter procedure GURMEET QUISPEPKINS WINDER CONTORT OPERATOR - GRADER MARKER [facility] Start: 08-11-2023 End: 08-11-2023 Emergency department patient visit [facility] Work Phone: Start: 02-28-2023 End: 03-04-2023 ambulatory GURMEET QUISPEPKINS WINDER CONTORT OPERATOR - GRADER MARKER Facility:[facility] Start: 02-28-2023 End: 03-04-2023 Outreach Lab GURMEET QUISPEPKINS WINDER CONTORT OPERATOR - GRADER MARKER [facility] Start: 08-30-2022 End: 09-03-2022 Outreach Lab GURMEET QUISPEPKINS WINDER CONTORT OPERATOR - GRADER MARKER [facility] Start: 02-22-2022 End: 02-26-2022 Outreach Lab GURMEET QUISPEPKINS WINDER CONTORT OPERATOR - GRADER MARKER [facility] Start: 11-14-2021 End: 11-14-2021 Patient encounter procedure GURMEET Bee KENTON WINDER CONTORT OPERATOR - GRADER MARKER [facility] Start: 08-31-2021 End: 09-04-2021 Outreach Lab GURMEET Mccray CNP [facility] Start: 02-24-2021 End: 02-28-2021 Outreach Lab GURMEET Mccray CNP [facility] Procedures Date Procedure Procedure Detail Performing Clinician Start: 09-03-2023 Echocardiography CONNOR Sanchez EXPRESS CLERK KEO Comment on above: Summary: 1. Left ventricle: The cavity size is normal. Wall thickness is normal. Systolic function is normal. The estimated ejection fraction is 55-60%. Wall motion is normal; there are no regional wall motion abnormalities. Normal diastolic function. 2. Aortic valve: There is mild regurgitation. 3. Right ventricle: The cavity size is mildly increased. 4. Right atrium: The atrium is mildly dilated. The estimated right atrial pressure is 3 mm Hg. Start: 11-14-2021 Measurement of respi ratory function GURMEET Mccray CNP Comment on above: 1. Moderate obstruct ion without reversibility. 2. Severe restrictive defect. 3. Normal diffusion capacity when adjusted for alveolar volumes. Start: 03-22-2020 Echocardiography EDILMA Mccray CNP Comment on above: EF 55-60% Start: 03-22-2020 Measurement of respi ratory function GURMEET Mccray CNP Start: 12-24-2017 Cardiovascular stress testing GURMEET Mccray CNP Start: 10-07-2017 Echocardiography EDILMA Mccray CNP Comment on above: EF 60% Start: 09-30-2017 Electrocardiographic monitor and recorder, device (physical object) GURMEET Mccray CNP Elbow region structu re (body structure) GURMEET FUNG WINDER CONTORT OPERATOR - GRADER MARKER Comment on above: surgery left Fracture of ankle (disorder) GURMEET FUNG WINDER CONTORT OPERATOR - GRADER MARKER Comment on above: Left, pins x3, plate Plan of Treatment Date Care Activity Detail Author Start: 12-08-2042 RSV Immunization for Adults (1 - 1-dose 75+ series) RSV Immunization for Adults (1 - 1-dose 75+ series) [facility] Start: 04-13-2025 End: 04-13-2025 Patient encounter procedure [facility] Start: 01-14-2025 End: 01-14-2025 Patient encounter procedure [facility] Start: 12-21-2024 COVID-19 Vaccine ( season) COVID-19 Vaccine () [facility] Start: 12-21-2024 Influenza vaccination Influenza Vaccine (#1) [facility] Start: 11-16-2024 End: 11-16-2024 Patient encounter procedure 11/16/2024 3:00 PM EDT Office Visit [facility] [address] [place] [place] [phone] Jamie Mendes MD [address] [place] [address] [facility] Start: 11-16-2024 DTaP/Tdap/Td Vaccines (2 - Td or Tdap) DTaP/Tdap/Td Vaccines (2 - Td or Tdap) [facility] Start: 11-16-2024 Urine microalbumin profile DTaP,Tdap,Td Vaccine (2 - Td or Tdap) [facility] Start: 07-29-2024 End: 07-29-2024 Patient encounter procedure 07/29/2024 2:00 PM EDT Office Visit [facility] [address] [place] [phone] Jamie Mendes MD [address] [place], [place] [id number] [facility] [place] Start: 12-22-2023 Covid-19 Vaccine ( season) Covid-19 Vaccine ( season) [facility] Start: 12-22-2023 COVID-19 Vaccine ( season) COVID-19 Vaccine ( season) [facility] Start: 12-22-2023 Influenza vaccination Influenza Vaccine (#1) [facility] Start: 08-11-2023 [facility] Start: 12-08-2022 Prostate specific antigen measurement Prostate Cancer Screening Discussion [facility] Start: 07-13-2018 Diabetes Screening Diabetes Screening [facility] Start: 12-08-2017 Pneumococcal Vaccine: 50+ Years (2 of 2 - PCV) Pneumococcal Vaccine: 50+ Years (2 of 2 - PCV) [facility] Start: 12-08-2017 Shingrix Vaccine (1 of 2) Shingrix Vaccine (1 of 2) [facility] Start: 12-08-2017 Zoster Vaccines (1 of 2) Zoster Vaccines (1 of 2) [facility] Start: 12-08-2015 Pneumococcal vaccination Pneumococcal Vaccine (2 of 2 - PCV) [facility] Start: 12-08-2015 Pneumococcal Vaccine: 50+ Years (2 of 2 - PCV) Pneumococcal Vaccine: 50+ Years (2 of 2 - PCV) [facility] Start: 12-08-2012 Screening for malignant neoplasm of colon [facility] Start: 12-08-2002 Lipid panel Lipid Screening [facility] Start: 12-08-1986 Hepatitis B Vaccine (1 of 3 - 19+ 3-dose series) Hepatitis B Vaccine (1 of 3 - 19+ 3-dose series) [facility] Start: 12-08-1986 Hepatitis B Vaccines (1 of 3 - 19+ 3-dose series) Hepatitis B Vaccines (1 of 3 - 19+ 3-dose series) [facility] Start: 12-08-1985 Depression Screening Depression Screening [facility] Start: 12-08-1985 Hepatitis C screening Hepatitis C Screening [facility] Start: 12-08-1985 HIV screening HIV Screening [facility] Start: 1979 Depression Screening Depression Screening [facility] Start: 12-08-1968 MMR Vaccines (1 of 1 - Standard series) MMR Vaccines (1 of 1 - Standard series) [facility] Start: 1967 HIV screening HIV Screening [facility] Start: 1967 Lipid panel Lipid Panel [facility] Start: 1967 Screening for malignant neoplasm of colon [facility] Patient Education ED Hip Strain [facility] Work Phone: Patient referral [facility] Work Phone: Immunizations Immunization Date Immunization Notes Care Provider [facility] 04-02-2024 influenza, injectabl e, quadrivalent, contains preservative; Translations: [Fluarix PF Prefilled Syringe ] GURMEET FUNG WINDER CONTORT OPERATOR - GRADER MARKER [facility] 04-02-2024 influenza virus vacc ine, unspecified formulation Jamie Mendes MD Work Phone: [facility] 03-08-2023 influenza, injectabl e, quadrivalent, contains preservative; Translations: [Fluarix PF Quadrivalent ] GURMEET FUNG WINDER CONTORT OPERATOR - GRADER MARKER [facility] 03-08-2023 influenza virus vacc ine, unspecified formulation Antoinette Go WINDER CONTORT OPERATOR.GRADER MARKER Work Phone: [facility] 03-09-2022 influenza, injectabl e, quadrivalent, contains preservative; Translations: [Fluarix PF Quadrivalent ] GURMEET FUNG WINDER CONTORT OPERATOR - GRADER MARKER [facility] 03-09-2021 influenza, injectabl e, quadrivalent, contains preservative; Translations: [Fluarix PF Quadrivalent ] GURMEET FUNG WINDER CONTORT OPERATOR - GRADER MARKER [facility] 09-06-2020 SARS-CoV-2 (COVID-19 ) mRNA-1273 vaccine GURMEET FUNG WINDER CONTORT OPERATOR - GRADER MARKER [facility] Comment on above: Result Comment: 2020: [id number] 08-09-2020 SARS-CoV-2 (COVID-19 ) mRNA-9153 vaccine GURMEET FUNG WINDER CONTORT OPERATOR - GRADER MARKER [facility] Comment on above: Result Comment: 2020: [id number] 03-08-2020 influenza, injectabl e, quadrivalent, preservative free; Translations: [Fluarix PF Quadrivalent ] GURMEET FUNG WINDER CONTORT OPERATOR - GRADER MARKER [facility] 01-10-2018 influenza virus vacc ine, unspecified formulation GURMEET FUNG WINDER CONTORT OPERATOR - GRADER MARKER [facility] 12-21-2016 influenza virus vacc ine, unspecified formulation GURMEET FUNG WINDER CONTORT OPERATOR - GRADER MARKER [facility] 12-07-2014 pneumococcal polysaccharide vaccine, 23 valent GURMEET FUNG WINDER CONTORT OPERATOR - GRADER MARKER [facility] 11-16-2014 tetanus toxoid, redu augusta diphtheria toxoid, and acellular pertussis vaccine, adsorbed GURMEET FUNG WINDER CONTORT OPERATOR - GRADER MARKER [facility] Payers Date Payer Category Payer Medicaid [facility] ONLY [id number] 2024 Unknown [id number] 2024 Unknown [id number] 2024 Self-pay [id number] 2023 Unknown [id number] 2023 Private Health Insurance [id number] 2023 Medicare [id number] 2023 Unknown [id number] 2013 Medicaid [id number] 2013 Unknown [id number] 1967 Unknown [id number] .840.1.055318.3.579.2. 1967 Unknown [id number] 2.840.1.797603.3.579.2. 1967 Unknown [id number] .840.1.944374.3.579.2. 1967 Unknown [id number] .840.1.046321.3.579.2. 1967 Unknown [id number] 2.840.1.216468.3.579.2. 1967 Unknown [id number] 2.840.1.377992.3.579.2. 627 1967 Unknown [id number] 2.16.840.1.630976.3.579.2. 627 1967 Unknown [id number] 2.16.840.1.379434.3.579.2. 627 1967 Unknown [id number] 2.16.840.1.796968.3.579.2. 627 1967 Unknown [id number] 2.16.840.1.136102.3.579.2. 627 1967 Unknown [id number] 2.16.840.1.920914.3.579.2. 627 1967 Unknown [id number] 2.16.840.1.154784.3.579.2. 627 Unknown [id number] 2.16.840.1.044582.3.579.2. 462 Unknown [id number] 2.16.840.1.116335.3.579.2. 462 Unknown [id number] 2.16.840.1.524120.3.579.2. 462 Unknown [id number] 2.16.840.1.263918.3.579.2. 462 Unknown [id number] 2.16.840.1.209981.3.579.2. 462 Unknown [id number] 2.16.840.1.685655.3.579.2. 462 Unknown [id number] 2.16.840.1.780093.3.579.2. 462 Unknown [id number] 2.16.840.1.744385.3.579.2. 462 Social History Date Type Detail Facility Start: 03-02-2019 End: 09-15-2024 Heavy tobacco smoker (finding) [facility] Start: 1965 Sex Assigned At Male [facility] Start: 01-05-2022 Tobacco smoking status Light t obacco smoker (finding) [facility] Start: 08-11-2023 [facility] Start: 01-04-2024 [facility] History of tobacco use Cigarette Smoker [facility] Start: 01-04-2024 Cigarettes smoked current (pack per day) - Reported 0.5 [facility] Start: 01-04-2024 Tobacco use and exposure Smoke less tobacco non-user [facility] Start: 01-04-2024 Alcoholic beverage intake Current non-drinker of alcohol (finding) [facility] Start: 01-04-2024 Tobacco use panel [facility] Start: 01-11-2015 Alcohol Comment quit 04/2014 [facility] Start: 1965 Sex assigned at Not on file C [facility] Sexual Orientation [facility] Start: 03-16-2019 End: 11-20-2021 Sex Male (finding) [facility] Clinical Notes 09-03-2023 to 01-28-2025 Telephone Encounter - Kierra Bernal - 01/28/2025 3:35 PM EDTTelephone Encounter - Kierra Bernal - 01/28/2025 3:35 PM EDTTelephone Encounter - Kierra Bernal - 01/13/2025 8:51 AM EDT Note Date & Type Note Facility 01-28-2025 Telephone encounter Note Form atting of this note might be different from the original. Left VM to come at 2:30 for TELEGRAPHIC INSTRUMENT SUPERVISOR appt, asked patient to call office if that will not work [facility] 01-28-2025 Miscellaneous Notes Formattin g of this note might be different from the original. Left VM to come at 2:30 for TELEGRAPHIC INSTRUMENT SUPERVISOR appt, asked patient to call office if that will not work documented in this encounter [facility] 01-13-2025 Telephone encounter Note Form atting of this note might be different from the original. Spoke to patient and rescheduled TELEGRAPHIC INSTRUMENT SUPERVISOR appt [facility] 01-13-2025 Miscellaneous Notes Formattin g of this note might be different from the original. Spoke to patient and rescheduled TELEGRAPHIC INSTRUMENT SUPERVISOR appt documented in this encounter [facility] 01-11-2025 Telephone encounter Note Form atting of this note might be different from the original. Spoke to patient and asked him to come 1/2 early to appt patient agreed [facility] 01-11-2025 Miscellaneous Notes Formattin g of this note might be different from the original. Spoke to patient and asked him to come 1/2 early to appt patient agreed documented in this encounter [facility] 12-07-2024 Telephone encounter Note Form atting of this note might be different from the original. Spoke to patient and asked him to come sooner for appt. Patient agreed. [facility] 12-07-2024 Miscellaneous Notes Formattin g of this note might be different from the original. Spoke to patient and asked him to come sooner for appt. Patient agreed. documented in this encounter [facility] 10-27-2024 Telephone encounter Note Form atting of this note might be different from the original. Spoke to patient and rescheduled TELEGRAPHIC INSTRUMENT SUPERVISOR appt due to provider schedule [facility] 10-27-2024 Miscellaneous Notes Formattin g of this note might be different from the original. Spoke to patient and rescheduled TELEGRAPHIC INSTRUMENT SUPERVISOR appt due to provider schedule documented in this encounter [facility] 10-02-2024 Note Exam Date Time Procedure Performing Provider Status 10/02/24 2:[address] Sinus w/o Contrast JOSE ROJAS MD; Auth (Verified) [id number] ORIGINAL EXAMINATION: CT OF THE SINUS WITHOUT CONTRAST 10/02/2024 3:04 pm TECHNIQUE: CT of the sinuses was performed without the administration of intravenous contrast. Multiplanar reformatted images are provided for review. Automated exposure control, iterative reconstruction, and/or weight based adjustment of the mA/kV was utilized to reduce the radiation dose to as low as reasonably achievable. COMPARISON: None HISTORY: ORDERING SYSTEM PROVIDED HISTORY: Reason for Exam: to identify extent of sinus disease &/or abnormal anatomic structures. FINDINGS: SINUSES/MASTOIDS: The maxillary, sphenoid, ethmoid and frontal sinuses are clear. The bilateral ostiomeatal units are patent. There is narrowing of the infundibulum of left ostiomeatal unit by enlarged inferior left ethmoid cell. The bilateral frontoethmoidal and sphenoethmoidal drainage recesses are patent. Ethmoid roofs are symmetric. The mastoid air cells are well aerated. SOFT TISSUES: Visualized soft tissues demonstrate no acute abnormality. The visualized portion of the intracranial contents and intraorbital structures demonstrate no gross acute abnormality. Bilateral parotid glands are grossly normal in morphology. Epiglottis is normal in thickness. IMPRESSION: No evidence of acute or chronic sinusitis. Drainage recesses are patent. Interpreted by: Jose Rojas Preliminary Report By: Jose Rojas Electronically signed By Jose Rojas Dictated Date: 10/02/2024 3:37:58 PM Prelim Date: 10/02/2024 3:54:34 PM Sign Date: 10/02/2024 3:54:34 PM Ordering Provider: GURMEET FUNG [facility]04-09-2025 Telephone encounter Note* Telephone Encounter - Kierra Bernal - 07/29/2024 8:15 AM EDT Spoke to patient and rescheduled appt due to being ill. [id number] Miscellaneous Notes* Telephone Encounter - Kierra Bernal - 07/29/2024 8:15 AM EDT Spoke to patient and rescheduled appt due to being ill. documented in this [facility]02-11-2025 Telephone encounter Note* Telephone Encounter - Kierra Bernal - 06/02/2024 4:56 PM EST Called patient made apt [id number] Miscellaneous Notes* Telephone Encounter - Kierra Bernal - 06/02/2024 4:56 PM EST Called patient made apt documented in this [facility]09-14-2024 Instructions* Patient Instructions* Antoinette Go APRN.CNP - 01/04/2024 9:46 AM EDT Amoxicillin 875 mg twice a day for 5 days Follow up with dentist next week Tylenol as needed for pain [facility] History of Present illness Narrative* Antoinette Go APRN.CNP - 01/04/2024 9:43 AM EDT Images from the original note were not included. Subjective The history is provided by the patient. No health outcomes liaison was used. HPI Ar Sellers is a 58 year old male who presents today for CC of left sided upper dental pain for 24 hours. He has an appointment Saturday with the dentist, but needs something for possible infection today. He states he is probably having his teeth pulled. BP 136/72 Pulse 118 Temp 36.6 C (97.8 F) Resp 18 Wt 107.8 kg (237 lb 10.5 oz) SpO2 96% BMI 34.59 kg/m Social History Tobacco Use Smoking status: Every Day Current packs/day: 0.50 Average packs/day: 0.5 packs/day for 25.0 years (12.5 ttl pk-yrs) Types: Cigarettes Smokeless tobacco: Never Substance Use Topics Alcohol use: No Comment: quit 04/2014 Drug use: No PAST MEDICAL HISTORY Diagnosis Date Anxiety Depression Hypercholesteremia I have confirmed and edited as necessary, the [facility] Review of Systems Constitutional: Negative for chills and fever. HENT: Dental pain Musculoskeletal: Negative for joint pain and myalgias. Skin: Negative for itching and rash. All other systems reviewed and are negative. Objective Physical Exam Vitals and nursing note reviewed. HENT: Mouth/Throat: Dentition: Abnormal dentition. Dental tenderness and dental caries present. Pulmonary: Effort: Pulmonary effort is normal. Skin: General: Skin is warm and dry. Neurological: Mental Status: He is alert and oriented to person, place, and time. Psychiatric: Mood and Affect: Affect normal. ASSESSMENT/PLAN: 1. Pain, dental - ICD9: 525.9, ICD10: K08.89 Poor dentition, possible infection Able to see patient labs on portal from [place], WANG in past 6 month was 43. No dosage adjustment for amoxicillin Follow up with dentist next week Tylenol as needed for pain Diagnosis and treatment plan were discussed and questions were answered to the patient's satisfaction. Pt acknowledged understanding of concepts and follow up plan. Specific signs and symptoms that would indicate the need for higher level of care were discussed indetail warranting prompt ER evaluation. Antoinette Go APRN.THERESA [facility] NoteHNO ID: [id number] Author: ANTOINETTE GO APRN.CNP Service: ? Author Type: Nurse Practitioner Type: Progress Notes Filed: 01/04/2024 09:47 Note Text: Subjective The history is provided by the patient. No health outcomes liaison was used. HPI Ar Sellers is a 58 year old male who presents today for CC of left sided upper dental pain for 24 hours. He has an appointment Saturday with the dentist, but needs something for possible infection today. He states he is probably having his teeth pulled. BP 136/72 Pulse 118 Temp 36.6 ?C (97.8 ?F) Resp 18 Wt 107.8 kg (237 lb 10.5 oz) SpO2 96% BMI 34.59 kg/m? Social History Tobacco Use Smoking status: Every Day Current packs/day: 0.50 Average packs/day: 0.5 packs/day for 25.0 years (12.5 ttl pk-yrs) Types: Cigarettes Smokeless tobacco: Never Substance Use Topics Alcohol use: No Comment: quit 04/2014 Drug use: No PAST MEDICAL HISTORY Diagnosis Date Anxiety Depression Hypercholesteremia I have confirmed and edited as necessary, the [facility] Review of Systems Constitutional: Negative for chills and fever. HENT: Dental pain Musculoskeletal: Negative for joint pain and myalgias. Skin: Negative for itching and rash. All other systems reviewed and are negative. Objective Physical Exam Vitals and nursing note reviewed. HENT: Mouth/Throat: Dentition: Abnormal dentition. Dental tenderness and dental caries present. Pulmonary: Effort: Pulmonary effort is normal. Skin: General: Skin is warm and dry. Neurological: Mental Status: He is alert and oriented to person, place, and time. Psychiatric: Mood and Affect: Affect normal. ASSESSMENT/PLAN: 1. Pain, dental - ICD9: 525.9, ICD10: K08.89 Poor dentition, possible infection Able to see patient labs on portal from [place], GFR in past 6 month was 43. No dosage adjustment for amoxicillin Follow up with dentist next week Tylenol as needed for pain Diagnosis and treatment plan were discussed and questions were answered to the patient's satisfaction. Pt acknowledged understanding of concepts and follow up plan. Specific signs and symptoms that would indicate the need for higher level of care were discussed in detail warranting prompt ER evaluation. Antoinette Go APRN.[facility]-14[facility] Note* Exam Date Time Procedure Performing Provider Status 09/03/23 2:06 PM Echocardiogram, Adult - CV Auth (Verified) [facility] Evaluation + Plan note Future Appointments Appointment Date:03/09/2021 01:40:00 PM Scheduled Provider:GURMEET FUNG APRN - GRADER MARKER Location:[facility] Appointment Type:PC OV Follow Up Future Scheduled Tests Laboratory* Lipid Profile 05/05/21 [facility] Evaluation + Plan note Future Appointments Appointment Date:09/07/2021 02:00:00 PM Scheduled Provider:GURMEET FUNG APRN, CNP Location:[facility] Appointment Type:PC OV Follow Up Future Scheduled Tests Laboratory* Lipid Profile 05/05/21 [facility] Evaluation + Plan note Future Appointments Appointment Date:11/23/2021 03:00:00 PM Scheduled Provider:GURMEET FUNG APRN, CNP Location:[facility] Appointment Type:PC OV Follow Up Appointment Date:02/22/2022 10:00:00 AM Scheduled Provider: Location:[facility] Appointment Type:PC Nurse Lab Appointment Date:03/09/2022 03:40:00 PM Scheduled Provider:GURMEET FUNG APRN, CNP Location:[facility] Appointment Type:PC OV Follow Up Future Scheduled Tests Laboratory* Renin, Plasma 03/10/22 * Iron Level 03/10/22 * Prostate Specific Antigen 03/10/22 * Thyroid Stimulating Hormone 03/10/22 * Complete Blood Count 03/10/22 * Lipid Profile 05/05/21 * Lipid Profile 03/10/22 * Microalbumin Level Urine 03/10/22 * PTH, Intact 03/10/22 * Vitamin D Level 03/10/22 * Complete Metabolic Panel 03/10/22 [facility] Evaluation + Plan note Future Appointments Appointment Date:03/09/2022 03:40:00 PM Scheduled Provider:GURMEET FUNG APRN, CNP Location:[facility] Appointment Type:PC OV Follow Up Future Scheduled Tests Laboratory* Lipid Profile 05/05/21 * Lipid Profile 03/10/22 * Lipid Profile 07/05/22 * Microalbumin Level Urine 03/10/22 * Microalbumin Level Urine 02/23/22 * Complete Metabolic Panel 03/10/22 [facility] Evaluation + Plan note Future Appointments Appointment Date:09/07/2022 02:00:00 PM Scheduled Provider:GURMEET FUNG APRN, CNP Location:[facility] Appointment Type:PC OV Follow Up Future Scheduled Tests Laboratory* Lipid Profile 03/10/22 * Lipid Profile 07/05/22 * Microalbumin Level Urine 09/06/22 * Microalbumin Level Urine 03/10/22 * Microalbumin Level Urine 02/23/22 * Complete Metabolic Panel 03/10/22 [facility] Evaluation + Plan note Future Appointments Appointment Date:03/08/2023 02:00:00 PM Scheduled Provider:GURMEET FUNG APRN - GRADER MARKER Location:[facility] Appointment Type:PC OV Follow Up [facility] Evaluation + Plan note Future Appointments Appointment Date:09/03/2023 02:00:00 PM Scheduled Provider: Location:[facility] Appointment Type:Echo - Echocardiogram Adult Appointment Date:09/06/2023 02:00:00 PM Scheduled Provider:GURMEET FUNG APRN - GRADER MARKER Location:[facility] Appointment Type:PC OV Follow Up Diagnostic Tests Pending * Renin Activity, Plasma 08/29/23 * A1C Hemoglobin 08/29/23 Future Scheduled Tests Laboratory* Renin, Plasma 09/06/23 * Albumin/Creatinine Ratio, Random Urine 09/06/23 Radiology* XR Spine Lumbar W/Obliques 4 Views 08/15/23 * XR Hip 2-3 Views Left 08/15/23 [facility] Evaluation + Plan note Future Appointments Appointment Date:09/06/2023 02:00:00 PM Scheduled Provider:GURMEET FUNG APRN - GRADER MARKER Location:[facility] Appointment Type:PC OV Follow Up Future Scheduled Tests Laboratory* Renin, Plasma 09/06/23 * Albumin/Creatinine Ratio, Random Urine 09/06/23 [facility] Evaluation + Plan note Future Appointments Appointment Date:03/09/2024 02:00:00 PM Scheduled Provider:GURMEET FUNG APRN - GRADER MARKER Location:[facility] Appointment Type:PC OV Follow Up Future Scheduled Tests Laboratory* Renin, Plasma 09/06/23 * Prostate Specific Antigen 03/08/24 * A1C Hemoglobin 03/08/24 * Complete Blood Count 03/08/24 * Lipid Profile 03/08/24 * Albumin/Creatinine Ratio, Random Urine 03/08/24 * Albumin/Creatinine Ratio, Random Urine 09/06/23 * PTH, Intact 03/08/24 * Vitamin D Level 03/08/24 * Complete Metabolic Panel 03/08/24 [facility] Evaluation + Plan note Future Appointments Appointment Date:04/24/2024 01:20:00 PM Scheduled Provider:GURMEET FUNG APRN GRADER MARKER Location:[facility] Appointment Type:PC OV Follow Up Future Scheduled Tests Laboratory* Renin, Plasma 09/06/23 * .Glucose Fasting 03/09/24 * .Glucose 1 Hour 03/09/24 * .Glucose 3 Hour 03/09/24 * Magnesium Level 09/06/24 * Magnesium Level 03/09/24 * .Glucose 2 Hour (PGTT) 03/09/24 * A1C Hemoglobin 09/06/24 * Complete Blood Count 09/06/24 * Lipid Profile 09/06/24 * Albumin/Creatinine Ratio, Random Urine 09/06/24 * Albumin/Creatinine Ratio, Random Urine 03/08/24 * Albumin/Creatinine Ratio, Random Urine 09/06/23 * PTH, Intact 09/06/24 * Vitamin D Level 09/06/24 * Complete Metabolic Panel 09/06/24 [facility] Evaluation + Plan note Future Appointments Appointment Date:04/21/2024 02:00:00 PM Scheduled Provider: Location:[facility] Appointment Type:CT Venogram Abdomen and Pelvis Appointment Date:04/24/2024 01:20:00 PM Scheduled Provider:GURMEET FUNG APRN [facility] Location:[facility] Appointment Type:PC OV Follow Up Future Scheduled Tests Laboratory* Renin, Plasma 09/06/23 * .Glucose Fasting 03/09/24 * .Glucose 1 Hour 03/09/24 * .Glucose 3 Hour 03/09/24 * Cryoglobulin 04/07/24 * Magnesium Level 09/06/24 * Magnesium Level 03/09/24 * .Glucose 2 Hour (PGTT) 03/09/24 * Comprehensive Autoimmune Panel 04/07/24 * A1C Hemoglobin 09/06/24 * Complete Blood Count 09/06/24 * Lipid Profile 09/06/24 * Albumin/Creatinine Ratio, Random Urine 09/06/24 * Albumin/Creatinine Ratio, Random Urine 03/08/24 * Albumin/Creatinine Ratio, Random Urine 09/06/23 * PTH, Intact 09/06/24 * Vitamin D Level 09/06/24 * Complete Metabolic Panel 09/06/24 Radiology* CT Venogram Abdomen and Pelvis 04/21/24 [facility] Evaluation + Plan note Future Appointments Appointment Date:04/24/2024 01:20:00 PM Scheduled Provider:GURMEET FUNG APRN - GRADER MARKER Location:[facility] Appointment Type:PC OV Follow Up Future Scheduled Tests Laboratory* Renin, Plasma 09/06/23 * .Glucose Fasting 03/09/24 * .Glucose 1 Hour 03/09/24 * .Glucose 3 Hour 03/09/24 * Cryoglobulin 04/07/24 * Magnesium Level 09/06/24 * Magnesium Level 03/09/24 * .Glucose 2 Hour (PGTT) 03/09/24 * Comprehensive Autoimmune Panel 04/07/24 * A1C Hemoglobin 09/06/24 * Complete Blood Count 09/06/24 * Lipid Profile 09/06/24 * Albumin/Creatinine Ratio, Random Urine 09/06/24 * Albumin/Creatinine Ratio, Random Urine 03/08/24 * Albumin/Creatinine Ratio, Random Urine 09/06/23 * PTH, Intact 09/06/24 * Vitamin D Level 09/06/24 * Complete Metabolic Panel 09/06/24 [facility] Evaluation + Plan note Future Appointments Appointment Date:07/31/2024 01:20:00 PM Scheduled Provider:GURMEET FUNG APRN - GRADER MARKER Location:[facility] Appointment Type:PC OV Future Scheduled Tests Laboratory* Renin, Plasma 09/06/23 * .Glucose Fasting 03/09/24 * .Glucose 1 Hour 03/09/24 * .Glucose 3 Hour 03/09/24 * Cryoglobulin 04/07/24 * Magnesium Level 09/06/24 * Magnesium Level 03/09/24 * .Glucose 2 Hour (PGTT) 03/09/24 * Comprehensive Autoimmune Panel 04/07/24 * A1C Hemoglobin 09/06/24 * Complete Blood Count 09/06/24 * Lipid Profile 09/06/24 * Albumin/Creatinine Ratio, Random Urine 09/06/24 * Albumin/Creatinine Ratio, Random Urine 03/08/24 * Albumin/Creatinine Ratio, Random Urine 09/06/23 * PTH, Intact 09/06/24 * Vitamin D Level 09/06/24 * Complete Metabolic Panel 09/06/24 [facility] Evaluation + Plan note Future Appointments Appointment Date:10/20/2024 09:30:00 AM Scheduled Provider: Location:[facility] Appointment Type:PC Nurse Lab Appointment Date:10/26/2024 01:20:00 PM Scheduled Provider:GURMEET FUNG APRN, CNP Location:[facility] Appointment Type: OV Diagnostic Tests Pending * IgE Alternaria alternata M006 09/15/24 * IgE [place] Grass G002 09/15/24 * IgE Cat Dander E001 09/15/24 * IgE D farinae D002 09/15/24 * IgE D pteronyssinus D001 09/15/24 * IgE Elm Luxem[place] T008 09/15/24 * IgE Plantain Italian W009 09/15/24 * IgE [place] G008 09/15/24 * IgE Dog Dander E005 09/15/24 * IgE Mouse Ur E072 09/15/24 * IgE [place] White T007 09/15/24 * IgE Ragweed Short W001 09/15/24 Future Scheduled Tests Laboratory* Throat Culture 09/16/24 * A1C Hemoglobin 10/30/24 * Complete Blood Count 10/30/24 * Lipid Profile 10/30/24 * Albumin/Creatinine Ratio, Random Urine 10/30/24 * PTH, Intact 10/30/24 * Vitamin D Level 10/30/24 * Complete Metabolic Panel 10/30/24 * [facility] Send out (Blood Specimens) 09/15/24 Radiology* CT Sinus w/o Contrast 09/15/24 [facility] Evaluation + Plan note Future Appointments Appointment Date:10/20/2024 09:30:00 AM Scheduled Provider: Location:[facility] Appointment Type:PC Nurse Lab Appointment Date:10/26/2024 01:20:00 PM Scheduled Provider:GURMEET FUNG APRN, CNP Location:[facility] Appointment Type:PC OV Future Scheduled Tests Laboratory* Throat Culture 09/16/24 * A1C Hemoglobin 10/30/24 * Complete Blood Count 10/30/24 * Lipid Profile 10/30/24 * Albumin/Creatinine Ratio, Random Urine 10/30/24 * PTH, Intact 10/30/24 * Vitamin D Level 10/30/24 * Complete Metabolic Panel 10/30/24 * [facility] Lab Send out (Blood Specimens) 09/15/24 [facility] Evaluation + Plan note Future Appointments Appointment Date:10/26/2024 01:20:00 PM Scheduled Provider:GURMEET FUNG APRN, CNP Location:[facility] Appointment Type:PC OV Future Scheduled Tests Laboratory* Throat Culture 09/16/24 * Albumin/Creatinine Ratio, Random Urine 10/30/24 * [facility] Lab Send out (Blood Specimens) 09/15/24 [facility] Evaluation noteNo assessment information available [facility] Work Phone: Evaluation note* Diagnosis Pain, dental- Primary Unspecified disorder of the teeth and supporting structures documented in this encounter [facility] course Narrative No data available for this section [facility] Hospital Discharge instructions No data available for this section [facility] Hospital Discharge instructions Additional Instructions In addition to the prescribed anti-inflammatory and muscle relaxer you can also take Tylenol 1000 mg every 6 hours. Follow-up with your primary care doctor.[facility] Work Phone: Progress note No data available for this section [facility] Chief Complaint and Reason for Visit Chief Complaint hip pain Advance Directives No Advanced Directives Records Found Advance Directive Response Recorded Date/ Time Living Will No August 11, 2023 3:31pm Power of Line Lead No Joana 21st, 20 24 3:31pm Summary Purpose Family History No Family History Records Found Additional Source Comments Care Team (unrecognized sect ion and content) Team Status: Active Member Role Status Dates Gurmeet Fung TELEGRAPHIC INSTRUMENT SUPERVISOR, TELEGRAPHIC INSTRUMENT SUPERVISOR-C Family Provider Activ e Gurmeet Fung TELEGRAPHIC INSTRUMENT SUPERVISOR, TELEGRAPHIC INSTRUMENT SUPERVISOR-C Primary Care Provider Active Team Status: Inactive Member Role Status Dates Gurmeet Fung TELEGRAPHIC INSTRUMENT SUPERVISOR, TELEGRAPHIC INSTRUMENT SUPERVISOR-C Primary Care Provider Active Dr. Martín Aguirre , DO Emergency Provider Active [employer] Relationship Specialty Start Date End Date Gurmeet Fung, THERESA [address] [place] [address] PCP - General Family Medicine 07/04/15 Care Team (unrecognized sect ion and content) Care Team Personnel Name: GURMEET FUNG APRN - THERESA Position: P4 Advanced Practice Nurse Med Service: Employed Provider Member Role: Primary Care Physician Address: Address: [address] [place] [address] Care Team Related Persons Name: KEKE PATHAK Care Team Personnel Name: GURMEET FUNG APRN - GRADER MARKER Position: P4 Advanced Practice Nurse Member Role: Primary Care Physician Address: Address: [address] [place] [address] Care Team Related Persons Name: KEKE PATHAK Goals (unrecognized section and content) Goals may be documented in a n alternate section (unrecognized sect ion and content) No Status Records FoundNo Status Records FoundNo Status Records FoundNo Status Records FoundNo Status Records Found INFORMATION SOURCE (unrecogn ized section and content) DATE CREATED AUTHOR 12/20/2023 [facility] ([place]) DATE CREATED AUTHOR AUTHOR'S ORGANIZ ATION 01/06/2024 [facility] DATE CREATED AUTHOR AUTHOR'S ORGANIZ ATION 09/19/2024 [facility] DATE CREATED AUTHOR AUTHOR'S ORGANIZ ATION 10/26/2024 [facility] DATE CREATED AUTHOR AUTHOR'S ORGANIZ ATION 01/31/2025 [facility] Source Comments (unrecognize d section and content) In the event this informatio n is protected by the Federal Confidentiality of Alcohol and Drug Abuse Patient Records regulations: The Federal rules restrict any use of the information to criminally investigate or prosecute any alcohol or drug abuse patient.[facility] Reason for Visit (unrecogniz ed section and content) Reason Comments Other upper left tooth x 2 days Dental Problem Reason Onset Date Comments New Patient 06/02/2024 FOR RECORDS PERTAINING TO PATIENTS WHO ARE OR HAVE BEEN ENROLLED IN A CHEMICAL DEPENDENCY/SUBSTANCEABUSE PROGRAM, SOME INFORMATION MAY BE OMITTED. This clinical summary was aggregated from multiple sources. Caution should be exercised in using it in the provision of clinical care. This summary normalizes information from multiple sources, and as a consequence, information in this document may materially change the coding, format and clinical context of patient data. In addition, data may be omitted in some cases. CLINICAL DECISIONS SHOULD BE BASED ON THE PRIMARY CLINICAL RECORDS. [facility] [employer] [facility]. provides no warranty or guarantee of the accuracy or completeness of information in this document.
[2025-03-18 15:22] LABS: Hematocrit 46.3 % (40-54); Hemoglobin 15.8 g/dL (13.0-16.5); Immature Granulocytes Count 0.130 X10^3/uL (0.0-0.0); Mean Corp Hgb Conc 34.1 g/dL (32-36); Mean Corpuscular Volume 93.7 fL (80-94); Mean Platelet Vol. 9.7 fl (6.2-12.0); NRBC Flagged by Analyzer 0 % (0-5); Platelet Count 182 K/mm3 (150-450); RBC Distribution Width CV 12.9 % (11.6-14.6); RBC Distribution Width SD 43.9 fl (35.1-43.9); Red Blood Count 4.94 M/mm3 (4.6-6.2); White Blood Count 18.5 K/mm3 (4.4-11.0)
[2025-03-18] MEDS: Albuterol 2.5 MG/3 ML VIAL.NEB. INHALATION (15:26)
[2025-03-18 15:45] LABS: AST(SGOT) 26 U/L (<=37); Alanine Aminotransfer ALT/SGPT 18 U/L (<=46); Albumin, Serum 4.5 g/dL (3.5-5.0); Alkaline Phosphatase 87 U/L (40-129); Anion Gap 14 (5-15); BUN 12 mg/dL (4-19); BUN/Creat Ratio 7.6 RATIO (10-20); Calcium,Total 9.6 mg/dL (7.6-11.0); Carbon Dioxide 24.0 mmol/L (21.0-32.0); Chloride 99 mmol/L (98-108); Estimated Creatinine Clearance 64.93 ml/min (50-250); Globulin 3.1 g/dL (2.2-4.2); Glucose 114 mg/dL (70-99); Potassium 4.3 mmol/L (3.3-5.1)
--- NOTE | 2025-03-18 17:02 | PCM.HP.STD ---
HPI - General General Date of Admission: 03/18/25 Date of Service: 03/18/25 Chief Complaint: Dyspnea, Cough, URI sxs. HPI Narrative The patient is a 59 y/o M w/ PMHx: Anxiety and Depression/Mood disorder, Obesity, Tobacco use, Valvular Heart Disease, COPD, HTN, HLD, GERD, CKD stage III unclear subtype per GFR trending who presents to the [facility] ED on 03/18/2025 with history of URI type symptoms reporting specifically dyspnea, productive cough, nasal congestion, fatigue, malaise, mildly loose stools but no nausea or emesis with attempt to be evaluated by his primary care physician however the office was closed secondary to recent holidays using his chronic COPD type maintenance medications as well as albuterol as needed however he had persistent ongoing symptoms prompting ED evaluation. Workup in the ED included T99.4, heart rate 117, BP 110/70, respiratory rate 18, 98% room air with most recent repeat vitals heart rate 122, respiratory rate 22, CBC with WC 18.5, Hgb 15.8, platelet 182 with left shift, CMP with BUN/Cr 12/1.52, GFR 53, glucose 114, hepatic profile unremarkable, chest x-ray with scattered bilateral airspace opacities concerning for multifocal pneumonia most pronounced in the right midlung, rapid SARS COVID/influenza/RSV PCR negative. In the ED patient administered 1 L normal saline, Tylenol 1000 mg p.o. x 1, albuterol and DuoNeb therapy x 2, azithromycin 5 mg IV x 1, Rocephin 1 g IV x 1, prednisone 40 mg p.o. x 1. [facility] Medical History Tobacco use Rosacea Mitral valve insufficiency High triglycerides Heart murmur COPD without exacerbation Chronic constipation Aortic root dilation Anemia in CKD (chronic kidney disease) YANET (generalized anxiety disorder) Anemia of chronic disease Vitamin D deficiency Chronic kidney disease COPD (chronic obstructive pulmonary disease) Hypertension Hyperlipidemia GERD (gastroesophageal reflux disease) Anxiety Home Medications ?Medication ?Instructions ?Recorded ?Last Taken ?Type quetiapine 100 mg tablet 50 mg PO QHS 03/26/13 10/17/17 History simvastatin 20 mg tablet 40 mg PO QHS 03/26/13 10/17/17 History vilazodone 40 mg tablet (Viibryd) 40 mg PO DAILY 03/26/13 10/18/17 History metoprolol succinate 25 mg 25 mg PO Q12H 10/18/17 10/18/17 History tablet,extended release 24 hr albuterol sulfate 90 mcg/actuation 2 puff inhalation Q6H PRN 01/01/24 Unknown History aerosol inhaler shortness of breath or wheezing famotidine 40 mg tablet 40 mg PO QHS 01/01/24 Unknown History fluticasone 250 mcg-salmeterol 50 1 ea inhalation BID 01/01/24 Unknown History mcg/dose blistr powdr for inhalation hydroxyzine HCl 25 mg tablet 25 - 50 mg PO Q6H PRN Anxiety 01/01/24 Unknown History icosapent ethyl 1 gram capsule 2 g PO BID 01/01/24 Unknown History (Vascepa) montelukast 10 mg tablet 10 mg PO DAILY 01/01/24 Unknown History sennosides 8.6 mg tablet (senna) 8.6 mg PO QHS 01/01/24 Unknown History tiotropium 2.5 mcg-olodaterol 2.5 2 puff inhalation DAILY 01/01/24 Unknown History mcg/actuation mist for inhalation (Stiolto Respimat) fluticasone propionate 100 inhalation 04/09/24 Unknown History mcg/actuation blister powder for inhalation (Flovent Diskus) nicotine See Rx Instructions transdermal 04/09/24 Unknown History 21mg/24hr-14mg/24hr-7mg/24hr daily .COMPLEX transderm patches,sequentl buspirone 15 mg tablet 15 mg PO TID 06/02/24 Unknown History omeprazole 40 mg capsule,delayed 40 mg PO QDAY 11/09/24 Unknown History release Allergy/AdvReac Type Severity Reaction Status Date / Time No Known Allergies Allergy Verified 03/18/25 14:39 Family History Mother Cancer Diabetes Heart disease Hypertension Hyperlipidemia Osteoarthritis Father CHF (congestive heart failure) Hypertension Hyperlipidemia Heart disease Surgical History History of ankle surgery History of testicular surgery Social History (Updated 03/18/25 @ 17:[address] Susan Mckoy MD) household members: none housing: house Smoking Status: Current every day smoker tobacco type: cigarettes Smoking packs per day: 1 Smoking cigarettes per day: 20.0 alcohol intake: former year quit: 2020 substance use type: does not use well-balanced diet: daily or most days ROS ROS Narrative Admission Review of Systems: CONSTITUTIONAL: No weight loss, + fever, weakness or fatigue. HEENT: + Congestion, rhinorrhea. Eyes: No visual loss, blurred vision, double vision or yellow sclerae. Ears, Nose, Throat: No hearing loss, sneezing. SKIN: No rash or itching, lesions, wounds. CARDIOVASCULAR: No chest pain, chest pressure or chest discomfort, palpitations, edema, orthopnea, syncopal events. RESPIRATORY: + shortness of breath, cough with productive sputum, wheezing. No hemoptysis. GASTROINTESTINAL: + Decreased appetite/anorexia, loose stools. No nausea, vomiting, abdominal pain, melena, BRBPR. GENITOURINARY: No dysuria, frequency, urgency or retention. NEUROLOGICAL: No headache, dizziness, syncope, paralysis, ataxia, numbness or tingling in the extremities, focal weakness, change in bowel or bladder control, seizure. MUSCULOSKELETAL: + muscle, back pain, joint pain or stiffness. HEMATOLOGIC: No anemia, bleeding or bruising. LYMPHATICS: No enlarged nodes. No history of splenectomy. PSYCHIATRIC: + history of depression or anxiety/mood disorder. ENDOCRINOLOGIC: + sweating. No cold or heat intolerance. No polyuria or polydipsia. ALLERGIES: + Allergic rhinitis. Vital Signs Vital Signs Vital Signs: 03/18/25 14:38 03/18/25 14:39 03/18/25 14:40 Temperature 99.4 F H 99.4 F H Temperature Source Oral Oral Pulse Rate 117 H 115 H Respiratory Rate 18 15 Respiratory Effort Short of Breath Respiratory Pattern Tachypnea Blood Pressure 110/70 Blood Pressure Mean 83 Pulse Ox 98 97 Oxygen Delivery Method Room Air Room Air Room Air 03/18/25 15:26 03/18/25 16:18 Temperature Temperature Source Pulse Rate 114 H 122 H Respiratory Rate 25 H 22 H Respiratory Effort Respiratory Pattern Blood Pressure Blood Pressure Mean Pulse Ox Oxygen Delivery Method Weight Weight: 238 lb 1.588 oz Body Mass Index (BMI) 35.2 Physical Exam Narrative Physical Examination: General: Awake, alert, oriented x 3 and cooperative, seated upright in the ED bed, fatigued, persistent tachypnea, some accessory muscle usage noted, no overt distress however. Skin: Normal color, normal turgor, no icterus, no cyanosis except occasional stage ecchymoses, abrasion, notable tobacco stains on his hands. HEENT: AT/NC, EOMI, PERRLA, mildly dry MM, no carotid bruits or JVD noted, lacking several teeth/poor dentition evident. Lungs: Significantly diffusely diminished, greater bases, diffuse expiratory wheezing, mildly increased respiratory rate with some accessory muscle usage but no overt distress, no marked rales or rhonchi. Heart: Tachycardic with regular rhythm; no gallop, rub audible. Abdomen: Soft, obese, NTTP, distant BS, no obvious distention or HSM. Extremities: No cyanosis, no clubbing, no significant distal pitting edema noted. Neurological: Patient awake, alert, oriented as noted, cognitive function intact; pupils equally reactive to light and accommodation, cranial nerves grossly normal, moving all 4 extremities, no focal deficits, strength moderately to severely globally decreased. Psychiatric: Affect appears flat, fatigued, ill-appearing, reports that his respiratory status is somewhat improved since initial ED arrival, no acute evidence of depressive or anxiety feelings. Results Lab / Micro Data 03/18/25 14:47 03/18/25 14:47 Labs: Laboratory Results - last 24 hr 03/18/25 14:47: WBC 18.5 H, RBC 4.94, Hgb 15.8, Hct 46.3, MCV 93.7, MCH 32.0, MCHC 34.1, RDW Std Deviation 43.9, RDW Coeff of Yari 12.9, Plt Count 182, MPV 9.7, Immature Gran % (Auto) 0.700, Neut % (Auto) 76.7 H, Lymph % (Auto) 14.7 L, [place] % (Auto) 6.7, Eos % (Auto) 0.9, Baso % (Auto) 0.3, Absolute Neuts (auto) 14.2 H, Absolute Lymphs (auto) 2.72, Nucleated RBC % 0, Sodium 138, Potassium 4.3, Chloride 99, Carbon Dioxide 24.0, Anion Gap 14, BUN 12, Creatinine 1.52 H, Estim Creat Clear Calc 64.93, Est GFR (MDRD) Non-Af 53 L, BUN/Creatinine Ratio 7.6 L, Glucose 114 H, Calcium 9.6, Total Bilirubin 0.85, AST 26, ALT 18, Alkaline Phosphatase 87, Total Protein 7.5, Albumin 4.5, Globulin 3.1, Albumin/Globulin Ratio 1.5 Micro: Microbiology 03/18/25 14:47 Mucosa - Nose SARS-CoV-2, Influenza & RSV (PCR) - Final Imaging Radiology Impression Chest X-Ray 03/18/25 15:04 IMPRESSION: Scattered bilateral airspace opacities concerning for multifocal pneumonia. Findings are most pronounced in the right mid lung. Reading Location: [facility] Assessment & Plan Assessment/Plan (1) Multifocal pneumonia: PLAN: Plan The patient is a 59 y/o M w/ PMHx: Anxiety and Depression/Mood disorder, Obesity, Tobacco use, Valvular Heart Disease, COPD, Allergic rhinitis, HTN, HLD, GERD, CKD stage III unclear subtype per GFR trending who presents to the [facility] ED on 03/18/2025 with history of URI type symptoms reporting specifically dyspnea, productive cough, nasal congestion, fatigue, malaise, mildly loose stools but no nausea or emesis with attempt to be evaluated by his primary care physician however the office was closed secondary to recent holidays using his chronic COPD type maintenance medications as well as albuterol as needed however he had persistent ongoing symptoms prompting ED evaluation. #1. Acute COPD Exacerbation with Acute BL Multifocal Pneumonia: Will admit to PCU given persistent tachycardia/tachypnea upon presentation, ABG requested, not currently not requiring supplementation but if necessary will add and wean to room air as tolerated, will maintain on ATC duonebs, PRN albuterol, maintain on IV Rocephin and Azithromycin, IV Solu-Medrol, HOB, IS parameters w/ pending sputum cultures, full respiratory viral panel and urine antigens. Encouraged tobacco cessation. #2. Valvular heart disease: Most recent echocardiogram noted 09/03/2023 from [facility] with LV cavity size normal, wall thickness normal, systolic function normal, EF 55 to 60%, wall motion normal, no regional wall motion abnormalities, normal diastolic function, mild aortic valve regurgitation, RV size mildly increased, RA mildly dilated, estimated right atrial pressure 3 mmHg. #3. Chronic Kidney Disease Stage III, unclear subtype or GFR trending: Admission BUN/Cr 12.52, GFR 53, baseline renal function primarily 1.4-1.6, repeat BMP in AM. #4. Hypertension: Continue home regimen including metoprolol, PRN hydralazine. #5. Hyperlipidemia: Will continue patient on statin therapy. #6. Anxiety and Depression/mood disorder: Will continue patient home vilazodone, Seroquel, buspirone, as needed hydroxyzine home regimen. #7. Tobacco Abuse: Encouraged cessation, inpatient consultation per RT, NR if desired. #8. Obesity: Weight loss and lifestyle changes encouraged. #9. DVT prophylaxis: Lovenox. Charges/Coding Visit Charges Inpatient E&M: 75728 Init Hosp L3
--- OUTSIDE RECORDS SUMMARY | 2025-03-18 17:26 | XMS RPT_ITS | CCD ---
Author Organization [facility] Care Team Providers Care Finisher Operator Name Role Phone KENTON BILL COLLECTOR - JEWEL CUPPING MACHINE OPERATOR, GURMEET Bee Primary Care Phys ician KENTON BILL COLLECTOR - JEWEL CUPPING MACHINE OPERATOR, GURMEET Bee Attending U navailable KENTON BILL COLLECTOR - JEWEL CUPPING MACHINE OPERATOR, GURMEET Bee Primary Care U navailable JULEE BILL COLLECTOR-JEWEL CUPPING MACHINE OPERATOR, CONNOR Patel Attending Unavail able KENTON BILL COLLECTOR - JEWEL CUPPING MACHINE OPERATOR, GURMEET Bee Primary Care U navailable KENTON BILL COLLECTOR - JEWEL CUPPING MACHINE OPERATOR, GURMEET Bee Primary Care U navailable KENTON BILL COLLECTOR - JEWEL CUPPING MACHINE OPERATOR, GURMEET Bee Attending U navailable KENTON BILL COLLECTOR - JEWEL CUPPING MACHINE OPERATOR, GURMEET Bee Primary Care U navailable KENTON BILL COLLECTOR - JEWEL CUPPING MACHINE OPERATOR, GURMEET Bee Attending U navailable KENTON BILL COLLECTOR - JEWEL CUPPING MACHINE OPERATOR, GURMEET Bee Attending U navailable KENTON BILL COLLECTOR - JEWEL CUPPING MACHINE OPERATOR, GURMEET Bee Primary Care U navailable Otero JEWEL CUPPING MACHINE OPERATOR, Gurmeet Bee Primary Care Provider GURMEET FUNG Primary Care Unavailable Unavailable Primary Care Provider Unavailabl e Kenton RN MEDICAL INPATIENT SERVICES, Gurmeet Joyner Attending Unav ailable Kenton RN MEDICAL INPATIENT SERVICES, Gurmeet Joyner Referring Unav ailable Kenton RN MEDICAL INPATIENT SERVICES, Gurmeet Joyner Primary Care Unav ailable Johann, Danny Referring Unavailable Kenton RN MEDICAL INPATIENT SERVICES, Gurmeet Joyner Primary Care Unav ailable Johann, Danny Attending Unavailable NagMoises watsonapradealondra Attending Unavailabl e Nagatimmy, Nagapradee Referring Unavailabl e Otero RN MEDICAL INPATIENT SERVICES, Gurmeet Joyner Primary Care Unav ailable Moises Mcbrideapradealondra Referring Unavailabl e Juvencio Cookril Attending Unavailable [facility]ter[facility] RN MEDICAL INPATIENT SERVICES, Gurmeet Joyner Primary Care Unav ailable Johann, Danny Attending Unavailable Kenton RN MEDICAL INPATIENT SERVICES, Gurmeet Joyner Referring Unav ailable Kenton RN MEDICAL INPATIENT SERVICES, Gurmeet Joyner Primary Care Unav ailable Johann, Danny Attending Danny Tim Referring Lavon Fung RN MEDICAL INPATIENT SERVICES, Gurmeet Joyner Primary Care Unav ailable Pipo Hidalgo Attending Unavailable [facility]ter[facility] RN MEDICAL INPATIENT SERVICES, Gurmeet Joyner Primary Care Unav ailable Jason Garcia Attending Unavailabl e Kenton RN MEDICAL INPATIENT SERVICES, Gurmeet Joyner Primary Care Unav ailable KENTON BILL COLLECTOR - JEWEL CUPPING MACHINE OPERATOR, GURMEET Bee Primary Care U navailable KENTON BILL COLLECTOR - JEWEL CUPPING MACHINE OPERATOR, GURMEET Bee Attending U navailable KENTON BILL COLLECTOR - JEWEL CUPPING MACHINE OPERATOR, GURMEET Bee Primary Care U navailable KENTON BILL COLLECTOR - JEWEL CUPPING MACHINE OPERATOR, GURMEET Bee Attending U navailable KENTON BILL COLLECTOR - JEWEL CUPPING MACHINE OPERATOR, GURMEET Bee Primary Care U navailable KENTON BILL COLLECTOR - JEWEL CUPPING MACHINE OPERATOR, GURMEET Bee Attending U navailable KENTON BILL COLLECTOR - JEWEL CUPPING MACHINE OPERATOR, GURMEET Bee Attending U navailable KENTON BILL COLLECTOR - JEWEL CUPPING MACHINE OPERATOR, GURMEET Bee Primary Care U navailable KENTON BILL COLLECTOR - JEWEL CUPPING MACHINE OPERATOR, GURMEET Bee Primary Care U navailable KENTON BILL COLLECTOR - JEWEL CUPPING MACHINE OPERATOR, GURMEET Bee Attending U navailable KENTON BILL COLLECTOR - JEWEL CUPPING MACHINE OPERATOR, GURMEET Bee Primary Care U navailable KENTON BILL COLLECTOR - JEWEL CUPPING MACHINE OPERATOR, GURMEET Bee Attending U navailable KENTON BILL COLLECTOR - JEWEL CUPPING MACHINE OPERATOR, GURMEET Bee Primary Care U navailable KENTON BILL COLLECTOR - JEWEL CUPPING MACHINE OPERATOR, GURMEET Bee Attending U navailable Medications Current [...] q6h, # 18 gram(s), 5 Refill(s), Pharmacy: [facility], COPD without exacerbation, 175.5, cm, 07/31/24 [...] q6h, # 18 gram(s), 5 Refill(s), Pharmacy: [facility], COPD without exacerbation, 175.5, cm, 03/09/24 14:17:00 EST, Height, kg, 03/09/24 14:17:00 EST, Dosing Weight Start Date: 03/09/24 Stop Date: 09/05/24 Status: Ordered Start: 09-06-2023 End: 03-04-2024 take 2 puff(s) by inhalation every six hours albuterol MDI (90 mcg/inh) CFC free inhalation aerosol 2 puff(s), Inhalation, q6h, # 18 gram(s), 5 Refill(s), Pharmacy: [facility], COPD without exacerbation, 179, cm, 09/06/23 13:54:00 EDT, Height, kg, 09/06/23 13:54:00 EDT, Dosing Weight Start Date: 09/06/23 Stop Date: 03/04/24 Status: Ordered Start: 03-08-2023 End: 09-04-2023 take 2 puff(s) by inhalation every six hours albuterol MDI (90 mcg/inh) CFC free inhalation aerosol 2 puff(s), Inhalation, q6h, # 18 gram(s), 5 Refill(s), Pharmacy: [facility], COPD without exacerbation, 179, cm, 03/08/23 14:00:00 EST, Height, kg, 03/08/23 14:00:00 EST, Dosing Weight Start Date: 03/08/23 Stop Date: 09/04/23 Status: Ordered Start: 01-29-2023 End: 02-28-2023 take 2 puff(s) by inhalation every six hours albuterol MDI (90 mcg/inh) CFC free inhalation aerosol 2 puff(s), Inhalation, q6h, # 18 gram(s), 0 Refill(s), Pharmacy: [facility], COPD without exacerbation, 175.3, cm, 09/07/22 14:05:00 EDT, Height, kg, 09/07/22 14:05:00 EDT, Dosing Weight Start Date: 01/29/23 Stop Date: 02/28/23 Status: Ordered Start: 03-09-2022 End: 10-05-2022 take 2 puff(s) by inhalation every six hours albuterol MDI (90 mcg/inh) CFC free inhalation aerosol 2 puff(s), Inhalation, q6h, # 18 gram(s), 6 Refill(s), Pharmacy: [facility], COPD without exacerbation, 175.3, cm, 03/09/22 15:45:00 EST, Height, kg, 03/09/22 15:45:00 EST, Dosing Weight Start Date: 03/09/22 Stop Date: 10/05/22 Status: Ordered Start: 11-23-2021 End: 06-21-2022 take 2 puff(s) by inhalation every six hours albuterol MDI (90 mcg/inh) CFC free inhalation aerosol 2 puff(s), Inhalation, q6h, # 18 gram(s), 6 Refill(s), Pharmacy: [facility], COPD without exacerbation, 177, cm, 11/23/21 14:58:00 EDT, Height, kg, 11/23/21 14:58:00 EDT, Dosing Weight Start Date: 11/23/21 Stop Date: 06/21/22 Status: Ordered Start: 09-07-2021 End: 03-06-2022 take 2 puff(s) by inhalation every six hours albuterol MDI (90 mcg/inh) CFC free inhalation aerosol 2 puff(s), Inhalation, q6h, # 18 gram(s), 5 Refill(s), Pharmacy: [facility], COPD without exacerbation, 177, cm, 09/07/21 [...] qDay, # 90 tab(s), 1 Refill(s), Pharmacy: [facility], Seasonal allergies, 175.5, cm, 09/15/24 14:01:00 [...] qHS, # 90 tab(s), 1 Refill(s), Pharmacy: [facility], GERD (gastroesophageal reflux disease), 175.5, cm, 07/31/24 13:22:00 EDT, Height, kg, 07/31/24 13:22:00 EDT, Dosing Weight Start Date: 09/11/24 Status: Ordered Quantity: 90.0 Unit: tab(s) Repeat number: 2 Indications: Gastro-esophageal reflux disease without esophagitis; Start: 03-09-2024 Pepcid 40 mg o ral tablet Dose : 40 mg = 1 tab(s), Oral, qHS, # 90 tab(s), 1 Refill(s), Pharmacy: [facility], GERD (gastroesophageal reflux disease), 175.5, cm, 03/09/24 14:17:00 EST, Height, kg, 03/09/24 14:17:00 EST, Dosing Weight Start Date: 03/09/24 Status: Ordered Start: 09-06-2023 Pepcid 40 mg o ral tablet Dose : 40 mg = 1 tab(s), Oral, qHS, # 90 tab(s), 1 Refill(s), Pharmacy: [facility], GERD (gastroesophageal reflux disease), 179, cm, 09/06/23 13:54:00 EDT, Height, kg, 09/06/23 13:54:00 EDT, Dosing Weight Start Date: 09/06/23 Status: Ordered Start: 03-08-2023 Pepcid 40 mg o ral tablet Dose : 40 mg = 1 tab(s), Oral, qHS, # 90 tab(s), 1 Refill(s), Pharmacy: [facility], GERD (gastroesophageal reflux disease), 179, cm, 03/08/23 14:00:00 EST, Height, kg, 03/08/23 14:00:00 EST, Dosing Weight Start Date: 03/08/23 Status: Ordered Start: 02-28-2023 Pepcid 40 mg o ral tablet Dose : 40 mg = 1 tab(s), Oral, qHS, # 30 tab(s), 0 Refill(s), Pharmacy: [facility], GERD (gastroesophageal reflux disease), 175.3, cm, 09/07/22 14:05:00 EDT, Height, kg, 09/07/22 14:05:00 EDT, Dosing Weight Start Date: 02/28/23 Status: Ordered 60 actuat fluticasone propionate 0.1 mg/actuat dry powder inhaler (7 sources) Corticosteroid Start: 01-20-2024 take 1 puff(s) by inhalation twice daily Flovent Diskus 100 mcg inhalation powder 1 puff(s), Inhalation, BID, # 1 EA, 5 Refill(s), Pharmacy: [facility], COPD without exacerbation, 175.3, cm, 01/08/24 15:01:00 EDT, Height, kg, 01/08/24 15:01:00 EDT, Dosing Weight Start Date: 01/20/24 Status: Ordered Start: 03-08-2023 take 1 puff(s) by in halation twice daily Flovent Diskus 100 mcg inhalation powder 1 puff(s), Inhalation, BID, # 1 EA, 5 Refill(s), Pharmacy: [facility], COPD without exacerbation, 179, cm, 03/08/23 14:00:00 EST, Height, kg, 03/08/23 14:00:00 EST, Dosing Weight Start Date: 03/08/23 Status: Ordered Start: 02-28-2023 take 1 puff(s) by in halation twice daily Flovent Diskus 100 mcg inhalation powder 1 puff(s), Inhalation, BID, # 1 EA, 0 Refill(s), Pharmacy: [facility], COPD without exacerbation, 175.3, cm, 09/07/22 14:05:00 EDT, Height, kg, 09/07/22 14:05:00 EDT, Dosing Weight Start Date: 02/28/23 Status: Ordered Start: 10-12-2021 End: 10-05-2022 take 1 puff(s) by inhalation twice daily Flovent Diskus 100 mcg inhalation powder 1 puff(s), Inhalation, BID, # 1 EA, 6 Refill(s), Pharmacy: [facility], COPD without exacerbation, 175.3, cm, 03/09/22 [...] use, # 1 EA, 5 Refill(s), Pharmacy: [facility], COPD (chronic obstructive pulmonary disease), 175.5, [...] use, # 1 EA, 5 Refill(s), Pharmacy: [facility], COPD (chronic obstructive pulmonary disease), 175.5, cm, 03/09/24 14:17:00 EST, Height, kg, 03/09/24 14:17:00 EST, Dosing Weight Start Date: 03/09/24 Stop Date: 09/05/24 Status: Ordered Start: 12-20-2023 take 1 puff(s) by mo [facility] twice daily fluticasone-salmeterol (ADVAIR, WIXELA) 250-50 mcg/dose inhaler INHALE 1 PUFF TWICE DAILY (rinse mouth and throat after use) 12/20/2023 Active Start: 07-01-2023 End: 01-27-2024 take 1 dose by mouth twice daily Wixela Inhub 250 mcg-50 mcg inhalation powder Dose = 1 puff(s), Inhalation, BID, Dispense: 1 inhaler Note: rinse mouth and throat after use, # 1 EA, 6 Refill(s), Pharmacy: [facility], COPD (chronic obstructive pulmonary disease), 179, [...] anxiety, # 120 tab(s), 1 Refill(s), Pharmacy: [facility], YANET (generalized anxiety disorder), 175.5, cm, 07/31/24 13:22:00 EDT, Height, kg, 07/31/24 13:22:00 EDT, Dosing Weight Start Date: 09/11/24 Status: Ordered Quantity: 120.0 Unit: tab(s) Repeat number: 2 Indications: Generalized anxiety disorder; Start: 03-09-2024 hydrOXYzine hy drochloride 25 mg oral tablet Dose : 25 mg = 1 tab(s), Oral, QID, PRN as needed for anxiety, # 120 tab(s), 1 Refill(s), Pharmacy: [facility], YANET (generalized anxiety disorder), 175.5, cm, 03/09/24 14:17:00 EST, Height, kg, 03/09/24 14:17:00 EST, Dosing Weight Start Date: 03/09/24 Status: Ordered Start: 10-07-2023 hydrOXYzine hy drochloride 25 mg oral tablet Dose : 25 mg = 1 tab(s), Oral, QID, PRN as needed for anxiety, # 360 tab(s), 1 Refill(s), Pharmacy: [facility], YANET (generalized anxiety disorder), 179, cm, 09/06/23 13:54:00 EDT, Height, kg, 09/06/23 13:54:00 EDT, Dosing Weight Start Date: 10/07/23 Status: Ordered Start: 03-08-2023 End: 04-07-2023 hydrOXYzine hydrochloride 25 mg oral tablet Dose : 25 mg = 1 tab(s), Oral, QID, PRN as needed for anxiety, # 360 tab(s), 1 Refill(s), Pharmacy: [facility], YANET (generalized anxiety disorder), 179, cm, 03/08/23 14:00:00 EST, Height, kg, 03/08/23 14:00:00 EST, Dosing Weight Start Date: 03/08/23 Stop Date: 04/07/23 Status: Ordered Start: 01-29-2023 End: 02-28-2023 hydrOXYzine hydrochloride 25 mg oral tablet Dose : 25 mg = 1 tab(s), Oral, QID, PRN as needed for anxiety, # 60 tab(s), 0 Refill(s), Pharmacy: [facility], YANET (generalized anxiety disorder), 175.3, cm, 09/07/22 14:05:00 EDT, Height, kg, 09/07/22 14:05:00 EDT, Dosing Weight Start Date: 01/29/23 Stop Date: 02/28/23 Status: Ordered Start: 06-01-2022 End: 08-30-2022 hydrOXYzine hydrochloride 25 mg oral tablet Dose : 25 mg = 1 tab(s), Oral, QID, PRN as needed for anxiety, # 60 tab(s), 2 Refill(s), Pharmacy: [facility], YANET (generalized anxiety disorder), 175.3, cm, 03/09/22 15:45:00 EST, Height, kg, 03/09/22 15:45:00 EST, Dosing Weight Start Date: 06/01/22 Stop Date: 08/30/22 Status: Ordered Start: 07-10-2021 End: 02-21-2022 hydrOXYzine hydrochloride 25 mg oral tablet Dose : 25 mg = 1 tab(s), Oral, QID, PRN as needed for anxiety, # 60 tab(s), 2 Refill(s), Pharmacy: [facility], YANET (generalized anxiety disorder), 177, cm, 11/23/21 14:58:00 EDT, Height, kg, 11/23/21 14:58:00 EDT, Dosing Weight Start Date: 11/23/21 Stop Date: 02/21/22 Status: Ordered Start: 01-05-2021 End: 04-05-2021 hydrOXYzine hydrochloride 25 mg oral tablet Dose : 25 mg = 1 tab(s), Oral, QID, PRN as needed for anxiety, # 60 tab(s), 2 Refill(s), Pharmacy: [facility], YANET (generalized anxiety disorder), 177, cm, [...] BID, # 360 cap(s), 1 Refill(s), Pharmacy: [facility], Hyperlipidemia High triglycerides, 175.5, cm, 07/31/24 13:22:00 EDT, Height, kg, 07/31/24 13:22:00 EDT, Dosing Weight Start Date: 09/11/24 Status: Ordered Quantity: 360.0 Unit: cap(s) Repeat number: 2 Indications: Hyperlipidemia, unspecified; Pure hyperglyceridemia; Start: 03-09-2024 icosapent 1 g oral capsule Dose : 2 gram(s) = 2 cap(s), Oral, BID, # 360 cap(s), 1 Refill(s), Pharmacy: [facility], Hyperlipidemia High triglycerides, 175.5, cm, 03/09/24 14:17:00 EST, Height, kg, 03/09/24 14:17:00 EST, Dosing Weight Start Date: 03/09/24 Status: Ordered Start: 10-25-2023 icosapent 1 g oral capsule Dose : 2 gram(s) = 2 cap(s), Oral, BID, # 360 cap(s), 1 Refill(s), Pharmacy: [facility], Hyperlipidemia High triglycerides, 179, cm, 09/06/23 13:54:00 EDT, Height, kg, 09/06/23 13:54:00 EDT, Dosing Weight Start Date: 10/25/23 Status: Ordered Start: 03-08-2023 icosapent 1 g oral capsule Dose : 2 gram(s) = 2 cap(s), Oral, BID, # 360 cap(s), 1 Refill(s), Pharmacy: [facility], Hyperlipidemia High triglycerides, 179, cm, 03/08/23 14:00:00 EST, Height, kg, 03/08/23 14:00:00 EST, Dosing Weight Start Date: 03/08/23 Status: Ordered Start: 01-05-2022 icosapent 1 g oral capsule Dose : 2 gram(s) = 2 cap(s), Oral, BID, # 60 cap(s), 5 Refill(s), Pharmacy: [facility], 175.3, cm, 01/05/22 14:29:00 EDT, Height [...] BID, # 180 tab(s), 1 Refill(s), Pharmacy: [facility], HTN, goal below 130/85, 175.5, cm, 07/31/24 13:22:00 EDT, Height, kg, 07/31/24 13:22:00 EDT, Dosing Weight Start Date: 09/11/24 Status: Ordered Quantity: 180.0 Unit: tab(s) Repeat number: 2 Indications: Essential (primary) hypertension; Start: 03-09-2024 metoprolol suc cinate 25 mg oral TABLET extended release Dose : 25 mg = 1 tab(s), Oral, BID, # 180 tab(s), 1 Refill(s), Pharmacy: [facility], HTN, goal below 130/85, 175.5, cm, 03/09/24 14:17:00 EST, Height, kg, 03/09/24 14:17:00 EST, Dosing Weight Start Date: 03/09/24 Status: Ordered Start: 09-06-2023 metoprolol suc cinate 25 mg oral TABLET extended release Dose : 25 mg = 1 tab(s), Oral, BID, # 180 tab(s), 1 Refill(s), Pharmacy: [facility], HTN, goal below 130/85, 179, cm, 09/06/23 13:54:00 EDT, Height, kg, 09/06/23 13:54:00 EDT, Dosing Weight Start Date: 09/06/23 Status: Ordered Start: 03-08-2023 metoprolol suc cinate 25 mg oral TABLET extended release Dose : 25 mg = 1 tab(s), Oral, BID, # 180 tab(s), 1 Refill(s), Pharmacy: [facility], HTN, goal below 130/85, 179, cm, 03/08/23 14:00:00 EST, Height, kg, 03/08/23 14:00:00 EST, Dosing Weight Start Date: 03/08/23 Status: Ordered Start: 02-28-2023 metoprolol suc cinate 25 mg oral TABLET extended release Dose : 25 mg = 1 tab(s), Oral, BID, Discontinue all other Rx for Metoprolol, # 60 tab(s), 0 Refill(s), Pharmacy: [facility], HTN, goal below 130/85, 175.3, cm, 09/07/22 14:05:00 EDT, Height, kg, 09/07/22 14:05:00 EDT, Dosing Weight Start Date: 02/28/23 Status: Ordered Start: 11-02-2020 End: 07-30-2021 metoprolol succinate 25 mg o ral TABLET extended release Dose : 25 mg = 1 tab(s), Oral, BID, Discontinue all other Rx for Metoprolol, # 180 tab(s), 2 Refill(s), Pharmacy: [facility], HTN, goal below 140/90, 177.5, cm, 11/02/20 11:05:00 EDT, Height, kg, 11/02/20 11:05:00 EDT, Dosing Weight Start Date: 11/02/20 Stop Date: 07/30/21 Status: Ordered Start: 10-18-2017 End: 09-05-2022 metoprolol succinate 25 mg o ral TABLET extended release Dose : 25 mg = 1 tab(s), Oral, BID, Discontinue all other Rx for Metoprolol, # 180 tab(s), 1 Refill(s), Pharmacy: [facility], HTN, goal below 140/90, 175.3, cm, 03/09/22 15:45:00 EST, Height, kg, 03/09/22 15:45:00 EST, Dosing Weight Start Date: 03/09/22 Stop Date: 09/05/22 Status: Ordered montelukast 10 mg oral tablet (12 sources) Leukotriene Receptor Antagonist Start: 09-11-2024 Singulair 10 mg oral tablet Dose : 10 mg = 1 tab(s), Oral, qDay, # 90 tab(s), 1 Refill(s), Pharmacy: [facility], COPD without exacerbation, 175.5, cm, 07/31/24 13:22:00 EDT, Height, kg, 07/31/24 13:22:00 EDT, Dosing Weight Start Date: 09/11/24 Status: Ordered Quantity: 90.0 Unit: tab(s) Repeat number: 2 Indications: Chronic obstructive pulmonary disease, unspecified; Start: 03-09-2024 Singulair 10 m g oral tablet Dose : 10 mg = 1 tab(s), Oral, qDay, # 90 tab(s), 1 Refill(s), Pharmacy: [facility], COPD without exacerbation, 175.5, cm, 03/09/24 14:17:00 EST, Height, kg, 03/09/24 14:17:00 EST, Dosing Weight Start Date: 03/09/24 Status: Ordered Start: 09-06-2023 Singulair 10 m g oral tablet Dose : 10 mg = 1 tab(s), Oral, qDay, # 90 tab(s), 1 Refill(s), Pharmacy: [facility], COPD without exacerbation, 179, cm, 09/06/23 13:54:00 EDT, Height, kg, 09/06/23 13:54:00 EDT, Dosing Weight Start Date: 09/06/23 Status: Ordered Start: 03-08-2023 Singulair 10 m g oral tablet Dose : 10 mg = 1 tab(s), Oral, qDay, # 90 tab(s), 1 Refill(s), Pharmacy: [facility], COPD without exacerbation, 179, cm, 03/08/23 14:00:00 EST, Height, kg, 03/08/23 14:00:00 EST, Dosing Weight Start Date: 03/08/23 Status: Ordered Start: 02-28-2023 Singulair 10 m g oral tablet Dose : 10 mg = 1 tab(s), Oral, qDay, # 30 tab(s), 0 Refill(s), Pharmacy: [facility], COPD without exacerbation, 175.3, cm, 09/07/22 14:05:00 EDT, Height, kg, 09/07/22 14:05:00 EDT, Dosing Weight Start Date: 02/28/23 Status: Ordered Start: 03-09-2022 Singulair 10 m g oral tablet Dose : 10 mg = 1 tab(s), Oral, qDay, # 90 tab(s), 1 Refill(s), Pharmacy: [facility], COPD without exacerbation, 175.3, cm, 03/09/22 15:45:00 EST, Height, kg, 03/09/22 15:45:00 EST, Dosing Weight Start Date: 03/09/22 Status: Ordered Start: 09-07-2021 Singulair 10 m g oral tablet Dose : 10 mg = 1 tab(s), Oral, qDay, # 90 tab(s), 1 Refill(s), Pharmacy: [facility], COPD without exacerbation, 177, cm, 09/07/21 [...] day(s), # 14 patch(es), 0 Refill(s), Pharmacy: [facility], Tobacco use, 175.5, cm, 03/09/24 14:17:00 EST, Height, kg, 03/09/24 14:17:00 EST, Dosing Weight Start Date: 03/23/24 Stop Date: 04/06/24 Status: Ordered Start: 03-09-2024 End: 03-23-2024 apply 1 dose transdermal route once daily nicotine 14mg / 24hrs transdermal patch Dose = 1 patch(es), Transdermal, qDay, X 14 day(s), # 14 patch(es), 0 Refill(s), Pharmacy: [facility], Tobacco use, 175.5, cm, 03/09/24 14:17:00 [...] qDay, # 4 gram(s), 5 Refill(s), Pharmacy: [facility], COPD without exacerbation, 175.5, cm, 07/31/24 [...] qDay, # 4 gram(s), 5 Refill(s), Pharmacy: [facility], COPD without exacerbation, 179, cm, 10/31/23 12:59:00 EDT, Height, kg, 10/31/23 12:59:00 EDT, Dosing Weight Start Date: 10/31/23 Status: Ordered Start: 09-06-2023 take 1 dose by inhal ation once daily Stiolto Respimat 60 ACT 2.5 mcg-2.5 mcg/inh inhalation aerosol Dose = 2 puff(s), Inhalation, qDay, # 4 gram(s), 5 Refill(s), Pharmacy: [facility], COPD without exacerbation, 179, cm, 09/06/23 13:54:00 EDT, Height, kg, 09/06/23 13:54:00 EDT, Dosing Weight Start Date: 09/06/23 Status: Ordered Start: 03-08-2023 take 1 dose by inhal ation once daily Stiolto Respimat 60 ACT 2.5 mcg-2.5 mcg/inh inhalation aerosol Dose = 2 puff(s), Inhalation, qDay, # 4 gram(s), 5 Refill(s), Pharmacy: [facility], COPD without exacerbation, 179, cm, 03/08/23 14:00:00 EST, Height, kg, 03/08/23 14:00:00 EST, Dosing Weight Start Date: 03/08/23 Status: Ordered Start: 02-28-2023 take 1 dose by inhal ation once daily Stiolto Respimat 60 ACT 2.5 mcg-2.5 mcg/inh inhalation aerosol Dose = 2 puff(s), Inhalation, qDay, # 4 gram(s), 0 Refill(s), Pharmacy: [facility], COPD without exacerbation, 175.3, cm, 09/07/22 14:05:00 EDT, Height, kg, 09/07/22 14:05:00 EDT, Dosing Weight Start Date: 02/28/23 Status: Ordered Start: 03-09-2021 End: 10-05-2022 take 1 dose by inhalation once daily Stiolto Respimat 60 ACT 2.5 mcg-2.5 mcg/inh inhalation aerosol Dose = 2 puff(s), Inhalation, qDay, # 4 gram(s), 6 Refill(s), Pharmacy: [facility], COPD without exacerbation, 175.3, cm, 03/09/22 15:45:00 EST, Height, kg, 03/09/22 15:45:00 EST, Dosing Weight Start Date: 03/09/22 Stop Date: 10/05/22 Status: Ordered omeprazole 40 mg delayed release oral capsule (16 sources) Proton Pump Inhibitor Start: 09-11-2024 omeprazole 40 mg ora l delayed release capsule Dose : 40 mg = 1 cap(s), Oral, qDay, # 90 cap(s), 1 Refill(s), Pharmacy: [facility], GERD (gastroesophageal reflux disease), 175.5, cm, 07/31/24 13:22:00 EDT, Height, kg, 07/31/24 13:22:00 EDT, Dosing Weight Start Date: 09/11/24 Status: Ordered Quantity: 90.0 Unit: cap(s) Repeat number: 2 Indications: Gastro-esophageal reflux disease without esophagitis; Start: 03-09-2024 omeprazole 40 mg oral delayed release capsule Dose : 40 mg = 1 cap(s), Oral, qDay, # 90 cap(s), 1 Refill(s), Pharmacy: [facility], GERD (gastroesophageal reflux disease), 175.5, cm, 03/09/24 14:17:00 EST, Height, kg, 03/09/24 14:17:00 EST, Dosing Weight Start Date: 03/09/24 Status: Ordered Start: 09-06-2023 omeprazole 40 mg oral delayed release capsule Dose : 40 mg = 1 cap(s), Oral, qDay, # 90 cap(s), 1 Refill(s), Pharmacy: [facility], GERD (gastroesophageal reflux disease), 179, cm, 09/06/23 13:54:00 EDT, Height, kg, 09/06/23 13:54:00 EDT, Dosing Weight Start Date: 09/06/23 Status: Ordered Start: 03-08-2023 omeprazole 40 mg oral delayed release capsule Dose : 40 mg = 1 cap(s), Oral, qDay, # 90 cap(s), 1 Refill(s), Pharmacy: [facility], GERD (gastroesophageal reflux disease), 179, cm, 03/08/23 14:00:00 EST, Height, kg, 03/08/23 14:00:00 EST, Dosing Weight Start Date: 03/08/23 Status: Ordered Start: 02-28-2023 omeprazole 40 mg oral delayed release capsule Dose : 40 mg = 1 cap(s), Oral, qDay, # 30 cap(s), 0 Refill(s), Pharmacy: [facility], GERD (gastroesophageal reflux disease), 175.3, cm, 09/07/22 14:05:00 EDT, Height, kg, 09/07/22 14:05:00 EDT, Dosing Weight Start Date: 02/28/23 Status: Ordered Start: 03-09-2022 End: 09-05-2022 omeprazole 40 mg oral delaye d release capsule Dose : 40 mg = 1 cap(s), Oral, qDay, # 90 cap(s), 1 Refill(s), Pharmacy: [facility], GERD (gastroesophageal reflux disease), 175.3, cm, 03/09/22 15:45:00 EST, Height, kg, 03/09/22 15:45:00 EST, Dosing Weight Start Date: 03/09/22 Stop Date: 09/05/22 Status: Ordered Start: 03-26-2013 End: 03-06-2022 omeprazole 40 mg oral delaye d release capsule Dose : 40 mg = 1 cap(s), Oral, qDay, # 90 cap(s), 1 Refill(s), Pharmacy: [facility], GERD (gastroesophageal reflux disease), 177, cm, [...] mg by mouth once daily. Active sennosides, mcc 8.6 mg oral tablet (9 sources) Start: 09-11-2024 Senokot 8.6 mg oral tablet Dose : 8.6 mg = 1 tab(s), Oral, qHS, # 90 tab(s), 1 Refill(s), Pharmacy: [facility], Chronic constipation, 175.5, cm, 07/31/24 13:22:00 EDT, Height, kg, 07/31/24 13:22:00 EDT, Dosing Weight Start Date: 09/11/24 Status: Ordered Quantity: 90.0 Unit: tab(s) Repeat number: 2 Indications: Other constipation; Start: 03-09-2024 Senokot 8.6 mg oral tablet Dose : 8.6 mg = 1 tab(s), Oral, qHS, # 90 tab(s), 1 Refill(s), Pharmacy: [facility], Chronic constipation, 175.5, cm, 03/09/24 14:17:00 EST, Height, kg, 03/09/24 14:17:00 EST, Dosing Weight Start Date: 03/09/24 Status: Ordered Start: 09-06-2023 Senokot 8.6 mg oral tablet Dose : 8.6 mg = 1 tab(s), Oral, qHS, # 90 tab(s), 1 Refill(s), Pharmacy: [facility], Chronic constipation, 179, cm, 09/06/23 13:54:00 EDT, Height, kg, 09/06/23 13:54:00 EDT, Dosing Weight Start Date: 09/06/23 Status: Ordered Start: 03-08-2023 Senokot 8.6 mg oral tablet Dose : 8.6 mg = 1 tab(s), Oral, qHS, # 90 tab(s), 1 Refill(s), Pharmacy: [facility], Chronic constipation, 179, cm, 03/08/23 14:00:00 EST, Height, kg, 03/08/23 14:00:00 EST, Dosing Weight Start Date: 03/08/23 Status: Ordered Start: 02-28-2023 Senokot 8.6 mg oral tablet Dose : 8.6 mg = 1 tab(s), Oral, qHS, # 30 tab(s), 0 Refill(s), Pharmacy: [facility], Chronic constipation, 175.3, cm, 09/07/22 14:05:00 EDT, Height, kg, 09/07/22 14:05:00 EDT, Dosing Weight Start Date: 02/28/23 Status: Ordered simvastatin 40 mg oral tablet (16 sources) HMG-CoA Reductase Inhibitor Start: 09-11-2024 simvastatin 40 mg or al tablet Dose : 40 mg = 1 tab(s), Oral, qHS, # 90 tab(s), 1 Refill(s), Pharmacy: [facility], Hyperlipidemia, 175.5, cm, 07/31/24 13:22:00 EDT, Height, kg, 07/31/24 13:22:00 EDT, Dosing Weight Start Date: 09/11/24 Status: Ordered Quantity: 90.0 Unit: tab(s) Repeat number: 2 Indications: Hyperlipidemia, unspecified; Start: 03-09-2024 simvastatin 40 mg oral tablet Dose : 40 mg = 1 tab(s), Oral, qHS, # 90 tab(s), 1 Refill(s), Pharmacy: [facility], Hyperlipidemia, 175.5, cm, 03/09/24 14:17:00 EST, Height, kg, 03/09/24 14:17:00 EST, Dosing Weight Start Date: 03/09/24 Status: Ordered Start: 09-06-2023 simvastatin 40 mg oral tablet Dose : 40 mg = 1 tab(s), Oral, qHS, # 90 tab(s), 1 Refill(s), Pharmacy: [facility], Hyperlipidemia, 179, cm, 09/06/23 13:54:00 EDT, Height, kg, 09/06/23 13:54:00 EDT, Dosing Weight Start Date: 09/06/23 Status: Ordered Start: 03-08-2023 simvastatin 40 mg oral tablet Dose : 40 mg = 1 tab(s), Oral, qHS, # 90 tab(s), 1 Refill(s), Pharmacy: [facility], Hyperlipidemia, 179, cm, 03/08/23 14:00:00 EST, Height, kg, 03/08/23 14:00:00 EST, Dosing Weight Start Date: 03/08/23 Status: Ordered Start: 02-28-2023 simvastatin 40 mg oral tablet Dose : 40 mg = 1 tab(s), Oral, qHS, # 30 tab(s), 0 Refill(s), Pharmacy: [facility], Hyperlipidemia, 175.3, cm, 09/07/22 14:05:00 EDT, Height, kg, 09/07/22 14:05:00 EDT, Dosing Weight Start Date: 02/28/23 Status: Ordered Start: 03-09-2022 End: 09-05-2022 simvastatin 40 mg oral table t Dose : 40 mg = 1 tab(s), Oral, qHS, # 90 tab(s), 1 Refill(s), Pharmacy: [facility], Hyperlipidemia, 175.3, cm, 03/09/22 15:45:00 EST, Height, kg, 03/09/22 15:45:00 EST, Dosing Weight Start Date: 03/09/22 Stop Date: 09/05/22 Status: Ordered Start: 09-05-2020 End: 03-06-2022 simvastatin 40 mg oral table t Dose : 40 mg = 1 tab(s), Oral, qHS, # 90 tab(s), 1 Refill(s), Pharmacy: [facility], Hyperlipidemia, 177, cm, 09/07/21 13:40:00 EDT, [...] qDay, # 4 gram(s), 6 Refill(s), Pharmacy: [facility], COPD without exacerbation, 177.5, cm, 09/05/20 14:03:00 EDT, Height, kg, 09/05/20 14:03:00 EDT, Dosing Weight Start Date: 09/05/20 Stop Date: 04/03/21 Status: Ordered vilazodone hydrochloride 40 mg oral tablet (16 sources) Start: 09-11-2024 Viibryd 40 mg oral tablet Dose : 40 mg = 1 tab(s), Oral, qDayM, # 90 tab(s), 1 Refill(s), Pharmacy: [facility], YANET (generalized anxiety disorder), 175.5, cm, 07/31/24 13:22:00 EDT, Height, kg, 07/31/24 13:22:00 EDT, Dosing Weight Start Date: 09/11/24 Status: Ordered Quantity: 90.0 Unit: tab(s) Repeat number: 2 Indications: Generalized anxiety disorder; Start: 03-09-2024 Viibryd 40 mg oral tablet Dose : 40 mg = 1 tab(s), Oral, qDayM, # 90 tab(s), 1 Refill(s), Pharmacy: [facility], YANET (generalized anxiety disorder), 175.5, cm, 03/09/24 14:17:00 EST, Height, kg, 03/09/24 14:17:00 EST, Dosing Weight Start Date: 03/09/24 Status: Ordered Start: 09-06-2023 Viibryd 40 mg oral tablet Dose : 40 mg = 1 tab(s), Oral, qDayM, # 90 tab(s), 1 Refill(s), Pharmacy: [facility], YANET (generalized anxiety disorder), 179, cm, 09/06/23 13:54:00 EDT, Height, kg, 09/06/23 13:54:00 EDT, Dosing Weight Start Date: 09/06/23 Status: Ordered Start: 03-08-2023 Viibryd 40 mg oral tablet Dose : 40 mg = 1 tab(s), Oral, qDayM, # 90 tab(s), 1 Refill(s), Pharmacy: [facility], YANET (generalized anxiety disorder), 179, cm, 03/08/23 14:00:00 EST, Height, kg, 03/08/23 14:00:00 EST, Dosing Weight Start Date: 03/08/23 Status: Ordered Start: 02-28-2023 Viibryd 40 mg oral tablet Dose : 40 mg = 1 tab(s), Oral, qDayM, # 30 tab(s), 0 Refill(s), Pharmacy: [facility], YANET (generalized anxiety disorder), 175.3, cm, 09/07/22 14:05:00 EDT, Height, kg, 09/07/22 14:05:00 EDT, Dosing Weight Start Date: 02/28/23 Status: Ordered Start: 03-09-2022 Viibryd 40 mg oral tablet Dose : 40 mg = 1 tab(s), Oral, qDayM, # 90 tab(s), 1 Refill(s), Pharmacy: [facility], YANET (generalized anxiety disorder), 175.3, cm, 03/09/22 15:45:00 EST, Height, kg, 03/09/22 15:45:00 EST, Dosing Weight Start Date: 03/09/22 Status: Ordered Start: 03-26-2013 End: 03-06-2022 Viibryd 40 mg oral tablet Do se : 40 mg = 1 tab(s), Oral, qDayM, # 90 tab(s), 1 Refill(s), Pharmacy: [facility], YANET (generalized anxiety disorder), 177, cm, [...] May 20, 2018 1:08am polyethylene glycol 3350 41137 mg powder for oral solution (6 sources) Osmotic Laxative Start: 09-07-2021 take 17 g by mouth once daily as needed polyethylene glycol 3350 oral powder for reconstitution Dose : 17 gram(s) =, Oral, qDay, mix 17 gram daily in 8oz of fluid PRN, # 12 EA, 2 Refill(s), Pharmacy: [facility], 177, cm, 09/07/21 13:40:00 EDT, Height, kg, 09/07/21 13:40:00 EDT, Dosing Weight Start Date: 09/07/21 Status: Ordered Start: 12-03-2017 take 17 g by mouth o nce daily as needed polyethylene glycol 3350 oral powder for reconstitution Dose : 17 gram(s) =, Oral, qDay, mix 17 gram daily in 8oz of fluid PRN, # 12 EA, 2 Refill(s), Pharmacy: [facility], 177, cm, 03/09/21 13:44:00 EST, Height, [...] PRN, # 12 EA, 1 Refill(s), Pharmacy: [facility], 177.5, cm, 09/05/20 14:03:00 EDT, Height, [...] with sinus rhythm. IMPRESSION: 1. Normal ambulatory alarm security or surveillance monitor with a predominant underlying rhythm of normal [...] with sinus rhythm. IMPRESSION: 1. Normal ambulatory alarm security or surveillance monitor with a predominant underlying rhythm of normal [...] VM to come at 2 :30 for RN MEDICAL INPATIENT SERVICES appt, asked patient to call office if that will not work Normal [facility] 01-13-2025 36 Spoke to patient and rescheduled RN MEDICAL INPATIENT SERVICES appt Normal [facility] 3601-11-2025 36 Spoke to patient and asked him to come 1/2 early to appt patient agreed [place] 0174812-07-2024 36 Spoke to patient and asked him to come sooner for appt. Patient agreed. Normal [facility] 3610-27-2024 36 Spoke to patient and rescheduled RN MEDICAL INPATIENT SERVICES appt due to provider schedule [facility] .Auto Diff10-20-2024 Basophil, Absolute 0.0 10 3/mcL Normal 0.0-0.3 [facility] Comment on above: Performed By: #### 6 33729, 263413, 871983, 680435, 775227, 101580, 685844, 177645, 781708, 853792, 250378, 202356 #### [place] [address] [place], [place] [address] Basophils/100 WBC (Bld) 0.6 % Normal 0.0-2.5 [facility] Comment on above: Performed By: #### 6 02896, 459966, 197025, 887196, 878174, 628305, 144458, 031489, 319283, 247167, 461446, 576530 #### [facility] [place] [address] [place], [place] [address] Eosinophil, Absolute 0.5 10 3/mcL Normal 0.0-0.7 [facility] Comment on above: Performed By: #### 6 01705, 818935, 364814, 218966, 819285, 563840, 543107, 023510, 531105, 219953, 857138, 946153 #### [place] [address] [place], [place] [address] Eosinophils/100 WBC (Bld) 8.2 % High 0.0-6.0 [facility] Comment on above: Performed By: #### 6 07975, 098035, 284252, 886229, 908316, 781200, 848305, 468038, 979240, 108455, 681544, 808019 #### [address] [address] Lymphocyte, Absolute 2.6 10 3/mcL Normal 0.9-4.3 [facility] Comment on above: Performed By: #### 6 49770, 639037, 454601, 905401, 460026, 832723, 450833, 369939, 965482, 181427, 527476, 038824 #### [address] [address] Lymphocytes/100 WBC (Bld) 39.3 % Normal 20.0-40.0 [facility] Comment on above: Performed By: #### 6 44199, 918620, 194701, 139534, 567470, 926537, 372823, 262317, 421041, 675384, 518789, 191928 #### [address] [address] Monocyte, Absolute 0.7 10 3/mcL Normal 0.1-1.4 [facility] Comment on above: Performed By: #### 6 68874, 771578, 754492, 815767, 213785, 087593, 617207, 902586, 020921, 767121, 040990, 498879 #### [address] [address] Monocytes/100 WBC (Bld) 10.1 % Normal 2.0-13.0 [facility] Comment on above: Performed By: #### 6 63923, 042266, 611707, 666893, 539005, 292005, 053661, 694386, 639738, 751269, 897477, 670433 #### [address] [address] Neutrophils/100 WBC (Bld) 41.8 % Low 50.0-75.0 [facility] Comment on above: Performed By: #### 6 25407, 335881, 189766, 718569, 774166, 292625, 000018, 088173, 538226, 429229, 735162, 444605 #### [facility] [place] [address] [place], [place] [address] .GFRon 10-20-2024 Estimated Glomerular Filtration Rate 50 ml/min/1.73sqm Normal [facility] Comment on above: Result Comment: Stages of [...] the eGFR results. Performed By: #### 6 49303, 758584, 278148, 698094, 347051, 499045, 181901, 580152, 476660, 207543, 531781, 249443 #### [address] [place], [place] [address] .NEUABSon 10-20-2024 Neutrophil, Absolute 2.7 10 3/mcL Normal 2.3-8.1 [facility] Comment on above: Performed By: #### 6 59137, 091911, 444247, 147807, 282011, 588464, 076247, 000068, 467929, 496641, 570587, 780047 #### [facility] [place] [address] [place], [place] [address] A1Con 10-20-2024 Glucose [Mass/Vol] 103 mg/dL Normal [facility] Comment on above: Result Comment: Denita mated Average Glucose calculated by equation ((28.7xA1C)-46.7) Estimated average glucose (eAG) is a calculated value from Hemoglobin A1C and is sales representative education courses of the average blood glucose level in the last 2-3 month period. Normal range: less than 114 mg/dL Performed By: #### 6 08746, 520356, 009493, 723161, 516577, 059793, 032458, 332598, 014300, 782463, 001081, 249586 #### [address] [address] HbA1c (Bld) [Mass fraction] 5.2 % Normal 4.3-6.4 [facility] Comment on above: Performed By: #### 6 97262, 102238, 840121, 468580, 625131, 021773, 458375, 048187, 662739, 049247, 894897, 828125 #### [address] [address] CBCon 10-20-2024 Erythrocyte distribution width (RBC) [Ratio] 14.7 % Normal 11.5-15.5 [facility] Comment on above: Performed By: #### 6 62753, 886433, 189570, 287773, 223070, 531205, 929291, 904827, 866262, 269694, 545502, 363884 #### [address] [address] Hematocrit (Bld) [Volume fraction] 43.3 % Normal 40.0-52.0 [facility] Comment on above: Performed By: #### 6 87664, 435171, 595219, 949455, 377976, 610139, 388666, 137224, 124796, 334481, 172183, 665486 #### [address] [address] Hgb 14.7 G/dL Normal 13.0-17.5 [facility] Comment on above: Performed By: #### 6 79223, 581611, 111825, 673780, 623137, 252867, 517314, 743428, 010995, 369781, 225764, 370503 #### [address] [address] MCH (RBC) [Entitic mass] 32.0 pg Normal 27.0-33.0 [facility] Comment on above: Performed By: #### 6 35570, 056014, 363888, 166503, 307049, 265319, 777471, 166581, 934642, 598122, 852071, 040105 #### [address] [address] MCHC 34.0 G/dL Normal 32.0-36.0 [facility] Comment on above: Performed By: #### 6 23044, 639755, 357256, 341118, 301890, 817418, 983642, 160377, 026810, 129425, 348892, 367059 #### [address] [address] MCV (RBC) [Entitic vol] 94.0 fL Normal 81.0-100.0 [facility] Comment on above: Performed By: #### 6 65307, 278885, 864797, 075041, 254084, 575897, 622588, 066037, 739260, 829172, 887351, 902445 #### [address] [address] Platelet 127 10 3/mcL Low 150-450 [facility] Comment on above: Performed By: #### 6 09413, 240537, 521828, 260350, 777275, 682572, 630410, 544281, 996601, 406899, 116897, 383320 #### [address] [address] Platelet mean volume (Bld) [Entitic vol] 7.9 fL Normal 6.4-10.5 [facility] Comment on above: Performed By: #### 6 37367, 530793, 737610, 472841, 235266, 741777, 866068, 597842, 733285, 323083, 047789, 220197 #### [place] [place], [place] [address] RBC 4.61 10 6/mcL Normal 4.50-6.00 [facility] Comment on above: Performed By: #### 6 93994, 247940, 400324, 364593, 771745, 536623, 720318, 060217, 838253, 734969, 454005, 534457 #### [place] [address] [place], [place] [address] WBC 6.5 10 3/mcL Normal 4.5-10.8 [facility] Comment on above: Performed By: #### 6 29596, 860821, 216241, 184658, 612528, 156834, 272692, 470003, 710156, 087835, 233896, 033937 #### [address] [address] CMPon 10-20-2024 Albumin Level 3.9 G/dL Normal 3.5-5.0 [facility] Comment on above: Performed By: #### 6 96817, 088320, 572544, 471454, 807211, 810197, 050367, 321078, 925017, 222540, 989225, 825061 #### [address] [address] Albumin/Globulin [Mass ratio] 1.2 {ratio} Normal 1.1-2.5 [facility] Comment on above: Performed By: #### 6 58421, 254327, 823255, 844453, 416891, 956577, 027115, 720642, 689511, 772742, 803932, 811882 #### [address] [address] ALP [Catalytic activity/Vol] 71 U/L Normal 40-135 [facility] Comment on above: Performed By: #### 6 41986, 433547, 320454, 948780, 442252, 552030, 070863, 932135, 240278, 393127, 658873, 228689 #### [place] [address] [place], [place] [address] ALT [Catalytic activity/Vol] 24 U/L Normal 16-63 [facility] Comment on above: Performed By: #### 6 94629, 208199, 859488, 078310, 359081, 774996, 448570, 139666, 159092, 830691, 255287, 244060 #### [place] [place], [place] [address] AST [Catalytic activity/Vol] 20 U/L Normal 10-40 [facility] Comment on above: Performed By: #### 6 51953, 179522, 838954, 924410, 315499, 274415, 826513, 386990, 910806, 806593, 141880, 465922 #### [address] [address] Bili Total 1.1 mg/dL High 0.2-1.0 [facility] Comment on above: Result Comment: Use of this assay is not recommended for patients undergoing treatment with eltrombopag due to the potential for falsely elevated results. Performed By: #### 6 23299, 592998, 737610, 045345, 850489, 680303, 154940, 939597, 784184, 391927, 202432, 135479 #### [place] [address] [place], [place] [address] BUN/Creatinine Ratio 9 ratio Normal 7-27 [facility] Comment on above: Performed By: #### 6 83485, 862428, 470495, 857765, 330658, 122961, 780837, 528439, 626158, 418477, 818108, 596484 #### [place] [address] [place], [place] [address] Calcium [Mass/Vol] 9.0 mg/dL Normal 8.4-10.2 [facility] Comment on above: Performed By: #### 6 23707, 848833, 027178, 040203, 888984, 502944, 058708, 190985, 246049, 918105, 288627, 984525 #### [place] [place], [place] [address] Chloride [Moles/Vol] 105 mmol/L Normal 98-107 [facility] Comment on above: Performed By: #### 6 63811, 050336, 638578, 181613, 701578, 284774, 544049, 990057, 337275, 020028, 021052, 425516 #### [address] [address] CO2 [Moles/Vol] 29 mmol/L Normal 22-29 [facility] Comment on above: Performed By: #### 6 29463, 564086, 238642, 078502, 868291, 888435, 384674, 368184, 987087, 058332, 829515, 255015 #### [address] [address] Creatinine [Mass/Vol] 1.61 mg/dL High 0.67-1.17 [facility] Comment on above: Performed By: #### 6 84556, 805246, 219198, 630291, 183614, 213714, 727930, 288393, 260642, 950883, 385271, 576909 #### [place] [place], [place] [address] Electrolyte Balance 7.0 mEq/L Normal 4.0-15.0 [facility] Comment on above: Performed By: #### 6 67922, 820588, 602028, 713321, 143697, 796609, 174504, 915378, 012037, 164910, 690517, 147232 #### [place] [place], [place] [address] Globulin 3.3 G/dL Normal 2.7-4.4 [facility] Comment on above: Performed By: #### 6 73340, 446112, 940990, 825649, 731126, 646285, 969710, 723798, 239525, 471025, 789489, 846212 #### [place] [address] [place], [place] [address] Glucose [Mass/Vol] 102 mg/dL Normal 70-105 [facility] Comment on above: Performed By: #### 6 27266, 357618, 286309, 823413, 199332, 164930, 721380, 832183, 489987, 059518, 582834, 742299 #### [address] [address] Potassium [Moles/Vol] 4.2 mmol/L Normal 3.5-5.1 [facility] Comment on above: Performed By: #### 6 49258, 411487, 230898, 355820, 783795, 023320, 073670, 704525, 997294, 641480, 192274, 410988 #### [address] [address] Sodium [Moles/Vol] 141 mmol/L Normal 136-145 [facility] Comment on above: Performed By: #### 6 37578, 657822, 233228, 118291, 902856, 123725, 810620, 374915, 986277, 013943, 228962, 335706 #### [place] [address] [place], [place] [address] Total Protein 7.2 G/dL Normal 6.4-8.2 [facility] Comment on above: Performed By: #### 6 44086, 588328, 054535, 024279, 869878, 585965, 036567, 945570, 128860, 877037, 589274, 524442 #### [address] [place], [place] [address] Urea nitrogen [Mass/Vol] 14 mg/dL Normal 7-18 [facility] Comment on above: Performed By: #### 6 93650, 471356, 263639, 985602, 271508, 674590, 361805, 609435, 274292, 113704, 388338, 521956 #### [place] [place], [place] [address] LABORATORYOrdered By: SYSTEM SYSTEM on 10-20-2024 25-hydroxyvitamin [...] calculated value from Hemoglobin A1C and is sales representative education courses of the average blood glucose level in [...] 10-20-2024 Cholesterol [Mass/Vol] 154 mg/dL Normal 0-200 [facility] Comment on above: Result Comment: Chol esterol Reference Interval: Less than 200 Desirable 200-239 Borderline high risk 240 and above High risk Performed By: #### 6 80662, 843736, 425367, 184517, 319146, 491854, 707793, 497355, 198089, 446462, 413288, 316508 #### [address] [place], [place] [address] Cholesterol in HDL [Mass/Vol] 41 mg/dL Normal 40-60 [facility] Comment on above: Performed By: #### 6 17579, 649553, 926900, 177973, 260550, 584385, 271441, 990419, 309547, 253607, 010953, 729932 #### [address] [place], [place] [address] Cholesterol in LDL [Mass/Vol] 75 mg/dL Normal 0-130 [facility] Comment on above: Performed By: #### 6 61316, 461959, 329859, 371109, 714438, 048411, 635057, 925343, 184879, 298255, 965989, 618325 #### [address] [place], [place] [address] Triglyceride [Mass/Vol] 190 mg/dL High 0-150 [facility] Comment on above: Result Comment: Trig lyceride Reference Interval: Less than 150 Normal 150-199 Borderline high risk 200-499 High risk 500 or higher Very high risk Performed By: #### 6 80733, 203908, 496710, 753979, 311237, 034195, 809257, 968311, 225182, 173453, 604422, 513062 #### [address] [place], [place] [address] PTHon 10-20-2024 PTH, Intact 47.3 pg/mL Normal 18.5-88.0 [facility] Comment on above: Performed By: #### 6 50967, 946835, 752690, 999317, 092032, 433373, 421458, 777728, 031360, 856941, 510749, 402587 #### [place] [address] [place], [place] [address] VIDHon 10-20-2024 Vit. D 25-Hydroxy 57.3 ng/mL Normal [facility] Comment on above: Result Comment: Inte rpretive Values Based on Total 25(OH) Vitamin D: Deficient <20 ng/mL Insufficient 20 - <30 ng/mL Sufficient 30-100 ng/mL Performed By: #### 6 04087, 477155, 962963, 195828, 866940, 269534, 359517, 423799, 461891, 123815, 469008, 248658 #### [place] [place], [place] [address] CT SINUS W/O CONTRASTon 09-20 CT SINUS [...] 3:54:34 PM Ordering Provider: GURMEET FUNG Normal [facility] 09-18-2024 IgE Alternaria alternata M006 <0.10 Normal Class 0 [facility] Comment on above: Result Comment: Perf ormed At: [address] [id number] Meng Worrell MD Ph:[phone] Performed By: #### 6 63446, 742234, 362147, 645156, 698268, 269996, 493979, 605969, 011524, 689091, 341786, 768861 #### [facility] [place] [address] [place], [place] [address] [facility] 09-18-2024 IgE B[place] Grass G002 <0.10 Normal Class 0 [facility] Comment on above: Result Comment: Perf ormed At: [address] [id number] Meng Worrell MD Ph:[phone] Performed By: #### 6 47886, 680449, 892469, 441797, 829674, 855921, 259788, 456583, 709050, 662684, 224316, 081250 #### Suman [address] [address] [facility] IgE Cat Dander E001 <0.10 Normal Class 0 [facility] Comment on above: Result Comment: Levels of Specific IgE Class Description of Class ----- < 0.10 0 Negative 0.10 - 0.31 0/I Equivocal/Low 0.32 - 0.55 I Low 0.56 - 1.40 II Moderate 1.41 - 3.90 III High 3.91 - 19.00 IV Very High 19.01 - 100.00 V Very High >100.00 Very High Performed At: [address] [id number] Meng Worrell MD Ph:[phone] Performed By: #### 6 59688, 390418, 323605, 466247, 267583, 323687, 583512, 362006, 066771, 685851, 312485, 266897 #### Suman [address] [address] DFARMontserrat 09-18-2024 IgE D farinae D002 <0.10 Normal Class 0 [facility] Comment on above: Result Comment: Perf ormed At: [address] [id number] Meng Worrell MD Ph:[phone] Performed By: #### 6 81514, 797159, 078141, 188863, 054742, 663398, 084191, 161694, 112841, 203011, 624951, 127278 #### Suman [address] [address] DPTERNon 09-18-2024 IgE D pteronyssinus D001 <0.10 Normal Class 0 [facility] Comment on above: Result Comment: Perf ormed At: [address] [id number] Meng Worrell MD Ph:[phone] Performed By: #### 6 70866, 691554, 436020, 742583, 601028, 915024, 949952, 297632, 506017, 762504, 501589, 368854 #### [address] [address] [facility] IgE Elm Dj[place] T008 <0.10 Normal Class 0 [facility] Comment on above: Result Comment: Perf ormed At: [address] [id number] Meng Worrell MD Ph:[phone] Performed By: #### 6 70685, 922998, 141447, 448682, 896658, 165478, 698035, 465527, 193780, 875722, 485769, 664397 #### [id number] [place] [address] 09-18-2024 IgE Plantain Wallisian W009 <0.10 Normal Class 0 [facility] Comment on above: Result Comment: Perf ormed At: [address] [id number] Meng Worrell MD Ph:[phone] Performed By: #### 6 14376, 613160, 470649, 818332, 423020, 195290, 445425, 021672, 039172, 148236, 468877, 676723 #### [address] [address] [facility] 09-18-2024 IgE [facility] G008 <0.10 Normal Class 0 [facility] Comment on above: Result Comment: Perf ormed At: [address] [id number] Meng Worrell MD Ph:[phone] Performed By: #### 6 37276, 451660, 730768, 995936, 636939, 865717, 566932, 882675, 613211, 548906, 643871, 861914 #### [place] [address] [address] [id number] 09-18-2024 IgE Dog Dander E005 <0.10 Normal Class 0 [facility] Comment on above: Result Comment: Perf ormed At: [address] [id number] Meng Worrell MD Ph:[phone] Performed By: #### 6 26805, 265866, 750603, 337942, 458246, 984455, 910543, 902744, 559778, 247858, 178783, 334554 #### [address] [address] [facility] 09-18-2024 IgE Mouse Urine E072 <0.10 Normal Class 0 [facility] Comment on above: Result Comment: Perf ormed At: [address] [id number] Meng Worrell MD Ph:[phone] Performed By: #### 6 60345, 301909, 660511, 053387, 833663, 804299, 446747, 634077, 127378, 482335, 270341, 348343 #### [place] [address] [address] [facility] 09-18-2024 IgE Davey White T007 <0.10 Normal Class 0 [facility] Comment on above: Result Comment: Perf ormed At: [address] [id number] Meng Worrell MD Ph:[phone] Performed By: #### 6 32778, 565093, 253444, 379124, 491733, 310047, 269665, 493878, 847166, 811552, 986589, 756196 #### [facility] [place] [address] [place], [place] [address] SRAGWDon 09-18-2024 IgE Ragweed Short W001 <0.10 Normal Class 0 [facility] Comment on above: Result Comment: Perf ormed At: [facility] [address] [id number] Meng Worrell MD Ph:[phone] Performed By: #### 6 74040, 625055, 908704, 079671, 337751, 207744, 593275, 109601, 502740, 133571, 726372, 405336 #### [facility] [place] [address] [place], [place] [address] XR CHEST 2 VIEWSon XR CHEST 2 [...] 12:18:08 AM Ordering Provider: GURMEET FUNG Normal [facility] .Auto Diffon 09-15-2024 Basophil, Absolute 0.0 10 3/mcL Normal 0.0-0.3 [facility] Comment on above: Performed By: #### 6 59364, 516698, 788987, 731269, 243964, 702309, 500252, 077622, 949474, 946695, 079496, 708098 #### [address] [address] Basophils/100 WBC (Bld) 0.4 % Normal 0.0-2.5 [facility] Comment on above: Performed By: #### 6 05591, 941500, 426837, 985671, 136525, 609066, 942869, 966233, 600249, 314264, 356364, 414548 #### [address] [address] Eosinophil, Absolute 0.2 10 3/mcL Normal 0.0-0.7 [facility] Comment on above: Performed By: #### 6 13118, 475698, 389935, 593812, 528307, 205683, 367107, 788760, 197150, 948978, 029915, 898946 #### [address] [address] Eosinophils/100 WBC (Bld) 2.3 % Normal 0.0-6.0 [facility] Comment on above: Performed By: #### 6 77807, 149844, 945046, 009056, 487283, 616111, 069306, 924795, 509652, 971008, 085717, 470265 #### [address] [address] Lymphocyte, Absolute 2.4 10 3/mcL Normal 0.9-4.3 [facility] Comment on above: Performed By: #### 6 65932, 032141, 581213, 275346, 719623, 960008, 764498, 573402, 864679, 895793, 396536, 491303 #### [address] [address] Lymphocytes/100 WBC (Bld) 25.2 % Normal 20.0-40.0 [facility] Comment on above: Performed By: #### 6 39470, 989293, 595912, 192090, 711408, 359732, 702620, 238620, 944234, 525768, 564824, 452354 #### [address] [place], [place] [address] Monocyte, Absolute 1.3 10 3/mcL Normal 0.1-1.4 [facility] Comment on above: Performed By: #### 6 91321, 799725, 916449, 990360, 800664, 821676, 782112, 183160, 531401, 277018, 316849, 332573 #### [address] [place], [place] [address] Monocytes/100 WBC (Bld) 13.4 % High 2.0-13.0 [facility] Comment on above: Performed By: #### 6 23876, 548808, 724242, 698913, 727873, 921056, 397824, 303356, 600824, 672417, 302611, 101559 #### [address] [place], [place] [address] Neutrophils/100 WBC (Bld) 58.7 % Normal 50.0-75.0 [facility] Comment on above: Performed By: #### 6 94240, 842135, 176061, 736958, 566259, 525003, 391840, 154762, 782234, 786165, 115711, 996761 #### [address] [place], [place] [address] .GFRon 09-15-2024 Estimated Glomerular Filtration Rate 49 ml/min/1.73sqm Normal [facility] Comment on above: Result Comment: Stages of [...] the eGFR results. Performed By: #### 6 58558, 555959, 237198, 176957, 660888, 447367, 098919, 734452, 630028, 205751, 271942, 047670 #### [address] [address] .NEUABSon 09-15-2024 Neutrophil, Absolute 5.6 10 3/mcL Normal 2.3-8.1 [facility] Comment on above: Performed By: #### 6 67496, 579507, 844347, 075536, 443249, 733265, 223098, 175648, 875018, 299037, 963561, 774805 #### [address] [address] CBCon 09-15-2024 Erythrocyte distribution width (RBC) [Ratio] 14.3 % Normal 11.5-15.5 [facility] Comment on above: Performed By: #### 6 15149, 698502, 414929, 582054, 390155, 719099, 256535, 074034, 891265, 760544, 417196, 910174 #### [address] [address] Hematocrit (Bld) [Volume fraction] 43.6 % Normal 40.0-52.0 [facility] Comment on above: Performed By: #### 6 04550, 117994, 148388, 494165, 805146, 782587, 965634, 146408, 869667, 600376, 768463, 365128 #### [address] [address] Hgb 14.8 G/dL Normal 13.0-17.5 [facility] Comment on above: Performed By: #### 6 06290, 255836, 945015, 958021, 263425, 446705, 365509, 690682, 441119, 188872, 153316, 345486 #### [address] [address] MCH (RBC) [Entitic mass] 32.4 pg Normal 27.0-33.0 [facility] Comment on above: Performed By: #### 6 66665, 019075, 097753, 385794, 352202, 589738, 573525, 726312, 981530, 037079, 907095, 642380 #### [address] [address] MCHC 34.1 G/dL Normal 32.0-36.0 [facility] Comment on above: Performed By: #### 6 05167, 590754, 960723, 898658, 817076, 742455, 242690, 499492, 337427, 849276, 562042, 558432 #### [address] [address] MCV (RBC) [Entitic vol] 95.0 fL Normal 81.0-100.0 [facility] Comment on above: Performed By: #### 6 35678, 225889, 844774, 801502, 743734, 535377, 567319, 862984, 075203, 733879, 754547, 062251 #### [address] [address] Platelet 126 10 3/mcL Low 150-450 [facility] Comment on above: Performed By: #### 6 69024, 256284, 992966, 743238, 267207, 507486, 345653, 252974, 912482, 159531, 808986, 145470 #### [address] [address] Platelet mean volume (Bld) [Entitic vol] 8.2 fL Normal 6.4-10.5 [facility] Comment on above: Performed By: #### 6 92930, 682057, 696566, 063336, 159320, 675555, 607211, 716636, 090000, 554240, 535970, 720543 #### [address] [place], [place] [address] RBC 4.59 10 6/mcL Normal 4.50-6.00 [facility] Comment on above: Performed By: #### 6 38151, 290317, 556717, 791343, 483941, 542929, 071917, 245746, 812305, 883046, 922154, 872723 #### [address] [address] WBC 9.5 10 3/mcL Normal 4.5-10.8 [facility] Comment on above: Performed By: #### 6 43196, 767881, 325290, 840880, 711591, 688483, 459128, 717550, 875637, 096780, 033724, 307465 #### [address] [address] CMPon 09-15-2024 Albumin Level 4.0 G/dL Normal 3.5-5.0 [facility] Comment on above: Performed By: #### 6 58319, 303056, 009005, 528843, 912995, 306285, 016286, 062783, 985181, 801936, 305419, 972931 #### [address] [address] Albumin/Globulin [Mass ratio] 1.1 {ratio} Normal 1.1-2.5 [facility] Comment on above: Performed By: #### 6 31301, 997038, 706953, 075234, 030696, 758757, 159348, 479260, 062269, 366892, 520862, 413944 #### [address] [place], [place] [address] ALP [Catalytic activity/Vol] 76 U/L Normal 40-135 [facility] Comment on above: Performed By: #### 6 65074, 980236, 833407, 439784, 364794, 763236, 844333, 799216, 203770, 437987, 839067, 337093 #### [address] [place], [place] [address] ALT [Catalytic activity/Vol] 17 U/L Normal 16-63 [facility] Comment on above: Performed By: #### 6 12606, 551990, 192623, 525290, 222947, 106742, 269387, 753842, 026140, 884707, 056656, 784286 #### [address] [address] AST [Catalytic activity/Vol] 19 U/L Normal 10-40 [facility] Comment on above: Performed By: #### 6 60247, 973206, 471510, 450833, 364208, 562600, 967931, 470254, 999612, 033414, 496892, 953727 #### [address] [address] Bili Total 1.0 mg/dL Normal 0.2-1.0 [facility] Comment on above: Result Comment: Use of this assay is not recommended for patients undergoing treatment with eltrombopag due to the potential for falsely elevated results. Performed By: #### 6 51582, 146669, 053146, 444459, 643885, 026783, 557054, 054817, 579327, 172185, 758088, 399099 #### [address] [address] BUN/Creatinine Ratio 8 ratio Normal 7-27 [facility] Comment on above: Performed By: #### 6 42553, 573987, 605519, 869306, 044084, 162074, 973058, 329445, 665697, 424643, 298858, 774907 #### [address] [address] Calcium [Mass/Vol] 9.3 mg/dL Normal 8.4-10.2 [facility] Comment on above: Performed By: #### 6 52472, 404317, 361513, 258891, 443617, 455374, 671957, 454248, 084697, 231981, 798946, 657812 #### [address] [address] Chloride [Moles/Vol] 103 mmol/L Normal 98-107 [facility] Comment on above: Performed By: #### 6 24869, 805376, 173919, 818713, 191393, 631574, 368786, 908270, 904183, 195461, 577554, 714288 #### [address] [address] CO2 [Moles/Vol] 28 mmol/L Normal 22-29 [facility] Comment on above: Performed By: #### 6 63812, 583451, 517090, 366500, 265627, 480908, 030307, 517717, 784636, 730687, 387402, 990971 #### [address] [address] Creatinine [Mass/Vol] 1.64 mg/dL High 0.67-1.17 [facility] Comment on above: Performed By: #### 6 19260, 091068, 085750, 898536, 097829, 156471, 141146, 730751, 263468, 370956, 038065, 810329 #### [address] [address] Electrolyte Balance 11.0 mEq/L Normal 4.0-15.0 [facility] Comment on above: Performed By: #### 6 21836, 363766, 165961, 418321, 804011, 717296, 115067, 525124, 890966, 091816, 765361, 214749 #### Suman Rogers [address] [place], [place] [address] Globulin 3.5 G/dL Normal 2.7-4.4 [facility] Comment on above: Performed By: #### 6 88409, 782816, 185790, 366078, 318519, 994119, 200326, 096508, 273521, 049670, 909386, 068464 #### [address] [place], [place] [address] Glucose [Mass/Vol] 94 mg/dL Normal 70-105 [facility] Comment on above: Performed By: #### 6 83835, 799369, 911653, 875858, 807261, 091023, 904468, 503343, 137367, 733654, 246465, 995520 #### [address] [address] Potassium [Moles/Vol] 3.5 mmol/L Normal 3.5-5.1 [facility] Comment on above: Performed By: #### 6 70916, 159706, 184876, 319385, 465281, 351448, 236378, 286759, 034596, 097113, 339905, 475482 #### [address] [address] Sodium [Moles/Vol] 142 mmol/L Normal 136-145 [facility] Comment on above: Performed By: #### 6 83015, 972310, 198812, 003527, 319297, 595410, 228606, 453355, 400544, 894699, 739311, 560288 #### [address] [address] Total Protein 7.5 G/dL Normal 6.4-8.2 [facility] Comment on above: Performed By: #### 6 52456, 950420, 140764, 310270, 722468, 751493, 329614, 675829, 592717, 446450, 417364, 636300 #### [address] [place], [place] [address] Urea nitrogen [Mass/Vol] 13 mg/dL Normal 7-18 [facility] Comment on above: Performed By: #### 6 88325, 109945, 013668, 700457, 122900, 421862, 485072, 126277, 621914, 848572, 999374, 279619 #### [address] [place], [place] [address] CRPon 09-15-2024 C-Reactive Protein 7.4 mg/dL High 0.0-0.3 [facility] Comment on above: Performed By: #### 6 68644, 083812, 130640, 718591, 801573, 667872, 660394, 294460, 459150, 540359, 044638, 002629 #### [place] [address] LABORATORYOrdered By: SYSTEM SYSTEM on 09-15-2024 Albumin [...] rescheduled appt due to being ill. Normal [facility] 12 Lead EKG performed by MABLE on 06-02-2024 12 Lead EKG performed by [facility] [address] [place] [address] 12 Lead EKG performed [place] [facility] [place]/02[place] MR#: [id number] Acct: [id number] Name: AR SELLERS Rep #: [id number] : 1965 58 From: Danny Wills MD Attending Dr: Dr. Danny Wills MD Status: DEP AMB Ordering Dr: Danny Wills MD Date: 06/02/24 Location: [facility] Sex: M C Admitted: [facility] [place]12 Lead EKG performed [place] [facility] [place] ECG Report Interpretation ---Sinus Rhythm WITHIN NORMAL LIMITSElectronically signed on 09/16/2024 at 12:[address] Danny Wills [employer] Version 8610 09/16/24 1252 Date Danny Wills MD CC: RN MEDICAL INPATIENT SERVICES-C Gurmeet Quispepkins Date Dictated: 06/02/24951 Date Transcribed: 06/02/24951 Supervisor Hard Candy: JAY Signed Normal [facility] 36on 06-02-2024 36 Called patient made apt Normal [facility] Basic Metabolic Profile (BMP )on 06-02-2024 BUN/CRE 6.4 RATIO Low 10-20 [facility] Comment on above: Performed By: #### L 500.2500 ####[facility] [address] [place], [address] CA,Total 9.5 mg/dL Normal 8.5-10.1 [facility] Comment on above: Performed By: #### L 500.2500 ####[facility] [address] [place], [address] Chloride [Moles/Vol] 108 mmol/L High 98-107 [facility] Comment on above: Performed By: #### L 500.2500 ####[facility] [address] [place], [address] CO2 [Moles/Vol] 27.0 mmol/L Normal 21.0-32.0 [facility] Comment on above: Performed By: #### L 500.2500 ####[facility] [address] [place], [address] Creatinine [Mass/Vol] 1.40 mg/dL High 0.70-1.30 [facility] Comment on above: Result Comment: The validity of the calculated GFR GFRAA in patients over 70 years has not been determined. Clinical correlation is essential. Performed By: #### L 500.2500 ####[facility] [address] [place], [address] EST GFR - AA 67 mL/min Normal >60 [facility] Comment on above: Result Comment: Afri can Djib[place]ian GFR Calc Performed By: #### L 500.2500 ####[facility] [address] [place], [address] GAP 5 Normal 5-15 [facility] Comment on above: Performed By: #### L 500.2500 ####[facility] [address] [place], [address] GFR/1.73 sq M.predicted among non-blacks MDRD (S/P/Bld) [Vol rate/Area] 56 mL/min/{1.73_m2} Low >60 [facility] Comment on above: Result Comment: Non- GFR Calc Performed By: #### L 500.2500 ####[facility] [address] [place], [address] Glucose [Mass/Vol] 88 mg/dL Normal 74-106 [facility] Comment on above: Performed By: #### L 500.2500 ####[facility] [address] [place], [address] Potassium [Moles/Vol] 4.1 mmol/L Normal 3.5-5.1 [facility] Comment on above: Performed By: #### L 500.2500 ####[facility] [address] [place], [place], [address] Sodium [Moles/Vol] 139 mmol/L Normal 136-145 [facility] Comment on above: Performed By: #### L 500.2500 ####[facility] [address] [place], [place], [address] Urea nitrogen [Mass/Vol] 9 mg/dL Normal 7-18 [facility] Comment on above: Performed By: #### L 500.2500 ####[facility] [address] [place], [place], [address] Cardiology Visit Reporton Cardiology Visit Report [facility] [place] [facility] [address] [place], [place] [address] OFFICE VISIT Date of Service: 06/02/24 MR#: [id number] Acct: [id number] Name: AR SELLERS Rep #: [id number] : 1965 Provider: Dr. Danny Wills MD Age/Sex: 58/M [place] [facility] [place] Status: Signed HPI HPI History of Present [...] Pulse Source NIBP Intake Visit Reasons: S/P [facility] 04/03 Roll Up Guider Operator Required: No Accompanied by: Self Is patient [...] you fallen in the past year?: No [facility] Medical History (Updated 06/02/24 @ 10:33 by [...] (w/palps); Nega (more content not included)... Normal [facility] US THYROIDon 05-01-2024 US THYROID ORIGINAL [...] 05/01/2024 11:13:03 AM Ordering Provider: GURMEET FUNG [facility] CT VENOGRAM ABDOMEN AND PELV Ronny 04-29-2024 CT VENOGRAM ABDOMEN AND PELVIS ORIGINAL EXAMINATION: CT VENOGRAM OF THE ABDOMEN AND BYHVNU3304/21/2024 2:47 pm TECHNIQUE: Multiplanar and 3D reconstructed [...] External iliac artery; IIA: Internal iliac artery; MENTAL HEALTH TECHNICIAN: Common femoral artery; RT: Right; LT: Left [...] 04/29/2024 12:01:28 AM Ordering Provider: GURMEET Swann [facility] CCPon 04-13-2024 Cyclic Citrullinated Peptide <20.0 Normal <=19.9 [facility] Comment on above: Result Comment: Cycl ic [...] These test results were obtained with the [employer] Quanta Lite CCP3 IgG CELSA. Anti-CCP values obtained with different manufacturers' assay methods may not be used interchangeably. Performed By: #### 6 03265, 673254, 847413, 156359, 265530, 783262, 272189, 386273, 456075, 707243, 386441, 928034 #### [address] [place], [place] [address] DNA 04-13-2024 ds DNA Ab Neg 10 Normal Neg 10 [facility] Comment on above: Result Comment: DNA Screen and Titer methodology is an immunofluorescent technique utilizing Crithidia luciliae Substrate. Performed By: #### 6 98003, 861021, 880337, 729538, 246329, 704055, 520828, 853398, 605791, 029480, 414553, 736198 #### [facility] [place] [address] [place], [place] [address] RFon 04-13-2024 Rheumatoid Factor 145.1 High <=5.9 [facility] Comment on above: Result Comment: RF I [...] tests. These results were obtained with the [employer] QUANTA Lite RF IgM CELSA. RF IgM values obtained with different manufacturers' assay methods may not be used interchangeably. The magnitude of the reported IgM levels cannot be correlated to an endpoint titer. Performed By: #### 6 10513, 355695, 436169, 584657, 423657, 817544, 392693, 318117, 500726, 788008, 380050, 420254 #### [address] [address] RIBABon 04-13-2024 Ribosomal Ab <20.0 Normal <=19.9 [facility] Comment on above: Result Comment: Ribo some [...] These test results were obtained with the [employer]ite Ribosome P CELSA. Ribosome P values obtained with different manufacturers' assay methods may not be used interchangeably. Performed By: #### 6 41971, 642572, 419241, 045688, 714562, 727375, 996199, 385517, 801379, 751650, 387290, 480854 #### [address] [address] SSABon 04-13-2024 Sjogrens SSA Ab <0.2 Normal 0.0-0.9 [facility] Comment on above: Performed By: #### 6 66325, 201856, 619804, 422155, 657592, 075053, 539232, 381151, 139451, 690994, 485630, 752304 #### [place] [address] Sjogrens SSB Ab <0.2 Normal 0.0-0.9 [facility] Comment on above: Result Comment: Perf ormed At: [address] [id number] Rufus Ray PhD Ph:[phone] Performed By: #### 6 10814, 718803, 761267, 225649, 221822, 111719, 257198, 669796, 892714, 385485, 932987, 795008 #### [address] [address] ANAIFSon 04-10-2024 Antinuclear Ab Screen Negative Normal Negative [facility] Comment on above: Result Comment: Anti -nuclear antibody test is used as an aid in diagnosis of systemic autoimmune diseases. Where positive and clinically warranted, follow-up using disease-specific testing is recommended. Low positive titers are not uncommon with advanced age, certain chronic infections, and malignancies among others. Test methodology: Indirect fluorescence immunoassay (IFA) using HEp-2 cells. Performed By: [facility] [employer] [address] [employer]on Gluing Machine Operator: Alden Barger III, M.D. CLIA#: [id number] Performed By: #### 6 99869, 796355, 090595, 707304, 709948, 326191, 157481, 873763, 024124, 980930, 011008, 788952 #### [address] [address] ENA1on 04-10-2024 Centromere <0.2 Normal <1.0 [facility] Comment on above: Result Comment: Anti -centromere antibody is used as in aid in diagnosis of systemic sclerosis. Clinical correlation is required. Test Methodology: Multiplex flow immunoassay. Performed By: [facility] [address] [employer] Gluing Machine Operator: Alden Barger III, M.D. CLIA#: [id number] Performed By: #### 6 89540, 372501, 770690, 131704, 196368, 912030, 586674, 103084, 944088, 285183, 693044, 281238 #### [address] [address] Centromere Ab Qualitative Negative Normal Negative [facility] Comment on above: Result Comment: Perf ormed By: [facility] [address] [employer] Gluing Machine Operator: Alden Barger III, M.D. CLIA#: [id number] Performed By: #### 6 66082, 925616, 989370, 149993, 836261, 251750, 099966, 950990, 942870, 830051, 888259, 290358 #### [address] [address] Chromatin Ab Qualitative Negative Normal Negative [facility] Comment on above: Result Comment: Perf ormed By: [place] [address] [employer] Gluing Machine Operator: Alden Barger III, M.D. CLIA#: [id number] Performed By: #### 6 77818, 278316, 881976, 040801, 155999, 798681, 347204, 203702, 151823, 935890, 005847, 036777 #### [place] [address] Chromatin Antibody <0.2 Normal <1.0 [facility] Comment on above: Result Comment: Test Methodology: Multiplex flow immunoassay. Anti-chromatin antibody is used as an aid in diagnosis of systemic lupus erythematosus. Clinical correlation is required. Test Methodology: Multiplex flow immunoassay. Performed By: [place] [address] [employer] Gluing Machine Operator: Alden Barger III, M.D. CLIA#: [id number] Performed By: #### 6 49190, 420537, 954426, 560882, 316463, 457402, 527969, 899411, 001803, 694367, 173786, 779349 #### [address] [address] KIA 1 Antibody <0.2 Normal <1.0 [facility] Comment on above: Result Comment: Perf ormed By: [place] [address] [employer] Gluing Machine Operator: Alden Barger III, M.D. CLIA#: [id number] Performed By: #### 6 45477, 425118, 421384, 580172, 073293, 435110, 049109, 437147, 195428, 260058, 938646, 172163 #### [address] [address] KIA 1 Antibody Qual Negative Normal Negative [facility] Comment on above: Result Comment: Anti -KIA-1 antibody is used as an aid in diagnosis of polymyositis and dermatomyositis especially with pulmonary involvement. A negative result cannot rule out polymyositis or dermatomyositis. Clinical correlation is required. Test Methodology: Multiplex flow immunoassay. Performed By: [facility] [employer] [address] [place] [address] Carton Gluing Machine Operator: Alden Barger III, M.D. CLIA#: [id number] Performed By: #### 6 99543, 639381, 206020, 591345, 423257, 333766, 165276, 654745, 826020, 241816, 504644, 365840 #### [address] [address] Ribosomal DRY CHAIN WORKER <0.2 Normal <1.0 [facility] Comment on above: Result Comment: Perf ormed By: [facility] [employer] [address] [place] [address] [employer] Operator: Alden Barger III, M.D. CLIA#: [id number] Performed By: #### 6 42366, 234383, 088961, 427253, 096662, 424624, 806372, 296728, 900428, 360278, 613285, 857641 #### [address] [address] Ribosomal DRY CHAIN WORKER Qualitative Negative Normal Negative [facility] Comment on above: Result Comment: Anti -Ribosomal RNA (Ribosomal P) antibody is used as an aid in diagnosis of systemic autoimmune diseases especially systemic lupus erythematosus and mixed connective tissue disease. Cross-reactivity with Anti-gould antibody is not uncommon. Clinical correlation is required. Test Methodology: Multiplex flow immunoassay. Performed By: [facility] [employer] [address] [place] [address] [employer] Gl[employer] Machine Operator: Alden Barger III, M.D. CLIA#: [id number] Performed By: #### 6 00911, 813788, 452620, 036323, 941968, 148636, 977968, 638336, 603717, 541196, 753793, 661889 #### [address] [place], [place] [address] DRY CHAIN WORKER Antibody 0.3 AI Normal <1.0 [facility] Comment on above: Result Comment: Anti -DRY CHAIN WORKER antibody is used as an aid in diagnosis of systemic autoimmune diseases especially systemic lupus erythematosus and mixed connective tissue disease. Cross-reactivity with Anti-gould antibody is not uncommon. Clinical correlation is required. Test Methodology: Multiplex flow immunoassay. Performed By: [place] [address] [employer] Operator: Alden Barger III, M.D. CLIA#: [id number] Performed By: #### 6 85007, 874390, 169423, 273084, 567628, 560113, 815653, 689230, 879305, 156247, 203921, 651658 #### [address] [address] DRY CHAIN WORKER Antibody Qualitative Negative Normal Negative [facility] Comment on above: Result Comment: Perf ormed By: [place] [address] [employer] Operator: Alden Barger III, M.D. CLIA#: [id number] Performed By: #### 6 66172, 491557, 880464, 239869, 298234, 601915, 520356, 675070, 095828, 131117, 415615, 766055 #### [address] [place], [place] [address] Scleroderma Ab, IgG Qualitative Negative Normal Negative [facility] Comment on above: Result Comment: Perf ormed By: [place] [address] [employer] Gl[employer] Machine Operator: Alden Barger III, M.D. CLIA#: [id number] Performed By: #### 6 54372, 362633, 775779, 663067, 094316, 279124, 191709, 600732, 250296, 116458, 894622, 582135 #### [address] [address] Scleroderma IgG Ab <0.2 Normal <1.0 [facility] Comment on above: Result Comment: Scl- 70/Scleroderma antibody test is used as an aid in diagnosis of systemic sclerosis especially the diffuse cutaneous form. A negative result cannot rule out systemic sclerosis. The final interpretation should consider clinical picture and other test results such as anti-centromere antibody. Test Methodology: Multiplex flow immunoassay. Performed By: [facility] [employer] [facility] [address] [employer]on Gluing Machine Operator: Alden Barger III, M.D. CLIA#: [id number] Performed By: #### 6 49393, 868257, 110880, 121965, 074146, 659148, 845819, 370161, 983488, 350645, 559549, 558800 #### [address] [address] Sm Antibody <0.2 Normal <1.0 [facility] Comment on above: Result Comment: Perf ormed By: [facility] [employer] [address] [place] [address] [employer] Gl[employer] Machine Operator: Alden Barger III, M.D. CLIA#: [id number] Performed By: #### 6 73411, 066314, 547571, 697856, 984523, 252531, 756521, 540350, 031300, 263376, 217214, 414701 #### [address] [address] Sm Antibody Qual Negative Normal Negative [facility] Comment on above: Result Comment: Anti -Sm (Gould) antibody is used as an aid in diagnosis of systemic lupus erythematosus and its presence is associated with renal disease. A negative result cannot rule out systemic lupus erythematosus. Clinical correlation is required. Test Methodology: Multiplex flow immunoassay. Performed By: [place] [address] [employer] Gl[employer] Machine Operator: Alden Barger III, M.D. CLIA#: [id number] Performed By: #### 6 05307, 761084, 898948, 099080, 478334, 448338, 325392, 545167, 966088, 760608, 805396, 715818 #### [address] [address] SS-A Antibody <0.2 Normal <1.0 [facility] Comment on above: Result Comment: Test Methodology: Multiplex flow immunoassay. Anti-SSA (anti-Ro) antibody is used as an aid in diagnosis of a variety of systemic autoimmune diseases, Sjogren's syndrome among others. Clinical correlation is required. Test Methodology: Multiplex flow immunoassay. Performed By: [place] [address] [employer] Gluing Machine Operator: Alden Barger III, M.D. CLIA#: [id number] Performed By: #### 6 72394, 316583, 554440, 044051, 655629, 088726, 214307, 024712, 530933, 405540, 875107, 795795 #### [address] [address] SS-B Antibody <0.2 Normal <1.0 [facility] Comment on above: Result Comment: Anti -SSB (anti-La) antibody is used as an aid in diagnosis of a variety of systemic autoimmune diseases, especially for Sjogren's syndrome and systemic lupus erythematosus. Clinical correlation is required. Test Methodology: Multiplex flow immunoassay. Performed By: [place] [address] [employer] Gl[employer] Machine Operator: Alden Barger III, M.D. CLIA#: [id number] Performed By: #### 6 60177, 949373, 731637, 005946, 750294, 229776, 594352, 025347, 312060, 977620, 600000, 373522 #### [address] [address] SSA Antibody Qualitative Negative Normal Negative [facility] Comment on above: Result Comment: Perf ormed By: [address] [place] [address] [employer] Gluing Machine Operator: Alden Barger III, M.D. CLIA#: [id number] Performed By: #### 6 60852, 828357, 896403, 377856, 876600, 671142, 472509, 060643, 044089, 139947, 839850, 630113 #### [address] [address] SSB Antibody Qualitative Negative Normal Negative [facility] Comment on above: Result Comment: Perf ormed By: [facility] [address] [place] [address] [employer]on Gluing Machine Operator: Alden Barger III, M.D. CLIA#: [id number] Performed By: #### 6 88860, 994469, 785974, 719459, 732111, 007953, 340567, 638694, 177075, 677534, 530167, 589153 #### [address] [address] MITOon 04-10-2024 Mitochondrial Ab Neg 20 Normal Neg 20 [facility] Comment on above: Result Comment: Manish chondrial Ab Screen and Titer methodology is an immunofluorescent technique utilizing MSK Substrate. Performed By: #### 6 23032, 811240, 502834, 309109, 038481, 182297, 642837, 010211, 009473, 680329, 764505, 111753 #### [address] [address] PARIEon 04-10-2024 Parietal Cell Ab Neg 20 Normal Neg 20 [facility] Comment on above: Result Comment: Margaret etal Cell Ab Screen and Titer methodology is an immunofluorescent technique utilizing MSK Substrate. Performed By: #### 6 37474, 577908, 372714, 240817, 961447, 765188, 542310, 959072, 985009, 999038, 508539, 746493 #### [address] [place], [place] [address] SMUSCon 04-10-2024 Smooth Muscle Ab Neg 20 Normal Neg 20 [facility] Comment on above: Result Comment: Smoo th Muscle Ab Screen and Titer methodology is an immunofluorescent technique utilizing MSK Substrate. Performed By: #### 6 06750, 315933, 289512, 012181, 164857, 297562, 520785, 392938, 528980, 420290, 753140, 472424 #### [address] [address] SPEon 04-10-2024 SPE Interpretation Normal serum protein electrophoresis pattern. No abnormality detected. Normal [facility] Comment on above: Result Comment: Elec tronically Signed by: GURMEET TOSCANO MD 04/10/2024 15:57 EST Performed By: #### 6 46501, 410662, 474313, 630548, 424473, 127922, 774708, 443881, 987685, 084509, 786078, 470897 #### [address] [place], [place] [address] Albumin 4.2 G/dL Normal 3.3-5.0 [facility] Comment on above: Performed By: #### 6 76523, 526665, 035099, 731085, 096076, 457675, 627480, 624489, 196221, 233635, 975913, 883749 #### [address] [place], [place] [address] Alpha 1 0.2 G/dL Normal 0.1-0.4 [facility] Comment on above: Performed By: #### 6 32942, 782225, 391272, 595332, 465340, 689353, 058524, 073527, 886315, 977581, 747616, 682023 #### [address] [place], [place] [address] Alpha 2 0.8 G/dL Normal 0.6-1.2 [facility] Comment on above: Performed By: #### 6 59923, 879881, 669939, 137484, 507954, 386176, 523503, 207361, 576483, 130702, 941019, 108254 #### [address] [place], [place] [address] Beta 1.2 G/dL Normal 0.6-1.3 [facility] Comment on above: Performed By: #### 6 39099, 131919, 576037, 549165, 144966, 068906, 747903, 913611, 723381, 521885, 973334, 364198 #### [address] [place], [place] [address] Gamma 0.9 G/dL Normal 0.7-1.6 [facility] Comment on above: Performed By: #### 6 85589, 497286, 033219, 419007, 195058, 907128, 265231, 796950, 707249, 973861, 108870, 940302 #### [address] [address] ASOon 04-09-2024 ASO 79.1 IU/mL Normal 25.0-250.0 [facility] Comment on above: Result Comment: No te - New Reference Range in effect 19 Performed By: #### 6 95507, 891327, 736423, 062542, 201233, 496514, 874997, 792402, 147431, 764456, 207604, 525518 #### [address] [address] A2P7Dmd 04-09-2024 Complement C3A 181.0 mg/dL High 90.0-170.0 [facility] Comment on above: Result Comment: No te - New Reference Range in effect 19 Performed By: #### 6 16948, 588846, 302070, 607654, 215603, 290188, 388658, 589965, 756894, 377961, 586796, 064021 #### [address] [place], [place] [address] Complement C4A 34.0 mg/dL Normal 16.0-38.0 [facility] Comment on above: Performed By: #### 6 80644, 316073, 587889, 214345, 846908, 257781, 057961, 497553, 343717, 012282, 209105, 395199 #### [address] [place], [place] [address] CRPon 04-09-2024 C-Reactive Protein 0.4 mg/dL High 0.0-0.3 [facility] Comment on above: Performed By: #### 6 93051, 799173, 502055, 441841, 144239, 009289, 202913, 003719, 667198, 070917, 578317, 395550 #### [address] [address] ESRon 04-09-2024 Erythrocyte Sed Rate 4 mm/hr Normal 0-20 [facility] Comment on above: Performed By: #### 6 76357, 153559, 610778, 041383, 879194, 304108, 817803, 319049, 473940, 756377, 410336, 797332 #### [address] LABORATORYOrdered By: MERCEDES_Arvind SEA CONTRIBUTOR_SYSTEM on 04-09-2024 [...] immunoassay (IFA) using HEp-2 cells. Performed By: [facility] [address] [place] [address] [employer] Gluing Machine Operator: Alden Barger III, M.D. CLIA#: [id number] Centromere AI Invalid Interpretation Code AO Sendouts SS Comment on above: Result Comment: Anti -centromere antibody is used as in aid in diagnosis of systemic sclerosis. Clinical correlation is required. Test Methodology: Multiplex flow immunoassay. Performed By: [place] [address] Carton Gluing Machine Operator: Alden Barger III, M.D. CLIA#: [id number] Centromere Ab Qualitative Negative Invalid Interpretation Code AO Sendouts SS Comment on above: Result Comment: Perf ormed By: [place] [address] [employer]on Gluing Machine Operator: Alden Barger III, M.D. CLIA#: [id number] Chromatin Ab Qualitative Negative Invalid Interpretation Code AO Sendouts SS Comment on above: Result Comment: Perf ormed By: [place] [address] [employer]on Gluing Machine Operator: Alden Barger III, M.D. CLIA#: [id number] Chromatin Antibody AI Invalid Interpretation Code AO Sendouts SS Comment on above: Result Comment: Test Methodology: Multiplex flow immunoassay. Anti-chromatin antibody is used as an aid in diagnosis of systemic lupus erythematosus. Clinical correlation is required. Test Methodology: Multiplex flow immunoassay. Performed By: [place] [address] [employer]on Gluing Machine Operator: Alden Barger III, M.D. CLIA#: [id number] KIA 1 Antibody AI Invalid Interpretation Code AO Sendouts SS Comment on above: Result Comment: Perf ormed By: [place] [address] [employer] Gluing Machine Operator: Alden Barger III, M.D. CLIA#: [id number] KIA 1 Antibody Qual Negative Invalid Interpretation Code AO Sendouts SS Comment on above: Result Comment: Anti -KIA-1 antibody is used as an aid in diagnosis of polymyositis and dermatomyositis especially with pulmonary involvement. A negative result cannot rule out polymyositis or dermatomyositis. Clinical correlation is required. Test Methodology: Multiplex flow immunoassay. Performed By: [facility] [employer] [address] [place] [address] Carton Gluing Machine Operator: Alden Barger III, M.D. CLIA#: [id number] Ribosomal DRY CHAIN WORKER AI Invalid Interpretation Code AO Sendouts SS Comment on above: Result Comment: Perf ormed By: [facility] [employer] [address] [place] [address] Carton Gluing Machine Operator: Alden Barger III, M.D. CLIA#: [id number] Ribosomal DRY CHAIN WORKER Qualitative Negative Invalid Interpretation Code AO Sendouts Comment on above: Result Comment: Anti -Ribosomal RNA (Ribosomal P) antibody is used as an aid in diagnosis of systemic autoimmune diseases especially systemic lupus erythematosus and mixed connective tissue disease. Cross-reactivity with Anti-gould antibody is not uncommon. Clinical correlation is required. Test Methodology: Multiplex flow immunoassay. Performed By: [facility] [employer] [address] [place] [address] Carton Gluing Machine Operator: Alden Barger III, M.D. CLIA#: [id number] DRY CHAIN WORKER Antibody 0.3 AI Invalid Interpretation Code AO Sendouts Comment on above: Result Comment: Anti -DRY CHAIN WORKER antibody is used as an aid in diagnosis of systemic autoimmune diseases especially systemic lupus erythematosus and mixed connective tissue disease. Cross-reactivity with Anti-gould antibody is not uncommon. Clinical correlation is required. Test Methodology: Multiplex flow immunoassay. Performed By: [facility] [employer] [address] [place] [address] Carton Gluing Machine Operator: Alden Barger III, M.D. CLIA#: [id number] DRY CHAIN WORKER Antibody Qualitative Negative Invalid Interpretation Code AO Send Comment on above: Result Comment: Perf ormed By: [facility] [employer] [address] [place] [address] Carton Gluing Machine Operator: Alden Barger III, M.D. CLIA#: [id number] Scleroderma Ab, IgG Qualitative Negative Invalid Interpretation Code AO Sendouts Comment on above: Result Comment: Perf ormed By: [facility] [employer] [address] [place] [address] [employer]on Gluing Machine Operator: Alden Barger III, M.D. CLIA#: [id number] Scleroderma IgG Ab AI Invalid Interpretation Code AO Sendouts Comment on above: Result Comment: Scl- 70/Scleroderma antibody test is used as an aid in diagnosis of systemic sclerosis especially the diffuse cutaneous form. A negative result cannot rule out systemic sclerosis. The final interpretation should consider clinical picture and other test results such as anti-centromere antibody. Test Methodology: Multiplex flow immunoassay. Performed By: [place] [address] Carton Gluing Machine Operator: Alden Barger III, M.D. CLIA#: [id number] Sm Antibody AI Invalid Interpretation Code AO Sendouts SS Comment on above: Result Comment: Perf ormed By: [place] [address] Carton Gluing Machine Operator: Alden Barger III, M.D. CLIA#: [id number] Sm Antibody Qual Negative Invalid Interpretation Code AO Sendouts SS Comment on above: Result Comment: Anti -Sm (Gould) antibody is used as an aid in diagnosis of systemic lupus erythematosus and its presence is associated with renal disease. A negative result cannot rule out systemic lupus erythematosus. Clinical correlation is required. Test Methodology: Multiplex flow immunoassay. Performed By: [place] [address] Carton Gluing Machine Operator: Alden Barger III, M.D. CLIA#: [id number] SS-A Antibody AI Invalid Interpretation Code AO Sendouts SS Comment on above: Result Comment: Test Methodology: Multiplex flow immunoassay. Anti-SSA (anti-Ro) antibody is used as an aid in diagnosis of a variety of systemic autoimmune diseases, Sjogren's syndrome among others. Clinical correlation is required. Test Methodology: Multiplex flow immunoassay. Performed By: [place] [address] Carton Gluing Machine Operator: Alden Barger III, M.D. CLIA#: [id number] SS-B Antibody AI Invalid Interpretation Code AO Sendouts SS Comment on above: Result Comment: Anti -SSB (anti-La) antibody is used as an aid in diagnosis of a variety of systemic autoimmune diseases, especially for Sjogren's syndrome and systemic lupus erythematosus. Clinical correlation is required. Test Methodology: Multiplex flow immunoassay. Performed By: [place] [address] Carton Gluing Machine Operator: Alden Barger III, M.D. CLIA#: [id number] SSA Antibody Qualitative Negative Invalid Interpretation Code AO Sendouts SS Comment on above: Result Comment: Perf ormed By: [place] [address] Carton Gluing Machine Operator: Alden Barger III, M.D. CLIA#: [id number] SSB Antibody Qualitative Negative Invalid Interpretation Code AO Sendouts SS Comment on above: Result Comment: Perf ormed By: [facility] [employer] [address] [place] [address] Carton Gluing Machine Operator: Alden Barger III, M.D. CLIA#: [id number] LABORATORYOrdered By: SYSTEM SYSTEM on 04-09-2024 Complement [...] tests. These results were obtained with the [employer] QUANTA Lite RF IgM CELSA. RF IgM [...] These test results were obtained with the [employer] Ribosome P CELSA. Ribosome P [...] Interpretation Code Special Chem SS LABORATORYOrdered By: Laila Reese on 04-09-2024 Protein [Mass/Vol] 7.4 G/dL Normal 5.7 - 8.2 G/dL ADM SS LABORATORYOrdered By: [employer] P CONTRIBUTOR_SYSTEM on 04-09-2024 Sjogrens SSA Ab (LC) AI Invalid Interpretation Code 0.0-0.9 AO Sendouts SS Sjogrens SSB Ab (LC) AI Invalid Interpretation Code 0.0-0.9 AO Sendouts SS Comment on above: Result Comment: Perf ormed At: [facility] [place] [place] [address] [place], [place] [id number] Rufus Ray PhD Ph:[phone] MGon 04-09-2024 Magnesium [Mass/Vol] 1.9 mg/dL Normal 1.8-2.4 [facility] Comment on above: Performed By: #### 6 87842, 105881, 104007, 395613, 748264, 770112, 253032, 937595, 141205, 048499, 863110, 740810 #### [address] [address] SPEon 04-09-2024 Total Protein 7.4 G/dL Normal 5.7-8.2 [facility] Comment on above: Performed By: #### 6 28072, 361198, 004829, 355977, 622161, 035366, 250915, 067952, 054689, 831575, 235264, 642434 #### [place] [address] TSHon 04-09-2024 TSH Qn 1.62 m[IU]/L Normal 0.36-3.74 [facility] Comment on above: Performed By: #### 6 29467, 847431, 705003, 477148, 799420, 712491, 879857, 361040, 962755, 808670, 202174, 400129 #### [address] [address] URICon 04-09-2024 Uric Acid Lvl 5.4 mg/dL Normal 3.5-7.2 [facility] Comment on above: Performed By: #### 6 15088, 093417, 047049, 933471, 452735, 710881, 880075, 775292, 007478, 169730, 038884, 153016 #### [address] [address] aTPOon 04-09-2024 anti-Thyroid Peroxidase 159 units/ml High 0-60 [facility] Comment on above: Result Comment: No te - New Reference Range in effect 19 Performed By: #### 6 18639, 300526, 120712, 435691, 948061, 389275, 505248, 925008, 340719, 320146, 521157, 280945 #### Suman Rogers [address] [place], [place] [address] 12 Lead EKGon 04-02-2024 12 Lead EKG [facility] [address] [place] [address] 12 Lead EKG 04/02/24 2101 MR#: [id number] Acct: [id number] Name: AR SELLERS Rep #: [id number] : [id number] 58 From: Bethel Mcbride MD [...] ECG Confirmed by BONILLA WHITE, DAYANARA ([id number]), purchase request editor ORA ALAN ([id number]) on 04/08/2024 1:24:45 PM Referred By: Confirmed By: DAYANARA MCBRIDE MD 04/08/24 1324 Date Bethel Mcbride MD CC: RN [facility] Gurmeet Fung; Dr. Jason Garcia DO; AMANDA Najera Signed Normal [facility] Basic Metabolic Profile (BMP )on 04-02-2024 BUN/CRE 10.1 RATIO Normal 02-08 [facility] Comment on above: Order Comment: 'TROP ' Serial specimen #1, #2 or #3: 1 Performed By: #### L 500.2500, L100.0100, L501.4020 #### [facility] [address] [place], [address] CA,Total 9.7 mg/dL Normal 8.5-10.1 [facility] Comment on above: Order Comment: 'TROP ' Serial specimen #1, #2 or #3: 1 Performed By: #### L 500.2500, L100.0100, L501.4020 #### [facility] [address] [place], [address] Chloride [Moles/Vol] 105 mmol/L Normal 98-107 [facility] Comment on above: Order Comment: 'TROP ' Serial specimen #1, #2 or #3: 1 Performed By: #### L 500.2500, L100.0100, L501.4020 #### [facility] [address] [place], [address] CO2 [Moles/Vol] 26.0 mmol/L Normal 21.0-32.0 [facility] Comment on above: Order Comment: 'TROP ' Serial specimen #1, #2 or #3: 1 Performed By: #### L 500.2500, L100.0100, L501.4020 #### [facility] [address] [place], [address] Creatinine [Mass/Vol] 1.58 mg/dL High 0.70-1.30 [facility] Comment on above: Order Comment: 'TROP ' Serial specimen #1, #2 or #3: 1 Result Comment: The validity of the calculated GFR GFRAA in patients over 70 years has not been determined. Clinical correlation is essential. Performed By: #### L 500.2500, L100.0100, L501.4020 #### [facility] [address] [place], [address] ECRCL 63.16 ml/min Normal [facility] Comment on above: Order Comment: 'TROP ' Serial specimen #1, #2 or #3: 1 Performed By: #### L 500.2500, L100.0100, L501.4020 #### [facility] [address] [place], [address] EST GFR - AA 59 mL/min Low >60 [facility] Comment on above: Order Comment: 'TROP ' Serial specimen #1, #2 or #3: 1 Result Comment: Afri can [place] GFR Calc Performed By: #### L 500.2500, L100.0100, L501.4020 #### [facility] [address] [place], [address] GAP 7 Normal 5-15 [facility] Comment on above: Order Comment: 'TROP ' Serial specimen #1, #2 or #3: 1 Performed By: #### L 500.2500, L100.0100, L501.4020 #### [facility] [address] [place], [address] GFR/1.73 sq M.predicted among non-blacks MDRD (S/P/Bld) [Vol rate/Area] 48 mL/min/{1.73_m2} Low >60 [facility] Comment on above: Order Comment: 'TROP ' Serial specimen #1, #2 or #3: 1 Result Comment: Non- GFR Calc Performed By: #### L 500.2500, L100.0100, L501.4020 #### [facility] [address] [place], [address] Glucose [Mass/Vol] 106 mg/dL Normal 74-106 [facility] Comment on above: Order Comment: 'TROP ' Serial specimen #1, #2 or #3: 1 Result Comment: Fast ing Glucose result from 100 to 125 mg/dL suggests IMPAIRED HOMEOSTASIS per A.D.A. criteria. Performed By: #### L 500.2500, L100.0100, L501.4020 #### [facility] [address] [place], [address] Potassium [Moles/Vol] 3.3 mmol/L Low 3.5-5.1 [facility] Comment on above: Order Comment: 'TROP ' Serial specimen #1, #2 or #3: 1 Performed By: #### L 500.2500, L100.0100, L501.4020 #### [facility] [address] [place], [address] Sodium [Moles/Vol] 138 mmol/L Normal 136-145 [facility] Comment on above: Order Comment: 'TROP ' Serial specimen #1, #2 or #3: 1 Performed By: #### L 500.2500, L100.0100, L501.4020 #### [facility] [address] [place], [address] Urea nitrogen [Mass/Vol] 16 mg/dL Normal 7-18 [facility] Comment on above: Order Comment: 'TROP ' Serial specimen #1, #2 or #3: 1 Performed By: #### L 500.2500, L100.0100, L501.4020 #### [facility] [address] [place], [address] CBC W/Diff, Automatedon 12-04 23-2023 Absolute Lymph 4.59 X10 3/uL High 0.83-4.51 [facility] Comment on above: Performed By: #### L 500.2500, L100.0100, L501.4020 #### [facility] [address] [place], [address] Absolute Neut 7.0 X10 3/uL Normal 2.0-7.7 [facility] Comment on above: Performed By: #### L 500.2500, L100.0100, L501.4020 #### [facility] [address] [place], [address] Basophils/100 WBC (Bld) 0.5 % Normal 0-1 [facility] Comment on above: Performed By: #### L 500.2500, L100.0100, L501.4020 #### [facility] [address] [place], [address] Eosinophils/100 WBC (Bld) 2.6 % Normal 0-5 [facility] Comment on above: Performed By: #### L 500.2500, L100.0100, L501.4020 #### [facility] [address] [place], [address] Erythrocyte distribution width (RBC) [Ratio] 12.7 % Normal 11.6-14.6 [facility] Comment on above: Performed By: #### L 500.2500, L100.0100, L501.4020 #### [facility] [address] [place], [address] Hematocrit (Bld) [Volume fraction] 48.0 % Normal 40-54 [facility] Comment on above: Performed By: #### L 500.2500, L100.0100, L501.4020 #### [facility] [address] [place], [address] Hemoglobin (Bld) [Mass/Vol] 16.7 g/dL High 13.0-16.5 [facility] [facility] Comment on above: Performed By: #### L 500.2500, L100.0100, L501.4020 #### [facility] [address] [place], [address] IG% 0.400 Normal 0.0-0.9 [facility] Comment on above: Result Comment: IG% - Immature Granulocytes (promyelocytes, myelocytes and metamyelocytes) > 1% indicates that a LEFT SHIFT is Present. Performed By: #### L 500.2500, L100.0100, L501.4020 #### [facility] [address] [place], [address] Lymphocytes/100 WBC (Bld) 35.0 % Normal 19-41 [facility] Comment on above: Performed By: #### L 500.2500, L100.0100, L501.4020 #### [facility] [address] [place], [address] MCH (RBC) [Entitic mass] 31.6 pg Normal 27.0-32.0 [facility] Comment on above: Performed By: #### L 500.2500, L100.0100, L501.4020 #### [facility] [address] [place], [address] MCHC (RBC) [Mass/Vol] 34.8 g/dL Normal 32-36 [facility] Comment on above: Performed By: #### L 500.2500, L100.0100, L501.4020 #### [facility] [address] [place], [address] MCV (RBC) [Entitic vol] 90.9 fL Normal 80-94 [facility] Comment on above: Performed By: #### L 500.2500, L100.0100, L501.4020 #### [facility] [address] [place], [address] Monocytes/100 WBC (Bld) 8.4 % Normal 0-10 [facility] Comment on above: Performed By: #### L 500.2500, L100.0100, L501.4020 #### [facility] [address] [place], [address] Neutrophils/100 WBC (Bld) 53.1 % Normal 47-70 [facility] Comment on above: Performed By: #### L 500.2500, L100.0100, L501.4020 #### [facility] [address] [place], [address] Nucleated RBC (Bld) [#/Vol] 0 10*3/uL Normal 0-5 [facility] Comment on above: Performed By: #### L 500.2500, L100.0100, L501.4020 #### [facility] [address] [place], [address] Platelet mean volume (Bld) [Entitic vol] 10.5 fL Normal 6.2-12.0 [facility] Comment on above: Performed By: #### L 500.2500, L100.0100, L501.4020 #### [facility] [address] [place], [address] Platelets (Bld) [#/Vol] 196 10*3/uL Normal 150-450 [facility] Comment on above: Performed By: #### L 500.2500, L100.0100, L501.4020 #### [facility] [address] [place], [address] RBC (Bld) [#/Vol] 5.28 10*6/uL Normal 4.6-6.2 [facility] Comment on above: Performed By: #### L 500.2500, L100.0100, L501.4020 #### [facility] [address] [place], [address] RDW SD 42.1 fl Normal 35.1-43.9 [facility] Comment on above: Performed By: #### L 500.2500, L100.0100, L501.4020 #### [facility] [address] [place], [address] WBC (Bld) [#/Vol] 13.1 10*3/uL High 4.4-11.0 [facility] Comment on above: Performed By: #### L 500.2500, L100.0100, L501.4020 #### [facility] [address] [place], [address] Chest PA and Lateralon 04-02 Chest PA and Lateral [facility] [address] [place] [address] Chest PA and Lateral MR#: [id number] Acct: [id number] Name: AR SELLERS Rep #: [id number] : 1965 M 58 From: Mesfin Bee PCP: YULISSA Leigh Status: REG ER Study: Chest PA and Lateral Date of Exam: 04/02/24 Exam# [id number] Ordering Dr: Sparkle Ordaz [id number] STUDY: X-RAY CHEST REASON FOR EXAM: Male, [...] EST , CC: YULISSA Fung; AMANDA Najera Supervisor Hard Candy: Signed Normal [facility] D-Dimer Quantitative (DVT/PE )on 04-02-2024 D-DIMER QUANT 0.27 FEU/ug/m Normal 0.27-0.49 [facility] Comment on above: Result Comment: NORM AL D-Dimer level (<0.50) indicates no DVT or PE. Performed By: #### L 300.8000 ####[facility] [address] [place], [address] Emergency Department Summary on 04-02-2024 Emergency Department Summary [facility] Medical Records Department [address] [place] [address] Emergency Department Summary 04/02/24 MR#: [id number] Acct: [id number] Name: AR SELLERS Rep #: [id number] : 1965 58 From: Sparkle PATEL PCP: Gurmeet Fung, RN [facility] Status:DEP ER Location: ED HPI History of [...] of breath, fevers, chills, and chest pain. [facility] Medical History COPD (chronic obstructive pulmonary disease) [...] Blood Pressure (more content not included)... Normal [facility] L501.4020on 04-02-2024 TROPONIN-I HS < 3 Low 3.0-78.0 [facility] Comment on above: Order Comment: 'TROP ' Serial specimen #1, #2 or #3: 1 Result Comment: Davie xiong Note: New Test Units and Gender Specific Reference Ranges. For more information see Policy Stat Procedure [place] High Sensitivity Troponin (TNIH) and attachments. Performed By: #### L 500.2500, L100.0100, L501.4020 #### [facility] [address] [place], [address] .Auto Diffon 03-05-2024 Basophil, Absolute 0.1 10 3/mcL Normal 0.0-0.2 [facility] Comment on above: Performed By: #### 6 11781, 019214, 780566, 752070, 939455, 420432, 692575, 678499, 605953, 974756, 952987, 839268 #### [facility] [place] [address] [place], [place] [address] Basophils/100 WBC (Bld) 0.7 % Normal 0.0-2.5 [facility] Comment on above: Performed By: #### 6 77032, 015253, 978532, 265518, 235323, 447422, 524121, 571600, 915189, 091594, 056188, 664701 #### [address] [address] Eosinophil, Absolute 0.3 10 3/mcL Normal 0.0-0.7 [facility] Comment on above: Performed By: #### 6 33390, 211066, 544409, 550390, 439380, 632486, 428018, 335717, 194290, 894562, 744687, 866739 #### [address] [address] Eosinophils/100 WBC (Bld) 4.8 % Normal 0.0-7.0 [facility] Comment on above: Performed By: #### 6 55410, 442489, 571886, 409375, 702879, 821380, 258363, 893434, 319873, 163971, 404188, 805758 #### [address] [address] Lymphocyte, Absolute 3.2 10 3/mcL Normal 0.9-4.3 [facility] Comment on above: Performed By: #### 6 97719, 230687, 629066, 163317, 958830, 897293, 338291, 447395, 827810, 187280, 021061, 645605 #### [address] [address] Lymphocytes/100 WBC (Bld) 44.5 % High 20.0-40.0 [facility] Comment on above: Performed By: #### 6 06640, 783780, 575155, 638944, 868869, 119150, 284406, 670231, 460280, 535842, 474518, 324318 #### [address] [address] Monocyte, Absolute 0.7 10 3/mcL Normal 0.1-1.4 [facility] Comment on above: Performed By: #### 6 72633, 655715, 014823, 137243, 830116, 872735, 764253, 359114, 352817, 664606, 009223, 826408 #### [address] [place], [place] [address] Monocytes/100 WBC (Bld) 10.2 % Normal 2.0-13.0 [facility] Comment on above: Performed By: #### 6 45074, 902721, 601399, 894460, 381380, 853303, 350294, 665939, 596967, 952909, 839419, 658042 #### [address] [place], [place] [address] Neutrophils/100 WBC (Bld) 39.8 % Low 50.0-75.0 [facility] Comment on above: Performed By: #### 6 60815, 928675, 816538, 647153, 235919, 445743, 277802, 738917, 731334, 068930, 769414, 695410 #### [address] [address] .GFRon 03-05-2024 GFR 60 ml/min/1.73sqm Normal [facility] Comment on above: Result Comment: GFR Population [...] mL/min/1.73 square meters Performed By: #### 6 27012, 109923, 780103, 742328, 342499, 676413, 426328, 061262, 976248, 042719, 095684, 086823 #### [address] [place], [place] [address] GFR Non- 49 ml/min/1.73sqm Normal [facility] Comment on above: Result Comment: GFR Population [...] mL/min/1.73 square meters Performed By: #### 6 13956, 206604, 625893, 004663, 948937, 410703, 271962, 525570, 016953, 025538, 106794, 330928 #### [address] [address] .NEUABSon 03-05-2024 Neutrophil, Absolute 2.9 10 3/mcL Normal 2.3-8.1 [facility] Comment on above: Performed By: #### 6 42618, 119214, 080854, 391840, 609600, 363254, 636458, 020314, 707566, 059366, 921101, 697200 #### [address] [place], [place] [address] A1Con 03-05-2024 Glucose [Mass/Vol] 114 mg/dL Normal [facility] Comment on above: Result Comment: Denita mated Average Glucose calculated by equation ((28.7xA1C)-46.7) Estimated average glucose (eAG) is a calculated value from Hemoglobin A1C and is sales representative education courses of the average blood glucose level in the last 2-3 month period. Normal range: less than 114 mg/dL Performed By: #### 6 86656, 189598, 513916, 379987, 962903, 357022, 233885, 613148, 614979, 620276, 324185, 358687 #### [address] [address] HbA1c (Bld) [Mass fraction] 5.6 % Normal 4.3-6.4 [facility] Comment on above: Performed By: #### 6 52201, 153709, 219142, 571575, 524431, 282313, 339256, 476570, 969236, 138397, 803284, 864388 #### [place] [id number] CBCon 03-05-2024 Erythrocyte distribution width (RBC) [Ratio] 13.4 % Normal 11.5-15.5 [facility] Comment on above: Performed By: #### 6 01248, 307586, 782249, 746823, 353145, 721559, 586231, 881355, 246861, 240840, 197717, 868450 #### [place] [id number] Hematocrit (Bld) [Volume fraction] 46.3 % Normal 40.0-52.0 [facility] Comment on above: Performed By: #### 6 29753, 619948, 575006, 799299, 839892, 888468, 478040, 576368, 419158, 554549, 159105, 352519 #### [address] [address] Hgb 15.5 G/dL Normal 13.0-17.5 [facility] Comment on above: Performed By: #### 6 71741, 272222, 217193, 758921, 147330, 575006, 360397, 114888, 083044, 661120, 618586, 768705 #### [address] [address] MCH (RBC) [Entitic mass] 31.8 pg Normal 27.0-33.0 [facility] Comment on above: Performed By: #### 6 26283, 484559, 170764, 895555, 731233, 291981, 628512, 946813, 981777, 811089, 288365, 677134 #### [address] [place], [place] [address] MCHC 33.5 G/dL Normal 32.0-36.0 [facility] Comment on above: Performed By: #### 6 91044, 815518, 796817, 238278, 348662, 391453, 318331, 633699, 252692, 614523, 175236, 706440 #### [address] [place], [place] [address] MCV (RBC) [Entitic vol] 95.0 fL Normal 81.0-100.0 [facility] Comment on above: Performed By: #### 6 70274, 370083, 828996, 292924, 595403, 690572, 370208, 882394, 468419, 066800, 739198, 638470 #### [address] [address] Platelet 158 10 3/mcL Normal 150-450 [facility] Comment on above: Performed By: #### 6 04061, 973176, 371964, 619807, 365573, 203073, 262299, 243396, 494443, 873174, 294781, 343635 #### [address] [place], [place] [address] Platelet mean volume (Bld) [Entitic vol] 8.5 fL Normal 6.4-10.5 [facility] Comment on above: Performed By: #### 6 98426, 877916, 672408, 202468, 830895, 011648, 490666, 184281, 707196, 353011, 889912, 400915 #### [address] [place], [place] [address] RBC 4.87 10 6/mcL Normal 4.50-6.00 [facility] Comment on above: Performed By: #### 6 81978, 585814, 409972, 560901, 740498, 168656, 722012, 766479, 608596, 940965, 325658, 134123 #### [address] [place], [place] [address] WBC 7.2 10 3/mcL Normal 4.5-10.8 [facility] Comment on above: Performed By: #### 6 39671, 894412, 949812, 536314, 646982, 550894, 494212, 964046, 485888, 789389, 340368, 860638 #### [address] [address] CMPon 03-05-2024 Albumin Level 4.3 G/dL Normal 3.5-5.0 [facility] Comment on above: Performed By: #### 6 59699, 798613, 370838, 942794, 636404, 725494, 744325, 112649, 816311, 350932, 788238, 045524 #### [address] [address] Albumin/Globulin [Mass ratio] 1.7 {ratio} Normal 1.1-2.5 [facility] Comment on above: Performed By: #### 6 79748, 629226, 840955, 136279, 429168, 921074, 000461, 798353, 067983, 255562, 682119, 847403 #### [address] [place], [place] [address] ALP [Catalytic activity/Vol] 78 U/L Normal 40-135 [facility] Comment on above: Performed By: #### 6 66522, 942743, 513489, 394900, 763310, 872821, 290183, 652235, 190536, 117002, 616912, 592499 #### [address] [place], [place] [address] ALT [Catalytic activity/Vol] 32 U/L Normal 16-63 [facility] Comment on above: Performed By: #### 6 90208, 434701, 650906, 253504, 623264, 366682, 310721, 196061, 045145, 548627, 580032, 654649 #### [address] [place], [place] [address] AST [Catalytic activity/Vol] 20 U/L Normal 10-40 [facility] Comment on above: Performed By: #### 6 01127, 485742, 285547, 237101, 288284, 153772, 821639, 567622, 061552, 047912, 815880, 791267 #### [address] [address] Bili Total 0.9 mg/dL Normal 0.2-1.0 [facility] Comment on above: Result Comment: Use of this assay is not recommended for patients undergoing treatment with eltrombopag due to the potential for falsely elevated results. Performed By: #### 6 12371, 022980, 980440, 632215, 134077, 107045, 032708, 476544, 157919, 758033, 927702, 128600 #### [address] [place], [place] [address] BUN/Creatinine Ratio 9 ratio Normal 7-27 [facility] Comment on above: Performed By: #### 6 51992, 447884, 060712, 913667, 240399, 698318, 824941, 533304, 719267, 514562, 546679, 046638 #### [address] [place], [place] [address] Calcium [Mass/Vol] 9.5 mg/dL Normal 8.4-10.2 [facility] Comment on above: Performed By: #### 6 11075, 046963, 871296, 203193, 071597, 174368, 607395, 591717, 282232, 850181, 146449, 865136 #### [address] [place], [place] [address] Chloride [Moles/Vol] 102 mmol/L Normal 98-107 [facility] Comment on above: Performed By: #### 6 73057, 987574, 651898, 997811, 865529, 587702, 748666, 646565, 550202, 341620, 525531, 814275 #### [address] [address] CO2 [Moles/Vol] 30 mmol/L High 22-29 [facility] Comment on above: Performed By: #### 6 48194, 580375, 216434, 900571, 330839, 327233, 438787, 673059, 679567, 025926, 225978, 686683 #### [address] [address] Creatinine [Mass/Vol] 1.48 mg/dL High 0.70-1.30 [facility] Comment on above: Result Comment: Test ing performed on Siemens Dimension EXL analyzer using a modified kinetic Vivek technique. Performed By: #### 6 54134, 001254, 728488, 160354, 426626, 064695, 617176, 095851, 858541, 704256, 066225, 827369 #### [address] [address] Electrolyte Balance 9.0 mEq/L Normal 4.0-15.0 [facility] Comment on above: Performed By: #### 6 21756, 617368, 707847, 171925, 571234, 981818, 910608, 411150, 220692, 995436, 153934, 703539 #### [address] [address] Globulin 2.6 G/dL Normal [facility] Comment on above: Performed By: #### 6 38781, 593659, 480455, 633645, 737310, 176818, 570966, 975502, 533500, 714775, 675193, 208309 #### [address] [place], [place] [address] Glucose [Mass/Vol] 110 mg/dL High 70-105 [facility] Comment on above: Performed By: #### 6 35804, 065440, 278541, 653735, 551926, 288831, 695566, 751302, 826587, 037337, 330551, 899002 #### [address] [address] Potassium [Moles/Vol] 4.6 mmol/L Normal 3.5-5.1 [facility] Comment on above: Performed By: #### 6 29130, 060293, 791590, 499898, 741975, 947137, 510123, 151929, 559069, 966089, 748638, 330987 #### [address] [address] Sodium [Moles/Vol] 141 mmol/L Normal 136-145 [facility] Comment on above: Performed By: #### 6 13945, 438354, 799375, 275787, 779142, 234236, 499323, 182974, 812182, 074853, 425502, 634285 #### [address] [address] Total Protein 6.9 G/dL Normal 6.4-8.2 [facility] Comment on above: Performed By: #### 6 39384, 438893, 784017, 041788, 992442, 708190, 678658, 252308, 417375, 421809, 861543, 081020 #### [address] [address] Urea nitrogen [Mass/Vol] 13 mg/dL Normal 7-18 [facility] Comment on above: Performed By: #### 6 87282, 724036, 755568, 510145, 634462, 528250, 648543, 566740, 497510, 843252, 489155, 703608 #### [facility] [place] [address] [address] LABORATORYOrdered By: SYSTEM SYSTEM on 03-05-2024 25-hydroxyvitamin [...] calculated value from Hemoglobin A1C and is sales representative education courses of the average blood glucose level in [...] 03-05-2024 Cholesterol [Mass/Vol] 180 mg/dL Normal 0-200 [facility] Comment on above: Result Comment: Chol esterol Reference Interval: Less than 200 Desirable 200-239 Borderline high risk 240 and above High risk Performed By: #### 6 37209, 278836, 898898, 721502, 383417, 755929, 666172, 289612, 256316, 088308, 475770, 389953 #### [address] [place], [place] [address] Cholesterol in HDL [Mass/Vol] 44 mg/dL Normal 40-60 [facility] Comment on above: Performed By: #### 6 70476, 560372, 247670, 198752, 908856, 608090, 311995, 454415, 432144, 490487, 933753, 151889 #### [address] [place], [place] [address] Cholesterol in LDL [Mass/Vol] 94 mg/dL Normal 0-130 [facility] Comment on above: Performed By: #### 6 43395, 225565, 182128, 446379, 867608, 743123, 579146, 969540, 055740, 853313, 313258, 377413 #### [address] [place], [place] [address] Triglyceride [Mass/Vol] 211 mg/dL High 0-150 [facility] Comment on above: Result Comment: Trig lyceride Reference Interval: Less than 150 Normal 150-199 Borderline high risk 200-499 High risk 500 or higher Very high risk Performed By: #### 6 87194, 181532, 179483, 840951, 796884, 270146, 248725, 139169, 429198, 462152, 763352, 654516 #### [address] [place], [place] [address] PSAon 03-05-2024 Prostate Specific Antigen 0.97 ng/mL Normal 0.00-4.00 [facility] Comment on above: Performed By: #### 6 25006, 933426, 040253, 130231, 028279, 289288, 694869, 253582, 837713, 288782, 076573, 668758 #### [address] [place], [place] [address] PTHon 03-05-2024 PTH, Intact 49.3 pg/mL Normal 18.5-88.0 [facility] Comment on above: Performed By: #### 6 50371, 799196, 423395, 897430, 031536, 953548, 639221, 157530, 309228, 860032, 267422, 666725 #### [address] [place], [place] [address] VIDHon 03-05-2024 Vit. D 25-Hydroxy 41.1 ng/mL Normal [facility] Comment on above: Result Comment: Inte rpretive Values Based on Total 25(OH) Vitamin D: Deficient <20 ng/mL Insufficient 20 - <30 ng/mL Sufficient 30-100 ng/mL Performed By: #### 6 45938, 600219, 503178, 330593, 366300, 468891, 524006, 877988, 255118, 349172, 244018, 948878 #### [address] [address] CNOVon 01-04-2024 CNOV [facility] AR SELLERS ([id number]) 1965 M Date Time Provider Department 01/04/24 9:30 AM ANTOINETTE GO [facility] During your visit today, we recorded the following information about you: Temperature Pulse Respiration Blood pressure 97.8 degrees 118/minute 18/minute 136/72 Weight 107.8 kg Antoinette Go APRN.JEWEL CUPPING MACHINE OPERATOR 01/04/2024 9:47 AM Signed Subjective The history is provided by the patient. No american sign language teacher was used. HPI Ar Sellers is a [...] have confirmed and edited as necessary, the [facility] Review of Systems Constitutional: Negative for [...] to see patient labs on portal from [place], GFR in past 6 month was 43. [...] ORAL Si (more content not included)... Normal [facility] 12 Lead EKGon 01-01-2024 12 Lead EKG [facility] [address] [place] [address] 12 Lead EKG 01/01/24 2245 MR#: [id number] Acct: [id number] Name: AR SELLERS Rep #: [id number] : 1965 58 From: Edi Cook MD [...] Normal ECG Confirmed by AROLDO WHITE, EDI ([id number]), purchase request editor PATRICIA MERCEDES ([id number]) on 01/03/2024 8:02:11 AM Referred By: LISA Confirmed By:EDI COOK MD 01/03/24 0802 Date Edi Cook MD CC: RN [facility]PAT[facility] SERVICES-[facility] Gurmeet Quispepkins; Dr. Pipo Hidalgo MD Signed Normal [facility] Basic Metabolic Profile (BMP )on 01-01-2024 BUN/CRE 8.0 RATIO Low 10-20 [facility] Comment on above: Order Comment: 'TROP ' Serial specimen #1, #2 or #3: 1 Performed By: #### L 501.4020, L100.0100, L500.2500 #### [facility] [address] [place], [address] CA,Total 9.6 mg/dL Normal 8.5-10.1 [facility] Comment on above: Order Comment: 'TROP ' Serial specimen #1, #2 or #3: 1 Performed By: #### L 501.4020, L100.0100, L500.2500 #### [facility] [address] [place], [address] Chloride [Moles/Vol] 103 mmol/L Normal 98-107 [facility] Comment on above: Order Comment: 'TROP ' Serial specimen #1, #2 or #3: 1 Performed By: #### L 501.4020, L100.0100, L500.2500 #### [facility] [address] [place], [address] CO2 [Moles/Vol] 27.0 mmol/L Normal 21.0-32.0 [facility] Comment on above: Order Comment: 'TROP ' Serial specimen #1, #2 or #3: 1 Performed By: #### L 501.4020, L100.0100, L500.2500 #### [facility] [address] [place], [address] Creatinine [Mass/Vol] 1.63 mg/dL High 0.70-1.30 [facility] Comment on above: Order Comment: 'TROP ' Serial specimen #1, #2 or #3: 1 Result Comment: The validity of the calculated GFR GFRAA in patients over 70 years has not been determined. Clinical correlation is essential. Performed By: #### L 501.4020, L100.0100, L500.2500 #### [facility] [address] [place], [address] ECRCL 62.20 ml/min Normal [facility] Comment on above: Order Comment: 'TROP ' Serial specimen #1, #2 or #3: 1 Performed By: #### L 501.4020, L100.0100, L500.2500 #### [facility] [address] [place], [address] EST GFR - AA 57 mL/min Low >60 [facility] Comment on above: Order Comment: 'TROP ' Serial specimen #1, #2 or #3: 1 Result Comment: Afri can [place] GFR Calc Performed By: #### L 501.4020, L100.0100, L500.2500 #### [facility] [address] [place], [address] GAP 11 Normal 5-15 [facility] Comment on above: Order Comment: 'TROP ' Serial specimen #1, #2 or #3: 1 Performed By: #### L 501.4020, L100.0100, L500.2500 #### [facility] [address] [place], [address] GFR/1.73 sq M.predicted among non-blacks MDRD (S/P/Bld) [Vol rate/Area] 47 mL/min/{1.73_m2} Low >60 [facility] Comment on above: Order Comment: 'TROP ' Serial specimen #1, #2 or #3: 1 Result Comment: Non- GFR Calc Performed By: #### L 501.4020, L100.0100, L500.2500 #### [facility] [address] [place], [address] Glucose [Mass/Vol] 132 mg/dL High 74-106 [facility] Comment on above: Order Comment: 'TROP ' Serial specimen #1, #2 or #3: 1 Result Comment: Fast ing Glucose result greater than or equal to 126 mg/dL suggests DIABETES MELLITUS per A.D.A. criteria. Performed By: #### L 501.4020, L100.0100, L500.2500 #### [facility] [address] [place], [address] Potassium [Moles/Vol] 3.4 mmol/L Low 3.5-5.1 [facility] Comment on above: Order Comment: 'TROP ' Serial specimen #1, #2 or #3: 1 Performed By: #### L 501.4020, L100.0100, L500.2500 #### [facility] [address] [place], [address] Sodium [Moles/Vol] 141 mmol/L Normal 136-145 [facility] Comment on above: Order Comment: 'TROP ' Serial specimen #1, #2 or #3: 1 Performed By: #### L 501.4020, L100.0100, L500.2500 #### [facility] [address] [place], [place], [address] Urea nitrogen [Mass/Vol] 13 mg/dL Normal 7-18 [facility] Comment on above: Order Comment: 'TROP ' Serial specimen #1, #2 or #3: 1 Performed By: #### L 501.4020, L100.0100, L500.2500 #### [facility] [address] [place], [address] CBC W/Diff, Automatedon - Absolute Lymph 4.53 X10 3/uL High 0.83-4.51 [facility] Comment on above: Performed By: #### L 501.4020, L100.0100, L500.2500 #### [facility] [address] [place], [address] Absolute Neut 4.3 X10 3/uL Normal 2.0-7.7 [facility] Comment on above: Performed By: #### L 501.4020, L100.0100, L500.2500 #### [facility] [address] [place], [address] Basophils/100 WBC (Bld) 0.8 % Normal 0-1 [facility] Comment on above: Performed By: #### L 501.4020, L100.0100, L500.2500 #### [facility] [address] [place], [address] Eosinophils/100 WBC (Bld) 4.0 % Normal 0-5 [facility] Comment on above: Performed By: #### L 501.4020, L100.0100, L500.2500 #### [facility] [address] [place], [address] Erythrocyte distribution width (RBC) [Ratio] 12.9 % Normal 11.6-14.6 [facility] Comment on above: Performed By: #### L 501.4020, L100.0100, L500.2500 #### [facility] [address] [place], [address] Hematocrit (Bld) [Volume fraction] 46.8 % Normal 40-54 [facility] Comment on above: Performed By: #### L 501.4020, L100.0100, L500.2500 #### [facility] [address] [place], [address] Hemoglobin (Bld) [Mass/Vol] 15.8 g/dL Normal 13.0-16.5 [facility] Comment on above: Performed By: #### L 501.4020, L100.0100, L500.2500 #### [facility] [address] [place], [address] IG% 0.500 Normal 0.0-0.9 [facility] Comment on above: Result Comment: IG% - Immature Granulocytes (promyelocytes, myelocytes and metamyelocytes) > 1% indicates that a LEFT SHIFT is Present. Performed By: #### L 501.4020, L100.0100, L500.2500 #### [facility] [address] [place], [address] Lymphocytes/100 WBC (Bld) 44.3 % High 19-41 [facility] Comment on above: Performed By: #### L 501.4020, L100.0100, L500.2500 #### [facility] [address] [place], [address] MCH (RBC) [Entitic mass] 31.5 pg Normal 27.0-32.0 [facility] Comment on above: Performed By: #### L 501.4020, L100.0100, L500.2500 #### [facility] [address] [place], [address] MCHC (RBC) [Mass/Vol] 33.8 g/dL Normal 32-36 [facility] Comment on above: Performed By: #### L 501.4020, L100.0100, L500.2500 #### [facility] [address] [place], [address] MCV (RBC) [Entitic vol] 93.2 fL Normal 80-94 [facility] Comment on above: Performed By: #### L 501.4020, L100.0100, L500.2500 #### [facility] [address] [place], [address] Monocytes/100 WBC (Bld) 8.4 % Normal 0-10 [facility] Comment on above: Performed By: #### L 501.4020, L100.0100, L500.2500 #### [facility] [address] [place], [address] Neutrophils/100 WBC (Bld) 42.0 % Low 47-70 [facility] Comment on above: Performed By: #### L 501.4020, L100.0100, L500.2500 #### [facility] [address] [place], [address] Nucleated RBC (Bld) [#/Vol] 0 10*3/uL Normal 0-5 [facility] Comment on above: Performed By: #### L 501.4020, L100.0100, L500.2500 #### [facility] [address] [place], [address] Platelet mean volume (Bld) [Entitic vol] 10.2 fL Normal 6.2-12.0 [facility] Comment on above: Performed By: #### L 501.4020, L100.0100, L500.2500 #### [facility] [address] [place], [address] Platelets (Bld) [#/Vol] 177 10*3/uL Normal 150-450 [facility] Comment on above: Performed By: #### L 501.4020, L100.0100, L500.2500 #### [facility] [address] [place], [address] RBC (Bld) [#/Vol] 5.02 10*6/uL Normal 4.6-6.2 [facility] Comment on above: Performed By: #### L 501.4020, L100.0100, L500.2500 #### [facility] [address] [place], [address] RDW SD 44.2 fl High 35.1-43.9 [facility] Comment on above: Performed By: #### L 501.4020, L100.0100, L500.2500 #### [facility] [address] [place], [address] WBC (Bld) [#/Vol] 10.2 10*3/uL Normal 4.4-11.0 [facility] Comment on above: Performed By: #### L 501.4020, L100.0100, L500.2500 #### [facility] [address] [place], [address] Chest 1 View (Portable)on Chest 1 View (Portable) [facility] [address] [place] [address] Chest 1 View (Portable) MR#: [id number] Acct: [id number] Name: MARLOANTONI RUFFAHMET Ochoa Rep #: [id number] : 1965 M 58 From: Billy ramirez DO PCP: YULISSA Leigh Status: REG ER Study: Chest 1 View (Portable) Date of Exam: 01/01/24 Exam# [id number] Ordering [place]: [place] [id number] EXAM: XR CHEST, 1 VIEW CLINICAL INDICATION: [...] Calderon DO at 22:58 EDT , CC: RN MEDICAL INPATIENT SERVICES-C Gurmeet Fung; Dr. Pipo Hidalgo MD Supervisor Hard Candy: Signed Normal [facility] Emergency Department Summary on 01-01-2024 Emergency Department Summary [facility] Medical Records Department [address] [place] [id number] Emergency Department Summary 01/01/24 MR#: [id number] Acct: [id number] Name: AR SELLERS Rep #: [id number] : 1965 58 From: Pipo Hidalgo MD [...] sitting in the car waiting to picker and sorter load and unload his neighbor to bring her home from [...] Chest wall nontender. He does wear a alarm security or surveillance monitor that he has on for the next 2 months. He does not have the other device with it. Will see if there is a way we can get a read of what happened earlier this evening. Abdomen soft nontender. Moving all 4 extremities. 5 out of 5 grant administrator strength. Dorsi plantarflexion intact. Calves are nontender. No edema fingertip to nose [id number] within normal limits. No drift from upper or lower extremities. Neurologic exam normal. Awake alert. Answering questions. NIH is 0. Const Vital Signs: (more content not included)... Normal [facility] L501.4020on 01-01-2024 TROPONIN-I HS 7 pg/mL Normal 3.0-78.0 [facility] Comment on above: Order Comment: 'TROP ' Serial specimen #1, #2 or #3: 1 Result Comment: Davie xiong Note: New Test Units and Gender Specific Reference Ranges. For more information see Policy Stat Procedure [place] High Sensitivity Troponin (TNIH) and attachments. Performed By: #### L 501.4020, L100.0100, L500.2500 #### [facility] [address] [place], [address] CT ANGIOGRAPHY CHEST W/CONTR Teddy 09-26-2023 CT [...] AM Ordering Provider: GURMEET FUNG [facility] ([place]) XR HIP 2-3 VIEWS LEFTon 05- [...] 1:06:13 PM Ordering Provider: GURMEET FUNG Normal [facility] ([place]) RENINon 09-05-2023 Renin Activity 0.381 ng/mL/hr Normal 0.167-5.380 [facility] ([place]) Comment on above: Result Comment: This test was developed and its performance characteristics determined by [facility]. It has not been cleared or approved by the Food and Drug Administration. Performed At: [address] [id number] Meng Worrell MD Ph:[phone] Performed By: #### 0 [id number] #### [address] [address] XR SPINE LUMBAR W/OBLIQUES 4 VIEWSon 09-05-2023 [...] 09/05/2023 10:39:06 AM Ordering Provider: GURMEET Swann [facility] ([place]) A1Con 08-30-2023 HbA1c (Bld) [Mass fraction] 5.5 % Normal 4.3-6.4 [facility] ([place]) Comment on above: Performed By: #### 0 [id number] #### [place] [id number] .Auto Diffon 08-29-2023 Basophil, Absolute 0.0 10 3/mcL Normal 0.0-0.2 [facility] ([place]) Comment on above: Performed By: #### L IPID, A1C, CBC, ANEU, ADIFF, VIDH, CMP, GFR ####[place] [address]#### PTH ####[address] [address] Basophils/100 WBC (Bld) 0.7 % Normal 0.0-2.5 [facility] ([place]) Comment on above: Performed By: #### L IPID, A1C, CBC, ANEU, ADIFF, VIDH, CMP, GFR ####[place] [address]#### PTH ####[address] [address] Eosinophil, Absolute 0.5 10 3/mcL High 0.0-0.4 [facility] ([place]) Comment on above: Performed By: #### L IPID, A1C, CBC, ANEU, ADIFF, VIDH, CMP, GFR ####[place] [address]#### PTH ####[address] [address] Eosinophils/100 WBC (Bld) 7.3 % High 0.0-7.0 [facility] ([place] Comment on above: Performed By: #### L IPID, A1C, CBC, ANEU, ADIFF, VIDH, CMP, GFR ####[place] [address]#### PTH ####[address] [address] Lymphocyte, Absolute 2.8 10 3/mcL Normal 0.8-3.9 [facility] ([place] Comment on above: Performed By: #### L IPID, A1C, CBC, ANEU, ADIFF, VIDH, CMP, GFR ####[place] [address]#### PTH ####[address] [address] Lymphocytes/100 WBC (Bld) 39.7 % Normal 10.0-50.0 [facility] ([place] Comment on above: Performed By: #### L IPID, A1C, CBC, ANEU, ADIFF, VIDH, CMP, GFR ####[place] [address]#### PTH ####[address] [address] Monocyte, Absolute 0.9 10 3/mcL Normal 0.2-1.0 [facility] ([place] Comment on above: Performed By: #### L IPID, A1C, CBC, ANEU, ADIFF, VIDH, CMP, GFR ####[place] [address]#### PTH ####[address] [address] Monocytes/100 WBC (Bld) 12.4 % Normal 1.7-13.0 [facility] ([place] Comment on above: Performed By: #### L IPID, A1C, CBC, ANEU, ADIFF, VIDH, CMP, GFR ####[place] [address]#### PTH ####[address] [address] Neutrophils/100 WBC (Bld) 39.9 % Normal 37.0-80.0 [facility] ([place] Comment on above: Performed By: #### L IPID, A1C, CBC, ANEU, ADIFF, VIDH, CMP, GFR ####[address] [place], [place] [address]#### PTH ####[address] [address] .GFRon 08-29-2023 GFR 52 ml/min/1.73sqm Normal [facility] ([place]) Comment on above: Result Comment: GFR Population [...] CBC, ANEU, ADIFF, VIDH, CMP, GFR ####[address] [place], [place] [address]#### PTH ####[address] [address] GFR Non- 43 ml/min/1.73sqm Normal [facility] ([place] Comment on above: Result Comment: GFR Population [...] A1C, CBC, ANEU, ADIFF, VIDH, CMP, GFR ####[place] [address] [place] [address]#### PTH ####[place] [address] .NEUABSon 08-29-2023 Neutrophil, Absolute 2.8 10 3/mcL Low 2.9-6.2 [facility] ([place]) Comment on above: Performed By: #### L IPID, A1C, CBC, ANEU, ADIFF, VIDH, CMP, GFR ####[place] [address] [place] [address]#### PTH ####[place] [address] CBCon 08-29-2023 Erythrocyte distribution width (RBC) [Ratio] 13.4 % Normal 11.5-14.5 [facility] ([place]) Comment on above: Performed By: #### L IPID, A1C, CBC, ANEU, ADIFF, VIDH, CMP, GFR ####[place] [address]#### PTH ####[place] [address] Hematocrit (Bld) [Volume fraction] 44.2 % Normal 42.0-52.0 [facility] ([place] Comment on above: Performed By: #### L IPID, A1C, CBC, ANEU, ADIFF, VIDH, CMP, GFR ####[place] [address]#### PTH ####[place] [address] Hgb 15.3 G/dL Normal 14.0-18.0 [facility] ([place] Comment on above: Performed By: #### L IPID, A1C, CBC, ANEU, ADIFF, VIDH, CMP, GFR ####[place] [address]#### PTH ####[place] [address] MCH (RBC) [Entitic mass] 32.7 pg High 27.0-31.2 [facility] ([place] Comment on above: Performed By: #### L IPID, A1C, CBC, ANEU, ADIFF, VIDH, CMP, GFR ####[place] [address]#### PTH ####[place] [address] MCHC 34.7 G/dL Normal 31.8-35.4 [facility] ([place] Comment on above: Performed By: #### L IPID, A1C, CBC, ANEU, ADIFF, VIDH, CMP, GFR ####[place] [address]#### PTH ####[place] [address] MCV (RBC) [Entitic vol] 94.4 fL High 80.0-94.0 [facility] ([place] Comment on above: Performed By: #### L IPID, A1C, CBC, ANEU, ADIFF, VIDH, CMP, GFR ####[place] [address]#### PTH ####[place] [address] Platelet 143 10 3/mcL Normal 130-400 [facility] ([place] Comment on above: Performed By: #### L IPID, A1C, CBC, ANEU, ADIFF, VIDH, CMP, GFR ####[place] [address]#### PTH ####[place] [address] Platelet mean volume (Bld) [Entitic vol] 8.3 fL Normal 7.4-10.4 [facility] ([place] Comment on above: Performed By: #### L IPID, A1C, CBC, ANEU, ADIFF, VIDH, CMP, GFR ####[place] [address]#### PTH ####[place] [address] RBC 4.69 10 6/mcL Normal 4.04-6.13 [facility] ([place] Comment on above: Performed By: #### L IPID, A1C, CBC, ANEU, ADIFF, VIDH, CMP, GFR ####[place] [address]#### PTH ####[place] [address] WBC 7.0 10 3/mcL Normal 4.6-10.8 [facility] ([place] Comment on above: Performed By: #### L IPID, A1C, CBC, ANEU, ADIFF, VIDH, CMP, GFR ####[place] [address]#### PTH ####[place] [address] CMPon 08-29-2023 Albumin Level 4.0 G/dL Normal 3.5-5.0 [facility] ([place] Comment on above: Performed By: #### L IPID, A1C, CBC, ANEU, ADIFF, VIDH, CMP, GFR ####[place] [address]#### PTH ####[place] [address] Albumin/Globulin [Mass ratio] 1.4 {ratio} Normal 1.1-2.5 [facility] ([place] Comment on above: Performed By: #### L IPID, A1C, CBC, ANEU, ADIFF, VIDH, CMP, GFR ####[place] [address]#### PTH ####[place] [address] ALP [Catalytic activity/Vol] 85 U/L Normal 40-135 [facility] ([place] Comment on above: Performed By: #### L IPID, A1C, CBC, ANEU, ADIFF, VIDH, CMP, GFR ####[place] [address]#### PTH ####[address] [address] ALT [Catalytic activity/Vol] 23 U/L Normal 16-63 [facility] ([place] Comment on above: Performed By: #### L IPID, A1C, CBC, ANEU, ADIFF, VIDH, CMP, GFR ####[place] [address]#### PTH ####[place] [address] AST [Catalytic activity/Vol] 20 U/L Normal 10-40 [facility] ([place] Comment on above: Performed By: #### L IPID, A1C, CBC, ANEU, ADIFF, VIDH, CMP, GFR ####[place] [address]#### PTH ####[place] [address] Bili Total 0.8 mg/dL Normal 0.2-1.0 [facility] ([place] Comment on above: Result Comment: Use of this assay is not recommended for patients undergoing treatment with eltrombopag due to the potential for falsely elevated results. Performed By: #### L IPID, A1C, CBC, ANEU, ADIFF, VIDH, CMP, GFR ####[place] [address]#### PTH ####[place] [address] BUN/Creatinine Ratio 7 ratio Normal 7-27 [facility] ([place] Comment on above: Performed By: #### L IPID, A1C, CBC, ANEU, ADIFF, VIDH, CMP, GFR ####[place] [address]#### PTH ####[place] [address] Calcium [Mass/Vol] 9.2 mg/dL Normal 8.4-10.2 [facility] ([place]) Comment on above: Performed By: #### L IPID, A1C, CBC, ANEU, ADIFF, VIDH, CMP, GFR ####[place] [address]#### PTH ####[address] [address] Chloride [Moles/Vol] 105 mmol/L Normal 98-107 [facility] ([place] Comment on above: Performed By: #### L IPID, A1C, CBC, ANEU, ADIFF, VIDH, CMP, GFR ####[place] [address]#### PTH ####[place] [address] CO2 [Moles/Vol] 29 mmol/L Normal 22-29 [facility] ([place] Comment on above: Performed By: #### L IPID, A1C, CBC, ANEU, ADIFF, VIDH, CMP, GFR ####[place] [address]#### PTH ####[place] [address] Creatinine [Mass/Vol] 1.66 mg/dL High 0.70-1.30 [facility] ([place]) Comment on above: Performed By: #### L IPID, A1C, CBC, ANEU, ADIFF, VIDH, CMP, GFR ####[place] [address]#### PTH ####[place] [address] Electrolyte Balance 9.0 mEq/L Normal 4.0-15.0 [facility] ([place]) Comment on above: Performed By: #### L IPID, A1C, CBC, ANEU, ADIFF, VIDH, CMP, GFR ####[place] [address]#### PTH ####[place] [address] Globulin 2.8 G/dL Normal [facility] ([place]) Comment on above: Performed By: #### L IPID, A1C, CBC, ANEU, ADIFF, VIDH, CMP, GFR ####[address] [address]#### PTH ####[address] [address] Glucose [Mass/Vol] 115 mg/dL High 70-105 [facility] ([place]) Comment on above: Performed By: #### L IPID, A1C, CBC, ANEU, ADIFF, VIDH, CMP, GFR ####[place] [address]#### PTH ####[address] [address] Potassium [Moles/Vol] 4.7 mmol/L Normal 3.5-5.1 [facility] ([place] Comment on above: Performed By: #### L IPID, A1C, CBC, ANEU, ADIFF, VIDH, CMP, GFR ####[place] [address]#### PTH ####[address] [address] Sodium [Moles/Vol] 143 mmol/L Normal 136-145 [facility] ([place]) Comment on above: Performed By: #### L IPID, A1C, CBC, ANEU, ADIFF, VIDH, CMP, GFR ####[place] [address]#### PTH ####[address] [address] Total Protein 6.8 G/dL Normal 6.4-8.2 [facility] ([place] Comment on above: Performed By: #### L IPID, A1C, CBC, ANEU, ADIFF, VIDH, CMP, GFR ####[place] [id number]#### PTH ####[address] [address] Urea nitrogen [Mass/Vol] 11 mg/dL Normal 7-18 [facility] ([place] Comment on above: Performed By: #### L IPID, A1C, CBC, ANEU, ADIFF, VIDH, CMP, GFR ####[address] [place], [place] [address]#### PTH ####[address] [place] [address] LABORATORYOrdered By: SYSTEM SYSTEM on 08-29-2023 25-hydroxyvitamin [...] 08-29-2023 Cholesterol [Mass/Vol] 141 mg/dL Normal 0-200 [facility] ([place]) Comment on above: Result Comment: Chol esterol Reference Interval: Less than 200 Desirable 200-239 Borderline high risk 240 and above High risk Performed By: #### L IPID, A1C, CBC, ANEU, ADIFF, VIDH, CMP, GFR ####[place] [address] [place], [place] [address]#### PTH ####[address] [address] Cholesterol in HDL [Mass/Vol] 36 mg/dL Low 40-60 [facility] ([place]) Comment on above: Performed By: #### L IPID, A1C, CBC, ANEU, ADIFF, VIDH, CMP, GFR ####[place] [address] [place], [place] [address]#### PTH ####[address] [address] Cholesterol in LDL [Mass/Vol] 71 mg/dL Normal 0-130 [facility] ([place]) Comment on above: Performed By: #### L IPID, A1C, CBC, ANEU, ADIFF, VIDH, CMP, GFR ####[place] [id number]#### PTH ####[address] [address] Triglyceride [Mass/Vol] 170 mg/dL High 0-150 [facility] ([place]) Comment on above: Result Comment: Trig lyceride Reference Interval: Less than 150 Normal 150-199 Borderline high risk 200-499 High risk 500 or higher Very high risk Performed By: #### L IPID, A1C, CBC, ANEU, ADIFF, VIDH, CMP, GFR ####[place] [id number]#### PTH ####[place] [id number] PTHon 08-29-2023 PTH, Intact 53.6 pg/mL Normal 18.5-88.0 [facility] ([place]) Comment on above: Performed By: #### 0 [id number] #### [place] [id number] VIDHon 08-29-2023 Vit. D 25-Hydroxy 36.2 ng/mL Normal [facility] ([place]) Comment on above: Result Comment: Inte rpretive Values Based on Total 25(OH) Vitamin D: Deficient <20 ng/mL Insufficient 20 - <30 ng/mL Sufficient 30-100 ng/mL Performed By: #### L IPID, A1C, CBC, ANEU, ADIFF, VIDH, CMP, GFR ####[place] [id number]#### PTH ####[place] [address] RENINDon 03-01-2023 Direct Renin 5.1 pg/mL Normal 3.6-81.6 [facility] ([place]) Comment on above: Result Comment: A ra [...] Age >=41 years: 2.5-45.1 pg/mL Performed By: [facility] [employer] [facility] [place] [address] [employer]on Gluing Machine Operator: Alden Barger III, M.D. CLIA#: [id number] Performed By: #### G FR, ADIFF, LIPID, CBC, RENIND, PSA, A1C, ANEU, CMP ####[place] [address]#### PTH ####[place] [address] Patient Upright or Supine Upright Normal [facility] ([place]) Comment on above: Result Comment: Perf ormed By: [facility] [employer] [facility] [place] [address] [employer] Machine Operator: Alden Barger III, M.D. CLIA#: [id number] Performed By: #### G FR, ADIFF, LIPID, CBC, RENIND, PSA, A1C, ANEU, CMP ####[place] [address]#### PTH ####[place] [address] .Auto Diffon 02-28-2023 Basophil, Absolute 0.0 10 3/mcL Normal 0.0-0.2 [facility] ([place] Comment on above: Performed By: #### G FR, ADIFF, LIPID, CBC, RENIND, PSA, A1C, ANEU, CMP #### [place] [address] #### PTH #### [place] [address] Basophils/100 WBC (Bld) 0.5 % Normal 0.0-2.5 [facility] ([place]) Comment on above: Performed By: #### G FR, ADIFF, LIPID, CBC, RENIND, PSA, A1C, ANEU, CMP #### [place] [address] #### PTH #### [place] [address] Eosinophil, Absolute 0.4 10 3/mcL Normal 0.0-0.4 [facility] ([place]) Comment on above: Performed By: #### G FR, ADIFF, LIPID, CBC, RENIND, PSA, A1C, ANEU, CMP #### [address] [address] #### PTH #### [address] [address] Eosinophils/100 WBC (Bld) 5.1 % Normal 0.0-7.0 [facility] ([place]) Comment on above: Performed By: #### G FR, ADIFF, LIPID, CBC, RENIND, PSA, A1C, ANEU, CMP #### [address] [address] #### PTH #### [address] [address] Lymphocyte, Absolute 3.6 10 3/mcL Normal 0.8-3.9 [facility] ([place]) Comment on above: Performed By: #### G FR, ADIFF, LIPID, CBC, RENIND, PSA, A1C, ANEU, CMP #### [address] [address] #### PTH #### [address] [address] Lymphocytes/100 WBC (Bld) 41.9 % Normal 10.0-50.0 [facility] ([place] Comment on above: Performed By: #### G FR, ADIFF, LIPID, CBC, RENIND, PSA, A1C, ANEU, CMP #### [address] [address] #### PTH #### [address] [address] Monocyte, Absolute 0.8 10 3/mcL Normal 0.2-1.0 [facility] ([place] Comment on above: Performed By: #### G FR, ADIFF, LIPID, CBC, RENIND, PSA, A1C, ANEU, CMP #### [address] [address] #### PTH #### [address] [address] Monocytes/100 WBC (Bld) 9.4 % Normal 1.7-13.0 [facility] ([place] Comment on above: Performed By: #### G FR, ADIFF, LIPID, CBC, RENIND, PSA, A1C, ANEU, CMP #### [address] [address] #### PTH #### [address] [address] Neutrophils/100 WBC (Bld) 43.1 % Normal 37.0-80.0 [facility] ([place] Comment on above: Performed By: #### G FR, ADIFF, LIPID, CBC, RENIND, PSA, A1C, ANEU, CMP #### [address] [address] #### PTH #### [address] [address] .GFRon 02-28-2023 GFR 52 ml/min/1.73sqm Normal [facility] ([place] Comment on above: Result Comment: GFR Population [...] CBC, RENIND, PSA, A1C, ANEU, CMP #### [address] [address] #### PTH #### [address] [address] GFR Non- 43 ml/min/1.73sqm Normal [facility] ([place] Comment on above: Result Comment: GFR Population [...] CBC, RENIND, PSA, A1C, ANEU, CMP #### [address] [address] #### PTH #### [address] [address] .NEUABSon 02-28-2023 Neutrophil, Absolute 3.7 10 3/mcL Normal 2.9-6.2 [facility] ([place] Comment on above: Performed By: #### G FR, ADIFF, LIPID, CBC, RENIND, PSA, A1C, ANEU, CMP #### [address] [address] #### PTH #### [address] [address] A1Con 02-28-2023 HbA1c (Bld) [Mass fraction] 5.6 % Normal 4.3-6.4 [facility] ([place] Comment on above: Performed By: #### G FR, ADIFF, LIPID, CBC, RENIND, PSA, A1C, ANEU, CMP ####[address] [address]#### PTH ####[address] [address] CBCon 02-28-2023 Erythrocyte distribution width (RBC) [Ratio] 13.6 % Normal 11.5-14.5 [facility] ([place] Comment on above: Performed By: #### G FR, ADIFF, LIPID, CBC, RENIND, PSA, A1C, ANEU, CMP #### [address] [address] #### PTH #### [place] [address] Hematocrit (Bld) [Volume fraction] 47.4 % Normal 42.0-52.0 [facility] ([place] Comment on above: Performed By: #### G FR, ADIFF, LIPID, CBC, RENIND, PSA, A1C, ANEU, CMP #### [place] [address] #### PTH #### [place] [address] Hgb 16.2 G/dL Normal 14.0-18.0 [facility] ([place]) Comment on above: Performed By: #### G FR, ADIFF, LIPID, CBC, RENIND, PSA, A1C, ANEU, CMP #### [place] [address] #### PTH #### [place] [address] MCH (RBC) [Entitic mass] 32.1 pg High 27.0-31.2 [facility] ([place]) Comment on above: Performed By: #### G FR, ADIFF, LIPID, CBC, RENIND, PSA, A1C, ANEU, CMP #### [address] [id number] #### PTH #### [place] [address] MCHC 34.2 G/dL Normal 31.8-35.4 [facility] ([place]) Comment on above: Performed By: #### G FR, ADIFF, LIPID, CBC, RENIND, PSA, A1C, ANEU, CMP #### [place] [address] #### PTH #### [place] [address] MCV (RBC) [Entitic vol] 93.8 fL Normal 80.0-94.0 [facility] ([place]) Comment on above: Performed By: #### G FR, ADIFF, LIPID, CBC, RENIND, PSA, A1C, ANEU, CMP #### [place] [address] #### PTH #### [place] [address] Platelet 151 10 3/mcL Normal 130-400 [facility] ([place]) Comment on above: Performed By: #### G FR, ADIFF, LIPID, CBC, RENIND, PSA, A1C, ANEU, CMP #### [place] [address] #### PTH #### [place] [address] Platelet mean volume (Bld) [Entitic vol] 8.4 fL Normal 7.4-10.4 [facility] ([place]) Comment on above: Performed By: #### G FR, ADIFF, LIPID, CBC, RENIND, PSA, A1C, ANEU, CMP #### [place] [address] #### PTH #### [place] [address] RBC 5.05 10 6/mcL Normal 4.04-6.13 [facility] ([place] Comment on above: Performed By: #### G FR, ADIFF, LIPID, CBC, RENIND, PSA, A1C, ANEU, CMP #### [place] [address] #### PTH #### [place] [address] WBC 8.7 10 3/mcL Normal 4.6-10.8 [facility] ([place] Comment on above: Performed By: #### G FR, ADIFF, LIPID, CBC, RENIND, PSA, A1C, ANEU, CMP #### [place] [address] #### PTH #### [place] [address] CMPon 02-28-2023 Albumin Level 4.2 G/dL Normal 3.5-5.0 [facility] ([place] Comment on above: Performed By: #### G FR, ADIFF, LIPID, CBC, RENIND, PSA, A1C, ANEU, CMP #### [address] [address] #### PTH #### [address] [address] Albumin/Globulin [Mass ratio] 1.4 {ratio} Normal 1.1-2.5 [facility] ([place] Comment on above: Performed By: #### G FR, ADIFF, LIPID, CBC, RENIND, PSA, A1C, ANEU, CMP #### [place] [address] #### PTH #### [address] [address] ALP [Catalytic activity/Vol] 80 U/L Normal 40-135 [facility] ([place] Comment on above: Performed By: #### G FR, ADIFF, LIPID, CBC, RENIND, PSA, A1C, ANEU, CMP #### [address] [address] #### PTH #### [address] [address] ALT [Catalytic activity/Vol] 20 U/L Normal 16-63 [facility] ([place] Comment on above: Performed By: #### G FR, ADIFF, LIPID, CBC, RENIND, PSA, A1C, ANEU, CMP #### [address] [address] #### PTH #### [address] [address] AST [Catalytic activity/Vol] 16 U/L Normal 10-40 [facility] ([place] Comment on above: Performed By: #### G FR, ADIFF, LIPID, CBC, RENIND, PSA, A1C, ANEU, CMP #### [address] [address] #### PTH #### [address] [address] Bili Total 0.9 mg/dL Normal 0.2-1.0 [facility] ([place] Comment on above: Result Comment: Use of this assay is not recommended for patients undergoing treatment with eltrombopag due to the potential for falsely elevated results. Performed By: #### G FR, ADIFF, LIPID, CBC, RENIND, PSA, A1C, ANEU, CMP #### [address] [address] #### PTH #### [address] [address] BUN/Creatinine Ratio 8 ratio Normal 7-27 [facility] ([place]) Comment on above: Performed By: #### G FR, ADIFF, LIPID, CBC, RENIND, PSA, A1C, ANEU, CMP #### [place] [address] #### PTH #### [address] [address] Calcium [Mass/Vol] 9.2 mg/dL Normal 8.4-10.2 [facility] ([place]) Comment on above: Performed By: #### G FR, ADIFF, LIPID, CBC, RENIND, PSA, A1C, ANEU, CMP #### [place] [address] #### PTH #### [address] [address] Chloride [Moles/Vol] 103 mmol/L Normal 98-107 [facility] ([place] Comment on above: Performed By: #### G FR, ADIFF, LIPID, CBC, RENIND, PSA, A1C, ANEU, CMP #### [address] [address] #### PTH #### [address] [address] CO2 [Moles/Vol] 28 mmol/L Normal 22-29 [facility] ([place] Comment on above: Performed By: #### G FR, ADIFF, LIPID, CBC, RENIND, PSA, A1C, ANEU, CMP #### [address] [address] #### PTH #### [address] [address] Creatinine [Mass/Vol] 1.66 mg/dL High 0.70-1.30 [facility] ([place] Comment on above: Performed By: #### G FR, ADIFF, LIPID, CBC, RENIND, PSA, A1C, ANEU, CMP #### [address] [address] #### PTH #### [address] [address] Electrolyte Balance 10.0 mEq/L Normal 4.0-15.0 [facility] ([place]) Comment on above: Performed By: #### G FR, ADIFF, LIPID, CBC, RENIND, PSA, A1C, ANEU, CMP #### [address] [address] #### PTH #### [address] [address] Globulin 3.0 G/dL Normal [facility] ([place] Comment on above: Performed By: #### G FR, ADIFF, LIPID, CBC, RENIND, PSA, A1C, ANEU, CMP #### [address] [address] #### PTH #### [place] [address] Glucose [Mass/Vol] 101 mg/dL Normal 70-105 [facility] ([place] Comment on above: Performed By: #### G FR, ADIFF, LIPID, CBC, RENIND, PSA, A1C, ANEU, CMP #### [address] [address] #### PTH #### [address] [address] Potassium [Moles/Vol] 4.6 mmol/L Normal 3.5-5.1 [facility] ([place] Comment on above: Performed By: #### G FR, ADIFF, LIPID, CBC, RENIND, PSA, A1C, ANEU, CMP #### [address] [address] #### PTH #### [place] [id number] Sodium [Moles/Vol] 141 mmol/L Normal 136-145 [facility] ([place] Comment on above: Performed By: #### G FR, ADIFF, LIPID, CBC, RENIND, PSA, A1C, ANEU, CMP #### [address] [address] #### PTH #### [address] [address] Total Protein 7.2 G/dL Normal 6.4-8.2 [facility] ([place] Comment on above: Performed By: #### G FR, ADIFF, LIPID, CBC, RENIND, PSA, A1C, ANEU, CMP #### [address] [address] #### PTH #### [address] [address] Urea nitrogen [Mass/Vol] 13 mg/dL Normal 7-18 [facility] ([place] Comment on above: Performed By: #### G FR, ADIFF, LIPID, CBC, RENIND, PSA, A1C, ANEU, CMP #### [address] [address] #### PTH #### [address] [address] LABORATORYOrdered By: SYSTEM SYSTEM on 02-28-2023 Albumin [...] Age >=41 years: 2.5-45.1 pg/mL Performed By: [facility] [place] [address] Carton Gluing Machine Operator: Alden Barger III, M.D. CLIA#: [id number] Patient Upright or Supine Upright Invalid Interpretation Code AO Sendouts SS Comment on above: Result Comment: Perf ormed By: [facility] [employer] [place] [address] [employer]on Gluing Machine Operator: Alden Barger III, M.D. CLIA#: [id number] LIPIDon 02-28-2023 Cholesterol [Mass/Vol] 178 mg/dL Normal 0-200 [facility] ([place]) Comment on above: Result Comment: Chol esterol Reference Interval: Less than 200 Desirable 200-239 Borderline high risk 240 and above High risk Performed By: #### G FR, ADIFF, LIPID, CBC, RENIND, PSA, A1C, ANEU, CMP #### [place] [address] [place], [place] [address] #### PTH #### [address] [address] Cholesterol in HDL [Mass/Vol] 39 mg/dL Low 40-60 [facility] ([place] Comment on above: Performed By: #### G FR, ADIFF, LIPID, CBC, RENIND, PSA, A1C, ANEU, CMP #### [address] [address] #### PTH #### [address] [address] Cholesterol in LDL [Mass/Vol] 88 mg/dL Normal 0-130 [facility] ([place] Comment on above: Performed By: #### G FR, ADIFF, LIPID, CBC, RENIND, PSA, A1C, ANEU, CMP #### [address] [address] #### PTH #### [address] [address] Triglyceride [Mass/Vol] 256 mg/dL High 0-150 [facility] ([place] Comment on above: Result Comment: Trig lyceride Reference Interval: Less than 150 Normal 150-199 Borderline high risk 200-499 High risk 500 or higher Very high risk Performed By: #### G FR, ADIFF, LIPID, CBC, RENIND, PSA, A1C, ANEU, CMP #### [address] [address] #### PTH #### [address] [address] MALBRon 02-28-2023 U Creatinine 174.4 mg/dL Normal 39.0-259.0 [facility] ([place] Comment on above: Performed By: #### 0 [id number] #### [address] [address] U Microalb 810 mcg/dL Normal [facility] ([place] Comment on above: Performed By: #### 0 [id number] #### [address] [address] U Ratio Alb/Cre 5 mcg/mg Normal 0-30 [facility] ([place] Comment on above: Performed By: #### 0 [address] #### [address] [address] PSAon 02-28-2023 Prostate Specific Antigen 0.78 ng/mL Normal 0.00-4.00 [facility] ([place] Comment on above: Performed By: #### G FR, ADIFF, LIPID, CBC, RENIND, PSA, A1C, ANEU, CMP #### Suman Rogers [address] [place], [place] [address] #### PTH #### [facility] [address] [place] [address] PTHon 02-28-2023 PTH, Intact 45.5 pg/mL Normal 18.5-88.0 [facility] ([place]) Comment on above: Performed By: #### G FR, ADIFF, LIPID, CBC, RENIND, PSA, A1C, ANEU, CMP ####[address] [place], [place] [address]#### PTH ####[facility] [place] [address] LABORATORYOrdered By: SYSTEM SYSTEM on 08-30-2022 25-hydroxyvitamin [...] >=41 years: 2.5-45.1 pg/mL Performed By: [facility] [employer] [place] [address] [employer]on Gluing Machine Operator: Alden Barger III, M.D. CLIA#: [id number] Patient Upright or Supine Upright Invalid Interpretation Code AO Sendouts SS Comment on above: Result Comment: Perf ormed By: [facility] [place] [address] [employer] Gluing Machine Operator: Alden Barger III, M.D. CLIA#: [id number] LABORATORYOrdered By: Jackie Trinh on 02-22-2022 Albumin [...] Age >=41 years: 2.5-45.1 pg/mL Performed By: [facility] [address] [employer] Gluing Machine Operator: Alden Barger III, M.D. CLIA#: [id number] Patient Upright or Supine Upright Invalid Interpretation Code AO Sendouts SS Comment on above: Result Comment: Perf ormed By: [facility] [place] [address] [employer] Machine Operator: Alden Barger III, M.D. CLIA#: [id number] LABORATORYOrdered By: SYSTEM SYSTEM on 02-22-2022 GFR [...] 10^3/mcL AO Auto Heme SS LABORATORYOrdered By: En[employer] Alert SYSTEM on 08-31-2021 Cobalamin (Vitamin B12) [Mass/Vol] [...] index (BMI) [Ratio] 34.59 kg/m2 Antoinette Go APRN.JEWEL CUPPING MACHINE OPERATOR Work Phone: [facility] 01-04-2024 09:33-0400 Body temperature 97.81 [degF] Antoinette Go APRN.JEWEL CUPPING MACHINE OPERATOR Work Phone: [facility] 01-04-2024 09:33-0400 Body weight 107.8 kg Antoinette Go APRN.JEWEL CUPPING MACHINE OPERATOR Work Phone: [facility] 01-04-2024 09:33-0400 Diastolic blood pressure 72 mm[Hg] Antoinette Go APRN.JEWEL CUPPING MACHINE OPERATOR Work Phone: [facility] 01-04-2024 09:33-0400 Heart rate 118 /min Antoinette Go APRN.JEWEL CUPPING MACHINE OPERATOR Work Phone: [facility] 01-04-2024 09:33-0400 Respiratory rate 18 /min Antoinette Go APRN.JEWEL CUPPING MACHINE OPERATOR Work Phone: [facility] 01-04-2024 09:33-0400 SaO2% (BldA) [Mass fraction] 96 % Antoinette Go BILL COLLECTOR.JEWEL CUPPING MACHINE OPERATOR Work Phone: [facility] 01-04-2024 09:33-0400 Systolic blood pressure 136 mm[Hg] Antoinette Go BILL COLLECTOR.JEWEL CUPPING MACHINE OPERATOR Work Phone: [facility] 08-11-2023 18:51-0400 Body temperature 98 [degF] [facility] 08-11-2023 18:51-0400 Diastolic blood pressure 78 mm[Hg] [facility] 08-11-2023 18:51-0400 Heart rate 81 /min [facility] 08-11-2023 18:51-0400 Respiratory rate 14 /min [facility] 08-11-2023 18:51-0400 SaO2% (BldA) [Mass fraction] 99 % [facility] 08-11-2023 18:51-0400 Systolic blood pressure 138 mm[Hg] [facility] 08-11-2023 15:27-0400 Body height 175.26 cm [facility] 08-11-2023 15:27-0400 Body mass index (BMI) [Ratio] 35.8 kg/m2 [facility] 08-11-2023 15:27-0400 Body weight 110 kg [facility] Encounters Encounter Date Encounter Type Care Provider Facility Start: 01-28-2025 End: 01-28-2025 Telephone encounter Jamie Mendes MD Work Phone: [facility] Start: 01-13-2025 End: 01-13-2025 Telephone encounter Jamie Mendes MD Work Phone: [facility] [place] Start: 01-11-2025 End: 01-11-2025 Telephone encounter Jamie Mendes MD Work Phone: [facility] [place] Start: 12-07-2024 End: 12-07-2024 Telephone encounter Jamie Mendes MD Work Phone: [facility] [place] Start: 10-27-2024 End: 10-27-2024 Telephone encounter Jamie Mendes MD Work Phone: [facility] [place] Start: 10-20-2024 End: 10-24-2024 ambulatory GURMEET FUNG BILL COLLECTOR - JEWEL CUPPING MACHINE OPERATOR Facility:[facility] Start: 10-20-2024 End: 10-24-2024 Outreach Lab GURMEET FUNG BILL COLLECTOR - JEWEL CUPPING MACHINE OPERATOR [facility] Start: 10-02-2024 End: 10-02-2024 ambulatory GURMEET FUNG BILL COLLECTOR - JEWEL CUPPING MACHINE OPERATOR Facility:[facility] Start: 10-02-2024 End: 10-02-2024 Patient encounter procedure GURMEET FUNG BILL COLLECTOR - JEWEL CUPPING MACHINE OPERATOR [facility] Start: 09-15-2024 End: 09-15-2024 ambulatory GURMEET FUNG BILL COLLECTOR - JEWEL CUPPING MACHINE OPERATOR Facility:[facility] Start: 09-15-2024 End: 09-15-2024 Patient encounter procedure GURMEET FUNG BILL COLLECTOR - JEWEL CUPPING MACHINE OPERATOR [facility] Start: 07-29-2024 End: 07-29-2024 Telephone encounter Jamie Mendes MD Work Phone: [facility] Start: 06-17-2024 ambulatory Danny Johann Facility:[facility] Start: 06-02-2024 End: 06-02-2024 Telephone encounter Jamie Mendes MD Work Phone: [facility] Comment on above: New Patient Start: 06-02-2024 End: 06-02-2024 ambulatory Danny Johann [place] Start: 06-02-2024 End: 06-02-2024 ambulatory Danny Johann Facility:[facility] Start: 05-26-2024 ambulatory Gurmeet Fung NP Facility:[facility] Start: 04-30-2024 End: 04-30-2024 ambulatory GURMEET FUNG BILL COLLECTOR - JEWEL CUPPING MACHINE OPERATOR Facility:[facility] Start: 04-30-2024 End: 04-30-2024 Patient encounter procedure GURMEET FUNG BILL COLLECTOR - JEWEL CUPPING MACHINE OPERATOR [facility] Start: 04-21-2024 End: 04-21-2024 ambulatory GURMEET FUNG BILL COLLECTOR - JEWEL CUPPING MACHINE OPERATOR Facility:[facility] Start: 04-21-2024 End: 04-21-2024 Patient encounter procedure GURMEET FUNG BILL COLLECTOR - JEWEL CUPPING MACHINE OPERATOR [facility] Start: 04-09-2024 End: 04-13-2024 ambulatory GURMEET FUNG BILL COLLECTOR - JEWEL CUPPING MACHINE OPERATOR Facility:[facility] Start: 04-09-2024 End: 04-13-2024 Outreach Lab GURMEET FUNG BILL COLLECTOR - JEWEL CUPPING MACHINE OPERATOR [facility] Start: 04-02-2024 ambulatory Nagapradee Nagajothi Fa cility:[facility] Start: 04-02-2024 End: 04-02-2024 Emergency department patient visit Jason Garcia Facility:[facility] Start: 04-02-2024 End: 04-02-2024 [facility] Start: 03-05-2024 End: 03-09-2024 ambulatory GURMEET FUNG BILL COLLECTOR - JEWEL CUPPING MACHINE OPERATOR Facility:[facility] Start: 03-05-2024 End: 03-09-2024 Outreach Lab GURMEET FUNG BILL COLLECTOR - JEWEL CUPPING MACHINE OPERATOR [facility] Start: 01-04-2024 End: 01-04-2024 ambulatory GURMEET FUNG Facility:[facility] Start: 01-04-2024 End: 01-04-2024 Patient encounter procedure Antoinette Go BILL COLLECTOR.JEWEL CUPPING MACHINE OPERATOR Work Phone: [facility] Comment on above: Pain, dental (Primar y Dx) Start: 01-01-2024 End: 01-01-2024 Emergency department patient visit Pipo Hidalgo Facility:[facility] Start: 12-16-2023 End: 12-16-2023 ambulatory CONNOR LADD BILL COLLECTOR-JEWEL CUPPING MACHINE OPERATOR Facility:[facility] Start: 12-16-2023 End: 12-16-2023 Patient encounter procedure CONNOR LADD BILL COLLECTOR-JEWEL CUPPING MACHINE OPERATOR [facility] Start: 09-23-2023 End: 09-23-2023 ambulatory GURMEET FUNG BILL COLLECTOR - JEWEL CUPPING MACHINE OPERATOR Facility:[facility] Start: 09-23-2023 End: 09-23-2023 Patient encounter procedure GURMEET FUNG BILL COLLECTOR - JEWEL CUPPING MACHINE OPERATOR [facility] Start: 09-03-2023 End: 09-03-2023 ambulatory GURMEET QUISPEPKINS BILL COLLECTOR - JEWEL CUPPING MACHINE OPERATOR Facility:[facility] Start: 09-03-2023 End: 09-03-2023 Patient encounter procedure GURMEET QUISPEPKINS BILL COLLECTOR - JEWEL CUPPING MACHINE OPERATOR [facility] Start: 08-29-2023 End: 08-29-2023 ambulatory GURMEET Bee KENTON BILL COLLECTOR - JEWEL CUPPING MACHINE OPERATOR Facility:[facility] Start: 08-29-2023 End: 08-29-2023 Patient encounter procedure GURMEET QUISPEPKINS BILL COLLECTOR - JEWEL CUPPING MACHINE OPERATOR [facility] Start: 08-11-2023 End: 08-11-2023 Emergency department patient visit [facility] Work Phone: Start: 02-28-2023 End: 03-04-2023 ambulatory GURMEET QUISPEPKINS BILL COLLECTOR - JEWEL CUPPING MACHINE OPERATOR Facility:[facility] Start: 02-28-2023 End: 03-04-2023 Outreach Lab GURMEET QUISPEPKINS BILL COLLECTOR - JEWEL CUPPING MACHINE OPERATOR [facility] Start: 08-30-2022 End: 09-03-2022 Outreach Lab GURMEET QUISPEPKINS BILL COLLECTOR - JEWEL CUPPING MACHINE OPERATOR [facility] Start: 02-22-2022 End: 02-26-2022 Outreach Lab GURMEET QUISPEPKINS BILL COLLECTOR - JEWEL CUPPING MACHINE OPERATOR [facility] Start: 11-14-2021 End: 11-14-2021 Patient encounter procedure GURMEET Bee KENTON BILL COLLECTOR - JEWEL CUPPING MACHINE OPERATOR [facility] Start: 08-31-2021 End: 09-04-2021 Outreach Lab GURMEET Mccray CNP [facility] Start: 02-24-2021 End: 02-28-2021 Outreach Lab GURMEET Mccray CNP [facility] Procedures Date Procedure Procedure Detail Performing Clinician Start: 09-03-2023 Echocardiography CONNOR Sanchez MEDICINE AIDE KEO Comment on above: Summary: 1. Left [...] Elbow region structu re (body structure) GURMEET UFNG BILL COLLECTOR - JEWEL CUPPING MACHINE OPERATOR Comment on above: surgery left Fracture of ankle (disorder) GURMEET FUNG BILL COLLECTOR - JEWEL CUPPING MACHINE OPERATOR Comment on above: Left, pins x3, plate Plan of Treatment Date Care Activity Detail Author Start: 12-08-2042 RSV Immunization for Adults (1 - 1-dose 75+ series) RSV Immunization for Adults (1 - 1-dose 75+ series) [facility] Start: 04-13-2025 End: 04-13-2025 Patient encounter procedure [facility] Start: 01-14-2025 End: 01-14-2025 Patient encounter procedure [facility] Start: 12-21-2024 COVID-19 Vaccine ( season) COVID-19 Vaccine () [facility] Start: 12-21-2024 Influenza vaccination Influenza Vaccine (#1) [facility] Start: 11-16-2024 End: 11-16-2024 Patient encounter procedure 11/16/2024 3:00 PM EDT Office Visit [facility] [address] [place] [place] [id number] Jamie Mendes MD [address] [place] [place] [address] [facility] Start: 11-16-2024 DTaP/Tdap/Td Vaccines (2 - Td or Tdap) DTaP/Tdap/Td Vaccines (2 - Td or Tdap) [facility] Start: 11-16-2024 Urine microalbumin profile DTaP,Tdap,Td Vaccine (2 - Td or Tdap) [facility] Start: 07-29-2024 End: 07-29-2024 Patient encounter procedure 07/29/2024 2:00 PM EDT Office Visit [facility] [address] [place] [place] [phone] Jamie Mendes MD [address] [place] [place], [place] [id number] [facility] [place] Start: 12-22-2023 Covid-19 Vaccine ( season) Covid-19 Vaccine ( season) [facility] Start: 12-22-2023 COVID-19 Vaccine ( season) COVID-19 Vaccine ( season) [facility] Start: 12-22-2023 Influenza vaccination Influenza Vaccine (#1) [facility] Start: 08-11-2023 [facility] Start: 12-08-2022 Prostate specific antigen measurement Prostate Cancer Screening Discussion [facility] Start: 07-13-2018 Diabetes Screening Diabetes Screening [facility] Start: 12-08-2017 Pneumococcal Vaccine: 50+ Years (2 of 2 - PCV) Pneumococcal Vaccine: 50+ Years (2 of 2 - PCV) [facility] Start: 12-08-2017 Shingrix Vaccine (1 of 2) Shingrix Vaccine (1 of 2) [facility] Start: 12-08-2017 Zoster Vaccines (1 of 2) Zoster Vaccines (1 of 2) [facility] Start: 12-08-2015 Pneumococcal vaccination Pneumococcal Vaccine (2 of 2 - PCV) [facility] Start: 12-08-2015 Pneumococcal Vaccine: 50+ Years (2 of 2 - PCV) Pneumococcal Vaccine: 50+ Years (2 of 2 - PCV) [facility] Start: 12-08-2012 Screening for malignant neoplasm of colon [facility] Start: 12-08-2002 Lipid panel Lipid Screening [facility] Start: 12-08-1986 Hepatitis B Vaccine (1 of 3 - 19+ 3-dose series) Hepatitis B Vaccine (1 of 3 - 19+ 3-dose series) [facility] Start: 12-08-1986 Hepatitis B Vaccines (1 of 3 - 19+ 3-dose series) Hepatitis B Vaccines (1 of 3 - 19+ 3-dose series) [facility] Start: 12-08-1985 Depression Screening Depression Screening [facility] Start: 12-08-1985 Hepatitis C screening Hepatitis C Screening [facility] Start: 12-08-1985 HIV screening HIV Screening [facility] Start: 1979 Depression Screening Depression Screening [facility] Start: 12-08-1968 MMR Vaccines (1 of 1 - Standard series) MMR Vaccines (1 of 1 - Standard series) [facility] Start: 1967 HIV screening HIV Screening [facility] Start: 1967 Lipid panel Lipid Panel [facility] Start: 1967 Screening for malignant neoplasm of colon [facility] Patient Education ED Hip Strain [facility] Work Phone: Patient referral [facility] Work Phone: Immunizations Immunization Date Immunization Notes Care Provider [facility] 04-02-2024 influenza, injectabl e, quadrivalent, contains preservative; Translations: [Fluarix PF Prefilled Syringe ] GURMEET FUNG BILL COLLECTOR - JEWEL CUPPING MACHINE OPERATOR [facility] 04-02-2024 influenza virus vacc ine, unspecified formulation Jamie Mendes MD Work Phone: [facility] 03-08-2023 influenza, injectabl e, quadrivalent, contains preservative; Translations: [Fluarix PF Quadrivalent ] GURMEET FUNG BILL COLLECTOR - JEWEL CUPPING MACHINE OPERATOR [facility] 03-08-2023 influenza virus vacc ine, unspecified formulation Antoinette Go BILL COLLECTOR.JEWEL CUPPING MACHINE OPERATOR Work Phone: [facility] 03-09-2022 influenza, injectabl e, quadrivalent, contains preservative; Translations: [Fluarix PF Quadrivalent ] GURMEET FUNG BILL COLLECTOR - JEWEL CUPPING MACHINE OPERATOR [facility] 03-09-2021 influenza, injectabl e, quadrivalent, contains preservative; Translations: [Fluarix PF Quadrivalent ] GURMEET FUNG BILL COLLECTOR - JEWEL CUPPING MACHINE OPERATOR [facility] 09-06-2020 SARS-CoV-2 (COVID-19 ) mRNA-[id number] vaccine GURMEET FUNG BILL COLLECTOR - JEWEL CUPPING MACHINE OPERATOR [facility] Comment on above: Result Comment: 2020: [id number] 08-09-2020 SARS-CoV-2 (COVID-19 ) mRNA-[id number] vaccine GURMEET FUNG BILL COLLECTOR - JEWEL CUPPING MACHINE OPERATOR [facility] Comment on above: Result Comment: 2020: [id number] 03-08-2020 influenza, injectabl e, quadrivalent, preservative free; Translations: [Fluarix PF Quadrivalent ] GURMEET FUNG BILL COLLECTOR - JEWEL CUPPING MACHINE OPERATOR [facility] 01-10-2018 influenza virus vacc ine, unspecified formulation GURMEET FUNG BILL COLLECTOR - JEWEL CUPPING MACHINE OPERATOR [facility] 12-21-2016 influenza virus vacc ine, unspecified formulation GURMEET FUNG BILL COLLECTOR - JEWEL CUPPING MACHINE OPERATOR [facility] 12-07-2014 pneumococcal polysaccharide vaccine, 23 valent GURMEET FUNG BILL COLLECTOR - JEWEL CUPPING MACHINE OPERATOR [facility] 11-16-2014 tetanus toxoid, redu augusta diphtheria toxoid, and acellular pertussis vaccine, adsorbed GURMEET FUNG BILL COLLECTOR - JEWEL CUPPING MACHINE OPERATOR [facility] Payers Date Payer Category Payer Medicaid [facility] [id number] 2024 Unknown [id number] 2024 Unknown [id number] 2024 Self-pay [id number] 2023 Unknown [id number] 2023 Private Health Insurance [id number] 2023 Medicare [id number]. [id number] 2023 Unknown [id number] 2013 Medicaid [id number]. [id number]. [id number] 2013 Unknown [id number] 1967 Unknown [id number] .840.1.570843.3.579.2. 1967 Unknown [id number] 2.840.1.900220.3.579.2. 1967 Unknown [id number] .840.1.298801.3.579.2. 1967 Unknown [id number] .840.1.305623.3.579.2. 1967 Unknown [id number] 2.840.1.242758.3.579.2. 1967 Unknown [id number] 2.840.1.574020.3.579.2. 627 1967 Unknown [id number] 2.16.840.1.637049.3.579.2. 627 1967 Unknown [id number] 2.16.840.1.236248.3.579.2. 627 1967 Unknown [id number] 2.16.840.1.042258.3.579.2. 627 1967 Unknown [id number] 2.16.840.1.477236.3.579.2. 627 1967 Unknown [id number] 2.16.840.1.116612.3.579.2. 627 1967 Unknown [id number] 2.16.840.1.910367.3.579.2. 627 Unknown [id number] 2.16.840.1.153575.3.579.2. 462 Unknown [id number] 2.16.840.1.294980.3.579.2. 462 Unknown [id number] 2.16.840.1.491275.3.579.2. 462 Unknown [id number] 2.16.840.1.562610.3.579.2. 462 Unknown [id number] 2.16.840.1.297012.3.579.2. 462 Unknown [id number] 2.16.840.1.988639.3.579.2. 462 Unknown [id number] 2.16.840.1.710783.3.579.2. 462 Unknown [id number] 2.16.840.1.712749.3.579.2. 462 Social History Date Type Detail Facility Start: 03-02-2019 End: 09-15-2024 Heavy tobacco smoker (finding) [facility] Start: 1965 Sex Assigned At Male A [facility] Start: 01-05-2022 Tobacco smoking status Light t obacco smoker (finding) [facility] Start: 08-11-2023 Tobacco smoking stat [email or web address]IS Unknown if ever smoked [facility] Start: 01-04-2024 Tobacco smoking stat [email or web address]IS Smokes tobacco daily [facility] History of tobacco use Cigarette Smoker [facility] Start: 01-04-2024 Cigarettes smoked current (pack per day) - Reported 0.5 [facility] Start: 01-04-2024 Tobacco use and exposure Smoke less tobacco non-user [facility] Start: 01-04-2024 Alcoholic beverage intake Current non-drinker of alcohol (finding) [facility] Start: 01-04-2024 Tobacco use panel [facility] Start: 01-11-2015 Alcohol Comment quit 04/2014 [facility] Start: 1965 Sex assigned at Not on file [facility] Sexual Orientation [facility] ospital [facility] Start: 03-16-2019 End: 11-20-2021 Sex Male (finding) [facility] Clinical Notes 09-03-2023 to 01-28-2025 Telephone Encounter - Kierra Bernal - 01/28/2025 3:35 PM EDTTelephone Encounter - Kierra Bernal - 01/28/2025 3:35 PM EDTTelephone Encounter - Kierra Bernal - 01/13/2025 8:51 AM EDT Note Date & Type Note Facility 01-28-2025 Telephone encounter Note Form atting of this note might be different from the original. Left VM to come at 2:30 for RN MEDICAL INPATIENT SERVICES appt, asked patient to call office if that will not work [facility] 01-28-2025 Miscellaneous Notes Formattin g of this note might be different from the original. Left VM to come at 2:30 for RN MEDICAL INPATIENT SERVICES appt, asked patient to call office if that will not work documented in this encounter [facility] 01-13-2025 Telephone encounter Note Form atting of this note might be different from the original. Spoke to patient and rescheduled RN MEDICAL INPATIENT SERVICES appt [facility] 01-13-2025 Miscellaneous Notes Formattin g of this note might be different from the original. Spoke to patient and rescheduled RN MEDICAL INPATIENT SERVICES appt documented in this encounter [facility] 01-11-2025 Telephone encounter Note Form atting of this note might be different from the original. Spoke to patient and asked him to come 1/2 early to appt patient agreed [facility] 01-11-2025 Miscellaneous Notes Formattin g of this note might be different from the original. Spoke to patient and asked him to come 1/2 early to appt patient agreed documented in this encounter [facility] 12-07-2024 Telephone encounter Note Form atting of this note might be different from the original. Spoke to patient and asked him to come sooner for appt. Patient agreed. [facility] 12-07-2024 Miscellaneous Notes Formattin g of this note might be different from the original. Spoke to patient and asked him to come sooner for appt. Patient agreed. documented in this encounter [facility] 10-27-2024 Telephone encounter Note Form atting of this note might be different from the original. Spoke to patient and rescheduled RN MEDICAL INPATIENT SERVICES appt due to provider schedule [facility] 10-27-2024 Miscellaneous Notes Formattin g of this note might be different from the original. Spoke to patient and rescheduled RN MEDICAL INPATIENT SERVICES appt due to provider schedule documented in this encounter [facility] 10-02-2024 Note Exam Date Time Procedure Performing Provider Status 10/02/24 2:[address] Sinus w/o Contrast JOSE ROJAS MD; Auth (Verified) [id number] ORIGINAL EXAMINATION: CT OF THE SINUS WITHOUT [...] 10/02/2024 3:54:34 PM Ordering Provider: GURMEET FUNG [facility]04-09-2025 Telephone encounter Note* Telephone Encounter - Kierra Bernal - 07/29/2024 8:15 AM EDT Spoke to patient and rescheduled appt due to being ill. [id number] Miscellaneous Notes* Telephone Encounter - Kierra Bernal - 07/29/2024 8:15 AM EDT Spoke to patient and rescheduled appt due to being ill. documented in this [facility]02-11-2025 Telephone encounter Note* Telephone Encounter - Kierra Bernal - 06/02/2024 4:56 PM EST Called patient made apt [id number] Miscellaneous Notes* Telephone Encounter - Kierra Bernal - 06/02/2024 4:56 PM EST Called patient made apt documented in this [facility]09-14-2024 Instructions* Patient Instructions* Antoinette oG APRN.CNP - 01/04/2024 9:46 AM EDT Amoxicillin 875 mg twice a day for 5 days Follow up with dentist next week Tylenol as needed for pain [facility] History of Present illness Narrative* Antoinette Go APRN.CNP - 01/04/2024 9:43 AM EDT Images from the original note were not included. Subjective The history is provided by the patient. No american sign language teacher was used. HPI Ar Sellers is a [...] have confirmed and edited as necessary, the [facility] Review of Systems Constitutional: Negative for [...] evaluation. Antoinette Go APRN.THERESA documented [facility]24 NoteHNO ID: [id number] Author: ANTOINETTE GO APRN.CNP Service: ? Author Type: Nurse Practitioner Type: Progress Notes Filed: 01/04/2024 09:47 Note Text: Subjective The history is provided by the patient. No american sign language teacher was used. HPI Ar Sellers is a [...] have confirmed and edited as necessary, the [facility] Review of Systems Constitutional: Negative for [...] to see patient labs on portal from [place], GFR in past 6 month was 43. [...] detail warranting prompt ER evaluation. Antoinette Go APRN.[facility] Note* Exam Date Time Procedure Performing Provider Status 09/03/23 2:06 PM Echocardiogram, Adult - CV Auth (Verified) [facility] Evaluation + Plan note Future Appointments Appointment Date:03/09/2021 01:40:00 PM Scheduled Provider:GURMEET FUNG APRN - JEWEL CUPPING MACHINE OPERATOR Location:[facility] Appointment Type:PC OV Follow Up Future Scheduled Tests Laboratory* Lipid Profile 05/05/21 [facility] Evaluation + Plan note Future Appointments Appointment Date:09/07/2021 02:00:00 PM Scheduled Provider:GURMEET FUNG APRN, CNP Location:[facility] Appointment Type:PC OV Follow Up Future Scheduled Tests Laboratory* Lipid Profile 05/05/21 [facility] Evaluation + Plan note Future Appointments Appointment [...] Level 03/10/22 * Complete Metabolic Panel 03/10/22 [facility] Evaluation + Plan note Future Appointments Appointment Date:03/09/2022 03:40:00 PM Scheduled Provider:GURMEET FUNG APRN, CNP Location:[facility] Appointment Type:PC OV Follow Up Future Scheduled Tests Laboratory* Lipid Profile 05/05/21 * Lipid Profile 03/10/22 * Lipid Profile 07/05/22 * Microalbumin Level Urine 03/10/22 * Microalbumin Level Urine 02/23/22 * Complete Metabolic Panel 03/10/22 [facility] Evaluation + Plan note Future Appointments Appointment Date:09/07/2022 02:00:00 PM Scheduled Provider:GURMEET FUNG APRN, CNP Location:[facility] Appointment Type:PC OV Follow Up Future Scheduled Tests Laboratory* Lipid Profile 03/10/22 * Lipid Profile 07/05/22 * Microalbumin Level Urine 09/06/22 * Microalbumin Level Urine 03/10/22 * Microalbumin Level Urine 02/23/22 * Complete Metabolic Panel 03/10/22 [facility] Evaluation + Plan note Future Appointments Appointment Date:03/08/2023 02:00:00 PM Scheduled Provider:GURMEET FUNG APRN - JEWEL CUPPING MACHINE OPERATOR Location:[facility] Appointment Type:PC OV Follow Up [facility] Evaluation + Plan note Future Appointments Appointment Date:09/03/2023 02:00:00 PM Scheduled Provider: Location:[facility] Appointment Type:Echo - Echocardiogram Adult Appointment Date:09/06/2023 02:00:00 PM Scheduled Provider:GURMEET FUNG APRN - JEWEL CUPPING MACHINE OPERATOR Location:[facility] Appointment Type:PC OV Follow Up Diagnostic Tests Pending * Renin Activity, Plasma 08/29/23 * A1C Hemoglobin 08/29/23 Future Scheduled Tests Laboratory* Renin, Plasma 09/06/23 * Albumin/Creatinine Ratio, Random Urine 09/06/23 Radiology* XR Spine Lumbar W/Obliques 4 Views 08/15/23 * XR Hip 2-3 Views Left 08/15/23 [facility] Evaluation + Plan note Future Appointments Appointment Date:09/06/2023 02:00:00 PM Scheduled Provider:GURMEET FUNG APRN - JEWEL CUPPING MACHINE OPERATOR Location:[facility] Appointment Type:PC OV Follow Up Future Scheduled Tests Laboratory* Renin, Plasma 09/06/23 * Albumin/Creatinine Ratio, Random Urine 09/06/23 [facility] Evaluation + Plan note Future Appointments Appointment Date:03/09/2024 02:00:00 PM Scheduled Provider:GURMEET FUNG APRN - JEWEL CUPPING MACHINE OPERATOR Location:[facility] Appointment Type:PC OV Follow Up Future Scheduled Tests Laboratory* Renin, Plasma 09/06/23 * Prostate Specific Antigen 03/08/24 * A1C Hemoglobin 03/08/24 * Complete Blood Count 03/08/24 * Lipid Profile 03/08/24 * Albumin/Creatinine Ratio, Random Urine 03/08/24 * Albumin/Creatinine Ratio, Random Urine 09/06/23 * PTH, Intact 03/08/24 * Vitamin D Level 03/08/24 * Complete Metabolic Panel 03/08/24 [facility] Evaluation + Plan note Future Appointments Appointment Date:04/24/2024 01:20:00 PM Scheduled Provider:GURMEET FUNG APRN JEWEL CUPPING MACHINE OPERATOR Location:[facility] Appointment Type:PC OV Follow Up Future Scheduled [...] Level 09/06/24 * Complete Metabolic Panel 09/06/24 [facility] Evaluation + Plan note Future Appointments Appointment Date:04/21/2024 02:00:00 PM Scheduled Provider: Location:[facility] Appointment Type:CT Venogram Abdomen and Pelvis Appointment Date:04/24/2024 01:20:00 PM Scheduled Provider:GURMEET FUNG APRN [facility] Location:[facility] Appointment Type:PC OV Follow Up Future [...] Radiology* CT Venogram Abdomen and Pelvis 04/21/24 [facility] Evaluation + Plan note Future Appointments Appointment Date:04/24/2024 01:20:00 PM Scheduled Provider:GURMEET FUNG APRN - JEWEL CUPPING MACHINE OPERATOR Location:[facility] Appointment Type:PC OV Follow Up Future [...] Level 09/06/24 * Complete Metabolic Panel 09/06/24 [facility] Evaluation + Plan note Future Appointments Appointment Date:07/31/2024 01:20:00 PM Scheduled Provider:GURMEET FUNG APRN - JEWEL CUPPING MACHINE OPERATOR Location:[facility] Appointment Type:PC OV Future Scheduled Tests [...] Level 09/06/24 * Complete Metabolic Panel 09/06/24 [facility] Evaluation + Plan note Future Appointments Appointment [...] D pteronyssinus D001 09/15/24 * IgE Elm Djiboutian T008 09/15/24 * IgE Plantain Wallisian W009 09/15/24 * IgE [place] G008 09/15/24 * IgE Dog Dander E005 09/15/24 * IgE Mouse Ur E072 09/15/24 * IgE Davey White T007 09/15/24 * IgE Ragweed Short W001 09/15/24 Future Scheduled Tests Laboratory* Throat Culture 09/16/24 * A1C Hemoglobin 10/30/24 * Complete Blood Count 10/30/24 * Lipid Profile 10/30/24 * Albumin/Creatinine Ratio, Random Urine 10/30/24 * PTH, Intact 10/30/24 * Vitamin D Level 10/30/24 * Complete Metabolic Panel 10/30/24 * [facility] Lab Send out (Blood Specimens) 09/15/24 Radiology* CT Sinus w/o Contrast 09/15/24 [facility] Evaluation + Plan note Future Appointments Appointment [...] MISC Lab Send out (Blood Specimens) 09/15/24 [facility] Evaluation + Plan note Future Appointments Appointment Date:10/26/2024 01:20:00 PM Scheduled Provider:GURMEET FUNG APRN, CNP Location:[facility] Appointment Type:PC OV Future Scheduled Tests Laboratory* Throat Culture 09/16/24 * Albumin/Creatinine Ratio, Random Urine 10/30/24 * [facility] Lab Send out (Blood Specimens) 09/15/24 [facility] Evaluation noteNo assessment information available [facility] Work Phone: Evaluation note* Diagnosis Pain, dental- Primary Unspecified disorder of the teeth and supporting structures documented in this encounter [facility] course Narrative No data available for this section [facility] Hospital Discharge instructions No data available for this section [facility] Hospital Discharge instructions Additional Instructions In addition to the prescribed anti-inflammatory and muscle relaxer you can also take Tylenol 1000 mg every 6 hours. Follow-up with your primary care doctor.[facility] Work Phone: Progress note No data available for this section [facility] Chief Complaint and Reason for Visit Chief Complaint hip pain Advance Directives No Advanced Directives Records Found Advance Directive Response Recorded Date/ Time Living Will No August 11, 2023 3:31pm Power of Hot Kettle Tender No Joana 21st, 20 24 3:31pm Summary Purpose Family History No Family History Records Found Additional Source Comments Care Team (unrecognized sect ion and content) Team Status: Active Member Role Status Dates Gurmeet Fung RN MEDICAL INPATIENT SERVICES, RN MEDICAL INPATIENT SERVICES-C Family Provider Activ e Gurmeet Fung RN MEDICAL INPATIENT SERVICES, RN MEDICAL INPATIENT SERVICES-C Primary Care Provider Active Team Status: Inactive Member Role Status Dates Gurmeet Fung RN MEDICAL INPATIENT SERVICES, RN MEDICAL INPATIENT SERVICES-C Primary Care Provider Active Dr. Martín Aguirre , DO Emergency Provider Active Finisher Operator Relationship Specialty Start Date End Date Gurmeet Fung, THERESA [address] [place] [address] PCP - General Family Medicine 07/04/15 Care Team (unrecognized sect ion and content) Care Team Personnel Name: GURMEET FUNG APRN - THERESA Position: P4 Advanced Practice Nurse Med Service: Employed Provider Member Role: Primary Care Physician Address: Address: [address] [place] [address] Care Team Related Persons Name: KEKE PATHAK Care Team Personnel Name: GURMEET FUNG APRN - JEWEL CUPPING MACHINE OPERATOR Position: P4 Advanced Practice Nurse Member Role: Primary Care Physician Address: Address: [address] [place] [address] Care Team Related Persons Name: KEKE PATHAK Goals (unrecognized section and content) Goals may be documented in a n alternate section (unrecognized sect ion and content) No Status Records FoundNo Status Records FoundNo Status Records FoundNo Status Records FoundNo Status Records Found INFORMATION SOURCE (unrecogn ized section and content) DATE CREATED AUTHOR 12/20/2023 [facility] ([place]) DATE CREATED AUTHOR AUTHOR'S ORGANIZ ATION 01/06/2024 [facility] DATE CREATED AUTHOR AUTHOR'S ORGANIZ ATION 09/19/2024 [facility] DATE CREATED AUTHOR AUTHOR'S ORGANIZ ATION 10/26/2024 [facility] DATE CREATED AUTHOR AUTHOR'S ORGANIZ ATION 01/31/2025 [facility] Source Comments (unrecognize d section and content) In the event this informatio n is protected by the Federal Confidentiality of Alcohol and Drug Abuse Patient Records regulations: The Federal rules restrict any use of the information to criminally investigate or prosecute any alcohol or drug abuse patient.[facility] Reason for Visit (unrecogniz ed section [...] BE BASED ON THE PRIMARY CLINICAL RECORDS. [facility]. provides no warranty or guarantee of the accuracy or completeness of information in this document.
[2025-03-18 17:43] LABS: Allen Test Positive; Base Excess 0 mmol/L (-2 to +2); PO2 49 mmHG (75-100); SITE L Radial; SO2 88 % (94-98)
[2025-03-18] MEDS: Azithromycin 500 MG in 0.9% Normal Saline (250mL Bag) 250 ML 250 MG IV (18:04)
[2025-03-18] MEDS: 0.9% Normal Saline (1000mL) 1,000 ML 100 ML IV (18:46)
[2025-03-18] MEDS: Metoprolol(XL)Succ 25 MG Tablet PO (21:01)
[2025-03-18] MEDS: Senna Tablet 1 TABLET PO (21:02)
[2025-03-18] MEDS: Nicotine (PBKC) 14 MG Patch TD (23:15)
[2025-03-18] MEDS: MELATONIN 3 MG TABLET PO (23:30)
[2025-03-18] MEDS: guaiFENesin 10 ML UDC (200MG/10ML) PO (23:31)
[2025-03-19] VITALS (10 sets, daily range): BP systolic 120–148; BP diastolic 66–82; PULSE 100–112; RESP 16–20; TEMP 36.1–36.8; O2SAT 90–94; BMI 34.4
[2025-03-19] MEDS: BENZOCAINE/MENTHOL 1 LOZENGE MUCOUS MEM ×2 (03:46→06:04)
[2025-03-19] MEDS: 0.9% Saline Lock 10 ML Syringe IV ×2 (05:51→14:24)
[2025-03-19] MEDS: guaiFENesin 10 ML UDC (200MG/10ML) PO (06:04)
[2025-03-19 06:26] LABS: Hematocrit 42.7 % (40-54); Hemoglobin 14.2 g/dL (13.0-16.5); Immature Granulocytes Count 0.100 X10^3/uL (0.0-0.0); Mean Corp Hgb Conc 33.3 g/dL (32-36); Mean Corpuscular Volume 96.0 fL (80-94); Mean Platelet Vol. 9.9 fl (6.2-12.0); NRBC Flagged by Analyzer 0 % (0-5); Platelet Count 166 K/mm3 (150-450); RBC Distribution Width CV 13.2 % (11.6-14.6); RBC Distribution Width SD 46.6 fl (35.1-43.9); Red Blood Count 4.45 M/mm3 (4.6-6.2); White Blood Count 17.3 K/mm3 (4.4-11.0)
[2025-03-19 07:32] LABS: AST(SGOT) 23 U/L (<=37); Alanine Aminotransfer ALT/SGPT 15 U/L (<=46); Albumin, Serum 3.9 g/dL (3.5-5.0); Alkaline Phosphatase 71 U/L (40-129); Anion Gap 17 (5-15); BUN 13 mg/dL (4-19); BUN/Creat Ratio 9.1 RATIO (10-20); Calcium,Total 9.2 mg/dL (7.6-11.0); Carbon Dioxide 17.1 mmol/L (21.0-32.0); Chloride 105 mmol/L (98-108); Estimated Creatinine Clearance 69.25 ml/min (50-250); Globulin 2.9 g/dL (2.2-4.2); Glucose 161 mg/dL (70-99); Potassium 4.5 mmol/L (3.3-5.1)
[2025-03-19] MEDS: Azithromycin 500 MG in 0.9% Normal Saline (250mL Bag) 250 ML 250 MG IV (08:58)
[2025-03-19] MEDS: Metoprolol(XL)Succ 25 MG Tablet PO ×2 (09:10→21:00)
[2025-03-19] MEDS: VILAZODONE HYDROCHLORIDE 10 MG TABLET 40 MG PO (09:11)
[2025-03-19] MEDS: Nicotine (PBKC) 14 MG Patch TD (09:12)
--- NOTE | 2025-03-19 10:40 | CASEMGMT ---
ERNESTO GOMEZ Assessment: Face to Face with pt for initial transition planning/care coordination assessment. ERNESTO GOMEZ introduced self and role at [facility], pt voices understanding and consents to assessment. Pt is A&O x4 and answers all questions appropriately at this time. Pt sitting up in bed in no distress. Care providers, pharmacy, and demographics verified/updated. Strata: 2 Admitting Dx: Multifocal Pneumonia, COPD exacerbation. PCP:[place] Specialists: Denies Preferred Pharmacy: [facility] Insurance: [facility] Prescription Benefit: yes LNOK: SisterKathya Living Arrangements: Pt lives alone in a 1 level home with 2 steps to enter in. ADLs: Pt reports I at baseline. Transportation: Pt drives self and denies concerns with transportation. DME: Has DME but does not use - walker, wheelchair, shower bench, grab bars HHC/SNF: Denies Hx of. Pt states no concerns with going home at time of dc. Pt states no further concerns/needs. CM to follow. Advised pt to ask CM if any further question/concerns/needs arise, voices understanding. Pt Goal: Home Plan: Home, follow for safe DC plan. Yanet OROZCO CM
--- NOTE | 2025-03-19 17:30 | PCM.PN.HOSP ---
Reason for Visit Chief Complaint: Dyspnea, Cough, URI sxs. Subjective Subjective still short of breath and coughing but somewhat better than yesterday, feels a little unwell and anxious in general Objective Data Objective Data Vital Signs: Vital Signs Temp Pulse Resp BP Pulse Ox O2 Del Method 97.6 F L 112 H 18 135/79 H 94 Room Air 03/19/25 15:10 03/19/25 15:10 03/19/25 15:10 03/19/25 15:10 03/19/25 15:10 03/19/25 15:10 Oxygen Delivery Method Room Air Weight: 105.7 kg Body Mass Index (BMI) 34.4 Intake & Output: Intake and Output for Last 24 Hours 03/17/25 03/18/25 03/19/25 23:59 23:59 23:59 Intake Total 800 / 800 1900 / 1900 Output Total 700 / 700 Balance 800 / 400 1200 / 1200 Lab / Micro Data 03/19/25 05:53 03/19/25 05:53 Labs: Laboratory Results - last 24 hr 03/19/25 05:53: WBC 17.3 H, RBC 4.45 L, Hgb 14.2, Hct 42.7, MCV 96.0 H, MCH 31.9, MCHC 33.3, RDW Std Deviation 46.6 H, RDW Coeff of Yari 13.2, Plt Count 166, MPV 9.9, Immature Gran % (Auto) 0.600, Neut % (Auto) 86.1 H, Lymph % (Auto) 11.4 L, [place] % (Auto) 1.8, Eos % (Auto) 0.0, Baso % (Auto) 0.1, Absolute Neuts (auto) 14.9 H, Absolute Lymphs (auto) 1.98, Nucleated RBC % 0, Sodium 139, Potassium 4.5, Chloride 105, Carbon Dioxide 17.1 L, Anion Gap 17 H, BUN 13, Creatinine 1.41 H, Estim Creat Clear Calc 69.25, Est GFR (MDRD) Non-Af 58 L, BUN/Creatinine Ratio 9.1 L, Glucose 161 H, Calcium 9.2, Total Bilirubin 0.66, AST 23, ALT 15, Alkaline Phosphatase 71, Total Protein 6.9, Albumin 3.9, Globulin 2.9, Albumin/Globulin Ratio 1.3 03/19/25 08:25: Lactic Acid 1.8 Micro: Microbiology 03/18/25 20:00 Sputum, Expectorated/Coughed Gram Stain - Final 03/18/25 19:50 Mucosa - Nasopharyngeal Respiratory Panel (PCR) - Final Parainfluenza 4 03/19/25 02:55 Urine, Clean Catch Legionella Antigen - Final 03/19/25 02:55 Urine, Clean Catch Streptococcus pneumoniae Antigen (M - Final 03/18/25 14:47 Mucosa - Nose SARS-CoV-2, Influenza & RSV (PCR) - Final ABG Data ABG results: ABG 03/18/25 17:40 Specimen Type ART Sample Site L Radial pH 7.50 H Bicarbonate Actual 22.9 Total CO2 24 Base Excess 0 O2 Saturation 88 L ABG pCO2 29.4 L ABG pO2 49 L Devon Test Positive O2 Delivery Device Room Air Vent Mode Not entered Physical Exam Narrative General: Alert, oriented, no apparent distress HEENT: Atraumatic, normocephalic Eyes: Anicteric, normal conjunctiva, extraocular movements grossly intact Neck: Supple Respiratory: Diffuse wheezes, slight increased respiratory effort Cardiovascular: Low-grade sinus tachycardia GI: Soft, nontender, nondistended Extremities: No edema Musculoskeletal: Moving all extremities Neuro: No overt focal neurological deficits Skin: No rashes appreciated Psych: Cooperative Assessment & Plan Assessment/Plan (1) Parainfluenza: (2) Multifocal pneumonia: PLAN: Plan #Acute exacerbation of COPD 2/2 Multifocal pneumonia and picornavirus -Imaging: Scattered bilat airspace opacities concerning for multifocal pneumonia most pronounced in R mid lung -Additionally +for picorna virus -DuoNebs changed to ipratropium nebs d/t persistent sinus tachycardia -Sputum culture produced, pending culture and sensitivity data -Urine antigens negative -Rocephin and azithromycin -Continue Methylpred #Depression/anxiety -Continue home medications #GERD -Continue PPI #Tobacco use -Advise cessation -Nicotine replacement available if desired #DVT ppx: Lovenox subcu Desire [place] MD Charges/Coding Visit Charges Inpatient E&M: 76523 Subs Hosp L2
[2025-03-19] MEDS: Ipratropium 0.5 MG/2.5 ML SOLUTION INHALATION (19:39)
[2025-03-19] MEDS: hydrOXYzine PAM 25 MG Capsule PO (20:56)
[2025-03-20] VITALS (8 sets, daily range): BP systolic 133–141; BP diastolic 91–93; PULSE 94–107; RESP 16–18; TEMP 36.5–36.8; O2SAT 87–94
[2025-03-20] MEDS: 0.9% Saline Lock 10 ML Syringe IV ×3 (05:06→14:58)
[2025-03-20 05:47] LABS: Hematocrit 44.0 % (40-54); Hemoglobin 14.6 g/dL (13.0-16.5); Immature Granulocytes Count 0.270 X10^3/uL (0.0-0.0); Mean Corp Hgb Conc 33.2 g/dL (32-36); Mean Corpuscular Volume 95.7 fL (80-94); Mean Platelet Vol. 10.1 fl (6.2-12.0); NRBC Flagged by Analyzer 0 % (0-5); POSITIVE DIFFERENTIAL YES; Platelet Count 204 K/mm3 (150-450); RBC Distribution Width CV 13.3 % (11.6-14.6); RBC Distribution Width SD 46.9 fl (35.1-43.9); Red Blood Count 4.60 M/mm3 (4.6-6.2); White Blood Count 25.3 K/mm3 (4.4-11.0)
[2025-03-20 05:57] LABS: Differential Indicated SCAN CRITERIA MET
[2025-03-20 06:18] LABS: Anion Gap 13 (5-15); BUN 21 mg/dL (4-19); BUN/Creat Ratio 15.9 RATIO (10-20); Calcium,Total 10.0 mg/dL (7.6-11.0); Carbon Dioxide 22.6 mmol/L (21.0-32.0); Chloride 107 mmol/L (98-108); Estimated Creatinine Clearance 72.33 ml/min (50-250); Glucose 140 mg/dL (70-99); Potassium 4.4 mmol/L (3.3-5.1)
[2025-03-20 06:43] LABS: Differential Comment SCANNED
[2025-03-20] MEDS: Ipratropium 0.5 MG/2.5 ML SOLUTION INHALATION ×3 (06:45→16:25)
[2025-03-20] MEDS: Azithromycin 500 MG in 0.9% Normal Saline (250mL Bag) 250 ML 250 MG IV (09:45)
[2025-03-20] MEDS: Nicotine (PBKC) 14 MG Patch TD (09:54)
[2025-03-20] MEDS: VILAZODONE HYDROCHLORIDE 10 MG TABLET 40 MG PO (09:56)
[2025-03-20] MEDS: Metoprolol(XL)Succ 25 MG Tablet PO (09:56)
--- NOTE | 2025-03-20 14:17 | CASEMGMT ---
RN CM updated that patient will need oxygen at discharge. RN CM in to discuss oxygen at discharge and reviewed DME agencies. Patient is agreeable to [employer] at discharge, denied further needs at discharge. Script received from hospitalist and green sheet placed in chart.
--- NOTE | 2025-03-20 15:25 | PCM.DC ---
Discharge Instructions DC O2, CPAP, BIPAP needs Home O2 Discharge instructions: Yes Type of respiratory needs?: Oxygen Oxygen frequency: With Ambulation Oxygen liters per minute during Ambulation: 2 Dressing / Incision Discharge Activity: - (Increase activity as tolerated) Follow Up Care Test Results: Test results from this visit will be discussed in further detail at your follow-up appointment, if applicable. Discharge Plan Admission Admit Date/Time: 03/18/25 17:05 Primary Reason for Your Visit: Shortness of breath Attending Provider: Desire Madera Primary Care Provider: Antonio Fung [employer] Consulting Providers: Susan Mckoy Instructions Patient Instructions: Using Oxygen Safely, Using Oxygen at Home, Using an Oxygen Tank at Home Additional Instructions / Restrictions: DISCHARGE INSTRUCTIONS PLEASE READ *Please take this with you to your next doctors appointment* - You will be discharged with 5 additional days of oral prednisone -You will be given an additional 4 days of antibiotics -You were diagnosed with parainfluenza virus and will need short-term oxygen with ambulation as your lungs heal, this will be set up by case management - Smoking cessation is advised, and is very important that you do not smoke with oxygen on or that you do not allow anyone else to smoke nearly with oxygen on -Please call your primary care provider's office upon discharge to schedule a hospital follow up within 1 week. -For any concerning signs or symptoms please call 911 or proceed to the nearest emergency department Discharge Orders/Prescriptions Prescriptions: New amoxicillin-pot clavulanate 875-125 mg tablet 1 tab PO BID 4 Days Qty: 8 0RF prednisone 20 mg tablet 40 mg PO DAILY 5 Days Qty: 10 0RF Continued nicotine 21-14-7 mg/24 hr patch, TD daily, sequential See Rx Instructions transdermal .COMPLEX Rx Instructions: apply 1-14 mg PATCH daily for 14 days, then 1-7mg PATCH daily for 14 days transdermal fluticasone propionate [Flovent Diskus] 100 mcg/actuation blister with device inhalation Patient Comments: [NO ORIGINAL SIG] buspirone 15 mg tablet 15 mg PO TID omeprazole 40 mg capsule,delayed release(DR/EC) 40 mg PO QDAY quetiapine 100 MG tablet 50 mg PO QHS simvastatin 20 MG tablet 40 mg PO QHS vilazodone [Viibryd] 40 MG tablet 40 mg PO DAILY metoprolol succinate 25 MG tablet extended release 24 hr 25 mg PO Q12H sennosides [senna] 8.6 mg tablet 8.6 mg PO QHS montelukast 10 mg tablet 10 mg PO DAILY famotidine 40 mg tablet 40 mg PO QHS fluticasone propion-salmeterol 250-50 mcg/dose blister with device 1 ea INHALATION BID albuterol sulfate 90 mcg/actuation HFA aerosol inhaler 2 puff INHALATION Q6H PRN (Reason: shortness of breath or wheezing) icosapent ethyl [Vascepa] 1 gram capsule 2 g PO BID Stiolto Respimat 2.5-2.5 mcg/actuation mist 2 puff INHALATION DAILY hydroxyzine HCl 25 MG tablet 25 - 50 mg PO Q6H PRN (Reason: Anxiety) Referrals / Follow Up: Antonio Fung [employer], [employer] [Primary Care Provider, Family Practice] - Within 1 Week Disposition Disposition (needs filled in before D/C Order can be placed): Home, Self Care
--- NOTE | 2025-03-20 15:37 | PCM.DC.SUM ---
Providers Date of Admission: 03/18/25 Date of Discharge: 03/20/25 Primary Care Physician: Antonio Fung, [employer] Reason For Visit: MULTIFOCAL PNA, COPD EXACERBATION Diagnosis Discharge Diagnosis (1) Parainfluenza: Status: Acute Code(s): B34.8 - Other viral infections of unspecified site (2) Multifocal pneumonia: Status: Acute Code(s): J18.8 - Other pneumonia, unspecified organism (3) Hypoxia: Status: Acute Code(s): R09.02 - Hypoxemia Plan # Hypoxemia secondary to acute exacerbation of COPD 2/2 Multifocal pneumonia and parainfluenza virus #Depression/anxiety #GERD #Tobacco use Medications at Discharge Home Medications quetiapine 100 mg tablet 50 mg PO QHS mood 03/26/13 simvastatin 20 mg tablet 40 mg PO QHS cholesterol 03/26/13 vilazodone 40 mg tablet (Viibryd) 40 mg PO DAILY depression 03/26/13 metoprolol succinate 25 mg tablet,extended release 24 hr 25 mg PO Q12H heart 10/18/17 albuterol sulfate 90 mcg/actuation aerosol inhaler 2 puff inhalation Q6H PRN shortness of breath or wheezing 01/01/24 famotidine 40 mg tablet 40 mg PO QHS gerd 01/01/24 fluticasone 250 mcg-salmeterol 50 mcg/dose blistr powdr for inhalation 1 ea inhalation BID copd 01/01/24 hydroxyzine HCl 25 mg tablet 25 - 50 mg PO Q6H PRN Anxiety 01/01/24 icosapent ethyl 1 gram capsule (Vascepa) 2 g PO BID fatty liver 01/01/24 montelukast 10 mg tablet 10 mg PO DAILY asthma. 01/01/24 sennosides 8.6 mg tablet (senna) 8.6 mg PO QHS laxative 01/01/24 tiotropium 2.5 mcg-olodaterol 2.5 mcg/actuation mist for inhalation (Stiolto Respimat) 2 puff inhalation DAILY asthma. 01/01/24 fluticasone propionate 100 mcg/actuation blister powder for inhalation (Flovent Diskus) inhalation 04/09/24 nicotine 21mg/24hr-14mg/24hr-7mg/24hr daily transderm patches,sequentl See Rx Instructions transdermal .COMPLEX nicotine 04/09/24 buspirone 15 mg tablet 15 mg PO TID mood 06/02/24 omeprazole 40 mg capsule,delayed release 40 mg PO QDAY acid reflux 11/09/24 amoxicillin 875 mg-potassium clavulanate 125 mg tablet 1 tab PO BID 4 days #8 tabs 03/20/25 prednisone 20 mg tablet 40 mg (2 x 20 mg) PO DAILY 5 days #10 tabs 03/20/25 Hospital Course Summary of Care Provided Minutes Spent on Discharge: 33 Hospital Course: 59-year-old male history of COPD, tobacco use, CKD stage III unclear subtype, anxiety and depression who presented [facility] ED 03/18/2025 with URI symptoms including dyspnea, productive cough, nasal congestion. Symptoms started a week prior but subsequently worsened with increased cough with sputum production. Patient with white count 18.5, respiratory rate 22 and heart rate 122. Chest x-ray concerning for multifocal pneumonia more pronounced in the right midlung. Hospitalist contacted for admission for COPD exacerbation given patient's respiratory distress. Patient started on antibiotics and full respiratory panel obtained which did show parainfluenza. Patient improved significantly with antibiotics, steroids, breathing treatments. He did have DuoNebs switched to just ipratropium due to sinus tachycardia and had continued improvement even with the change. Suspect that patient had parainfluenza and was developing a superimposed bacterial pneumonia given timeline. On day of discharge wheezing significantly improved, patient ambulated and needed 2 L of O2 on ambulation but much more comfortable and agreeable to home with prednisone, antibiotics, continue home inhalers. No new or acute complaints. Discharge instructions as follows: - You will be discharged with 5 additional days of oral prednisone -You will be given an additional 4 days of antibiotics -You were diagnosed with parainfluenza virus and will need short-term oxygen with ambulation as your lungs heal, this will be set up by case management - Smoking cessation is advised, and is very important that you do not smoke with oxygen on or that you do not allow anyone else to smoke nearly with oxygen on -Please call your primary care provider's office upon discharge to schedule a hospital follow up within 1 week. -For any concerning signs or symptoms please call 911 or proceed to the nearest emergency department Physical Exam Narrative General: Alert, oriented, no apparent distress HEENT: Atraumatic, normocephalic, poor dentition Eyes: Anicteric, normal conjunctiva, extraocular movements grossly intact Neck: Supple Respiratory: Respiratory status significantly improved, no wheezes now minimal, no increased respiratory effort at this time Cardiovascular: Occasional low-grade sinus tachycardia GI: Soft, nontender, nondistended Extremities: No edema Musculoskeletal: Moving all extremities Neuro: No overt focal neurological deficits Skin: No rashes appreciated Psych: Cooperative Weight / BMI Weight Weight: 105.7 kg Body Mass Index (BMI) 34.4 ABG / Lab / Microbiology Data 03/20/25 05:08 03/20/25 05:08 Laboratory: Laboratory Results - last 24 hr 03/20/25 05:08: WBC 25.3 H, RBC 4.60, Hgb 14.6, Hct 44.0, MCV 95.7 H, MCH 31.7, MCHC 33.2, RDW Std Deviation 46.9 H, RDW Coeff of Yari 13.3, Plt Count 204, MPV 10.1, Immature Gran % (Auto) 1.100 H, Neut % (Auto) 84.6 H, Lymph % (Auto) 9.6 L, [place] % (Auto) 4.5, Eos % (Auto) 0.0, Baso % (Auto) 0.2, Absolute Neuts (auto) 21.4 H, Absolute Lymphs (auto) 2.43, Nucleated RBC % 0, Differential Comment SCANNED, Sodium 142, Potassium 4.4, Chloride 107, Carbon Dioxide 22.6, Anion Gap 13, BUN 21 H, Creatinine 1.35 H, Estim Creat Clear Calc 72.33, Est GFR (MDRD) Non-Af 61, BUN/Creatinine Ratio 15.9, Glucose 140 H, Calcium 10.0 Microbiology: Microbiology 03/18/25 20:00 Sputum, Expectorated/Coughed Gram Stain - Final 03/18/25 20:00 Sputum, Expectorated/Coughed Respiratory Culture - Preliminary Appears to be normal respiratory ern[place]. Further studies to follow. 03/18/25 19:50 Mucosa - Nasopharyngeal Respiratory Panel (PCR) - Final Parainfluenza 4 03/19/25 02:55 Urine, Clean Catch Legionella Antigen - Final 03/19/25 02:55 Urine, Clean Catch Streptococcus pneumoniae Antigen (M - Final 03/18/25 14:47 Mucosa - Nose SARS-CoV-2, Influenza & RSV (PCR) - Final D/C Instructions Discharge Activity: - (increase activity as tolerated) DC O2, CPAP, BIPAP Needs Home O2 Discharge instructions: Yes Type of respiratory needs?: Oxygen Oxygen frequency: With Ambulation Oxygen liters per minute during Ambulation: 2 DC home with Oxygen: Yes Home O2 MD Review: I have reviewed the oxygen testing, and the patient qualifies for home oxygen equipment and portability. The patient is mobile in the home and the community. Meaningful Use Info Meaningful Use Meaningful Use Diagnoses (Choose all that apply): None applicable Discharge Plan Admission Admit Date/Time: 03/18/25 17:05 Primary Reason for Your Visit: Shortness of breath Attending Provider: Desire Madera Primary Care Provider: Antonio Fung [employer] Consulting Providers: Susan Mckoy Instructions Patient Instructions: Using Oxygen Safely, Using Oxygen at Home, Using an Oxygen Tank at Home Additional Instructions / Restrictions: DISCHARGE INSTRUCTIONS PLEASE READ *Please take this with you to your next doctors appointment* - You will be discharged with 5 additional days of oral prednisone -You will be given an additional 4 days of antibiotics -You were diagnosed with parainfluenza virus and will need short-term oxygen with ambulation as your lungs heal, this will be set up by case management - Smoking cessation is advised, and is very important that you do not smoke with oxygen on or that you do not allow anyone else to smoke nearly with oxygen on -Please call your primary care provider's office upon discharge to schedule a hospital follow up within 1 week. -For any concerning signs or symptoms please call 911 or proceed to the nearest emergency department Discharge Orders/Prescriptions Prescriptions: New amoxicillin-pot clavulanate 875-125 mg tablet 1 tab PO BID 4 Days Qty: 8 0RF prednisone 20 mg tablet 40 mg PO DAILY 5 Days Qty: 10 0RF Continued nicotine 21-14-7 mg/24 hr patch, TD daily, sequential See Rx Instructions transdermal .COMPLEX Rx Instructions: apply 1-14 mg PATCH daily for 14 days, then 1-7mg PATCH daily for 14 days transdermal fluticasone propionate [Flovent Diskus] 100 mcg/actuation blister with device inhalation Patient Comments: [NO ORIGINAL SIG] buspirone 15 mg tablet 15 mg PO TID omeprazole 40 mg capsule,delayed release(DR/EC) 40 mg PO QDAY quetiapine 100 MG tablet 50 mg PO QHS simvastatin 20 MG tablet 40 mg PO QHS vilazodone [Viibryd] 40 MG tablet 40 mg PO DAILY metoprolol succinate 25 MG tablet extended release 24 hr 25 mg PO Q12H sennosides [senna] 8.6 mg tablet 8.6 mg PO QHS montelukast 10 mg tablet 10 mg PO DAILY famotidine 40 mg tablet 40 mg PO QHS fluticasone propion-salmeterol 250-50 mcg/dose blister with device 1 ea INHALATION BID albuterol sulfate 90 mcg/actuation HFA aerosol inhaler 2 puff INHALATION Q6H PRN (Reason: shortness of breath or wheezing) icosapent ethyl [Vascepa] 1 gram capsule 2 g PO BID Stiolto Respimat 2.5-2.5 mcg/actuation mist 2 puff INHALATION DAILY hydroxyzine HCl 25 MG tablet 25 - 50 mg PO Q6H PRN (Reason: Anxiety) Referrals / Follow Up: Antonio Fung [employer], [employer] [Primary Care Provider, Family Practice] - Within 1 Week Disposition Disposition (needs filled in before D/C Order can be placed): Home, Self Care Charges/Coding Visit Charges Inpatient E&M: 54786 Disch Hosp >30min
--- NOTE | 2025-03-20 15:44 | NURSING ---
[facility] notified of need for home oxygen set up and prescription faxed to [facility].
== END 2025-03-20 17:09 | disposition home or self-care (01) | DRG 190 ==
LOC: ED 17:11 → PCU 17:23
PROVIDERS: Admitting Provider Family Medicine; Emergency Provider Surgery; PCP Nurse Practitioner Family; Visit Provider Internal Medicine
DX: J44.1 Chronic obstructive pulmonary disease with (acute) exacerbation (principal); J12.2 Parainfluenza virus pneumonia; J18.8 Other pneumonia, unspecified organism; N18.30 Chronic kidney disease, stage 3 unspecified; J44.0 Chronic obstructive pulmonary disease with (acute) lower respiratory infection; F32.A Depression, unspecified; I12.9 Hypertensive chronic kidney disease with stage 1 through stage 4 chronic kidney disease, or unspecified chronic kidney disease; I34.0 Nonrheumatic mitral (valve) insufficiency; E66.9 Obesity, unspecified; K21.9 Gastro-esophageal reflux disease without esophagitis; E78.5 Hyperlipidemia, unspecified; K59.09 Other constipation; F17.210 Nicotine dependence, cigarettes, uncomplicated; J30.9 Allergic rhinitis, unspecified; I35.1 Nonrheumatic aortic (valve) insufficiency; F41.1 Generalized anxiety disorder; R00.0 Tachycardia, unspecified; R09.02 Hypoxemia; Z79.899 Other long term (current) drug therapy; Z79.51 Long term (current) use of inhaled steroids; Z68.35 Body mass index [BMI] 35.0-35.9, adult
CPT/HCPCS: 36415; 36600; 71046; 80048; 80053; 82803; 83605; 85025; 87070; 87205; 87449; 87631; 87633; 94640; 94668; 97802; 99285; 99406; A4216